=== PATIENT | male | born 1960 | race Caucasian/White ===

== ENCOUNTER 2017-05-05 17:47 | Inpatient (IN) | payer OTHER, SELFPAY ==
[2017-05-05] VITALS (10 sets, daily range): BP systolic 127–165; BP diastolic 88–118; PULSE 77–90; RESP 13–18; TEMP 36.2–36.6; O2SAT 94–98; BMI 30.9; BMI 31.0; BMI 30.4
--- NOTE | 2017-05-05 17:53 | EKG12_ITS ---
Test Reason : CP Blood Pressure : / mmHG Vent. Rate : 092 BPM Atrial Rate : 092 BPM P-R Int : 128 ms QRS Dur : 098 ms QT Int : 368 ms P-R-T Axes : 017 060 054 degrees QTc Int : 455 ms Normal sinus rhythm Normal ECG Confirmed by VEGA HUMPHREY, KHANG ([id number]), offline editor LUCIANO GODINEZ ([id number]) on 05/10/2017 2:52:03 PM Referred By: ROXY/ISAIAS Confirmed By:KHANG FERRARI MD
--- NOTE | 2017-05-05 18:10 | RAD_ITS ---
STUDY: X-RAY CHEST REASON FOR EXAM: Male, 56 years old. Chest pain TECHNIQUE: A single frontal view of the chest was obtained. COMPARISON: September 01, 2016 FINDINGS: The lungs are adequately aerated. There are no focal airspace opacities. There is no demonstrated pleural abnormality. The cardiac silhouette is normal in size. The mediastinum and hilar regions are unremarkable. Normal visualized pulmonary arteries. Normal visualized aortic arch and descending thoracic aorta. There are diffuse degenerative changes of the visualized spine. The visualized ribs, clavicles, and shoulders are unremarkable. There is no demonstrated abnormality of the visualized upper abdomen. RAD/Chest 1 View (Portable) IMPRESSION: No acute cardiopulmonary abnormalities or changes. Electronically Signed: Cris Fitzpatrick MD at 18:49 EST Tel Direct: [phone], Service support ,
[2017-05-05 18:17] LABS: Absolute Lymphocyte Count 2.39 X10^3/ul (0.83-4.51); Absolute Neutrophil Count 5.6 X10^3/uL (2.0-7.7); Eosinophil# 0.53 X10^3/uL; Eosinophils% 5.6 % (0-5); Hematocrit 45.4 % (40-54); Hemoglobin 15.7 g/dl (13.0-16.5); Lymphocyte # 2.39 X10^3/ul (4.0); Lymphocyte % 25.1 % (19-41); Mean Corp Hgb Conc 34.6 g/gl (32-36); Mean Corpuscular Hgb 29.6 pg (27.0-32.0); Mean Corpuscular Volume 85.7 fL (80-94); Mean Platelet Vol. 9.7 fl (6.2-12.0); Monocyte# 0.92 X10^3/uL; Monocyte% 9.6 % (0-10); Neutrophil # 5.56 X10^3/uL (2.7-7.7); Neutrophil % 58.3 % (47-70); Platelet Count 341 K/mm3 (150-450); RBC Distribution Width CV 13.5 % (11.6-14.6); RBC Distribution Width SD 42.1 fl (35.1-43.9); White Blood Count 9.5 K/mm3 (4.4-11.0)
[2017-05-05 18:20] LABS: POSITIVE COUNT NO; POSITIVE DIFFERENTIAL NO; POSITIVE MORPHOLOGY NO
[2017-05-05] MEDS: Aspirin 81 MG TAB.CHEW 324 MG PO (18:36)
[2017-05-05] MEDS: Metoprolol Tartrate 5 MG/5 ML Vial IV (18:37)
[2017-05-05 18:38] LABS: Anion Gap 9 (5-15); BUN 20 mg/dL (7-18); BUN/Creat Ratio 21.7 RATIO (10-20); Calcium,Total 8.8 mg/dL (8.5-10.1); Chloride 103 mmol/L (98-107); Creatinine, Serum 0.92 mg/dL (0.70-1.30); EST Glomerular Filtration Rate 90 mL/min (>60); Est Glom Filt Rate - Afr Amer 109 mL/min (>60); Estimated Creatinine Clearance 87.77 ml/min; Glucose 126 mg/dL (74-106); Potassium 3.9 mmol/L (3.5-5.1); Sodium Level 138 mmol/L (136-145)
[2017-05-05 19:03] LABS: D-Dimer Quantitative (DVT/PE) < 0.27 FEU/ug/m (0.27-0.49)
--- NOTE | 2017-05-05 19:36 | ED.VISSUMM ---
- ER Visit Summary Date of Service: 05/05/17 Chief Complaint: Chest pain History of Present Illness: The patient is a 56 M who presents with chest pain. Patient states that yesterday he was driving back from [place] and had a heaviness sensations just to the left of mid sternum. He denies any other symptoms. Eventually went away. When he woke today he felt very fatigued. Around 230 this afternoon he was at his desk the pain returned. It was made worse when he exerted himself by walking from urgent care to the car and from car into the emergency room. He noted some pain in the left arm earlier today he denies any diaphoresis shortness of breath cough palpitations any leg swelling. He denies any other PE risk factors other than the recent travel. History of anxiety seasonal allergies and asthma. He is adopted and does not know his family history. He is not a tobacco user. No prior cardiac evaluation. Physical Examination: Afebrile vital signs are stable Gen: Well-nourished well-developed obese Head: Normocephalic atraumatic Eyes: Perrl EOMI ENT: TMs clear no rhinorrhea moist mucous membranes Neck: Supple no lymphadenopathy no JVD nontender CVS: Regular rate rhythm no murmurs normal S1-S2 Respiratory: No distress clear to auscultation bilaterally chest nontender Abdomen: Soft nontender nondistended normal bowel sounds no masses Back: Nontender Extremity: Nontender no edema Skin: Normal color no rash Neuro: alert orientated ?3 CN II-XII intact normal strength sensation reflexes gait cerebellar Psych: Normal affect normal mood Test Results: EKG shows a normal sinus rhythm at a rate of 92 without ectopy. This appears unchanged from June 16, 2010. Chest x-ray shows no acute findings. CBC chemistries showed a glucose of 126. Troponin 0 0.02. D-dimer less than 0.27. Emergency Department Course and Treatment: She received a dose of aspirin as well as IV metoprolol. Heart rate and blood pressure improved. His CB score is 1. His heart score is 3. Plan will be observational stay for chest pain. Impression: 1. Chest pain This note was generated with [employer] dictation software. It may contain incorrect words, spelling, and punctuation that were not noted in review of the chart prior to signing ED Disposition - Plan for ED Patient: Chief Complaint: Chest Pain Referrals: Torsten Hyman MD [Primary Care Provider] -
--- NOTE | 2017-05-05 19:39 | ED.DCSUM_ITS ---
- ER Visit Summary Date of Service: 05/05/17 Chief Complaint: Chest pain History of Present Illness: The patient is a 56 M who presents with chest pain. Patient states that yesterday he was driving back from [place] and had a heaviness sensations just to the left of mid sternum. He denies any other symptoms. Eventually went away. When he woke today he felt very fatigued. Around 230 this afternoon he was at his desk the pain returned. It was made worse when he exerted himself by walking from urgent care to the car and from car into the emergency room. He noted some pain in the left arm earlier today he denies any diaphoresis shortness of breath cough palpitations any leg swelling. He denies any other PE risk factors other than the recent travel. History of anxiety seasonal allergies and asthma. He is adopted and does not know his family history. He is not a tobacco user. No prior cardiac evaluation. Physical Examination: Afebrile vital signs are stable Gen: Well-nourished well-developed obese Head: Normocephalic atraumatic Eyes: Perrl EOMI ENT: TMs clear no rhinorrhea moist mucous membranes Neck: Supple no lymphadenopathy no JVD nontender CVS: Regular rate rhythm no murmurs normal S1-S2 Respiratory: No distress clear to auscultation bilaterally chest nontender Abdomen: Soft nontender nondistended normal bowel sounds no masses Back: Nontender Extremity: Nontender no edema Skin: Normal color no rash Neuro: alert orientated ?3 CN II-XII intact normal strength sensation reflexes gait cerebellar Psych: Normal affect normal mood Test Results: EKG shows a normal sinus rhythm at a rate of 92 without ectopy. This appears unchanged from June 16, 2010. Chest x-ray shows no acute findings. CBC chemistries showed a glucose of 126. Troponin 0 0.02. D-dimer less than 0.27. Emergency Department Course and Treatment: She received a dose of aspirin as well as IV metoprolol. Heart rate and blood pressure improved. His CB score is 1. His heart score is 3. Plan will be observational stay for chest pain. Impression: 1. Chest pain This note was generated with [employer] dictation software. It may contain incorrect words, spelling, and punctuation that were not noted in review of the chart prior to signing ED Disposition - Plan for ED Patient: Chief Complaint: Chest Pain Referrals: Torsten Hyman MD [Primary Care Provider] -
--- NOTE | 2017-05-05 20:12 | PCM.HP.STD ---
Problem List (1) Atypical chest pain Status: Acute (2) Mild intermittent asthma Status: Chronic (3) Rheumatoid arthritis Status: Chronic (4) Osteoarthritis Status: Chronic History of Present Illness Date of Admission: 05/05/17 Chief Complaint: Chest pain intermittent for last 2 days The patient is a 56 year old M with history of asthma on Pulmicort/albuterol inhaler and rheumatoid arthritis came to ER for chest pain. Yesterday, chest pain started while he was driving and he thought acid reflux but today he had more stronger chest pain on left side with radiation to left arm and numbness while he was laying on the bed too and that made him worrisome and brought to ER. Further described chest pain as intense, got worse with walking about 200 yards, mild dizziness but no change in breathing/sweating or syncope. He had similar chest pain in 2006 for which he saw Dr. braswell and had a stress test done and was told it is normal and was put on Lipitor at that time In ER, EKG is normal sinus rhythm. [] Initial blood work is within normal limits. Glucose 126 Past Medical History Past Medical History (Chronic Problems): Chronic Problems Mild intermittent asthma (Chronic) Rheumatoid arthritis (Chronic) Osteoarthritis (Chronic) Biliary dyskinesia (Chronic) Allergies Penicillins Allergy (Verified 05/05/17 17:48) Anaphylaxis Home Medications: Ambulatory Orders Medication Instructions Recorded Paroxetine HCl [Paxil] 40 mg PO DAILY 10/07/14 Albuterol IH (ProAir) [Proair Hfa] 2 puff INHALATION Q4H PRN PRN 05/05/17 Budesonide Inhaler 180 mcg 1 - 2 puff INHALATION DAILY 05/05/17 [Pulmicort Inhaler 180 mcg] Paroxetine HCl [Paxil] 20 mg PO QHS 05/05/17 Salmeterol [Serevent Diskus] 1 puff INHALATION DAILY 05/05/17 Sulindac [Sulindac] 200 mg PO BID 05/05/17 Surgical History: appendectomy, arthroscopy, knee Smoking Status: Never smoker - *Family History Paternal History Items: Unknown - As the patient is adopted. Review of Systems Constitutional: Denies: Chills, Fever, Weight Change HEENT: Denies: Head Aches, Sinus Congestion, Sinus Drainage Cardiovascular: Denies: Chest Pain, Palpitations Respiratory: Denies: Cough, Shortness of breath at rest, Sputum production Gastrointestinal: Denies: Abdominal Pain, Nausea, Vomiting Genitourinary: Denies: Dysuria Musculoskeletal: Reports: - - Had fusion surgery of toes for rheumatoid arthritis. And also to use a surgery of lumbar spine. Denies: Joint Pain, Joint Tenderness Skin: Denies: Rash, Wounds Neurological: Denies: Focal weakness, Numbness, Tingling Psychiatric: Denies: Anxiety, Depression, Homicidal Ideations, Suicidal Ideations Hematologic/ Lymphatic: Denies: Easy Bruising, Easy Bleeding VTE Information - Inpt Only VTE Present on Admission: Yes VTE Mechan Device Prophylaxis: SCD's VTE Pharm Prophylaxis ordered?: No Patient Problems: Active and Suspected Problems Atypical chest pain (Acute) - Physical Exam General: Alert, Oriented x3, Cooperative HEENT: Atraumatic, PERRLA, EOMI, Normocephalic Neck: Supple, No JVD, Negative Carotid Bruits Lungs: Clear to auscultation, Normal air movement, No rhonchi, No wheeze, No rales Cardiovascular: Regular rate, Regular Rhythm, Normal S1, Normal S2, No murmurs Abdomen: Bowel Sounds Present, Soft, Non Tender, Non-Distended Extremities: No edema, Capillary Refill Less than 3 Seconds Skin: No rashes, No breakdown Musculoskeletal: No Tenderness to Palpation of Joints or Extremities, Arthritic Changes Neurological: Cranial nerves II-XII grossly intact Psych/Mental Status: Normal Affect, Appropriate Vital Signs Temp Pulse Resp BP Pulse Ox 97.1 F L 80 13 144/96 H 96 05/05/17 19:34 05/05/17 19:34 05/05/17 19:34 05/05/17 19:34 05/05/17 19:34 Assessment/Plan Active and Suspected Problems Atypical chest pain (Acute) The patient is a 56 year old M with history of asthma on Pulmicort/albuterol inhaler and rheumatoid arthritis came to ER for chest pain. Yesterday, chest pain started while he was driving and he thought acid reflux but today he had more stronger chest pain on left side with radiation to left arm and numbness while he was laying on the bed too and that made him worrisome and brought to ER. Further described chest pain as intense, got worse with walking about 200 yards, mild dizziness but no change in breathing/sweating or syncope. He had similar chest pain in 2006 for which he saw Dr. braswell and had a stress test done and was told it is normal and was put on Lipitor at that time In ER, EKG is normal sinus rhythm. [] Initial blood work is within normal limits. Glucose 126. 1. Atypical chest pain, angina in quality: The patient is being admitted on the PCU. On ACS protocol with serial cardiac enzymes and if negative treadmill nuclear stress test tomorrow morning. Currently, he is chest pain-free. Fasting profile tomorrow a.m. 2. Mild intermittent asthma: Stable. Continue home Salmetrol and Pulmicort inhaler. 3. Chronic rheumatoid and osteoarthritis: Continues sulindac 4. DVT prophylaxis, moderate risk on Lovenox 40 mils subcu daily and bilateral SCDs. Code Visit Inpatient E&M: 74256 Init Hosp L3 OBSV E&M: 96518 Initial observation care L3
[2017-05-05] MEDS: Atorvastatin Calcium 40 MG Tablet PO (22:36)
[2017-05-05] MEDS: Enoxaparin 40 MG/0.4 ML Syringe SC (22:36)
[2017-05-05] MEDS: Clopidogrel Bisulfate 75 MG Tablet PO (23:44)
[2017-05-05] MEDS: Nitroglycerin Oint 1 INCH PACKET TRANSDERM. (23:45)
[2017-05-05] MEDS: Metoprolol Tartrate 25 MG Tablet 12.5 MG PO (23:47)
[2017-05-06] VITALS (31 sets, daily range): BP systolic 106–143; BP diastolic 62–93; PULSE 64–86; RESP 10–22; TEMP 36–36.9; O2SAT 93–98; BMI 30.5
[2017-05-06 02:58] LABS: Absolute Lymphocyte Count 2.66 X10^3/ul (0.83-4.51); Absolute Neutrophil Count 5.6 X10^3/uL (2.0-7.7); Eosinophil# 0.56 X10^3/uL; Eosinophils% 5.6 % (0-5); Hemoglobin 14.4 g/dl (13.0-16.5); Lymphocyte # 2.66 X10^3/ul (4.0); Lymphocyte % 26.7 % (19-41); Mean Corp Hgb Conc 34.3 g/gl (32-36); Mean Corpuscular Hgb 29.8 pg (27.0-32.0); Mean Corpuscular Volume 86.8 fL (80-94); Mean Platelet Vol. 9.8 fl (6.2-12.0); Monocyte# 0.99 X10^3/uL; Monocyte% 9.9 % (0-10); Neutrophil # 5.59 X10^3/uL (2.7-7.7); Neutrophil % 56.2 % (47-70); Platelet Count 292 K/mm3 (150-450); RBC Distribution Width CV 13.4 % (11.6-14.6); RBC Distribution Width SD 41.6 fl (35.1-43.9); Red Blood Count 4.84 M/mm3 (4.6-6.2)
[2017-05-06 03:02] LABS: Partial Thromboplast Time 31.2 Seconds (24.1-36.2); Prothrombin Time (Protime)PT. 13.6 SECONDS (11.7-14.9)
[2017-05-06 03:14] LABS: POSITIVE COUNT NO; POSITIVE DIFFERENTIAL NO; POSITIVE MORPHOLOGY NO
[2017-05-06 03:33] LABS: Anion Gap 9 (5-15); BUN 26 mg/dL (7-18); BUN/Creat Ratio 28.7 RATIO (10-20); Calcium,Total 8.3 mg/dL (8.5-10.1); Chloride 106 mmol/L (98-107); Cholesterol 172 mg/dL (200); Creatinine, Serum 0.91 mg/dL (0.70-1.30); EST Glomerular Filtration Rate 92 mL/min (>60); Est Glom Filt Rate - Afr Amer 111 mL/min (>60); Estimated Creatinine Clearance 88.74 ml/min; Glucose 114 mg/dL (74-106); High Density Lipoprotein 32 mg/dL; Potassium 3.8 mmol/L (3.5-5.1); Sodium Level 138 mmol/L (136-145); Thyroid Stim Hormone (TSH) 2.43 uIU/mL (0.358-3.74); Triglycerides 281 mg/dL; Very Low Density Lipoprotein 56 mg/dL (5-40)
[2017-05-06] MEDS: HEPARIN/D5w 25,000 UNITS 25,000 UNITS/250 ML IV.SOLN. 12 UNITS IV (04:14)
[2017-05-06] MEDS: Clopidogrel Bisulfate 75 MG Tablet 225 MG PO (04:16)
--- NOTE | 2017-05-06 05:55 | EKG12_ITS ---
Test Reason : CP Blood Pressure : / mmHG Vent. Rate : 074 BPM Atrial Rate : 074 BPM P-R Int : 154 ms QRS Dur : 098 ms QT Int : 396 ms P-R-T Axes : 038 056 044 degrees QTc Int : 439 ms Normal sinus rhythm Normal ECG When compared with ECG of 16-JUN-2010 20:30, T wave inversion no longer evident in Inferior leads Confirmed by VEGA HUMPHREY, KHANG ([id number]), news copy editor LUCIANO GODINEZ ([id number]) on 05/11/2017 1:52:31 PM Referred By: DANIELLE Confirmed By:KHANG FERRARI MD
[2017-05-06] MEDS: Nitroglycerin Oint 1 INCH PACKET TRANSDERM. ×2 (06:06→21:44)
[2017-05-06] MEDS: Albuterol 2.5 MG/3 ML VIAL.NEB. INHALATION ×2 (07:13→18:43)
[2017-05-06] MEDS: Budesonide Respules 0.5 MG/2 ML AMPUL.NEB. INHALATION ×2 (07:13→18:43)
--- NOTE | 2017-05-06 08:30 | CON.PCM_ITS ---
Problem List (1) NSTEMI (non-ST elevated myocardial infarction) Status: Acute Reason for Consult Date of Consultation: 05/06/17 History of Present Illness: The patient is a 56 year old M with past medical history significant for rheumatoid arthritis and mild asthma. He presented to the emergency room with complaints of anterior chest discomfort that started yesterday. According to him, there is radiation to the left side of the neck and left arm. No associated shortness of breath. Discomfort is exaggerated with exertion. Improved with rest. His first troponin was negative but subsequent troponins have been elevated ruling him in for non-ST elevation myocardial infarction. Per patient, he can recall symptoms like these few weeks ago when he climbed 3 flights of stairs at a hotel. Those symptoms were relieved with rest and did not recur until yesterday started having them at rest as well. [] Past Medical History Allergies/Adverse Reactions: Allergies Penicillins Allergy (Verified 05/05/17 17:48) Anaphylaxis Home Medications: Ambulatory Orders Medication Instructions Recorded Paroxetine HCl [Paxil] 40 mg PO DAILY 10/07/14 Albuterol IH (ProAir) [Proair Hfa] 2 puff INHALATION Q4H PRN PRN 05/05/17 Budesonide Inhaler 180 mcg 1 - 2 puff INHALATION DAILY 05/05/17 [Pulmicort Inhaler 180 mcg] Paroxetine HCl [Paxil] 20 mg PO QHS 05/05/17 Salmeterol [Serevent Diskus] 1 puff INHALATION DAILY 05/05/17 Sulindac [Sulindac] 200 mg PO BID 05/05/17 Past Medical History (Chronic Problems): Chronic Problems Mild intermittent asthma (Chronic) Rheumatoid arthritis (Chronic) Osteoarthritis (Chronic) Biliary dyskinesia (Chronic) Surgical History: appendectomy, arthroscopy, knee - *Family History Paternal History Items: Unknown - As the patient is adopted. Smoking Status: Never smoker Review of Systems - Review of Systems General: Denies: Fever, Weight Loss HEENT: Denies: Vision Change, Sore Throat Cardiovascular: Reports: Chest Discomfort at Rest, Chest Discomfort with Exertion. Denies: Shortness of Breath, Shortness of Breath at Rest, Shortness of Breath with Exertion, Orthopnea, PND, Peripheral Edema Gastrointestinal: Reports: - - History of biliary dyskinesia. Denies: Indigestion, Heart Burn, Jaundice Muscoloskeletal: Reports: Myalgias, - - History of rheumatoid arthritis Neurological: Denies: History of TIA, History of CVA Endocrine: Denies: Heat Intolerance, Cold Intolerance, Unexplained Weight Loss Hematologic/ Lymphatic: Denies: Easy Brusing, Easy Bleeding Subjectve: Comfortable. No apparent distress Objective: Vital Signs Temp Pulse Resp BP Pulse Ox 97.9 F 73 18 118/70 98 05/06/17 06:10 05/06/17 07:00 05/06/17 06:10 05/06/17 06:10 05/06/17 06:10 Oxygen Flow Rate 2 Oxygen Delivery Method Room Air Weight: 91.3 kg Body Mass Index (BMI) 30.4 Intake and Output for Last 24 Hours 05/04/17 05/05/17 05/06/17 23:59 23:59 23:59 Intake Total 240 / 240 Balance 240 / 240 General: Healthy Appearing, Awake, Alert, Oriented x 3, No Acute Distress HEENT: Atraumatic, Normocephalic Oral: Moist Mucosa Neck: Supple, No JVD Lungs: Clear to auscultation Cardiovascular: Regular Rhythm, Normal S1, Normal S2, No Murmurs, No Rubs Vascular: No Carotid Bruits Abdomen: Bowel Sounds Present, Soft Extremities: No Cyanosis, No edema Neurological: No Focal Motor or Sensory Deficit Psych/Mental Status: Appropriate 05/05/17 22:27: Troponin I 0.38 H 05/06/17 02:25: Sodium 138, Potassium 3.8, Chloride 106, Carbon Dioxide 23.0, Anion Gap 9, BUN 26 H, Creatinine 0.91, Est GFR (MDRD) Af Amer 111, Est GFR ( MDRD) Non-Af 92, BUN/Creatinine Ratio 28.7 H, Glucose 114 H, Calcium 8.3 L, Triglycerides 281 H, Cholesterol 172, LDL Cholesterol 84, VLDL Cholesterol 56 H , HDL Cholesterol 32 L 05/06/17 02:25: Troponin I 1.24 H* 05/06/17 02:25: WBC 10.0, RBC 4.84, Hgb 14.4, Hct 42.0, MCV 86.8, MCH 29.8, MCHC 34.3, RDW 13.4, RDW Differential 41.6, Plt Count 292, MPV 9.8, Immature Gran % (Auto) 0.600, Neut % (Auto) 56.2, Lymph % (Auto) 26.7, Lipscomb % (Auto) 9.9 , Eos % (Auto) 5.6 H, Baso % (Auto) 1.0, Absolute Neuts (auto) 5.6, Total Counted Not Reportable 05/06/17 02:25: PT 13.6, INR 1.0, APTT 31.2 05/06/17 07:45: Troponin I 1.66 H* Rhythm: Normal sinus rhythm EKG: Normal sinus rhythm. No ischemic changes noted ECHO: Stress Test: Cardiac Cath: PCI: CT Surgery: Holter monitor: EPS: PPM: CXR: Chest CT Scan: Assessment/Plan 1. Non-ST elevation myocardial infarction. Agree with aspirin and Plavix. Nitrates. Patient was recommended cardiac catheterization with coronary angiography and possible revascularization. Risks benefits and alternatives explained. He understands these and wishes to proceed. Further recommendations will follow results of cardiac catheterization 2. History of rheumatoid arthritis 3. History of asthma 4. Lipid management as per internal medicine
[2017-05-06] MEDS: Aspirin E.C. 81 MG Tablet PO (08:31)
[2017-05-06] MEDS: Metoprolol Tartrate 25 MG Tablet 12.5 MG PO ×2 (08:31→20:47)
[2017-05-06] MEDS: Clopidogrel Bisulfate 75 MG Tablet PO (08:32)
[2017-05-06] MEDS: 0.9% NaCl Peripheral Flush Adult/Peds IV ×3 (08:35→21:46)
--- NOTE | 2017-05-06 10:15 | EKG12_ITS ---
Test Reason : POST PCI Blood Pressure : / mmHG Vent. Rate : 067 BPM Atrial Rate : 067 BPM P-R Int : 162 ms QRS Dur : 092 ms QT Int : 428 ms P-R-T Axes : 027 052 045 degrees QTc Int : 452 ms Normal sinus rhythm Normal ECG When compared with ECG of 06-MAY-2017 02:50, MANUAL COMPARISON REQUIRED, DATA IS UNCONFIRMED Confirmed by VEGA HUMPHREY, KHANG ([id number]), acquisition editor LUCIANO GODINEZ ([id number]) on 05/11/2017 1:53:17 PM Referred By: VICTORIA Confirmed By:KHANG FERRARI MD
[2017-05-06 10:26] LABS: ACT Activated Clotting Time 158 sec (74-137)
[2017-05-06 10:26] LABS: ACT Activated Clotting Time 390 sec (74-137)
--- NOTE | 2017-05-06 10:34 | CL.I_ITS ---
Patient Name: ZEV GONZALEZ Study Date: 05/06/2017 Performing: Desi Nice MD Ht: 68 inches 173 cm : 1960 Wt: 200.9 lbs 91 kg Age: 56 Gender: male BSA: 2.05 PROCEDURE(S) PERFORMED [id number]/COR/LV [id number], CORONARY OR GRAFT, INITIAL VESSEL [id number] W OR WO PTCA, SINGLE CORONARY ARTERY CLINICAL PROFILE AND CO-MORBIDITIES CAD Presentations: Non-STEMI. Symptom onset Date/Time: 05/05/2017 Time Not Available CONCLUSIONS 99% distal Mid RCA 50% Prox OM1 LVEF 65% Successful PTCA/ADA of the distal Mid RCA using Resolute Integrity 3.5x15 mm Post-IVUS showed excellent stent apposition and geometry RECOMMENDATIONS ASA Indefinitley Brilinta for at least 12 months Consider staged PCI to Prox/Mid LAD, preferably with lesion preparation with rotational atherectomy DESCRIPTION OF PROCEDURE The patient arrived to the procedure lab. The risks and benefits of the procedure as well as a full d escription of our services here and lack of surgical backup were fully explained to the patient and/o r their significant other prior to the catheterization. The Timeout was completed, verifying the christal ect patient and procedure. The patient's procedural site was prepped and draped in the usual fashion. Local anesthetic was given subcutaneously to right radial region with Lidocaine 2%. Using a modified Seldinger technique, arterial access was obtained via the right radial artery, a 6Fr sheath was inse rted.. Left Coronary Artery selective angiography was performed in multiple views using a 5 Fr. 4.0 [place] catheter. Right Coronary Artery selective angiography was then performed in multiple views usin g a 5 Fr. 4.0 [place] catheter. Left Ventriculography was performed in [place] projection using a 5 Fr. Pig tail catheter. LV to AO pullback pressures were then recordedThe images were reviewed and options dis cussed. A decision was then made to proceed with an Intervention, IVUS or other adjunct procedure. JR 4 Guide Guide catheter was inserted and engaged into the RCA. Runthrough Guide wire was advanced t o the RCA. 3.0 by 12 emerge Balloon catheter was inserted. Balloon catheter was advanced across lesio n in the right coronary, mid. PTCA balloon inflated at 6 atms for 10 secs PTCA balloon inflated at 6 atms for 6 secs 3.5 by 15 Drug Eluting stent was inserted Drug Eluting stent was advanced across the lesion in the right coronary, mid. IVUS pullback recording was performed on the RCA mid for post PCI assessment 3.5 by 15 NC emerge Balloon catheter was inserted. Balloon catheter was inserted post bry nt.. . The arterial sheath was pulled and a TR Band was applied for hemostasis. CORONARY ANGIOGRAPHY DOMINANCE: Right Dominant LEFT HEART ASSESSMENT Left Ventricular Ejection Fraction: by LV Gram 65 % LVEDP: 9 mmHg LEFT MAIN: Mild luminal irregularities LEFT ANTERIOR DECENDING ARTERY: Prox LAD 50%, heavily calcified; Mid LAD 70%, calcified;distal Mid LA D 60-70% CIRCUMFLEX ARTERY: OM 1: Proximal - 50% RIGHT CORONARY ARTERY: MID RCA: 99% distal Mid INTERVENTION INFORMATION LESION SITE: RCA (Mid) Lesion Complexity: Non-High/Non-C, culprit lesion: Yes, thrombus present: No Pre Stenosis: 99 % Pre intervention CB flow: 3 PROCEDURE: Drug Eluting Stent with pre and post dilatation Post Stenosis: 0 % Post intervention CB flow: 3 Lesion Devices: ChangeCorptronic 6 Fr JR4.0 100cm Guide Catheter Terumo .014 Runthrough Extra Floppy 180cm straight [place] [employer] EMERGE MR 3.00x12 BALLOON Med[employer]onic Resolute RX ADA 3.5x15 [place] Coronary IVUS Catheter [place] [employer] NC EMERGE MR 3.50x15 BALLOON COMPLICATIONS No Complications PROCEDURE MEDICATIONS Fentanyl 50 mcg IV Versed 1 mg IV Versed 1 mg IV Fentanyl 25 mcg IV Oxygen: 2 L/min via nasal cannula Angiomax 5mg / ml 31.5 ml/hr 05/06/2017 09:27:56 Angiomax 31.5 ml/ hour drip 05/06/2017 09:27:56 Brilinta 180 mg PO 05/06/2017 09:33:15 Angiomax 5mg / ml @ ml/hr discontinued @ 05/06/2017 10:11:32 Nitro 200 mcg IC 05/06/2017 09:36:08 Nitro Paste removed 05/06/2017 09:36:14 Nitro 100 mcg IC 05/06/2017 09:43:26 IV Bolus: .9 NaCl 500 ml total 05/06/2017 09:23:24 SUMMARY OF HEMODYNAMIC DATA Time AIR REST ECG 08:56:05 AO 103/72 (86) SA 09:17:24 AO 97/68 (82) 09:28:35 AO 109/79 (93) 09:46:22 LV 110/10, 17 10:00:54 LV 100/3, 9 10:01:01 LVp 112/13, 20 10:02:09 AOp 115/77 (95) 10:02:15 Signed By Desi Nice MD On 05/06/2017 10:34:04 Desi Nice MD
--- NOTE | 2017-05-06 11:18 | PCM.PN.HOSP ---
Patient Problems: Active and Suspected Problems Atypical chest pain (Acute) NSTEMI (non-ST elevated myocardial infarction) (Acute) Subjective: The patient notes minimal focal discomfort <1/10 since cardiac catheterization and stenting, noted prior -12/14, noted still mild pressure like in sensation. He notes feeling remarkable improved. He also notes recent BM and thus mild abdominal bloating, discomfort has also resolved. Patient denies fevers, chills, nausea, emesis, abdominal pain or dyspnea. Objective: Physical Examination: General: awake, alert, oriented x 3 and cooperative, seated upright in the ICU bed in no apparent distress. Skin: normal color, turgor, no icterus, cyanosis, R wrist dressing in place, no drainage. HEENT: AT/NC, EOMI, PERRLA, MMM. Lungs: CTA bilaterally, moderate effort, mild decrease BL bases, no rales, ronchi or wheezing. Heart: Regular rate and rhythm; no gallop, rub audible. Abdomen: soft, obese, NTTP, ND, normal BS. Extremities: no cyanosis, clubbing, or edema. Neurological: patient awake, alert, oriented x 3; cognitive function intact; pupils equally reactive to light and accomodation; cranial nerves II-XII grossly normal, moving all 4 extremities, no focal deficits, strength mildly to moderately globally decreased, expected given recent acute presentation. Psychiatric: affect appears normal, no acute evidence of depressive or anxiety feelings. Vitals/I&O's: Vital Signs Temp Pulse Resp BP Pulse Ox 97.1 F L 67 10 L 113/73 97 05/06/17 10:38 05/06/17 11:00 05/06/17 11:00 05/06/17 11:00 05/06/17 11:00 Oxygen Flow Rate 2 Oxygen Delivery Method Room Air Weight: 203 lb 4.259 oz Body Mass Index (BMI) 30.4 Intake and Output for Last 24 Hours 05/04/17 05/05/17 05/06/17 23:59 23:59 23:59 Intake Total 240 / 240 Balance 240 / 240 Laboratory Results 05/05/17 22:27: Troponin I 0.38 H 05/06/17 02:25: Sodium 138, Potassium 3.8, Chloride 106, Carbon Dioxide 23.0, Anion Gap 9, BUN 26 H, Creatinine 0.91, Estim Creat Clear Calc 88.74, Est GFR (MDRD) Af Amer 111, Est GFR (MDRD) Non-Af 92, BUN/Creatinine Ratio 28.7 H, Glucose 114 H, Calcium 8.3 L, Triglycerides 281 H, Cholesterol 172, LDL Cholesterol 84, VLDL Cholesterol 56 H, HDL Cholesterol 32 L, TSH 2.43 05/06/17 02:25: Troponin I 1.24 H* 05/06/17 02:25: WBC 10.0, RBC 4.84, Hgb 14.4, Hct 42.0, MCV 86.8, MCH 29.8, MCHC 34.3, RDW 13.4, RDW Differential 41.6, Plt Count 292, MPV 9.8, Immature Gran % (Auto) 0.600, Neut % (Auto) 56.2, Lymph % (Auto) 26.7, Gilchrist % (Auto) 9.9, Eos % (Auto) 5.6 H, Baso % (Auto) 1.0, Absolute Neuts (auto) 5.6, Absolute Lymphs (auto) 2.66, Total Counted Not Reportable 05/06/17 02:25: PT 13.6, INR 1.0, APTT 31.2 05/06/17 07:45: Troponin I 1.66 H* 05/06/17 09:17: Activated Clotting Time 158 H 05/06/17 10:05: Activated Clotting Time 390 H Current Medications Albuterol Sulfate (Ventolin Aerosols) 2.5 mg INHALATION Q4H PRN PRN PRN Reason: SOB &/OR WHEEZING Albuterol Sulfate (Ventolin Aerosols) 2.5 mg INHALATION Q6HWA.RT [facility] Last Admin: 05/06/17 07:13 Dose: 2.5 mg Aspirin (Ecotrin) 81 mg PO DAILY@0800 [facility] Last Admin: 05/06/17 08:31 Dose: 81 mg Atorvastatin Calcium (Lipitor) 40 mg PO QHS [facility] Last Admin: 05/05/17 22:36 Dose: 40 mg Atropine Sulfate () 0.5 mg IV UD PRN PRN Reason: HR <50 bpm Budesonide (Pulmicort Aerosol) 0.5 mg INHALATION Q12H.RT [facility] Last Admin: 05/06/17 07:13 Dose: 0.5 mg Sodium Chloride () 1,000 mls @ 150 mls/hr IV .Q6H40M [facility] Stop: 05/06/17 16:54 Isosorbide Mononitrate (Imdur) 30 mg PO DAILY [facility] Metoprolol Tartrate (Lopressor (Beta Wade)) 12.5 mg PO BID [facility] Last Admin: 05/06/17 08:31 Dose: 12.5 mg Morphine Sulfate (Morphine) 2 mg IV Q3H PRN PRN PRN Reason: SEVERE PAIN (6-10/10) Last Admin: 05/06/17 04:16 Dose: 2 mg Nitroglycerin (Nitrostat) 0.4 mg SUBLINGUAL Q5M PRN PRN Reason: CHEST PAIN Paroxetine HCl (Paxil) 20 mg PO QHS [facility] Last Admin: 05/05/17 22:23 Dose: Not Given Paroxetine HCl (Paxil) 40 mg PO DAILY [facility] Last Admin: 05/06/17 08:32 Dose: 40 mg Sodium Chloride () 5 - 30 ml IV UD PRN PRN Reason: SALINE FLUSH Last Admin: 05/06/17 08:44 Dose: 10 ml Sodium Chloride () 500 ml IV BOLUS PRN PRN Reason: VASO-VAGAL PROTOCOL Sulindac (Clinoril) 200 mg PO BID PRN PRN PRN Reason: JOINT PAIN Last Admin: 05/06/17 08:32 Dose: 200 mg Ticagrelor (Brilinta) 90 mg PO BID [facility] Assessment/Plan Active and Suspected Problems Atypical chest pain (Acute) NSTEMI (non-ST elevated myocardial infarction) (Acute) The patient is a 56 y/o M w/ PMHx: Asthma, Rheumatoid Arthritis, OA, Biliary Dyskinesia, Obesity, Anxiety and Depression, HTN who presents to the (1) Chest Pain w/ Acute NSTEMI: EKG in ED w/ SR without acute evidence of ischemia, CXR w/ no acute process, Trop initially 0.02. Admitted to the PCU, maintained on a monitored bed, continued serial cardiac enzyme trending with 0.02-->0.38-->1.24-->1.66. Serial EKGs obtained. Cardiology consulted given NSTEMI, evaluation with 05/06/17 Cardiac catheterization with noted distal mid RCA disease 99% stenosis, heavily calcified proximal and mid LAD 70% stenosis, proximal OM1 50% stenosis, EF 65% with successful PTCA/ADA of the distal mid RCA with planned indefinite 81 mg asa daily, brillinta x 12 months, planned staged PCI to prox/mid-LAD. Possible re-intervention in the next 4-6 weeks per discussion with Patient. Maintain on current medical therapy including asa, brillinta, metoprolol, imdur, statin. ASA, NG, morphine. ECHO ordered per Cardiology, awaiting results. Likely plan discharge to home 05/07/17 pending Cardiology clearance. Patient noting plans for travel in ~ 1-2 weeks, deferred to Cardiology for clearance. (2) Asthma: Maintain on pulmicort, albuterol, PRN albuterol, HOB, IS. (3) Elevated BP without HTN Dx and concurrent NSTEMI (#1): Maintained on metoprolol, imdur, PRN hydralazine. (4) Hyperlipidemia: Maintain on statin, FLP w/ TG 281, TChol 172, LDL 84, VLDL 56, HDL 32. (5) Anxiety and Depression: Maintain on home paxil regimen. (6) GERD: Famotidine. (7) DVT Prophylaxis: SCDs, given recent intervention w/ PCI, defer anticoagulation to Cardiology. Code Visit Inpatient E&M: 63680 Subs Hosp L3
[2017-05-06] MEDS: 0.9% Normal Saline 1,000 ML 150 ML IV (11:24)
[2017-05-06] MEDS: Isosorbide Mononitrate 30 MG Tablet PO (12:55)
--- NOTE | 2017-05-06 14:56 | CRPHASE1 ---
Patient Data/Charges Girl Friday:: Desi Nice Refer Phase II:: Yes Admit Date:: 05/06/17 Phase II Referral:: [facility] Risk Factors/Lifestyle Hx Hypertension: Yes Hx Dyslipidemia: Yes Hx Obesity: Yes Height: 1.73 m Weight:: 91.172 kg BMI: 30.5 Stress: Long-standing Laboratory Values: Cardiac Rehab Phase I Labs Triglycerides 281 mg/dL (-199) H 05/06/17 02:25 Cholesterol 172 mg/dL (200) 05/06/17 02:25 LDL Cholesterol 84 mg/dL (0-130) 05/06/17 02:25 HDL Cholesterol 32 mg/dL (40-) L 05/06/17 02:25 Knowledge of Condition:: Yes Learning Preferences: Verbal, Written, Audio/Visual, Demonstration Hospital Course Presenting Symptoms:: CP Cardiac Cath Date:: 05/06/17 Medical/Surgical History Pulmonary:: Yes Asthma:: Yes Arthritis:: Yes PTCA:: Yes Discharge/Home/Social Eval Discharge Disposition: Home
--- NOTE | 2017-05-06 14:59 | CRPHASE1_ITS ---
Patient Data/Charges [employer] Technician:: Desi Nice Refer Phase II:: Yes Admit Date:: 05/06/17 Phase II Referral:: [facility] Risk Factors/Lifestyle Hx Hypertension: Yes Hx Dyslipidemia: Yes Hx Obesity: Yes Height: 1.73 m Weight:: 91.172 kg BMI: 30.5 Stress: Long-standing Laboratory Values: Cardiac Rehab Phase I Labs Triglycerides 281 mg/dL (-199) H 05/06/17 02:25 Cholesterol 172 mg/dL (200) 05/06/17 02:25 LDL Cholesterol 84 mg/dL (0-130) 05/06/17 02:25 HDL Cholesterol 32 mg/dL (40-) L 05/06/17 02:25 Knowledge of Condition:: Yes Learning Preferences: Verbal, Written, Audio/Visual, Demonstration Hospital Course Presenting Symptoms:: CP Cardiac Cath Date:: 05/06/17 Medical/Surgical History Pulmonary:: Yes Asthma:: Yes Arthritis:: Yes PTCA:: Yes Discharge/Home/Social Eval Discharge Disposition: Home
--- NOTE | 2017-05-06 15:01 | CRPH1.INST_ITS ---
General Education CAD and cardiac anatomy and function:: Patient communicates acknowledgment Explanation of diagnoses and procedures:: Patient communicates acknowledgment Sign/Symptoms of IL:: Patient communicates acknowledgment Antiplatelet therapy: Patient communicates acknowledgment Proper use of NTG-SL: Not instructed Emergency procedures and activation of EMS: Patient communicates acknowledgment Compliance of all prescribed medications: Patient communicates acknowledgment Smoking Patient Nicotine/Smoking Risk Factors Are:: Non-smoker Nicotine/Smoking Response Code:: Patient communicates acknowledgment Dyslipidemia Dyslipidemia Response Code:: Patient communicates acknowledgment Overweight/Obesity Recommendations Include:: Weight loss of 5-10%, Reduced calorie diet, Exercise 5 -7 times/week Overweight/Obesity:: Patient communicates acknowledgment Hypertension Recommendations Include:: Maintain BP <130/85, BP <130/80 if diabetic, DASH dietary guidelines, Decrease/maintain normal body weight, Moderation of ETOH Hypertension:: Patient communicates acknowledgment Heart Disease Recommendations Include:: Educated family members of their risk, Educated family members of importance of prevention of heart disease Heart Disease Response Code:: Patient communicates acknowledgment Diabetes Patient Diabetes Risk Factors Are:: No documented hx of diabetes Diabetes:: Patient communicates acknowledgment Metabolic Syndrome Recommendations Include:: Does not meet criteria Metabolic Syndrome Response Code:: Patient communicates acknowledgment Sedentary Patient Sedentary Risk Factors Are:: Lack of regular exercise Recommendations Include:: Aerobic exercise 5-7 times/week for 20-30 minutes continuously, Benefits of regular exercise, Discussed home walking program, Monitored Outpatient Cardiac Rehab Sedentary Response Code:: Patient communicates acknowledgment Stress Patient Stress Risk Factors Are:: Patient denies stress as a risk factor Recommendations Include:: Identification of stressors, and assessment of coping skills, Stress management techniques Stress Response Code:: Patient communicates acknowledgment
[2017-05-06 16:46] LABS: Magnesium 2.1 mg/dL (1.6-2.6)
[2017-05-06] MEDS: TICAGRELOR 90 MG TABLET PO (20:30)
[2017-05-06] MEDS: Atorvastatin Calcium 40 MG Tablet PO (20:47)
--- NOTE | 2017-05-06 20:52 | EKG12_ITS ---
Test Reason : CP Blood Pressure : / mmHG Vent. Rate : 072 BPM Atrial Rate : 072 BPM P-R Int : 158 ms QRS Dur : 102 ms QT Int : 404 ms P-R-T Axes : 028 047 029 degrees QTc Int : 442 ms Normal sinus rhythm Normal ECG When compared with ECG of 06-MAY-2017 10:30, MANUAL COMPARISON REQUIRED, DATA IS UNCONFIRMED Confirmed by VEGA HUMPHREY, KHANG ([id number]), design editor LUCIANO GODINEZ ([id number]) on 05/11/2017 1:49:31 PM Referred By: JARETH Confirmed By:KHANG FERRARI MD
[2017-05-06] MEDS: fentaNYL 100 MCG/2 ML Ampul 25 MCG IV (21:46)
[2017-05-07] VITALS (13 sets, daily range): BP systolic 106–146; BP diastolic 64–90; PULSE 67–83; RESP 12–23; TEMP 36.4–36.9; O2SAT 94–98
[2017-05-07 04:50] LABS: Hematocrit 39.9 % (40-54); Hemoglobin 13.7 g/dl (13.0-16.5); Mean Corp Hgb Conc 34.3 g/gl (32-36); Mean Corpuscular Hgb 29.8 pg (27.0-32.0); Mean Corpuscular Volume 86.7 fL (80-94); Mean Platelet Vol. 9.4 fl (6.2-12.0); Platelet Count 261 K/mm3 (150-450); RBC Distribution Width CV 13.4 % (11.6-14.6); RBC Distribution Width SD 41.5 fl (35.1-43.9); Scan Indicated on CBC? Y/N NO; White Blood Count 10.2 K/mm3 (4.4-11.0)
[2017-05-07 05:06] LABS: ALB/GLOB Ratio 1.2 RATIO (0.9-2.4); AST(SGOT) 33 U/L (15-37); Alanine Aminotransfer ALT/SGPT 40 U/L (16-61); Albumin, Serum 3.5 g/dL (3.2-5.0); Alkaline Phosphatase 106 U/L (45-117); Anion Gap 7 (5-15); BUN 17 mg/dL (7-18); BUN/Creat Ratio 20.4 RATIO (10-20); Calcium,Total 8.1 mg/dL (8.5-10.1); Chloride 108 mmol/L (98-107); Creatinine, Serum 0.83 mg/dL (0.70-1.30); EST Glomerular Filtration Rate 102 mL/min (>60); Est Glom Filt Rate - Afr Amer 123 mL/min (>60); Estimated Creatinine Clearance 97.29 ml/min; Globulin 2.9 g/dL (2.2-4.2); Glucose 93 mg/dL (74-106); Potassium 4.2 mmol/L (3.5-5.1); Protein, Total 6.4 g/dL (6.4-8.2); Sodium Level 140 mmol/L (136-145)
--- NOTE | 2017-05-07 05:55 | EKG12_ITS ---
Test Reason : MORNING EKG Blood Pressure : / mmHG Vent. Rate : 072 BPM Atrial Rate : 072 BPM P-R Int : 158 ms QRS Dur : 094 ms QT Int : 410 ms P-R-T Axes : 044 057 045 degrees QTc Int : 448 ms Normal sinus rhythm Normal ECG When compared with ECG of 06-MAY-2017 10:30, MANUAL COMPARISON REQUIRED, DATA IS UNCONFIRMED Confirmed by VEGA HUMPHREY, KHANG ([id number]), assignment editor LUCIANO GODINEZ ([id number]) on 05/11/2017 1:49:11 PM Referred By: RIGO Confirmed By:KHANG FERRARI MD
[2017-05-07] MEDS: Budesonide Respules 0.5 MG/2 ML AMPUL.NEB. INHALATION (07:19)
[2017-05-07] MEDS: Albuterol 2.5 MG/3 ML VIAL.NEB. INHALATION (07:19)
--- NOTE | 2017-05-07 08:12 | PCM.PN.HOSP ---
Patient Problems: Active and Suspected Problems Atypical chest pain (Acute) NSTEMI (non-ST elevated myocardial infarction) (Acute) Subjective: Patient overnight with onset L sided chest pain, similar type, noted 3-06/14, resolved with nitropaste administration, no further pain noted. He denied any associated symptoms. Patient denies fevers, chills, nausea, emesis, abdominal pain or dyspnea. Objective: General: awake, alert, oriented x 3 and cooperative, seated upright in the ICU bed in no apparent distress. Skin: normal color, turgor, no icterus, cyanosis, R wrist dressing in place, no drainage. HEENT: AT/NC, EOMI, PERRLA, MMM. Lungs: CTA bilaterally, moderate effort, mild decrease BL bases, no rales, ronchi or wheezing. Heart: Regular rate and rhythm; no gallop, rub audible. Abdomen: soft, obese, NTTP, ND, normal BS. Extremities: no cyanosis, clubbing, or edema. Neurological: patient awake, alert, oriented x 3; cognitive function intact; pupils equally reactive to light and accomodation; cranial nerves II-XII grossly normal, moving all 4 extremities, no focal deficits, strength improved, mildly globally decreased. Psychiatric: affect appears normal, no acute evidence of depressive or anxiety feelings. Vitals/I&O's: Vital Signs Temp Pulse Resp BP Pulse Ox 97.6 F L 82 17 142/83 H 97 05/07/17 07:58 05/07/17 07:58 05/07/17 07:58 05/07/17 07:58 05/07/17 07:58 Oxygen Flow Rate 2 Oxygen Delivery Method Room Air Weight: 197 lb 15.602 oz Body Mass Index (BMI) 30.4 Intake and Output for Last 24 Hours 05/05/17 05/06/17 05/07/17 23:59 23:59 23:59 Intake Total 240 / 240 1502 / 1502 600 / 600 Balance 240 / 240 1502 / 1502 600 / 600 Laboratory Results 05/06/17 07:45: Troponin I 1.66 H* 05/06/17 07:45: Magnesium 2.1 05/06/17 09:17: Activated Clotting Time 158 H 05/06/17 10:05: Activated Clotting Time 390 H 05/07/17 04:30: WBC 10.2, RBC 4.60, Hgb 13.7, Hct 39.9 L, MCV 86.7, MCH 29.8, MCHC 34.3, RDW 13.4, RDW Differential 41.5, Plt Count 261, MPV 9.4 05/07/17 04:30: Sodium 140, Potassium 4.2, Chloride 108 H, Carbon Dioxide 25.0, Anion Gap 7, BUN 17, Creatinine 0.83, Estim Creat Clear Calc 97.29, Est GFR (MDRD) Af Amer 123, Est GFR (MDRD) Non-Af 102, BUN/Creatinine Ratio 20.4 H, Glucose 93, Calcium 8.1 L, Total Bilirubin 0.40, AST 33, ALT 40, Alkaline Phosphatase 106, Total Protein 6.4, Albumin 3.5, Globulin 2.9, Albumin/Globulin Ratio 1.2 Current Medications Albuterol Sulfate (Ventolin Aerosols) 2.5 mg INHALATION Q4H PRN PRN PRN Reason: SOB &/OR WHEEZING Albuterol Sulfate (Ventolin Aerosols) 2.5 mg INHALATION Q6HWA.RT [facility] Last Admin: 05/07/17 07:19 Dose: 2.5 mg Aspirin (Ecotrin) 81 mg PO DAILY@0800 [facility] Last Admin: 05/06/17 08:31 Dose: 81 mg Atorvastatin Calcium (Lipitor) 40 mg PO QHS [facility] Last Admin: 05/06/17 20:47 Dose: 40 mg Atropine Sulfate () 0.5 mg IV UD PRN PRN Reason: HR <50 bpm Budesonide (Pulmicort Aerosol) 0.5 mg INHALATION Q12H.RT [facility] Last Admin: 05/07/17 07:19 Dose: 0.5 mg Isosorbide Mononitrate (Imdur) 30 mg PO DAILY [facility] Last Admin: 05/06/17 12:55 Dose: 30 mg Metoprolol Tartrate (Lopressor (Beta Wade)) 12.5 mg PO BID [facility] Last Admin: 05/06/17 20:47 Dose: 12.5 mg Morphine Sulfate (Morphine) 2 mg IV Q4H PRN PRN PRN Reason: PAIN Nitroglycerin (Nitrostat) 0.4 mg SUBLINGUAL Q5M PRN PRN Reason: CHEST PAIN Nitroglycerin (Nitrobid) 1 inch TRANSDERM. Q6 [facility] Paroxetine HCl (Paxil) 20 mg PO QHS [facility] Last Admin: 05/06/17 19:47 Dose: 20 mg Paroxetine HCl (Paxil) 40 mg PO DAILY [facility] Last Admin: 05/06/17 08:32 Dose: 40 mg Sodium Chloride () 5 - 30 ml IV UD PRN PRN Reason: SALINE FLUSH Last Admin: 05/06/17 21:46 Dose: 10 ml Sodium Chloride () 500 ml IV BOLUS PRN PRN Reason: VASO-VAGAL PROTOCOL Sulindac (Clinoril) 200 mg PO BID PRN PRN PRN Reason: JOINT PAIN Last Admin: 05/06/17 20:31 Dose: 200 mg Ticagrelor (Brilinta) 90 mg PO BID [facility] Last Admin: 05/06/17 20:30 Dose: 90 mg Assessment/Plan Active and Suspected Problems Atypical chest pain (Acute) NSTEMI (non-ST elevated myocardial infarction) (Acute) The patient is a 56 y/o M w/ PMHx: Asthma, Rheumatoid Arthritis, OA, Biliary Dyskinesia, Obesity, Anxiety and Depression, HTN who presents to the (1) Chest Pain w/ Acute NSTEMI: EKG in ED w/ SR without acute evidence of ischemia, CXR w/ no acute process, Trop initially 0.02. Admitted to the PCU, maintained on a monitored bed, continued serial cardiac enzyme trending with 0.02-->0.38-->1.24-->1.66. Serial EKGs obtained. Cardiology consulted given NSTEMI, evaluation with 05/06/17 Cardiac catheterization with noted distal mid RCA disease 99% stenosis, heavily calcified proximal and mid LAD 70% stenosis, proximal OM1 50% stenosis, EF 65% with successful PTCA/ADA of the distal mid RCA with planned indefinite 81 mg asa daily, brillinta x 12 months, planned staged PCI to prox/mid-LAD. Possible re-intervention in the next 4-6 weeks per discussion with Patient. 05/06- overnight chest pain, resolved after nitropaste administration, will alter current regimen w/ increasedx imdur and increased metoprolol, continue asa, brillinta, statin. ECHO ordered, pending for today. Plan likely discharge later today pending ECHO and also resolution of chest pain with current regimen changes, no exertional discomfort. Discussed again with patient need to discuss upcoming plans for travel in ~ 1-2 weeks for Cardiology for clearance. Discussed medication changes w/ Dr. Nice. (2) Asthma: Maintain on pulmicort, albuterol, PRN albuterol, HOB, IS. (3) Elevated BP without HTN Dx and concurrent NSTEMI (#1): Maintained on metoprolol, imdur but increased 05/07/17, PRN hydralazine. (4) Hyperlipidemia: Maintain on statin, FLP w/ TG 281, TChol 172, LDL 84, VLDL 56, HDL 32. (5) Anxiety and Depression: Maintain on home paxil regimen. (6) GERD: Famotidine. (7) DVT Prophylaxis: SCDs, given recent intervention w/ PCI, defer anticoagulation to Cardiology.
--- NOTE | 2017-05-07 08:18 | PN_ITS ---
Patient Problems: Active and Suspected Problems Atypical chest pain (Acute) NSTEMI (non-ST elevated myocardial infarction) (Acute) Subjective: Patient overnight with onset L sided chest pain, similar type, noted 3-06/14, resolved with nitropaste administration, no further pain noted. He denied any associated symptoms. Patient denies fevers, chills, nausea, emesis, abdominal pain or dyspnea. Objective: General: awake, alert, oriented x 3 and cooperative, seated upright in the ICU bed in no apparent distress. Skin: normal color, turgor, no icterus, cyanosis, R wrist dressing in place, no drainage. HEENT: AT/NC, EOMI, PERRLA, MMM. Lungs: CTA bilaterally, moderate effort, mild decrease BL bases, no rales, ronchi or wheezing. Heart: Regular rate and rhythm; no gallop, rub audible. Abdomen: soft, obese, NTTP, ND, normal BS. Extremities: no cyanosis, clubbing, or edema. Neurological: patient awake, alert, oriented x 3; cognitive function intact; pupils equally reactive to light and accomodation; cranial nerves II-XII grossly normal, moving all 4 extremities, no focal deficits, strength improved, mildly globally decreased. Psychiatric: affect appears normal, no acute evidence of depressive or anxiety feelings. Vitals/I&O's: Vital Signs Temp Pulse Resp BP Pulse Ox 97.6 F L 82 17 142/83 H 97 05/07/17 07:58 05/07/17 07:58 05/07/17 07:58 05/07/17 07:58 05/07/17 07:58 Oxygen Flow Rate 2 Oxygen Delivery Method Room Air Weight: 197 lb 15.602 oz Body Mass Index (BMI) 30.4 Intake and Output for Last 24 Hours 05/05/17 05/06/17 05/07/17 23:59 23:59 23:59 Intake Total 240 / 240 1502 / 1502 600 / 600 Balance 240 / 240 1502 / 1502 600 / 600 Laboratory Results 05/06/17 07:45: Troponin I 1.66 H* 05/06/17 07:45: Magnesium 2.1 05/06/17 09:17: Activated Clotting Time 158 H 05/06/17 10:05: Activated Clotting Time 390 H 05/07/17 04:30: WBC 10.2, RBC 4.60, Hgb 13.7, Hct 39.9 L, MCV 86.7, MCH 29.8, MCHC 34.3, RDW 13.4, RDW Differential 41.5, Plt Count 261, MPV 9.4 05/07/17 04:30: Sodium 140, Potassium 4.2, Chloride 108 H, Carbon Dioxide 25.0, Anion Gap 7, BUN 17, Creatinine 0.83, Estim Creat Clear Calc 97.29, Est GFR ( MDRD) Af Amer 123, Est GFR (MDRD) Non-Af 102, BUN/Creatinine Ratio 20.4 H, Glucose 93, Calcium 8.1 L, Total Bilirubin 0.40, AST 33, ALT 40, Alkaline Phosphatase 106, Total Protein 6.4, Albumin 3.5, Globulin 2.9, Albumin/Globulin Ratio 1.2 Current Medications Albuterol Sulfate (Ventolin Aerosols) 2.5 mg INHALATION Q4H PRN PRN PRN Reason: SOB &/OR WHEEZING Albuterol Sulfate (Ventolin Aerosols) 2.5 mg INHALATION Q6HWA.RT [facility] Last Admin: 05/07/17 07:19 Dose: 2.5 mg Aspirin (Ecotrin) 81 mg PO DAILY@0800 [facility] Last Admin: 05/06/17 08:31 Dose: 81 mg Atorvastatin Calcium (Lipitor) 40 mg PO QHS [facility] Last Admin: 05/06/17 20:47 Dose: 40 mg Atropine Sulfate () 0.5 mg IV UD PRN PRN Reason: HR <50 bpm Budesonide (Pulmicort Aerosol) 0.5 mg INHALATION Q12H.RT [facility] Last Admin: 05/07/17 07:19 Dose: 0.5 mg Isosorbide Mononitrate (Imdur) 30 mg PO DAILY [facility] Last Admin: 05/06/17 12:55 Dose: 30 mg Metoprolol Tartrate (Lopressor (Beta Wade)) 12.5 mg PO BID [facility] Last Admin: 05/06/17 20:47 Dose: 12.5 mg Morphine Sulfate (Morphine) 2 mg IV Q4H PRN PRN PRN Reason: PAIN Nitroglycerin (Nitrostat) 0.4 mg SUBLINGUAL Q5M PRN PRN Reason: CHEST PAIN Nitroglycerin (Nitrobid) 1 inch TRANSDERM. Q6 [facility] Paroxetine HCl (Paxil) 20 mg PO QHS [facility] Last Admin: 05/06/17 19:47 Dose: 20 mg Paroxetine HCl (Paxil) 40 mg PO DAILY [facility] Last Admin: 05/06/17 08:32 Dose: 40 mg Sodium Chloride () 5 - 30 ml IV UD PRN PRN Reason: SALINE FLUSH Last Admin: 05/06/17 21:46 Dose: 10 ml Sodium Chloride () 500 ml IV BOLUS PRN PRN Reason: VASO-VAGAL PROTOCOL Sulindac (Clinoril) 200 mg PO BID PRN PRN PRN Reason: JOINT PAIN Last Admin: 05/06/17 20:31 Dose: 200 mg Ticagrelor (Brilinta) 90 mg PO BID [facility] Last Admin: 05/06/17 20:30 Dose: 90 mg Assessment/Plan Active and Suspected Problems Atypical chest pain (Acute) NSTEMI (non-ST elevated myocardial infarction) (Acute) The patient is a 56 y/o M w/ PMHx: Asthma, Rheumatoid Arthritis, OA, Biliary Dyskinesia, Obesity, Anxiety and Depression, HTN who presents to the (1) Chest Pain w/ Acute NSTEMI: EKG in ED w/ SR without acute evidence of ischemia, CXR w/ no acute process, Trop initially 0.02. Admitted to the PCU, maintained on a monitored bed, continued serial cardiac enzyme trending with 0.02-->0.38-->1.24-->1.66. Serial EKGs obtained. Cardiology consulted given NSTEMI, evaluation with 05/06/17 Cardiac catheterization with noted distal mid RCA disease 99% stenosis, heavily calcified proximal and mid LAD 70% stenosis, proximal OM1 50% stenosis, EF 65% with successful PTCA/ADA of the distal mid RCA with planned indefinite 81 mg asa daily, brillinta x 12 months, planned staged PCI to prox/mid-LAD. Possible re-intervention in the next 4-6 weeks per discussion with Patient. 05/06- overnight chest pain, resolved after nitropaste administration, will alter current regimen w/ increasedx imdur and increased metoprolol, continue asa, brillinta, statin. ECHO ordered, pending for today. Plan likely discharge later today pending ECHO and also resolution of chest pain with current regimen changes, no exertional discomfort. Discussed again with patient need to discuss upcoming plans for travel in ~ 1-2 weeks for Cardiology for clearance. Discussed medication changes w/ Dr. Nice. (2) Asthma: Maintain on pulmicort, albuterol, PRN albuterol, HOB, IS. (3) Elevated BP without HTN Dx and concurrent NSTEMI (#1): Maintained on metoprolol, imdur but increased 05/07/17, PRN hydralazine. (4) Hyperlipidemia: Maintain on statin, FLP w/ TG 281, TChol 172, LDL 84, VLDL 56, HDL 32. (5) Anxiety and Depression: Maintain on home paxil regimen. (6) GERD: Famotidine. (7) DVT Prophylaxis: SCDs, given recent intervention w/ PCI, defer anticoagulation to Cardiology.
--- NOTE | 2017-05-07 08:40 | PCM.DC ---
- Discharge Diagnoses Current Active Problems: Current Active and Chronic Problems Atypical chest pain (Acute) Mild intermittent asthma (Chronic) Rheumatoid arthritis (Chronic) Osteoarthritis (Chronic) NSTEMI (non-ST elevated myocardial infarction) (Acute) (1) Chest Pain w/ Acute NSTEMI with CAD w/ noted distal mid RCA disease 99% stenosis, heavily calcified proximal and mid LAD 70% stenosis, proximal OM1 50% stenosis, EF 65% with successful PTCA/ADA of the distal mid RCA with possible re-intervention in the next 4-6 weeks. (3) Elevated BP without HTN Dx Prior, New diagnosis Hypertension (4) Hyperlipidemia (5) Anxiety and Depressio (6) GERD (7) Obesity You will use the following diet at home:: Cardiac Your food should be the consistency of: Regular Your liquids should be the consistency of: Regular/Thin Discharge Activity: - - See activity parameters below or as otherwise directed per Cardiology. May resume sexual activity in: 1-2 weeks Weight Bearing Status: Weight bearing as tolerated Keep extremity elevated above heart level: Operative Extremity Call your doctor if your incision/area has: Continuous Slow Oozing, Sudden Increased Bleeding, Increased Pain/ Swelling, Increased Redness, Foul Smelling Discharge, Swelling at the incision site Call your doctor if you observe: Fever of 101 or Higher, Change in Color, Inability to urinate, Inability to have a bowel movement, Shortness of breath, Dizziness, Fainting spells, Chest pain, Uncontrolled pain Instructions: Symptoms of a Heart Attack, First Aid: Heart Attacks, Recognizing a Heart Attack or Angina, Understanding Coronary Artery Disease (CAD), What Is High Blood Pressure?, Discharge Instructions for Heart Attack, Taking Blood Thinners After Percutaneous Coronary Intervention (PCI), Follow-up Appointment After Percutaneous Coronary Intervention (PCI), Lifestyle Management After Percutaneous Coronary Intervention (PCI) Additional Instructions: CARDIOLOGY PCI CATH INSTRUCTIONS. Lifting: Must be less than 5 lbs for 5 days, No restrictions after 14 days. Shower: Yes. Climb stairs: Yes. Bathing in tub or submerged water: No, until cleared per Cardiology at follow-up (call office if any concerns [phone] and may leave voicemail if after hours). Walkin minutes 3 times daily, increase as tolerated once allowed per Cardiology. Driving: Resume in 7 days. Sexual activity: Resume in 14 days. Regular activity: Resume 14 days. Please contact Cardiology immediately if you have any concerns or questions regarding your medications Allergies/Adverse Reactions: Allergies Penicillins Allergy (Verified 05/05/17 17:48) Anaphylaxis Medications to take at Discharge Paroxetine HCl [Paxil] 40 mg PO DAILY 10/07/14 Albuterol IH (ProAir) [Proair Hfa] 2 puff INHALATION Q4H PRN PRN 05/05/17 Budesonide Inhaler 180 mcg [Pulmicort Inhaler 180 mcg] 1 - 2 puff INHALATION DAILY 05/05/17 Paroxetine HCl [Paxil] 20 mg PO QHS 05/05/17 Salmeterol [Serevent Diskus] 1 puff INHALATION DAILY 05/05/17 Aspirin E.C. [Ecotrin] 81 mg PO DAILY@0800 #30 tab 05/07/17 Atorvastatin Calcium [Lipitor] 40 mg PO QHS #30 tab 05/07/17 Famotidine 20 mg PO BID #60 tab 05/07/17 Isosorbide Mononitrate [Imdur] 60 mg PO DAILY #30 tab 05/07/17 Metoprolol Tartrate [Lopressor (beta dunia)] 25 mg PO BID #60 tab 05/07/17 Nitroglycerin [Nitrostat] 0.4 mg SUBLINGUAL Q5M PRN #10 tab 05/07/17 Ticagrelor [Brilinta] 90 mg PO BID #60 tab 05/07/17 The following prescriptions were given: Aspirin E.C. [Ecotrin] 81 mg PO DAILY@0800 #30 tab Atorvastatin Calcium [Lipitor] 40 mg PO QHS #30 tab Isosorbide Mononitrate [Imdur] 60 mg PO DAILY #30 tab Nitroglycerin [Nitrostat] 0.4 mg SUBLINGUAL Q5M PRN #10 tab PRN Reason: Chest Pain Famotidine 20 mg PO BID #60 tab Metoprolol Tartrate [Lopressor (beta dunia)] 25 mg PO BID #60 tab Ticagrelor [Brilinta] 90 mg PO BID #60 tab Primary Care Physician: Torsten Hyman MD [Primary Care Provider] - Please follow up with your Primary Care Physician in: Follow-up within 3-5 days to review admission, new medication additions. Please Follow Up With: [facility] When: Follow-up 1 week following discharge or per Cardiology direction. Proposed Discharge Date: 05/07/17
--- NOTE | 2017-05-07 08:47 | DCINST_ITS ---
- Discharge Diagnoses Current Active Problems: Current Active and Chronic Problems Atypical chest pain (Acute) Mild intermittent asthma (Chronic) Rheumatoid arthritis (Chronic) Osteoarthritis (Chronic) NSTEMI (non-ST elevated myocardial infarction) (Acute) (1) Chest Pain w/ Acute NSTEMI with CAD w/ noted distal mid RCA disease 99% stenosis, heavily calcified proximal and mid LAD 70% stenosis, proximal OM1 50% stenosis, EF 65% with successful PTCA/ADA of the distal mid RCA with possible re -intervention in the next 4-6 weeks. (3) Elevated BP without HTN Dx Prior, New diagnosis Hypertension (4) Hyperlipidemia (5) Anxiety and Depressio (6) GERD (7) Obesity You will use the following diet at home:: Cardiac Your food should be the consistency of: Regular Your liquids should be the consistency of: Regular/Thin Discharge Activity: - - See activity parameters below or as otherwise directed per Cardiology. May resume sexual activity in: 1-2 weeks Weight Bearing Status: Weight bearing as tolerated Keep extremity elevated above heart level: Operative Extremity Call your doctor if your incision/area has: Continuous Slow Oozing, Sudden Increased Bleeding, Increased Pain/ Swelling, Increased Redness, Foul Smelling Discharge, Swelling at the incision site Call your doctor if you observe: Fever of 101 or Higher, Change in Color, Inability to urinate, Inability to have a bowel movement, Shortness of breath, Dizziness, Fainting spells, Chest pain, Uncontrolled pain Instructions: Symptoms of a Heart Attack, First Aid: Heart Attacks, Recognizing a Heart Attack or Angina, Understanding Coronary Artery Disease (CAD ), What Is High Blood Pressure?, Discharge Instructions for Heart Attack, Taking Blood Thinners After Percutaneous Coronary Intervention (PCI), Follow-up Appointment After Percutaneous Coronary Intervention (PCI), Lifestyle Management After Percutaneous Coronary Intervention (PCI) Additional Instructions: CARDIOLOGY PCI CATH INSTRUCTIONS. Lifting: Must be less than 5 lbs for 5 days, No restrictions after 14 days. Shower: Yes. Climb stairs: Yes. Bathing in tub or submerged water: No, until cleared per Cardiology at follow-up (call office if any concerns [phone] and may leave voicemail if after hours). Walkin minutes 3 times daily, increase as tolerated once allowed per Cardiology. Driving: Resume in 7 days. Sexual activity: Resume in 14 days. Regular activity: Resume 14 days. Please contact Cardiology immediately if you have any concerns or questions regarding your medications Allergies/Adverse Reactions: Allergies Penicillins Allergy (Verified 05/05/17 17:48) Anaphylaxis Medications to take at Discharge Paroxetine HCl [Paxil] 40 mg PO DAILY 10/07/14 Albuterol IH (ProAir) [Proair Hfa] 2 puff INHALATION Q4H PRN PRN 05/05/17 Budesonide Inhaler 180 mcg [Pulmicort Inhaler 180 mcg] 1 - 2 puff INHALATION DAILY 05/05/17 Paroxetine HCl [Paxil] 20 mg PO QHS 05/05/17 Salmeterol [Serevent Diskus] 1 puff INHALATION DAILY 05/05/17 Aspirin E.C. [Ecotrin] 81 mg PO DAILY@0800 #30 tab 05/07/17 Atorvastatin Calcium [Lipitor] 40 mg PO QHS #30 tab 05/07/17 Famotidine 20 mg PO BID #60 tab 05/07/17 Isosorbide Mononitrate [Imdur] 60 mg PO DAILY #30 tab 05/07/17 Metoprolol Tartrate [Lopressor (beta dunia)] 25 mg PO BID #60 tab 05/07/17 Nitroglycerin [Nitrostat] 0.4 mg SUBLINGUAL Q5M PRN #10 tab 05/07/17 Ticagrelor [Brilinta] 90 mg PO BID #60 tab 05/07/17 The following prescriptions were given: Aspirin E.C. [Ecotrin] 81 mg PO DAILY@0800 #30 tab Atorvastatin Calcium [Lipitor] 40 mg PO QHS #30 tab Isosorbide Mononitrate [Imdur] 60 mg PO DAILY #30 tab Nitroglycerin [Nitrostat] 0.4 mg SUBLINGUAL Q5M PRN #10 tab PRN Reason: Chest Pain Famotidine 20 mg PO BID #60 tab Metoprolol Tartrate [Lopressor (beta dunia)] 25 mg PO BID #60 tab Ticagrelor [Brilinta] 90 mg PO BID #60 tab Primary Care Physician: Torsten Hyman MD [Primary Care Provider] - Please follow up with your Primary Care Physician in: Follow-up within 3-5 days to review admission, new medication additions. Please Follow Up With: [facility] When: Follow-up 1 week following discharge or per Cardiology direction. Proposed Discharge Date: 05/07/17
[2017-05-07] MEDS: Aspirin E.C. 81 MG Tablet PO (09:33)
[2017-05-07] MEDS: TICAGRELOR 90 MG TABLET PO (09:33)
[2017-05-07] MEDS: Metoprolol Tartrate 25 MG Tablet PO (09:33)
[2017-05-07] MEDS: Isosorbide Mononitrate 60 MG Tablet PO (09:34)
--- NOTE | 2017-05-07 09:39 | PCM.DC.SUM ---
Discharge Date and Diagnosis - Problem List Patient Problems: Active and Suspected Problems Atypical chest pain (Acute) NSTEMI (non-ST elevated myocardial infarction) (Acute) Date of Admission: 05/05/17 Date of Discharge: 05/07/17 - Primary Discharge Diagnosis Active and Suspected Problems (1) Chest Pain w/ Acute NSTEMI with CAD w/ noted distal mid RCA disease 99% stenosis, heavily calcified proximal and mid LAD 70% stenosis, proximal OM1 50% stenosis, EF 65% with successful PTCA/ADA of the distal mid RCA with possible re-intervention in the next 4-6 weeks but would need to be performed at Tertiary Facility with Surgical Back-up Per Cardiology report (3) Elevated BP without HTN Dx Prior, New diagnosis Hypertension (4) Hyperlipidemia (5) Anxiety and Depressio (6) GERD (7) Obesity - Secondary Discharge Diagnosis Chronic Problems Mild intermittent asthma (Chronic) Rheumatoid arthritis (Chronic) Osteoarthritis (Chronic) Biliary dyskinesia (Chronic) Hospital Course and Treatment Dr. Nice [facility] Procedures: 2-D Echocardiogram, Cardiac catheterization Summary of Care Provided: The patient is a 56 y/o M w/ PMHx: Asthma, Rheumatoid Arthritis, OA, Biliary Dyskinesia, Obesity, Anxiety and Depression, HTN who presented to the [facility] ED on 05/05/17 with chest pain. EKG in ED w/ SR without acute evidence of ischemia, CXR w/ no acute process, Trop initially 0.02. Admitted to the PCU, maintained on a monitored bed, continued serial cardiac enzyme trending with 0.02-->0.38-->1.24-->1.66. Serial EKGs obtained with no acute findings. Cardiology consulted given NSTEMI, evaluation with 05/06/17 Cardiac catheterization with noted distal mid RCA disease 99% stenosis, heavily calcified proximal and mid LAD 70% stenosis, proximal OM1 50% stenosis, EF 65% with successful PTCA/ADA of the distal mid RCA with planned indefinite 81 mg asa daily, brillinta x 12 months, planned staged PCI to prox/mid-LAD. Possible re-intervention in the next 4-6 weeks per discussion with Cardiology at likely tertiary facility for Surgical back-up. 05/06- overnight chest pain, resolved after nitropaste administration, per Cardiology direction altered regimen w/ increased imdur and increased metoprolol, continued asa, brillinta, statin. ECHO ordered, unremarkable per Dr. Nice verbal report. Patient during admission noted upcoming plans for travel in ~ 1-2 weeks with recommendation for cancellation of his plans per Cardiology. Patient maintained for his asthma on pulmicort, albuterol, PRN albuterol, HOB, IS. FLP w/ TG 281, TChol 172, LDL 84, VLDL 56, HDL 32. Patient discharged to home in improved, stable condition with follow-up with [facility] in 1 week to discuss and arrange future possible LAD intervention at [facility] in addition to his PCP within 3-5 days to review admission. Discharge Activity: - - See activity parameters below or as otherwise directed per Cardiology. May resume sexual activity in: 1-2 weeks Weight Bearing Status: Weight bearing as tolerated Keep extremity elevated above heart level: Operative Extremity Call your doctor if your incision/area has: Continuous Slow Oozing, Sudden Increased Bleeding, Increased Pain/ Swelling, Increased Redness, Foul Smelling Discharge, Swelling at the incision site Call your doctor if you observe: Fever of 101 or Higher, Change in Color, Inability to urinate, Inability to have a bowel movement, Shortness of breath, Dizziness, Fainting spells, Chest pain, Uncontrolled pain Home Medications: Medications to take at Discharge Paroxetine HCl [Paxil] 40 mg PO DAILY 10/07/14 Albuterol IH (ProAir) [Proair Hfa] 2 puff INHALATION Q4H PRN PRN 05/05/17 Budesonide Inhaler 180 mcg [Pulmicort Inhaler 180 mcg] 1 - 2 puff INHALATION DAILY 05/05/17 Paroxetine HCl [Paxil] 20 mg PO QHS 05/05/17 Salmeterol [Serevent Diskus] 1 puff INHALATION DAILY 05/05/17 Aspirin E.C. [Ecotrin] 81 mg PO DAILY@0800 #30 tab 05/07/17 Atorvastatin Calcium [Lipitor] 40 mg PO QHS #30 tab 05/07/17 Famotidine 20 mg PO BID #60 tab 05/07/17 Isosorbide Mononitrate [Imdur] 60 mg PO DAILY #30 tab 05/07/17 Metoprolol Tartrate [Lopressor (beta wade)] 25 mg PO BID #60 tab 05/07/17 Nitroglycerin [Nitrostat] 0.4 mg SUBLINGUAL Q5M PRN #10 tab 05/07/17 Ticagrelor [Brilinta] 90 mg PO BID #60 tab 05/07/17 Following Prescrptions Were Given to Patient: Aspirin E.C. [Ecotrin] 81 mg PO DAILY@0800 #30 tab Atorvastatin Calcium [Lipitor] 40 mg PO QHS #30 tab Isosorbide Mononitrate [Imdur] 60 mg PO DAILY #30 tab Nitroglycerin [Nitrostat] 0.4 mg SUBLINGUAL Q5M PRN #10 tab PRN Reason: Chest Pain Famotidine 20 mg PO BID #60 tab Metoprolol Tartrate [Lopressor (beta wade)] 25 mg PO BID #60 tab Ticagrelor [Brilinta] 90 mg PO BID #60 tab Primary Care Physician: Torsten Hyman MD [Primary Care Provider] - Please follow up with your Primary Care Physician in: Follow-up within 3-5 days to review admission, new medication additions. Please Follow Up With: [facility] When: Follow-up 1 week following discharge or per Cardiology direction. Patient Instructions: Symptoms of a Heart Attack, First Aid: Heart Attacks, Recognizing a Heart Attack or Angina, Understanding Coronary Artery Disease (CAD), What Is High Blood Pressure?, Discharge Instructions for Heart Attack, Taking Blood Thinners After Percutaneous Coronary Intervention (PCI), Follow-up Appointment After Percutaneous Coronary Intervention (PCI), Lifestyle Management After Percutaneous Coronary Intervention (PCI) Disposition: Home Minutes spent on discharge:: 35 Patient Condition:: Fair Meaningful Use Info Meaningful Use Diagnoses (Choose all that apply): AMI - AMI Aspirin given w/in 24hrs of arrival?: Yes ASA at discharge?: Yes Statins at discharge?: Yes Diaz/ARB at discharge?: No Reason Diaz/ARB not ordered:: Not indicated Beta Wade at discharge?: Yes Done w/ Acute MO measure.: Yes Code Visit Inpatient E&M: 86228 Disch Hosp
--- NOTE | 2017-05-07 09:45 | DS.PCM_ITS ---
Discharge Date and Diagnosis - Problem List Patient Problems: Active and Suspected Problems Atypical chest pain (Acute) NSTEMI (non-ST elevated myocardial infarction) (Acute) Date of Admission: 05/05/17 Date of Discharge: 05/07/17 - Primary Discharge Diagnosis Active and Suspected Problems (1) Chest Pain w/ Acute NSTEMI with CAD w/ noted distal mid RCA disease 99% stenosis, heavily calcified proximal and mid LAD 70% stenosis, proximal OM1 50% stenosis, EF 65% with successful PTCA/ADA of the distal mid RCA with possible re -intervention in the next 4-6 weeks but would need to be performed at Tertiary Facility with Surgical Back-up Per Cardiology report (3) Elevated BP without HTN Dx Prior, New diagnosis Hypertension (4) Hyperlipidemia (5) Anxiety and Depressio (6) GERD (7) Obesity - Secondary Discharge Diagnosis Chronic Problems Mild intermittent asthma (Chronic) Rheumatoid arthritis (Chronic) Osteoarthritis (Chronic) Biliary dyskinesia (Chronic) Hospital Course and Treatment Dr. Nice Cardiology Procedures: 2-D Echocardiogram, Cardiac catheterization Summary of Care Provided: The patient is a 56 y/o M w/ PMHx: Asthma, Rheumatoid Arthritis, OA, Biliary Dyskinesia, Obesity, Anxiety and Depression, HTN who presented to the [facility] ED on 05/05/17 with chest pain. EKG in ED w/ SR without acute evidence of ischemia, CXR w/ no acute process, Trop initially 0.02. Admitted to the PCU, maintained on a monitored bed, continued serial cardiac enzyme trending with 0.02-->0.38-->1.24- ->1.66. Serial EKGs obtained with no acute findings. Cardiology consulted given NSTEMI, evaluation with 05/06/17 Cardiac catheterization with noted distal mid RCA disease 99% stenosis, heavily calcified proximal and mid LAD 70% stenosis, proximal OM1 50% stenosis, EF 65% with successful PTCA/ADA of the distal mid RCA with planned indefinite 81 mg asa daily, brillinta x 12 months, planned staged PCI to prox/mid-LAD. Possible re-intervention in the next 4-6 weeks per discussion with Cardiology at likely tertiary facility for Surgical back-up. 05/06 - overnight chest pain, resolved after nitropaste administration, per Cardiology direction altered regimen w/ increased imdur and increased metoprolol , continued asa, brillinta, statin. ECHO ordered, unremarkable per Dr. Nice verbal report. Patient during admission noted upcoming plans for travel in ~ 1- 2 weeks with recommendation for cancellation of his plans per Cardiology. Patient maintained for his asthma on pulmicort, albuterol, PRN albuterol, HOB, IS. FLP w/ TG 281, TChol 172, LDL 84, VLDL 56, HDL 32. Patient discharged to home in improved, stable condition with follow-up with [facility] in 1 week to discuss and arrange future possible LAD intervention at [facility] in addition to his PCP within 3-5 days to review admission. Discharge Activity: - - See activity parameters below or as otherwise directed per Cardiology. May resume sexual activity in: 1-2 weeks Weight Bearing Status: Weight bearing as tolerated Keep extremity elevated above heart level: Operative Extremity Call your doctor if your incision/area has: Continuous Slow Oozing, Sudden Increased Bleeding, Increased Pain/ Swelling, Increased Redness, Foul Smelling Discharge, Swelling at the incision site Call your doctor if you observe: Fever of 101 or Higher, Change in Color, Inability to urinate, Inability to have a bowel movement, Shortness of breath, Dizziness, Fainting spells, Chest pain, Uncontrolled pain Home Medications: Medications to take at Discharge Paroxetine HCl [Paxil] 40 mg PO DAILY 10/07/14 Albuterol IH (ProAir) [Proair Hfa] 2 puff INHALATION Q4H PRN PRN 05/05/17 Budesonide Inhaler 180 mcg [Pulmicort Inhaler 180 mcg] 1 - 2 puff INHALATION DAILY 05/05/17 Paroxetine HCl [Paxil] 20 mg PO QHS 05/05/17 Salmeterol [Serevent Diskus] 1 puff INHALATION DAILY 05/05/17 Aspirin E.C. [Ecotrin] 81 mg PO DAILY@0800 #30 tab 05/07/17 Atorvastatin Calcium [Lipitor] 40 mg PO QHS #30 tab 05/07/17 Famotidine 20 mg PO BID #60 tab 05/07/17 Isosorbide Mononitrate [Imdur] 60 mg PO DAILY #30 tab 05/07/17 Metoprolol Tartrate [Lopressor (beta wade)] 25 mg PO BID #60 tab 05/07/17 Nitroglycerin [Nitrostat] 0.4 mg SUBLINGUAL Q5M PRN #10 tab 05/07/17 Ticagrelor [Brilinta] 90 mg PO BID #60 tab 05/07/17 Following Prescrptions Were Given to Patient: Aspirin E.C. [Ecotrin] 81 mg PO DAILY@0800 #30 tab Atorvastatin Calcium [Lipitor] 40 mg PO QHS #30 tab Isosorbide Mononitrate [Imdur] 60 mg PO DAILY #30 tab Nitroglycerin [Nitrostat] 0.4 mg SUBLINGUAL Q5M PRN #10 tab PRN Reason: Chest Pain Famotidine 20 mg PO BID #60 tab Metoprolol Tartrate [Lopressor (beta wade)] 25 mg PO BID #60 tab Ticagrelor [Brilinta] 90 mg PO BID #60 tab Primary Care Physician: Torsten Hyman MD [Primary Care Provider] - Please follow up with your Primary Care Physician in: Follow-up within 3-5 days to review admission, new medication additions. Please Follow Up With: [facility] When: Follow-up 1 week following discharge or per Cardiology direction. Patient Instructions: Symptoms of a Heart Attack, First Aid: Heart Attacks, Recognizing a Heart Attack or Angina, Understanding Coronary Artery Disease (CAD ), What Is High Blood Pressure?, Discharge Instructions for Heart Attack, Taking Blood Thinners After Percutaneous Coronary Intervention (PCI), Follow-up Appointment After Percutaneous Coronary Intervention (PCI), Lifestyle Management After Percutaneous Coronary Intervention (PCI) Disposition: Home Minutes spent on discharge:: 35 Patient Condition:: Fair Meaningful Use Info Meaningful Use Diagnoses (Choose all that apply): AMI - AMI Aspirin given w/in 24hrs of arrival?: Yes ASA at discharge?: Yes Statins at discharge?: Yes Diaz/ARB at discharge?: No Reason Diaz/ARB not ordered:: Not indicated Beta Wade at discharge?: Yes Done w/ Acute AL measure.: Yes Code Visit Inpatient E&M: [id number] Disch Hosp
--- NOTE | 2017-05-07 09:51 | PN.CARD_ITS ---
Subjectve: Had some chest pain last night. However this was focal and not radiating to the arm neck or jaw which was his anginal presentation day before yesterday. Presently completely asymptomatic Objective: Vital Signs Temp Pulse Resp BP Pulse Ox 97.6 F L 80 16 136/90 H 97 05/07/17 07:58 05/07/17 09:33 05/07/17 09:00 05/07/17 09:33 05/07/17 09:00 Oxygen Flow Rate 2 Oxygen Delivery Method Room Air Weight: 89.8 kg Body Mass Index (BMI) 30.4 Intake and Output for Last 24 Hours 05/05/17 05/06/17 05/07/17 23:59 23:59 23:59 Intake Total 240 / 240 1502 / 1502 600 / 600 Balance 240 / 240 1502 / 1502 600 / 600 General: Healthy Appearing, Awake, Alert, Oriented x 3 Oral: Moist Mucosa Neck: Supple Lungs: Clear to auscultation Cardiovascular: Regular Rhythm, Normal S1, Normal S2 Vascular: - - Right radial pulse 2+ Abdomen: Bowel Sounds Present, Soft Extremities: No edema Neurological: No Focal Motor or Sensory Deficit Psych/Mental Status: Appropriate 05/06/17 07:45: Magnesium 2.1 05/07/17 04:30: WBC 10.2, RBC 4.60, Hgb 13.7, Hct 39.9 L, MCV 86.7, MCH 29.8, MCHC 34.3, RDW 13.4, RDW Differential 41.5, Plt Count 261, MPV 9.4 05/07/17 04:30: Sodium 140, Potassium 4.2, Chloride 108 H, Carbon Dioxide 25.0, Anion Gap 7, BUN 17, Creatinine 0.83, Est GFR (MDRD) Af Amer 123, Est GFR (MDRD ) Non-Af 102, BUN/Creatinine Ratio 20.4 H, Glucose 93, Calcium 8.1 L, Total Bilirubin 0.40 Rhythm: Normal sinus rhythm EKG: Normal sinus rhythm. No ischemic changes Assessment/Plan 1. Non-ST elevation myocardial infarction. Status post drug-eluting stent placement to 99% mid RCA. Continue medical treatment. Increase beta-dunia and nitrates. Some chest discomfort last night but different than his angina pain. Ambulate this morning. If continues to be asymptomatic, then may discharge later in the afternoon. 2. 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 Recommend staged intervention preferably with rotational atherectomy as outpatient 3. History of rheumatoid arthritis 4. History of asthma
== END 2017-05-07 11:30 | disposition home or self-care (01) | DRG 282 ==
LOC: ED 18:52 → PCU 19:48 → ICU 05-06 17:12 → PCU 05-06 17:12
PROVIDERS: Internal Medicine Cardiovascular Disease; Admitting Provider Internal Medicine; Emergency Provider Emergency Medicine; Family Provider Family Medicine; PCP Family Medicine; Visit Provider Family Medicine
DX: I21.4 Non-ST elevation (NSTEMI) myocardial infarction (principal); E66.9 Obesity, unspecified; F41.9 Anxiety disorder, unspecified; I25.119 Atherosclerotic heart disease of native coronary artery with unspecified angina pectoris; I25.84 Coronary atherosclerosis due to calcified coronary lesion; Z68.30 Body mass index [BMI] 30.0-30.9, adult; J45.20 Mild intermittent asthma, uncomplicated; M19.90 Unspecified osteoarthritis, unspecified site; M06.9 Rheumatoid arthritis, unspecified; K82.8 Other specified diseases of gallbladder; Z79.51 Long term (current) use of inhaled steroids; Z79.899 Other long term (current) drug therapy; F32.9 Major depressive disorder, single episode, unspecified; E78.5 Hyperlipidemia, unspecified; R03.0 Elevated blood-pressure reading, without diagnosis of hypertension; K21.9 Gastro-esophageal reflux disease without esophagitis
CPT/HCPCS: 36415; 71045; 80048; 80053; 80061; 83735; 84443; 84484; 85025; 85027; 85347; 85379; 85610; 85730; 92928; 92978; 93005; 93306; 93458; 94640; 99152; 99153; 99285; J3010; J7030; Q9957; Q9967; A4216; C1725; C1753; C1769; C1874; C1887; C1894; C8929; C9600; J0583

== ENCOUNTER 2017-05-16 01:05 | Observation (INO) | payer OTHER, SELFPAY ==
[2017-05-06 14:59] VITALS: BMI 30.5
[2017-05-16] VITALS (23 sets, daily range): BP systolic 97–131; BP diastolic 67–90; PULSE 65–77; RESP 9–16; TEMP 36.3–36.8; O2SAT 73–100; BMI 31.4; BMI 29.5
--- NOTE | 2017-05-16 01:16 | RAD_ITS ---
STUDY: X-RAY CHEST REASON FOR EXAM: Male, 56 years old. Chest pain TECHNIQUE: Single frontal view COMPARISON: May 05, 2017 FINDINGS: The lungs are clear and expanded. There is no demonstrated pleural abnormality. Normal size heart. Normal mediastinum and annemarie. Normal visualized pulmonary arteries. Normal visualized aortic arch and descending thoracic aorta. Normal visualized thoracic spine. Normal visualized ribs, clavicles, and shoulders. There is no demonstrated abnormality of the visualized soft tissue structures of the upper abdomen. RAD/Chest 1 View (Portable) IMPRESSION: Normal x-ray examination of the chest. Electronically Signed: Andrea Orozco MD at 2:55 EDT , Service support ,
--- NOTE | 2017-05-16 01:16 | EKG12_ITS ---
Test Reason : CP Blood Pressure : / mmHG Vent. Rate : 070 BPM Atrial Rate : 070 BPM P-R Int : 158 ms QRS Dur : 098 ms QT Int : 386 ms P-R-T Axes : 021 039 008 degrees QTc Int : 416 ms Normal sinus rhythm Normal ECG Confirmed by KHANG FERRARI MD ([id number]), editorial writer LUCIANO GODINEZ ([id number] on 05/18/2017 4:01:50 PM Referred By: ANA Confirmed By:KHANG FERRARI MD
[2017-05-16 01:35] LABS: Absolute Lymphocyte Count 3.13 X10^3/ul (0.83-4.51); Absolute Neutrophil Count 4.4 X10^3/uL (2.0-7.7); Basophil# 0.07 X10^3/uL; Basophil% 0.8 % (0-1); Eosinophil# 0.44 X10^3/uL; Eosinophils% 4.9 % (0-5); Hematocrit 41.1 % (40-54); Hemoglobin 13.9 g/dl (13.0-16.5); Lymphocyte # 3.13 X10^3/ul (4.0); Lymphocyte % 35.2 % (19-41); Mean Corp Hgb Conc 33.8 g/gl (32-36); Mean Corpuscular Hgb 29.4 pg (27.0-32.0); Mean Corpuscular Volume 87.1 fL (80-94); Mean Platelet Vol. 9.5 fl (6.2-12.0); Monocyte# 0.83 X10^3/uL; Monocyte% 9.3 % (0-10); Neutrophil # 4.38 X10^3/uL (2.7-7.7); Neutrophil % 49.4 % (47-70); Platelet Count 310 K/mm3 (150-450); RBC Distribution Width CV 13.3 % (11.6-14.6); RBC Distribution Width SD 42.6 fl (35.1-43.9); Red Blood Count 4.72 M/mm3 (4.6-6.2); White Blood Count 8.9 K/mm3 (4.4-11.0)
[2017-05-16 01:38] LABS: POSITIVE COUNT NO; POSITIVE DIFFERENTIAL NO; POSITIVE MORPHOLOGY NO
--- NOTE | 2017-05-16 01:40 | ED.DCSUM_ITS ---
- ER Visit Summary Date of Service: 05/16/17 Chief Complaint: Left-sided chest pain History of Present Illness: The patient is a 56 M approximately 1 week ago came to the hospital had a KY with angioplasty 1 stent. He was discharged home on Brilinta and a host of medications. States he has not felt as well last several days. And eloise had chest pain in the left side like his prior chest pain. This occurred around midnight. He did take 2 sublingual nitro at home without significant relief squad gave him a third nitro which improved his symptoms. He denies vomiting or he has had diarrhea since being placed on a new medications. Physical Examination: Middle-aged male no acute distress vital signs are stable afebrile pulse ox 96% on 2 L no hypoxia. HEENT exam unremarkable. Neck nontender. Lungs clear to auscultation bilaterally. Heart regular rhythm no murmur. Chest nontender. Abdomen soft nontender. Normal bowel sounds no peritoneal signs. He is moving all 4 extremities. They are neurovascularly intact. Calves are nontender without edema nor cords. Neurologically is awake and alert without focal deficits. Test Results: Will undergo a cardiac workup. BC normal. BMP normal. Initial troponin normal. Chest x-ray normal cardiac silhouette and mediastinum. No abnormalities. Initial EKG sinus rhythm rate is 70 no significant change from prior EKG from 05/07/2017. During emergency department stay I did get a second EKG again was a sinus rhythm rate is 67 and no change from the first or any significant change from the prior. Emergency Department Course and Treatment: Multiple repeat exam and on the patient. He did receive sublingual nitro at home by squad. He also received aspirin by squad. He was given nitro paste here. Also morphine and Zofran for his chest pain. Currently his cardiac workup is negative including 2 EKGs and initial troponin. I did speak to Dr. Star Drummond on-call for cardiology. Given the patient had a recent heart cath, stent and KY. Also that he is other known coronary disease besides the coronary artery that was stented we are going to keep him for further evaluation and workup. I have already spoken to the hospitalist Dr. Andres who is in the ER evaluate the patient at this time. Currently the patient is stable. I have gone over all test of both he and his . They are both comfortable with the plan. Treatment Plan: Admission Disposition: Admission Impression: Acute chest pain Status post recent KY with cardiac cath and one coronary stent History of coronary disease This note was generated with [employer] dictation software. It may contain incorrect words, spelling, and punctuation that were not noted in review of the chart prior to signing ED Disposition - Plan for ED Patient: Chief Complaint: Chest Pain Referrals: Torsten Hyman MD [Primary Care Provider] -
[2017-05-16 01:47] LABS: Anion Gap 8 (5-15); BUN 20 mg/dL (7-18); BUN/Creat Ratio 24.4 RATIO (10-20); Calcium,Total 8.1 mg/dL (8.5-10.1); Chloride 111 mmol/L (98-107); Creatinine, Serum 0.82 mg/dL (0.70-1.30); EST Glomerular Filtration Rate 104 mL/min (>60); Est Glom Filt Rate - Afr Amer 125 mL/min (>60); Estimated Creatinine Clearance 98.48 ml/min; Glucose 85 mg/dL (74-106); Sodium Level 141 mmol/L (136-145)
--- NOTE | 2017-05-16 01:48 | NURSING ---
asking the doctor something for pain.
[2017-05-16] MEDS: Nitroglycerin Oint 1 INCH PACKET TRANSDERM. (01:59)
[2017-05-16] MEDS: Ondansetron 4 MG/2 ML Vial IV (03:31)
--- NOTE | 2017-05-16 03:42 | EKG12_ITS ---
Test Reason : REPEAT CP Blood Pressure : / mmHG Vent. Rate : 067 BPM Atrial Rate : 067 BPM P-R Int : 164 ms QRS Dur : 098 ms QT Int : 418 ms P-R-T Axes : 029 036 017 degrees QTc Int : 441 ms Normal sinus rhythm Normal ECG Confirmed by KHANG FERRARI MD ([id number]), electronic news gathering editor LUCIANO GODINEZ ([id number] on 05/18/2017 4:02:09 PM Referred By: ANA Confirmed By:KHANG FERRARI MD
--- NOTE | 2017-05-16 03:52 | HP.PCM_ITS ---
Problem List (1) Chest pain Status: Acute (2) CAD (coronary artery disease) Status: Acute (3) NSTEMI (non-ST elevated myocardial infarction) Status: Acute (4) Mild intermittent asthma Status: Chronic (5) Osteoarthritis Status: Chronic (6) Rheumatoid arthritis Status: Chronic History of Present Illness Date of Admission: 05/16/17 Chief Complaint: Chest pain The patient is a 56 year old male w/ h/o asthma, RA, HTN and CAD admitted for chest pain. Pt was recently admitted for NSTEMI s/p drug-eluting stent placement to 99% mid RCA with residual lesion in the mid left anterior descending artery which will require staged intervention preferably with rotational atherectomy. He was recently discharged and after discharged, he has been fatigue. He had some chest discomfort even after stent in hospital. However , tonight, he had severe chest pressure on his left chest. It is also dull- aching and constant. He had pain while in bed. Nothing appeared to make it better or worse. He took 2 nitro without relief. He became concern and called paramedics. No diaphoresis or palpitation. Past Medical History Past Medical History (Chronic Problems): Chronic Problems Mild intermittent asthma (Chronic) Rheumatoid arthritis (Chronic) Osteoarthritis (Chronic) Biliary dyskinesia (Chronic) Allergies Penicillins Allergy (Verified 05/16/17 01:07) Anaphylaxis Home Medications: Ambulatory Orders Medication Instructions Recorded Paroxetine HCl [Paxil] 40 mg PO DAILY 10/07/14 Albuterol IH (ProAir) [Proair Hfa] 2 puff INHALATION Q4H PRN PRN 05/05/17 Budesonide Inhaler 180 mcg 1 - 2 puff INHALATION DAILY 05/05/17 [Pulmicort Inhaler 180 mcg] Paroxetine HCl [Paxil] 20 mg PO QHS 05/05/17 Salmeterol [Serevent Diskus] 1 puff INHALATION DAILY 05/05/17 Aspirin E.C. [Ecotrin] 81 mg PO DAILY@0800 #30 tab 05/07/17 Atorvastatin Calcium [Lipitor] 40 mg PO QHS #30 tab 05/07/17 Famotidine 20 mg PO BID #60 tab 05/07/17 Isosorbide Mononitrate [Imdur] 60 mg PO DAILY #30 tab 05/07/17 Metoprolol Tartrate [Lopressor 25 mg PO BID #60 tab 05/07/17 (beta dunia)] Nitroglycerin [Nitrostat] 0.4 mg SUBLINGUAL Q5M PRN #10 tab 05/07/17 Ticagrelor [Brilinta] 90 mg PO BID #60 tab 05/07/17 Sulindac 200 mg PO BID 05/16/17 Surgical History: appendectomy, arthroscopy, knee Smoking Status: Never smoker - *Family History Paternal History Items: Unknown - As the patient is adopted. Review of Systems Constitutional: Denies: Chills, Fever, Weight Change HEENT: Denies: Head Aches, Sinus Congestion, Sinus Drainage Cardiovascular: Reports: Chest Pain, Chest Pressure. Denies: Palpitations Respiratory: Denies: Cough, Shortness of breath at rest, Sputum production Gastrointestinal: Denies: Abdominal Pain, Nausea, Vomiting Genitourinary: Denies: Dysuria Musculoskeletal: Denies: Joint Pain, Joint Tenderness Skin: Denies: Rash, Wounds Neurological: Denies: Numbness, Tingling, Focal weakness Psychiatric: Denies: Anxiety, Depression, Homicidal Ideations, Suicidal Ideations Hematologic/ Lymphatic: Denies: Easy Bruising, Easy Bleeding VTE Information - Inpt Only VTE Present on Admission: No VTE Mechan Device Prophylaxis: SCD's VTE Pharm Prophylaxis ordered?: Yes Patient Problems: Active and Suspected Problems Chest pain (Acute) CAD (coronary artery disease) (Acute) - Physical Exam General: Alert, Oriented x3, Cooperative HEENT: Atraumatic, PERRLA, EOMI, Normocephalic Neck: Supple, No JVD, Negative Carotid Bruits Lungs: Clear to auscultation, Normal air movement Cardiovascular: Regular rate, No murmurs Abdomen: Bowel Sounds Present, Soft, Non Tender Extremities: No edema, Capillary Refill Less than 3 Seconds Skin: No rashes, No breakdown Musculoskeletal: No Tenderness to Palpation of Joints or Extremities Neurological: Cranial nerves II-XII grossly intact Psych/Mental Status: Normal Affect, Appropriate Vital Signs Temp Pulse Resp BP Pulse Ox 98.2 F 68 14 126/90 H 98 05/16/17 03:36 05/16/17 03:36 05/16/17 03:36 05/16/17 03:36 05/16/17 03:36 Oxygen Flow Rate (L/min) 2 Oxygen Delivery Method Nasal Cannula Weight: 93.8 kg Body Mass Index (BMI) 31.4 Laboratory Tests Past 24 Hrs 05/16/17 05/16/17 01:10 01:10 WBC 8.9 RBC 4.72 Hgb 13.9 Hct 41.1 MCV 87.1 MCH 29.4 MCHC 33.8 RDW 13.3 RDW Differential 42.6 Plt Count 310 MPV 9.5 Immature Gran % (Auto) 0.400 Neut % (Auto) 49.4 Lymph % (Auto) 35.2 [place] % (Auto) 9.3 Eos % (Auto) 4.9 Baso % (Auto) 0.8 Absolute Neuts (auto) 4.4 Absolute Lymphs (auto) 3.13 Total Counted Not Reportable Sodium 141 Potassium 4.0 Chloride 111 H Carbon Dioxide 22.0 Anion Gap 8 BUN 20 H Creatinine 0.82 Estim Creat Clear Calc 98.48 Est GFR (MDRD) Af Amer 125 Est GFR (MDRD) Non-Af 104 BUN/Creatinine Ratio 24.4 H Glucose 85 Calcium 8.1 L Troponin I < 0.02 Assessment/Plan Active and Suspected Problems Chest pain (Acute) CAD (coronary artery disease) (Acute) 56 year old male w/ h/o asthma, RA, HTN and CAD admitted for chest pain. 1) Chest pain: Recent stent placement. NSTEMI status post drug-eluting stent placement to 99% mid RCA. Residual lesion in the mid left anterior descending artery. Continue medical treatment. Resume home meds. Consulted cards. Serial trops. FLP pending. Will defer further workup to cards given h/o recent stent placement. 2) CAD s/p stent: Resume home meds. 3) HTN: SBP 130s. Resume home meds. Monitor. 4) Chronic issues: Asthma, RA: Appears stable.
[2017-05-16 05:24] LABS: Absolute Lymphocyte Count 2.72 X10^3/ul (0.83-4.51); Absolute Neutrophil Count 5.3 X10^3/uL (2.0-7.7); Basophil# 0.09 X10^3/uL; Eosinophil# 0.43 X10^3/uL; Eosinophils% 4.5 % (0-5); Hematocrit 41.5 % (40-54); Hemoglobin 13.9 g/dl (13.0-16.5); Lymphocyte # 2.72 X10^3/ul (4.0); Lymphocyte % 28.8 % (19-41); Mean Corp Hgb Conc 33.5 g/gl (32-36); Mean Corpuscular Hgb 29.3 pg (27.0-32.0); Mean Corpuscular Volume 87.6 fL (80-94); Mean Platelet Vol. 9.2 fl (6.2-12.0); Monocyte# 0.87 X10^3/uL; Monocyte% 9.2 % (0-10); Neutrophil # 5.31 X10^3/uL (2.7-7.7); Neutrophil % 56.1 % (47-70); Platelet Count 275 K/mm3 (150-450); RBC Distribution Width CV 13.3 % (11.6-14.6); RBC Distribution Width SD 42.9 fl (35.1-43.9); Red Blood Count 4.74 M/mm3 (4.6-6.2); White Blood Count 9.5 K/mm3 (4.4-11.0)
[2017-05-16 05:28] LABS: POSITIVE COUNT NO; POSITIVE DIFFERENTIAL NO; POSITIVE MORPHOLOGY NO
[2017-05-16 05:51] LABS: ALB/GLOB Ratio 1.2 RATIO (0.9-2.4); AST(SGOT) 22 U/L (15-37); Alanine Aminotransfer ALT/SGPT 38 U/L (16-61); Albumin, Serum 3.7 g/dL (3.2-5.0); Alkaline Phosphatase 126 U/L (45-117); Anion Gap 8 (5-15); BUN 18 mg/dL (7-18); BUN/Creat Ratio 20.3 RATIO (10-20); Calcium,Total 8.4 mg/dL (8.5-10.1); Chloride 107 mmol/L (98-107); Cholesterol 84 mg/dL (200); Creatinine, Serum 0.88 mg/dL (0.70-1.30); EST Glomerular Filtration Rate 95 mL/min (>60); Est Glom Filt Rate - Afr Amer 115 mL/min (>60); Estimated Creatinine Clearance 91.76 ml/min; Glucose 97 mg/dL (74-106); High Density Lipoprotein 31 mg/dL; Potassium 4.6 mmol/L (3.5-5.1); Protein, Total 6.7 g/dL (6.4-8.2); Sodium Level 141 mmol/L (136-145); Thyroid Stim Hormone (TSH) 1.96 uIU/mL (0.358-3.74); Triglycerides 102 mg/dL; Very Low Density Lipoprotein 20 mg/dL (5-40)
--- NOTE | 2017-05-16 06:58 | PCM.CONS.C ---
Reason for Consult Date of Consultation: 05/16/17 Reason for Consultation: Chest discomfort. History of Present Illness: The patient is a 56 year old M with a history of hypertension rheumatoid arthritis and asthma. He also has a re-history of recent non-ST elevation myocardial infarction earlier this month. He had presented to the hospital had undergone a cardiac catheterization which had demonstrated normal left main coronary artery, 80 left anterior descending artery with proximal and mid calcified 70% lesion. The first obtuse marginal branch with a 50% stenosis, and a right coronary artery which had a 99% stenosis. He underwent angioplasty and stenting with a drug-eluting stent to the above vessel. He says that he did well after he went home for a while with no chest pain or shortness breath. More recently over the last 3-4 days he has had significant and progressive fatigue. Yesterday he experienced chest discomfort which he said radiated towards his back. There was some component of respiration worsening associated with it though. He thought it was worse when he took a deep breath. He however says that it was a pressure-like sensation very similar to what he had had in the past. He was also very concerned about his fatigue. He was brought to the emergency room electrocardiogram and laboratory tests were done which were unremarkable. Cardiology was called for further evaluation and management.] Past Medical History Allergies/Adverse Reactions: Allergies Penicillins Allergy (Verified 05/16/17 01:07) Anaphylaxis Home Medications: Ambulatory Orders Medication Instructions Recorded Paroxetine HCl [Paxil] 40 mg PO BID 10/07/14 Albuterol IH (ProAir) [Proair Hfa] 2 puff INHALATION Q4H PRN PRN 05/05/17 Budesonide Inhaler 180 mcg 1 - 2 puff INHALATION DAILY 05/05/17 [Pulmicort Inhaler 180 mcg] Paroxetine HCl [Paxil] 20 mg PO QHS 05/05/17 Salmeterol [Serevent Diskus] 1 puff INHALATION DAILY 05/05/17 Aspirin E.C. [Ecotrin] 81 mg PO DAILY@0800 #30 tab 05/07/17 Atorvastatin Calcium [Lipitor] 40 mg PO QHS #30 tab 05/07/17 Famotidine 20 mg PO BID #60 tab 05/07/17 Isosorbide Mononitrate [Imdur] 60 mg PO DAILY #30 tab 05/07/17 Metoprolol Tartrate [Lopressor 25 mg PO BID #60 tab 05/07/17 (beta dunia)] Nitroglycerin [Nitrostat] 0.4 mg SUBLINGUAL Q5M PRN #10 tab 05/07/17 Ticagrelor [Brilinta] 90 mg PO BID #60 tab 05/07/17 Sulindac 200 mg PO BID 05/16/17 Past Medical History (Chronic Problems): Chronic Problems Mild intermittent asthma (Chronic) Rheumatoid arthritis (Chronic) Osteoarthritis (Chronic) Biliary dyskinesia (Chronic) Surgical History: appendectomy, arthroscopy, knee - *Family History Paternal History Items: Unknown - As the patient is adopted. Smoking Status: Never smoker Alcohol: None Drugs: None Review of Systems - Review of Systems General: Denies: Fever, Night Sweats, Fatigue Cardiovascular: Reports: Chest Discomfort, Chest Discomfort at Rest, Shortness of Breath. Denies: Orthopnea, PND, Peripheral Edema, Palpitations, Lightheadedness, Dizziness, Near Syncope, Syncope Respiratory: Denies: Cough, Sputum Production, Hemoptysis Gastrointestinal: Denies: Hematemesis, Hematochezia, Melena Genitourinary: Denies: Dysuria, Hematuria Skin: Denies: Rash Subjectve: Pleasant gentleman in no apparent distress. Objective: Vital Signs Temp Pulse Resp BP Pulse Ox 97.8 F 65 16 112/81 H 95 05/16/17 04:14 05/16/17 04:14 05/16/17 04:14 05/16/17 04:17 05/16/17 04:14 Oxygen Delivery Method Room Air Weight: 194 lb 0.108 oz Body Mass Index (BMI) 29.5 Intake and Output for Last 24 Hours 05/14/17 05/15/17 05/16/17 22:59 23:59 23:59 Intake Total 120 / 120 Balance 120 / 120 General: Awake, Alert, Oriented x 3 HEENT: PERRL, EOMI, Sclera Non Icteric Neck: Supple, Good ROM, No Lymph Node Enlargement Lungs: Clear to auscultation Cardiovascular: Regular Rhythm, Normal S1, Normal S2, No Murmurs, No Rubs, No Gallops Vascular: No Carotid Bruits, Normal Femoral Pulses, Normal Radial Pulses, Normal Dorsalis Pedal Pulse, Normal Posterior Tibial Pulses Abdomen: Bowel Sounds Present, Soft, Non Tender, No HSM, No Organomegaly Extremities: No Cyanosis, No Clubbing, No edema Neurological: No Focal Motor or Sensory Deficit 05/16/17 05:10: WBC 9.5, RBC 4.74, Hgb 13.9, Hct 41.5, MCV 87.6, MCH 29.3, MCHC 33.5, RDW 13.3, RDW Differential 42.9, Plt Count 275, MPV 9.2, Immature Gran % (Auto) 0.400, Neut % (Auto) 56.1, Lymph % (Auto) 28.8, Lamb % (Auto) 9.2, Eos % (Auto) 4.5, Baso % (Auto) 1.0, Absolute Neuts (auto) 5.3, Total Counted Not Reportable 05/16/17 05:10: Sodium 141, Potassium 4.6, Chloride 107, Carbon Dioxide 26.0, Anion Gap 8, BUN 18, Creatinine 0.88, Est GFR (MDRD) Af Amer 115, Est GFR (MDRD) Non-Af 95, BUN/Creatinine Ratio 20.3 H, Glucose 97, Calcium 8.4 L, Magnesium 2.0, Total Bilirubin 0.50, Troponin I < 0.02, Triglycerides 102, Cholesterol 84, LDL Cholesterol 33, VLDL Cholesterol 20, HDL Cholesterol 31 L Rhythm: EKG: Normal sinus rhythm with a rate of 67 bpm and no acute changes. Assessment/Plan 1. Chest pain. He presents with recurrent chest pain with some features which may be mildly atypical. However he insists on being progressively short of breath since his last evaluation as well as fatigued. This together with the fact that he had a known lesion makes me concerned that we should probably defer stress testing and reevaluate his coronary anatomy and then make a decision based on that. I have explained the above to him the risks benefits alternatives he understands and agrees to proceed. His previous cardiac catheterization films will also be reviewed and I will discuss this with interventionalist. 2. Hypertension His blood pressure appears to be under decent control at this time and we will continue his medications without much change. 3. Risk factor modification He will continue on his high intensity statin aspirin as well as Brilinta. His lipid profile today does not appear to be unacceptable. Diet and exercise have been urged and he will also be involved in cardiac rehabilitation. Thank you for allowing me to participate in the care of your patient. Please don't hesitate to call if any issues arise Addendum at 8:45 AM: Left heart catheterization this morning performed demonstrated the following Normal left main coronary artery Left anterior descending artery with diffuse moderate disease noted in the proximal and mid segment. Left circumflex artery with no significant disease in the nondominant vessel. Dominant large right coronary artery previously stented with no significant stenosis. Preserved left ventricular ejection fraction. Based on the above angiographic findings in comparison to the previous catheterization approximately 10 days ago. My recommendation would be to continue to manage him with aggressive medical therapy and consider a stress test as an outpatient. The above has been discussed in the films reviewed with conductor and engineer who is in agreement. Above discussed with patient. Patient can be discharged later today.
--- NOTE | 2017-05-16 07:03 | CON.PCM_ITS ---
Reason for Consult Date of Consultation: 05/16/17 Reason for Consultation: Chest discomfort. History of Present Illness: The patient is a 56 year old M with a history of hypertension rheumatoid arthritis and asthma. He also has a re-history of recent non-ST elevation myocardial infarction earlier this month. He had presented to the hospital had undergone a cardiac catheterization which had demonstrated normal left main coronary artery, 80 left anterior descending artery with proximal and mid calcified 70% lesion. The first obtuse marginal branch with a 50% stenosis, and a right coronary artery which had a 99% stenosis. He underwent angioplasty and stenting with a drug-eluting stent to the above vessel. He says that he did well after he went home for a while with no chest pain or shortness breath. More recently over the last 3-4 days he has had significant and progressive fatigue. Yesterday he experienced chest discomfort which he said radiated towards his back. There was some component of respiration worsening associated with it though. He thought it was worse when he took a deep breath. He however says that it was a pressure-like sensation very similar to what he had had in the past. He was also very concerned about his fatigue. He was brought to the emergency room electrocardiogram and laboratory tests were done which were unremarkable. Cardiology was called for further evaluation and management. ] Past Medical History Allergies/Adverse Reactions: Allergies Penicillins Allergy (Verified 05/16/17 01:07) Anaphylaxis Home Medications: Ambulatory Orders Medication Instructions Recorded Paroxetine HCl [Paxil] 40 mg PO BID 10/07/14 Albuterol IH (ProAir) [Proair Hfa] 2 puff INHALATION Q4H PRN PRN 05/05/17 Budesonide Inhaler 180 mcg 1 - 2 puff INHALATION DAILY 05/05/17 [Pulmicort Inhaler 180 mcg] Paroxetine HCl [Paxil] 20 mg PO QHS 05/05/17 Salmeterol [Serevent Diskus] 1 puff INHALATION DAILY 05/05/17 Aspirin E.C. [Ecotrin] 81 mg PO DAILY@0800 #30 tab 05/07/17 Atorvastatin Calcium [Lipitor] 40 mg PO QHS #30 tab 05/07/17 Famotidine 20 mg PO BID #60 tab 05/07/17 Isosorbide Mononitrate [Imdur] 60 mg PO DAILY #30 tab 05/07/17 Metoprolol Tartrate [Lopressor 25 mg PO BID #60 tab 05/07/17 (beta dunia)] Nitroglycerin [Nitrostat] 0.4 mg SUBLINGUAL Q5M PRN #10 tab 05/07/17 Ticagrelor [Brilinta] 90 mg PO BID #60 tab 05/07/17 Sulindac 200 mg PO BID 05/16/17 Past Medical History (Chronic Problems): Chronic Problems Mild intermittent asthma (Chronic) Rheumatoid arthritis (Chronic) Osteoarthritis (Chronic) Biliary dyskinesia (Chronic) Surgical History: appendectomy, arthroscopy, knee - *Family History Paternal History Items: Unknown - As the patient is adopted. Smoking Status: Never smoker Alcohol: None Drugs: None Review of Systems - Review of Systems General: Denies: Fever, Night Sweats, Fatigue Cardiovascular: Reports: Chest Discomfort, Chest Discomfort at Rest, Shortness of Breath. Denies: Orthopnea, PND, Peripheral Edema, Palpitations, Lightheadedness, Dizziness, Near Syncope, Syncope Respiratory: Denies: Cough, Sputum Production, Hemoptysis Gastrointestinal: Denies: Hematemesis, Hematochezia, Melena Genitourinary: Denies: Dysuria, Hematuria Skin: Denies: Rash Subjectve: Pleasant gentleman in no apparent distress. Objective: Vital Signs Temp Pulse Resp BP Pulse Ox 97.8 F 65 16 112/81 H 95 05/16/17 04:14 05/16/17 04:14 05/16/17 04:14 05/16/17 04:17 05/16/17 04:14 Oxygen Delivery Method Room Air Weight: 194 lb 0.108 oz Body Mass Index (BMI) 29.5 Intake and Output for Last 24 Hours 05/14/17 05/15/17 05/16/17 22:59 23:59 23:59 Intake Total 120 / 120 Balance 120 / 120 General: Awake, Alert, Oriented x 3 HEENT: PERRL, EOMI, Sclera Non Icteric Neck: Supple, Good ROM, No Lymph Node Enlargement Lungs: Clear to auscultation Cardiovascular: Regular Rhythm, Normal S1, Normal S2, No Murmurs, No Rubs, No Gallops Vascular: No Carotid Bruits, Normal Femoral Pulses, Normal Radial Pulses, Normal Dorsalis Pedal Pulse, Normal Posterior Tibial Pulses Abdomen: Bowel Sounds Present, Soft, Non Tender, No HSM, No Organomegaly Extremities: No Cyanosis, No Clubbing, No edema Neurological: No Focal Motor or Sensory Deficit 05/16/17 05:10: WBC 9.5, RBC 4.74, Hgb 13.9, Hct 41.5, MCV 87.6, MCH 29.3, MCHC 33.5, RDW 13.3, RDW Differential 42.9, Plt Count 275, MPV 9.2, Immature Gran % ( Auto) 0.400, Neut % (Auto) 56.1, Lymph % (Auto) 28.8, Giles % (Auto) 9.2, Eos % ( Auto) 4.5, Baso % (Auto) 1.0, Absolute Neuts (auto) 5.3, Total Counted Not Reportable 05/16/17 05:10: Sodium 141, Potassium 4.6, Chloride 107, Carbon Dioxide 26.0, Anion Gap 8, BUN 18, Creatinine 0.88, Est GFR (MDRD) Af Amer 115, Est GFR (MDRD ) Non-Af 95, BUN/Creatinine Ratio 20.3 H, Glucose 97, Calcium 8.4 L, Magnesium 2.0, Total Bilirubin 0.50, Troponin I < 0.02, Triglycerides 102, Cholesterol 84 , LDL Cholesterol 33, VLDL Cholesterol 20, HDL Cholesterol 31 L Rhythm: EKG: Normal sinus rhythm with a rate of 67 bpm and no acute changes. Assessment/Plan 1. Chest pain. He presents with recurrent chest pain with some features which may be mildly atypical. However he insists on being progressively short of breath since his last evaluation as well as fatigued. This together with the fact that he had a known lesion makes me concerned that we should probably defer stress testing and reevaluate his coronary anatomy and then make a decision based on that. I have explained the above to him the risks benefits alternatives he understands and agrees to proceed. His previous cardiac catheterization films will also be reviewed and I will discuss this with interventionalist. 2. Hypertension His blood pressure appears to be under decent control at this time and we will continue his medications without much change. 3. Risk factor modification He will continue on his high intensity statin aspirin as well as Brilinta. His lipid profile today does not appear to be unacceptable. Diet and exercise have been urged and he will also be involved in cardiac rehabilitation. Thank you for allowing me to participate in the care of your patient. Please don't hesitate to call if any issues arise Addendum at 8:45 AM: Left heart catheterization this morning performed demonstrated the following Normal left main coronary artery Left anterior descending artery with diffuse moderate disease noted in the proximal and mid segment. Left circumflex artery with no significant disease in the nondominant vessel. Dominant large right coronary artery previously stented with no significant stenosis. Preserved left ventricular ejection fraction. Based on the above angiographic findings in comparison to the previous catheterization approximately 10 days ago. My recommendation would be to continue to manage him with aggressive medical therapy and consider a stress test as an outpatient. The above has been discussed in the films reviewed with metal hanger who is in agreement. Above discussed with patient. Patient can be discharged later today.
--- NOTE | 2017-05-16 07:05 | EKG12_ITS ---
Test Reason : CP Blood Pressure : / mmHG Vent. Rate : 072 BPM Atrial Rate : 072 BPM P-R Int : 164 ms QRS Dur : 096 ms QT Int : 408 ms P-R-T Axes : 025 038 005 degrees QTc Int : 446 ms Normal sinus rhythm Normal ECG No previous ECGs available Confirmed by VEGA HUMPHREY, KHANG ([id number]), makeup editor LUCIANO GODINEZ ([id number]) on 05/18/2017 4:15:18 PM Referred By: JARETH Confirmed By:KHANG FERRARI MD
[2017-05-16] MEDS: Albuterol 2.5 MG/3 ML VIAL.NEB. INHALATION (07:12)
[2017-05-16] MEDS: 0.9% Normal Saline 1,000 ML 15 ML IV (07:55)
[2017-05-16] MEDS: TICAGRELOR 90 MG TABLET PO (07:56)
[2017-05-16] MEDS: Aspirin E.C. 81 MG Tablet PO (07:56)
[2017-05-16] MEDS: Metoprolol Tartrate 25 MG Tablet PO (07:56)
--- NOTE | 2017-05-16 08:52 | CL.D_ITS ---
Patient Name: ZEV GONZALEZ Study Date: 05/16/2017 Performing: Star Drummond MD Ht: 68.11 inches 173 cm : 1960 Wt: 194.01 lbs 88 kg Age: 56 Gender: male BSA: 2.02 PROCEDURE(S) PERFORMED DP19-BTX/COR/LV CLINICAL PROFILE AND INDICATIONS INDICATIONS: 56-year-old man with a history of chest pain. Stress/Imaging Stress/Image Study Performed: No CAD Presentations: Symptom unlikely to be ischemic. CONCLUSIONS RECOMMENDATIONS DESCRIPTION OF PROCEDURE The patient arrived to the procedure lab. The risks and benefits of the procedure as well as a full d escription of our services here and current unavailability of surgical backup were fully explained to the patient and/or their significant other prior to the catheterization. The Timeout was completed, verifying the correct patient and procedure. The patient's procedural site was prepped and draped in the usual fashion. Local anesthetic was given subcutaneously to right groin region with Lidocaine 2%. Using a modified Seldinger technique, arterial access was obtained via the right femoral artery, a 5 Fr sheath was inserted. Left Coronary Artery selective angiography was performed in multiple views u sing a 5 Fr. JL4 catheter. Right Coronary Artery selective angiography was then performed in multiple views using a 5 Fr. 3DRC (Glenn) catheter. Left Ventriculography was performed in PAYTON projection using a 4 Fr. Pigtail catheter. LV to AO pullback pressures were then recorded.Contrast was injected through the sheath and the Right Iliac and Femoral artery were assessed for possible closure device.T he arterial sheath was pulled and a Mynx closure device was deployed for hemostasis CORONARY ANGIOGRAPHY DOMINANCE: Right Dominant LEFT HEART ASSESSMENT Left Ventricular Ejection Fraction: by LV Gram 55 % Normal LV wall motion Normal Left Ventricular systolic function LEFT MAIN: Angiographically normal LEFT ANTERIOR DECENDING ARTERY: Diffusely diseased up to 60 % CIRCUMFLEX ARTERY: Mild luminal irregularities RIGHT CORONARY ARTERY: Previously placed stent is patent COMPLICATIONS No Complications PROCEDURE MEDICATIONS Versed 1 mg IV Versed 1 mg IV Oxygen: 2 L/min via nasal cannula SUMMARY OF HEMODYNAMIC DATA Time AIR REST ECG 08:10:43 AO 134/88 (109) SA 08:23:02 LV 111/6, 14 08:30:32 LV 115/5, 10 08:30:38 LV 125/-3, 13 08:31:29 LVp 128/-7, 12 08:31:33 AOp 124/72 (95) 08:31:38 Signed By Star Drummond MD On 05/16/2017 08:52:11 Star Drummond MD
[2017-05-16 09:15] LABS: Erythrocyte Sedimentation Rate 2 mm/hr (0-20)
--- NOTE | 2017-05-16 10:46 | DS.PCM_ITS ---
Discharge Date and Diagnosis Date of Admission: 05/16/17 Date of Discharge: 05/16/17 - Primary Discharge Diagnosis Fatigue - Secondary Discharge Diagnosis Chronic Problems (Last Updated 05/16/17 @ 10:07 by Anne Andrews) Hypertension (Chronic) History of coronary artery stent placement (Chronic ~05/05/17) [id number] RCA 05/05/17 NSTEMI (non-ST elevated myocardial infarction) (Chronic) Hospital Course and Treatment Imaging Results: Clinical Impression(s) from Imaging Studies Chest X-Ray 05/16/17 01:16 IMPRESSION: Normal x-ray examination of the chest. Electronically Signed: Andrea Orozco MD at 2:55 EDT , Service support , Summary of Care Provided: The patient is a 56 year old M past medical history significant for recent non- ST FL for which patient underwent for which patient underwent left heart catheterization with PCI/ADA stent placement to his RCA presented with exertional fatigue 1. Exertional fatigue: Patient was placed in a monitored bed did rule out FL with serial cardiac enzymes patient underwent repeat left heart catheterization which demonstrated patent RCA stent. Patient was noted to have diffuse LAD 60% lesion for which cardiology recommended optimization of medical therapy. Plan is for patient to to begin cardiac rehab as outpatient and to follow-up with cardiology within a week Discharge Activity: Return to Normal Activity Home Medications: Medications to take at Discharge Paroxetine HCl [Paxil] 40 mg PO BID 10/07/14 Albuterol IH (ProAir) [Proair Hfa] 2 puff INHALATION Q4H PRN PRN 05/05/17 Budesonide Inhaler 180 mcg [Pulmicort Inhaler 180 mcg] 1 - 2 puff INHALATION DAILY 05/05/17 Paroxetine HCl [Paxil] 20 mg PO QHS 05/05/17 Salmeterol [Serevent Diskus] 1 puff INHALATION DAILY 05/05/17 Aspirin E.C. [Ecotrin] 81 mg PO DAILY@0800 #30 tab 05/07/17 Atorvastatin Calcium [Lipitor] 40 mg PO QHS #30 tab 05/07/17 Famotidine 20 mg PO BID #60 tab 05/07/17 Isosorbide Mononitrate [Imdur] 60 mg PO DAILY #30 tab 05/07/17 Metoprolol Tartrate [Lopressor (beta dunia)] 25 mg PO BID #60 tab 05/07/17 Nitroglycerin [Nitrostat] 0.4 mg SUBLINGUAL Q5M PRN #10 tab 05/07/17 Ticagrelor [Brilinta] 90 mg PO BID #60 tab 05/07/17 Sulindac 200 mg PO BID 05/16/17 Primary Care Physician: Torsten Hyman MD [Primary Care Provider] - Please follow up with your Primary Care Physician in: in 1-2 weeks Please Follow Up With: Alfonso Diaz MD When: in 1 week Please Follow Up With: cardiac rehab Disposition: Home Minutes spent on discharge:: 35 Patient Condition:: Stable Meaningful Use Info Meaningful Use Diagnoses (Choose all that apply): None applicable Code Visit OBSV E&M: 46519 Observation care discharge
[2017-05-16] MEDS: Isosorbide Mononitrate 60 MG Tablet PO (12:08)
[2017-05-16] MEDS: Famotidine 20 MG Tablet PO (12:08)
== END 2017-05-16 08:44 | disposition home or self-care (01) ==
LOC: ED 03:25 → PCU 03:44
PROVIDERS: Internal Medicine Cardiovascular Disease; Admitting Provider Internal Medicine; Emergency Provider Emergency Medicine; Family Provider Family Medicine; PCP Family Medicine; Visit Provider Internal Medicine
DX: R07.89 Other chest pain (principal); I10 Essential (primary) hypertension; J45.909 Unspecified asthma, uncomplicated; M06.9 Rheumatoid arthritis, unspecified; I25.2 Old myocardial infarction; R53.83 Other fatigue; Z79.899 Other long term (current) drug therapy; Z79.82 Long term (current) use of aspirin; J45.20 Mild intermittent asthma, uncomplicated; M19.90 Unspecified osteoarthritis, unspecified site; Z95.5 Presence of coronary angioplasty implant and graft; I25.10 Atherosclerotic heart disease of native coronary artery without angina pectoris
CPT/HCPCS: 36415; 71045; 80048; 80053; 80061; 83735; 84443; 84484; 85025; 85652; 93005; 93458; 94640; 96374; 96375; 99152; 99153; 99218; 99285; C1760; J7030; C1769; G0378; J2405; Q9967

== ENCOUNTER → 2017-05-27 12:53 | Outpatient (CLI) | payer OTHER, SELFPAY ==
[2017-05-06 14:59] VITALS: BMI 30.5
--- NOTE | 2017-05-27 13:08 | CR.HP_ITS ---
CR - History & Physical - General Arrival date:: 05/27/17 Arrival time:: 12:58 Date of Admission: 05/27/17 Referring Physician: Primary Diagnosis: NSTEMI w/PCI and status post coronary stent placement - History of Present Cardiac Event Onset Date: Enter Onset Date of cardiac illnesses in Comment field below VT:: Yes - 05/05/2017 PTCA:: Yes - 05/05/2017 Type of Symptoms:: significant pain in midsternal area of chest and left side and began radiating down left arm. Interventions with present event:: Left heart cath procedure the next morning. Followed troponin levels - Medications Home Medications: Ambulatory Orders Medication Instructions Recorded Albuterol IH (ProAir) [Proair Hfa] 2 puff INHALATION Q4H PRN PRN 05/05/17 Budesonide Inhaler 180 mcg 1 - 2 puff INHALATION DAILY 05/05/17 [Pulmicort Inhaler 180 mcg] Paroxetine HCl [Paxil] 20 mg PO QHS 05/05/17 Salmeterol [Serevent Diskus] 1 puff INHALATION DAILY 05/05/17 Aspirin E.C. [Ecotrin] 81 mg PO DAILY@0800 #30 tab 05/07/17 Atorvastatin Calcium [Lipitor] 40 mg PO QHS #30 tab 05/07/17 Famotidine 20 mg PO BID #60 tab 05/07/17 Isosorbide Mononitrate [Imdur] 60 mg PO DAILY #30 tab 05/07/17 Metoprolol Tartrate [Lopressor 25 mg PO BID #60 tab 05/07/17 (beta dunia)] Nitroglycerin [Nitrostat] 0.4 mg SUBLINGUAL Q5M PRN #10 tab 05/07/17 Ticagrelor [Brilinta] 90 mg PO BID #60 tab 05/07/17 Sulindac 200 mg PO BID 05/16/17 paroxetine 40 mg tablet 40 mg PO QAM tab 05/25/17 - Allergies Allergies/Adverse Reactions: Allergies Penicillins Allergy (Verified 05/25/17 14:56) Anaphylaxis - Sleep Disorder Evaluation Hx of Sleep Apnea: No Do you snore loudly (louder than talking or can be heard through closed doors)? : No Do you often feel tired/ fatigued/ sleepy during daytime?: Yes - believes to be related to new medications Has anyone observed you stop breathing during sleep?: No History of Hypertension (for STOP score): No STOP Results: Negative Advanced Directives - Advanced Directives Power of Pneumatic Jacketer: Yes Living Will: Yes Advance Directives Information Provided: No Advance Directives on File: No DNR Order?:: No Past Medical History - Problems and Co-Morbidities Problems & Co-Morbidities: Dyslipidemia, Obesity, Hypertension - Past Medical Illness Past Medical Illness: Arthritis - osoarthritis and rheumatoid arthritis., Lung or Breathing Problems - intermittent asthma since child., Back Problems - L1-L2 fusion in lower back in 2014. 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 - Past Cardiac Illness Past Cardiac Illness: Ejection Fraction - 65% - Other Other: Vision/Eye Problems - wears glasses at all time for vision correction - Cardiology Procedures/Interventions Cardiology Procedures/Interventions: PCI w/Stenting, Heart Catheterization, Echocardiogram - Past Surgical History Surgical History: appendectomy, arthroscopy, knee - ACL right knee., cholecystectomy, - - L1-L2 fusion 2014. - Family History Summary Additional Family History: unknown family history, patient is adopted. Review of Systems - Review of Systems Hints: Right click = Denies ([place]). Left click = Reports ([place]) Review of Present Symptoms: Reports: Shortness of Breath at Rest, Shortness of Breath with Exertion, Angina, Dizziness/Lightheadedness, Fatigue, Appetite - Normal. Denies: Sleep - Normal - sleeping to much since the cardiac event. Slept 9 hours last night., Sexual Changes Risk Factor Assessment - Chief Complaint Chief Complaint: Manuel is a 56 yr old male of Dr. Mcfarland who presents to cardiac rehab today following recent VT and PCI intervention. - Pulse Pulse Rate: 72 Pulse Rhythm: Regular - Hypertension Blood Pressure Sitting - Left Arm: 118/78 - Blood Cholesterol/Lipids Total Cholesterol (mg/dL) Goal = less than 200 mg/dL: 84 HDL Cholesterol (mg/dL) Goal = less than 40 mg/dL: 31 LDL Cholesterol (mg/dL) Goal = less than 70 mg/dL: 33 Triglycerides (mg/dL) Goal = less than 150 mg/dL: 102 - Diabetes Nutrition Referral for Diabetes: No - Obesity Height: 5 ft 8 in Weight:: 195 lb Weight in Pounds: 195.0 lbs Body Mass Index (BMI): 29.6 Nutritional Referral for Obesity: No - Physical Inactivity Physical Inactivity: Reg Exercise 30 min/day, Recreational activity - golfing - Risk Stratification Risk Guidelines: Lowest Risk: Risk Factor for Smoking, Risk Factor for Dyslipidemia, Risk Factor for Diabetes, Risk Factor for Hypertension, Moderate Risk: Risk Factor for Obesity - For Smoking Smoking Risk Guidelines: Smoking Low Risk: None or quit greater than 6 months ago. Smoking Moderate Risk: Smoker or quit 6 months or less ago. Smoking High Risk: Smoker - For Dyslipidemia Dyslipidemia Risk Guidelines: Low Risk: Moderate Risk: High Risk: 15-25% fat 25.1-29% fat >/= 30% fat. <7% sat fat 7-9% sat fat >9% sat fat. <150 mg chol 150-299 mg chol >/= 300 mg chol. LDL <100 LDL 100-129 LDL >/= 130. Chol/HDL ratio <5.0 Chol/HDL ratio 5.0-6.0 Chol/HDL ratio >6.0. Triglycerides <100 Triglycerides 100-149 Triglycerides >/= 150 - For Diabetes Mellitus Diabetes Risk Guidelines: Diabetes Low Risk: HgA1c <6.5% and/or FBG <120. Diabetes Moderate Risk: HgA1c 6.6-7.9% and/or FBG 120-180. Diabetes High Risk: HgA1c >/= 8% and/or FBG >180 - For Obesity/Overweight Obesity/Overweight Risk Guidelines: Obesity Low Risk: BMI <25.0. Obesity Moderate Risk: BMI 25-29.9. Obesity High Risk: BMI >/= 30.0 - For Hypertension Hypertension Risk Guidelines: Hypertension Low Risk: Systolic <120 and Diastolic <80. Hypertension Moderate Risk: Systolic 120-139 and Diastolic 80-89. Hypertension High Risk: Systolic >/= 140 and Diastolic >/= 90 - For Sedentary Lifestyle Sedentary Lifestyle Risk Guidelines: Sedentary Lifestyle Low Risk: >/= 1 ,500 kcal/week. Sedentary Lifestyle Moderate Risk: 700-1,499 kcal/week. Sedentary Lifestyle High Risk: < 700 kcal/week - For Depression Depression Risk Guidelines: Depression Low Risk: Not clinically depressed. Depression Moderate Risk: Mildly depressed. 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 Works 6 hours daily - Hobbies, Recreation, Social Activities Hobbies: Other - golfing Recreational Activities: I am able to engage in most, but not all activities Marital Status - Status Marital Status: - Current Living Arrangements Living Environment:: Spouse - Children How many children do you have?: 0 Do any of your children live nearby?: No - Safety Do you feel safe in your surroundings?: Yes - Assistance Do you need any assistance at home?: none
--- NOTE | 2017-05-27 13:11 | CR.ITP_ITS ---
Exercise - Initial Assessment - Visit Date of Eval: 05/27/17 - established initial ITP Session #:: 1 - scheduled start for 05/30/17 - Stages of Change Stages of Change:: Action - Exercise Prescription Mode:: Treadmill, Rower, Airdyne, NuStep Angina with exercise?: No - Hypertension Do any of the following apply?: Yes Resting Blood Pressure:: 118/78 - Intervention Home Exercise/Activity Goal:: Moderate Exercise 30 min/day x 5 days/wk - Education Goals:: Warm-up, RPE JAJA Scale, S/S, Safe Exercise, Self-Monitoring - Exercise Program Goals Exercise Program Goals: Aerobic Activity >30 min Nutrition - Initial Assessment - Program Goals Nutrition Program Goals: LDL <70. Total Cholesterol <200. HDL >45. Triglycerides <150. HgbA1C <7%. BMI <25 - Visit Date of Assessment:: 05/27/17 - establishment of initial ITP - Stages of Change Stages of Change:: Action - Lipids Total Cholesterol (mg/dL) Goal = less than 200 mg/dL: 84 HDL Cholesterol (mg/dL) Goal = less than 45 mg/dL: 31 LDL Cholesterol (mg/dL) Goal = less than 70 mg/dL: 33 Triglycerides (mg/dL) Goal = less than 150 mg/dL: 12 - Diabetes Diabetes:: No - Weight Management Height: 5 ft 8 in Weight:: 195 lb Body Fat %:: 29.6 - Intervention Referral to dietitian:: No Referral to Diabetic Clinic:: No Will attend diet classes:: Yes - Education Gave educational materials for:: Healthy eating Nutrition - 30-Day Assessment - Program Goals Nutrition Program Goals: LDL <70. Total Cholesterol <200. HDL >45. Triglycerides <150. HgbA1C <7%. BMI <25 - Diabetes Diabetes:: No Nutrition - 60-Day Assessment - Program Goals Nutrition Program Goals: LDL <70. Total Cholesterol <200. HDL >45. Triglycerides <150. HgbA1C <7%. BMI <25 - Diabetes Diabetes:: No Nutrition - 90-Day Assessment - Program Goals Nutrition Program Goals: LDL <70. Total Cholesterol <200. HDL >45. Triglycerides <150. HgbA1C <7%. BMI <25 - Diabetes Diabetes:: No Nutrition - Final Assessment - Program Goals Nutrition Program Goals: LDL <70. Total Cholesterol <200. HDL >45. Triglycerides <150. HgbA1C <7%. BMI <25 - Diabetes Diabetes:: No Tobacco - Initial Assessment - Program Goals Tobacco Program Goals: Complete smoking cessation. Attend education classes. Improve Knowledge Test score - Stage of Change Stages of Change:: Action - Learning Barriers Learning Barriers: Vision, Ready to Learn - Family Support Do you have family support?: Yes - Tobacco Use Tobacco Use: Non-smoker Do you use smokeless tobacco?: No - Intervention Smoking Cessation Referral:: No Individual Education/Counseling:: No Education Schedule Given:: Yes - Education Gave educational material for:: Coronary artery disease, Risk factors, Sexuality , Medical compliance, Cardiac A&P, Angina signs & symptoms Psychosocial - Initial Assess - Target Goals Target Goals: Assess presence or absence of depression. Using a valid screening tool, maximizes coping skills. Positive support system - Stages of Change Stages of Change:: Action - Psychosocial Test Tool Used:: HANDS Depression Questionnaire - Intervention PS - Interventions: Yes Attend Stress Management Classes, No Referral to Mental Health, No Referral to [facility] Case Management, No Referral to Physician, No Uses Stress Management Skills - Education Gave educational materials for:: Coping techniques, Signs & symptoms of depression, Stress management, Relaxation techniques - Patient/Program Goal Preventative Medication(s):: Aspirin, DELFINO inhibitor, Clopidogrel, Statin/lipid - Assistive Devices Assistive Devices:: None Fall Risk Assessed:: Yes Patient Health Questionnaire Initial Assessment 1. Little interest or pleasure in doing things: More than half the days 2. Feeling down, depressed, or hopeless: Several days 3. Trouble falling or staying asleep, or sleeping too much: Nearly every day 4. Feeling tired or having little energy: Nearly every day 5. Poor appetite or overeating: Not at all 6. Feeling bad about yourself -- or that you are a failure or have let yourself or your family down: Not at all 7. Trouble concentrating on things, such as reading the newspaper or watching television: Not at all 8. Moving or speaking so slowly that other people could have noticed. Or the opposite - being so fidgety or restless that you have been moving around a lot more than usual: Not at all 9. Thoughts that you would be better off , or of hurting yourself in some way: Not at all How difficult have these problems made it for you to do your work, take care of things at home, or get along with other people?: Somewhat difficult Total Score: 9 Knowledge Test - Check your knowledge Initial The #1 cause of in the [place] each year is:: Heart disease Which of the following is a common treatment for heart disease?: All of the above The arteries that feed the heart are called:: Coronary arteries HDL cholesterol is known as the good cholesterol.: True What disease increases your risk for heart disease?: Diabetes What food product raises blood cholesterol level the most?: Saturated fat The bad cholesterol in the blood is called:: LDL Hypertension is another word for:: High blood pressure A blood pressure reading of 148/88 is considered normal.: False Exercise will only benefit your health when your heart rate reaches a target level.: False Total Score:: 10 Self-Efficacy Initial Assessment We would like to know how confident you are in doing certain activities. Please select your confidence level for:: Select your confidence level for the following using the scale 1-10 where 1 is not at all confident and 10 is totally confident. Your score is the average of all 6 responses. Fatigue: How confident are you that you can keep the fatigue caused by your disease from interfering with the things you want to do? Select Number: 4 Physical Discomfort or Pain: How confident are you that you can keep the physical discomfort or pain of your disease from interfering with the things you want to do? Select Number: 8 Emotional Distress: How confident are you that you can keep the emotional distress caused by your disease from interfering with the things you want to do? Select Number: 10 Other Symptoms or Health Problems: How confident are you that you can keep other symptoms or health problems from interfering with the things you want to do? Select Number: 8 Different Tasks and Activities: How confident are you that you can do the different tasks and activities needed to manage your health condition so as to reduce your need to see a doctor? Select Number: 10 Medication: How confident are you that you can do things other than just taking medication to reduce how much your illness affects your everyday life? Select Number: 10 Total Score:: 8 Nutrition Survey - Nutrition Survey Instructions Scoring Instructions: Scoring is as follows: Yes = 1 points. No = 0 point. Patient score that is >/=12 is considered to be at potential nutritional risk and could benefit from a referral to a registered dietitian. - Nutrition Survey Discharge Have you lost >10 lbs over the past 2 months without trying?: No Are you following a special diet at home for diabetes, low fat, or low salt?: No Are you interested in meeting with a dietitian for help understanding your diet? : Yes Do you eat less than 3 meals a day?: No Do you eat fatty meats (grier, sausage, ribs, etc), fried foods, desserts, large amounts of salad dressings, margarine, butter, or cheese most days?: No Do you have food allergies? [Enter types in comment field]: No Do you eat in restaurants more than 3 times a week?: Yes Do you season food with salt, seasoning salt, or garlic salt?: No Do you used canned, boxed, frozen meals, or soups, seasoning packets?: No Total Score:: 2 Cardiac Rehabilitation Goals - Cardiac Rehab Goals Cardiac Rehabilitation Goals: 1. Maintain the individual as the primary focus of care. 2. To improve the patient's quality of life. 3. Identification of cardiac risk factors and provide cardiac risk factor management. 4. Enhance the psychosocial status of the patient. 5. Reconditioning enough to allow the patient to resume customary activities. 6. Control symptoms of cardiac disease - Scale Scale for measuring improvement of personal goals: Enter appropriate number in Comments. 2 = Unchanged. 3 = Slightly Better. 4 = Moderate Improvement. 5 = Met my Goal Initial Assessment Personal Goals: 30-day Re-assessment: Improve energy level, Participate in home exercise program, Get back to work, or to resume activities faster, Improve muscle strength and endurance, Improve diet and eating habits (eat healthier), Control risk factors (learn risk factor modification)
[2017-05-27 13:18] VITALS: BP 118/78; PULSE 72; BMI 29.6
[2017-05-27 14:01] VITALS: BP 118/78
== END ==
PROVIDERS: Family Provider Family Medicine; PCP Family Medicine; Visit Provider Internal Medicine Cardiovascular Disease
DX: I21.4 Non-ST elevation (NSTEMI) myocardial infarction (principal); Z95.5 Presence of coronary angioplasty implant and graft

== ENCOUNTER 2017-05-30 15:05 | Outpatient (RCR) | payer OTHER, SELFPAY ==
[2017-05-06 14:59] VITALS: BMI 30.5
== END 2017-06-04 23:59 ==
LOC: CR 15:05
PROVIDERS: Family Provider Family Medicine; PCP Family Medicine; Visit Provider Internal Medicine Cardiovascular Disease
DX: Z95.5 Presence of coronary angioplasty implant and graft (principal); I25.798 Atherosclerosis 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; I21.4 Non-ST elevation (NSTEMI) myocardial infarction
CPT/HCPCS: 93798

== ENCOUNTER → 2017-06-27 15:26 | Outpatient (CLI) | payer OTHER, SELFPAY ==
[2017-05-06 14:59] VITALS: BMI 30.5
--- NOTE | 2017-06-27 15:15 | EKG12_ITS ---
Test Reason : CHEST PAIN Blood Pressure : / mmHG Vent. Rate : 080 BPM Atrial Rate : 080 BPM P-R Int : 156 ms QRS Dur : 094 ms QT Int : 376 ms P-R-T Axes : 033 054 021 degrees QTc Int : 433 ms Normal sinus rhythm Normal ECG Confirmed by VEGA HUMPHREY, KHANG ([id number]), editor managing newspaper LUCIANO GODINEZ ([id number]) on 06/28/2017 3:45:29 PM Referred By: KHANG FERRARI Confirmed By:KHANG FERRARI MD
--- NOTE | 2017-06-27 15:27 | CT_ITS ---
STUDY: CTA CHEST REASON FOR EXAM: Male, 57 years old. CHEST PAIN, RECENT WV WITH STENT PLACEMENT, FATIGUE X 5 DAYS RADIATION DOSAGE (If Supplied By Facility): CTDIvol = ( 13.46 ) mGy, DLP = ( 604.30 ) mGycm TECHNIQUE: The examination was performed with the intravenous administration of 100 ml of Isovue 370 contrast material. Post-processing of the angiographic images was performed, with multiplanar reformation and 3D reconstruction. Individualized dose optimization techniques were used for this CT. COMPARISON: None. FINDINGS: There are degenerative changes of the shoulders. There is no pneumothorax. The lungs are normal. There is no demonstrated pleural abnormality. There are calcifications of the coronary arteries. Normal mediastinum. Normal hilar regions. Normal pulmonary arteries. There is atherosclerotic calcification of the aortic arch with tortuosity and elongation of the aortic arch and descending thoracic aorta. There are multi-level degenerative changes of the thoracic spine. The gallbladder is surgically absent. CT/CTA Chest W/WO Contrast IMPRESSION: No demonstrated pulmonary embolism or arterial dissection. There are coronary arterial calcifications. Electronically Signed: Pramod Reardon MD at 16:34 EDT , Service support ,
== END ==
PROVIDERS: Family Provider Family Medicine; PCP Family Medicine; Visit Provider Internal Medicine Cardiovascular Disease
DX: R06.02 Shortness of breath (principal)
CPT/HCPCS: 71275; 93005; Q9967

== ENCOUNTER 2017-06-29 15:15 | Outpatient (RCR) | payer OTHER, SELFPAY ==
[2017-05-06 14:59] VITALS: BMI 30.5
[2017-06-27 11:12] VITALS: BP 110/68; BP 152/82
--- NOTE | 2017-06-27 11:12 | CR.ITP_ITS ---
General Information - General Information Admitting Diagnosis: PCI with coronary stenting - Education/Goals Barriers to Learning: None Individual Counselin-Day Assessment: High Blood Pressure, 60-Day Assessment : High Blood Pressure Cardiac Rehabilitation Goals: 1. Maintain the individual as the primary focus of care. 2. To improve the patient's quality of life. 3. Identification of cardiac risk factors and provide cardiac risk factor management. 4. Enhance the psychosocial status of the patient. 5. Reconditioning enough to allow the patient to resume customary activities. 6. Control symptoms of cardiac disease Scale for measuring improvement of personal goals: Enter appropriate number in Comments. 2 = Unchanged. 3 = Slightly Better. 4 = Moderate Improvement. 5 = Met my Goal Personal Goals: 30-day Re-assessment: Participate in home exercise program, Get back to work, or to resume activities faster, Improve knowledge of cardiac disease, Control risk factors (learn risk factor modification) Exercise - 30-day Assessment - Visit Date of Eval: 06/27/17 Session #:: 6 - Stages of Change Stages of Change:: Action - Exercise Prescription Mode:: Treadmill, Rower, Airdyne, NuStep Frequency (x/week): 3 Duration:: 30 METs - Progression: 0.5-1 MET as tolerated: 5 Target Heart Rate:: 132-140 - Hypertension Resting Blood Pressure:: 110/68 Peak Exercise Blood Pressure:: 152/82 Medication Changes:: No - Intervention Home Exercise/Activity Goal:: Sitting Time <3 hrs/day - Education Goals:: Warm-up, RPE JAJA Scale, S/S, Safe Exercise, Self-Monitoring - Exercise Program Goals Exercise Program Goals: Aerobic Activity >30 min, B/P <140/90 Nutrition - 30-Day Assessment - Program Goals Nutrition Program Goals: LDL <70. Total Cholesterol <200. HDL >45. Triglycerides <150. HgbA1C <7%. BMI <25 - Visit Date of Eval: 06/27/17 - Stages of Change Stages of Change:: Action - Lipids Has the patient seen the dietitian?: No - Diabetes Diabetes:: No - Weight Management Weight:: 89.811 kg - Intervention Referral to dietitian:: No Referral to Diabetic Clinic:: No Will attend diet classes:: Yes - Education Attended class for:: Signs & symptoms of hypoglycemia, Signs & symptoms of hyperglycemia, Relate diabetes to coronary artery disease, Healthy eating Tobacco - Initial Assessment - Program Goals Tobacco Program Goals: Complete smoking cessation. Attend education classes. Improve Knowledge Test score - Learning Barriers Learning Barriers: Vision, Ready to Learn Tobacco - 30-Day Assessment - Program Goals Tobacco Program Goals: Complete smoking cessation. Attend education classes. Improve Knowledge Test score - Stage of Change Stages of Change:: Action - Learning Barriers Learning Barriers: Participates in education - Family Support Do you have family support?: Yes - Tobacco Use Tobacco Use: Non-smoker Do you use smokeless tobacco?: No - Intervention Smoking Cessation Referral:: No Individual Education/Counseling:: No Education Schedule Given:: Yes - Education Attended class for:: Tobacco triggers, Coronary artery disease, Medical compliance, Cardiac A&P Psychosocial - Initial Assess - Target Goals Target Goals: Assess presence or absence of depression. Using a valid screening tool, maximizes coping skills. Positive support system - Psychosocial Test Tool Used:: HANDS Depression Questionnaire - Assistive Devices Fall Risk Assessed:: Yes Psychosocial - 30-Day Assess - Target Goals Target Goals: Assess presence or absence of depression. Using a valid screening tool, maximizes coping skills. Positive support system - Stages of Change Stages of Change:: Action - Psychosocial Test Tool Used:: HANDS Depression Questionnaire - Intervention PS - Interventions: Yes Attend Stress Management Classes, Yes Uses Stress Management Skills, No Referral to Mental Health, No Referral to [facility] Case Management, No Referral to Physician - Education Attended classes for:: Coping techniques, Signs & symptoms of depression, Stress management, Relaxation techniques - Assistive Devices Assistive Devices:: None Fall Risk Assessed:: Yes Patient Health Questionnaire 30-Day Re-eval Assessment 1. Little interest or pleasure in doing things: Not at all 2. Feeling down, depressed, or hopeless: Not at all 3. Trouble falling or staying asleep, or sleeping too much: Not at all 4. Feeling tired or having little energy: Not at all 5. Poor appetite or overeating: Not at all 6. Feeling bad about yourself -- or that you are a failure or have let yourself or your family down: Not at all 7. Trouble concentrating on things, such as reading the newspaper or watching television: Not at all 8. Moving or speaking so slowly that other people could have noticed. Or the opposite - being so fidgety or restless that you have been moving around a lot more than usual: Not at all 9. Thoughts that you would be better off , or of hurting yourself in some way: Not at all How difficult have these problems made it for you to do your work, take care of things at home, or get along with other people?: Not difficult at all Total Score: 0 Self-Efficacy 30-Day Re-eval Assessment We would like to know how confident you are in doing certain activities. Please select your confidence level for:: Select your confidence level for the following using the scale 1-10 where 1 is not at all confident and 10 is totally confident. Your score is the average of all 6 responses. Fatigue: How confident are you that you can keep the fatigue caused by your disease from interfering with the things you want to do? Select Number: 10 Physical Discomfort or Pain: How confident are you that you can keep the physical discomfort or pain of your disease from interfering with the things you want to do? Select Number: 10 Emotional Distress: How confident are you that you can keep the emotional distress caused by your disease from interfering with the things you want to do? Select Number: 10 Other Symptoms or Health Problems: How confident are you that you can keep other symptoms or health problems from interfering with the things you want to do? Select Number: 10 Different Tasks and Activities: How confident are you that you can do the different tasks and activities needed to manage your health condition so as to reduce your need to see a doctor? Select Number: 10 Medication: How confident are you that you can do things other than just taking medication to reduce how much your illness affects your everyday life? Select Number: 10 Total Score:: 10
== END 2017-07-04 23:59 ==
LOC: CR 15:15
PROVIDERS: Family Provider Family Medicine; PCP Family Medicine; Visit Provider Internal Medicine Cardiovascular Disease
DX: I25.798 Atherosclerosis 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 (principal); I21.4 Non-ST elevation (NSTEMI) myocardial infarction; Z95.5 Presence of coronary angioplasty implant and graft
CPT/HCPCS: 93798

== ENCOUNTER → 2017-07-06 06:41 | Outpatient (CLI) | payer OTHER, SELFPAY ==
[2017-05-06 14:59] VITALS: BMI 30.5
--- NOTE | 2017-07-06 09:57 | STRESSREP ---
Stress Test Report Exercise myocardial perfusion stress test. 57-year-old man with a history of chest pain. Stress protocol: Resting EKG demonstrates normal sinus rhythm with a rate of 76 bpm normal intervals and noted resting blood pressure is 122/76 centimeters of mercury. The patient exercised according to the regular Sung protocol for a total duration of 9 minutes completing stage III of the Sung protocol the maximum heart rate attained was 144 bpm which was 87% of maximum predicted heart rate the maximum workload attained was 10.1 metabolic equivalents. At rest there were no ST or T-wave changes noted noted suggest ischemia peak exercise upsloping ST changes only were noted would not be the criteria for ischemia no clinical angina was noted the test was terminated due to leg fatigue. The resting blood pressure is 122/76 with a peak blood pressure 160/76. Myocardial perfusion protocol. 11.7 mCi of technetium 99m sestamibi was injected at rest. The patient exercised according to regular Sung protocol for 9 minutes attaining 87% of maximum predicted heart rate and a workload of 10.1 metabolic equivalents. At peak exercise 33.2 mCi of technetium 99m sestamibi was injected stress images were obtained stress and rest images were reconstructed and compared in the short axis vertical long and horizontal long axis. Gated images were also obtained. Perfusion SPECT analysis: Review of the stress images demonstrate normal uptake of tracer noted in the septum anterior wall and lateral wall. There is mildly reduced perfusion in the inferior wall present on the stress and rest images to a similar extent no areas of reversibility are noted suggest ischemia. Gated SPECT analysis: The gated ejection fraction is 74%. Conclusion: Normal exercise myocardial perfusion stress test at a high workload. No clinical angina noted. Preserved ejection fraction.
== END ==
PROVIDERS: Family Provider Family Medicine; PCP Family Medicine; Visit Provider Internal Medicine Cardiovascular Disease
DX: I21.4 Non-ST elevation (NSTEMI) myocardial infarction (principal); I25.798 Atherosclerosis 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; I10 Essential (primary) hypertension; Z95.5 Presence of coronary angioplasty implant and graft; Z98.890 Other specified postprocedural states
CPT/HCPCS: 78452; 93017; A9500; A4216

== ENCOUNTER 2017-07-29 15:15 | Outpatient (RCR) | payer OTHER, SELFPAY ==
[2017-05-06 14:59] VITALS: BMI 30.5
[2017-07-05 01:01] VITALS: BP 110/68; BP 152/82
--- NOTE | 2017-07-27 14:21 | PCM.CR.ITP ---
General Information - General Information Admitting Diagnosis: PCI w/ coronary stenting - Education/Goals Barriers to Learning: None Individual Counselin-Day Assessment: Abnormal Cholesterol Levels, High Blood Pressure, Overweight/Obesity Cardiac Rehabilitation Goals: 1. Maintain the individual as the primary focus of care. 2. To improve the patient's quality of life. 3. Identification of cardiac risk factors and provide cardiac risk factor management. 4. Enhance the psychosocial status of the patient. 5. Reconditioning enough to allow the patient to resume customary activities. 6. Control symptoms of cardiac disease Scale for measuring improvement of personal goals: Enter appropriate number in Comments. 2 = Unchanged. 3 = Slightly Better. 4 = Moderate Improvement. 5 = Met my Goal Personal Goals: 60-day Re-assessment: Improve energy level, Participate in home exercise program, Get back to work, or to resume activities faster, Improve knowledge of cardiac disease, Improve muscle strength and endurance, Improve diet and eating habits (eat healthier) - flucuates 195-199.5 Exercise - 60-Day Assessment - Visit Date of Eval: 07/27/17 Session #:: 17 - 65.38 compliance 17 of 26 scheduled - Stages of Change Stages of Change:: Action - Exercise Prescription Mode:: Treadmill, Rower, Airdyne, NuStep Frequency (x/week): 3 Duration:: 30 METs: 6 Target Heart Rate:: 132-140 max HR 124 - Hypertension Resting Blood Pressure:: 110/76 Peak Exercise Blood Pressure:: 148/80 Medication Changes:: Yes - Intervention Home Exercise/Activity Goal:: Moderate Exercise 30 min/day x 5 days/wk - Education Goals:: Warm-up, RPE JAJA Scale, S/S, Safe Exercise, Self-Monitoring - Exercise Program Goals Exercise Program Goals: Aerobic Activity >30 min Nutrition - 60-Day Assessment - Program Goals Nutrition Program Goals: LDL <70. Total Cholesterol <200. HDL >45. Triglycerides <150. HgbA1C <7%. BMI <25 - Visit Date of Eval: 07/27/17 - Stages of Change Stages of Change:: Action - Lipids Has the patient seen the dietitian?: No - Diabetes Diabetes:: No - Weight Management Weight:: 199 lb 8 oz - up from 195.0 06/13/17 - Intervention Referral to dietitian:: Yes - Patient could benefit from structured weight loss planning. Referral to Diabetic Clinic:: No Will attend diet classes:: Yes - Education Attended class for:: Healthy eating Tobacco - Initial Assessment - Program Goals Tobacco Program Goals: Complete smoking cessation. Attend education classes. Improve Knowledge Test score - Learning Barriers Learning Barriers: Vision, Ready to Learn Tobacco - 60-Day Assessment - Program Goals Tobacco Program Goals: Complete smoking cessation. Attend education classes. Improve Knowledge Test score - Stage of Change Stages of Change:: Action - Learning Barriers Learning Barriers: Participates in education - Tobacco Use Do you use smokeless tobacco?: No - Intervention Education Schedule Given:: Yes - Education Attended class for:: Coronary artery disease, Risk factors, Sexuality, Medical compliance, Cardiac A&P, Angina signs & symptoms Psychosocial - 60-Day Assess - Target Goals Target Goals: Assess presence or absence of depression. Using a valid screening tool, maximizes coping skills. Positive support system - Stages of Change Stages of Change:: Action - Psychosocial Test Tool Used:: HANDS Depression Questionnaire - Intervention PS - Interventions: Yes Attend Stress Management Classes, Yes Uses Stress Management Skills, No Referral to Mental Health, No Referral to [facility] Case Management, No Referral to Physician - Education Attended classes for:: Coping techniques, Signs & symptoms of depression, Stress management, Relaxation techniques - Patient/Program Goal Preventative Medication(s):: Aspirin, Clopidogrel, Beta dunia, Statin/lipid - Assistive Devices Assistive Devices:: None Fall Risk Assessed:: Yes Patient Health Questionnaire 60-Day Re-eval Assessment 1. Little interest or pleasure in doing things: Not at all 2. Feeling down, depressed, or hopeless: Not at all 3. Trouble falling or staying asleep, or sleeping too much: Not at all 4. Feeling tired or having little energy: Not at all 5. Poor appetite or overeating: Not at all 6. Feeling bad about yourself -- or that you are a failure or have let yourself or your family down: Not at all 7. Trouble concentrating on things, such as reading the newspaper or watching television: Not at all 8. Moving or speaking so slowly that other people could have noticed. Or the opposite - being so fidgety or restless that you have been moving around a lot more than usual: Not at all 9. Thoughts that you would be better off , or of hurting yourself in some way: Not at all Total Score: 0 Self-Efficacy 60-Day Re-eval Assessment We would like to know how confident you are in doing certain activities. Please select your confidence level for:: Select your confidence level for the following using the scale 1-10 where 1 is not at all confident and 10 is totally confident. Your score is the average of all 6 responses. Fatigue: How confident are you that you can keep the fatigue caused by your disease from interfering with the things you want to do? Select Number: 10 Physical Discomfort or Pain: How confident are you that you can keep the physical discomfort or pain of your disease from interfering with the things you want to do? Select Number: 10 Emotional Distress: How confident are you that you can keep the emotional distress caused by your disease from interfering with the things you want to do? Select Number: 10 Other Symptoms or Health Problems: How confident are you that you can keep other symptoms or health problems from interfering with the things you want to do? Select Number: 10 Different Tasks and Activities: How confident are you that you can do the different tasks and activities needed to manage your health condition so as to reduce your need to see a doctor? Select Number: 10 Medication: How confident are you that you can do things other than just taking medication to reduce how much your illness affects your everyday life? Select Number: 10 Total Score:: 10
[2017-07-27 14:37] VITALS: BP 110/76; BP 148/80
--- NOTE | 2017-08-26 08:46 | PCM.CR.ITP ---
Exercise - Initial Assessment - Visit Date of Eval: 08/26/17 - pt has not been here this month Session #:: 13 Tobacco - Initial Assessment - Program Goals Tobacco Program Goals: Complete smoking cessation. Attend education classes. Improve Knowledge Test score - Learning Barriers Learning Barriers: Vision, Ready to Learn Psychosocial - Initial Assess - Target Goals Target Goals: Assess presence or absence of depression. Using a valid screening tool, maximizes coping skills. Positive support system - Psychosocial Test Tool Used:: HANDS Depression Questionnaire - Assistive Devices Fall Risk Assessed:: Yes
== END 2017-08-04 23:59 ==
LOC: CR 15:15
PROVIDERS: Family Provider Family Medicine; PCP Family Medicine; Visit Provider Internal Medicine Cardiovascular Disease
DX: I25.798 Atherosclerosis 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 (principal); I21.4 Non-ST elevation (NSTEMI) myocardial infarction; Z95.5 Presence of coronary angioplasty implant and graft
CPT/HCPCS: 93798

== ENCOUNTER 2017-09-05 06:43 | Outpatient (RCR) | payer OTHER, SELFPAY ==
[2017-05-06 14:59] VITALS: BMI 30.5
[2017-08-05 00:51] VITALS: BP 110/76; BP 148/80
== END 2017-10-04 23:59 ==
LOC: CR 06:43
PROVIDERS: Family Provider Family Medicine; PCP Family Medicine; Visit Provider Internal Medicine Cardiovascular Disease
DX: I25.798 Atherosclerosis 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 (principal); I21.4 Non-ST elevation (NSTEMI) myocardial infarction; Z95.5 Presence of coronary angioplasty implant and graft
CPT/HCPCS: 93798

== ENCOUNTER → 2018-01-10 10:38 | Outpatient (CLI) | payer OTHER, SELFPAY ==
[2017-05-06 14:59] VITALS: BMI 30.5
--- NOTE | 2018-01-10 10:46 | RAD_ITS ---
STUDY: X-RAY CHEST REASON FOR EXAM: Male, 57 years old. Rales TECHNIQUE: PA and lateral views of the chest. COMPARISON: May 16, 2017 chest x-ray FINDINGS: The lungs are clear and expanded. There is no demonstrated pleural abnormality. Normal size heart. Normal mediastinum and annemarie. Normal visualized pulmonary arteries. Normal visualized aortic arch and descending thoracic aorta. Normal visualized thoracic spine. Normal visualized ribs, clavicles, and shoulders. There is no demonstrated abnormality of the visualized soft tissue structures of the upper abdomen. RAD/Chest PA and Lateral IMPRESSION: Normal x-ray examination of the chest. Electronically Signed: Casi Montero MD at 0:11 EST Tel , Service support ,
[2018-01-10 14:00] LABS: Erythrocyte Sedimentation Rate 5 mm/hr (0-20)
[2018-01-10 14:02] LABS: Absolute Lymphocyte Count 2.27 X10^3/ul (0.83-4.51); Absolute Neutrophil Count 7.1 X10^3/uL (2.0-7.7); Basophil# 0.07 X10^3/uL; Basophil% 0.7 % (0-1); Eosinophil# 0.34 X10^3/uL; Eosinophils% 3.2 % (0-5); Hematocrit 49.8 % (40-54); Hemoglobin 16.4 g/dl (13.0-16.5); Lymphocyte # 2.27 X10^3/ul (4.0); Lymphocyte % 21.1 % (19-41); Mean Corp Hgb Conc 32.9 g/gl (32-36); Mean Platelet Vol. 10.2 fl (6.2-12.0); Monocyte# 0.96 X10^3/uL; Monocyte% 8.9 % (0-10); Neutrophil # 7.07 X10^3/uL (2.7-7.7); Neutrophil % 65.8 % (47-70); POSITIVE COUNT NO; POSITIVE DIFFERENTIAL NO; POSITIVE MORPHOLOGY NO; Platelet Count 360 K/mm3 (150-450); RBC Distribution Width CV 13.6 % (11.6-14.6); RBC Distribution Width SD 45.1 fl (35.1-43.9); Red Blood Count 5.47 M/mm3 (4.6-6.2); White Blood Count 10.7 K/mm3 (4.4-11.0)
[2018-01-10 14:07] LABS: D-Dimer Quantitative (DVT/PE) 0.29 FEU/ug/m (0.27-0.49)
[2018-01-10 14:28] LABS: AST(SGOT) 31 U/L (15-37); Alanine Aminotransfer ALT/SGPT 48 U/L (16-61); Alkaline Phosphatase 149 U/L (45-117); Anion Gap 13 (5-15); BUN 22 mg/dL (7-18); Calcium,Total 9.2 mg/dL (8.5-10.1); Chloride 105 mmol/L (98-107); Creatinine, Serum 1.22 mg/dL (0.70-1.30); EST Glomerular Filtration Rate 65 mL/min (>60); Est Glom Filt Rate - Afr Amer 79 mL/min (>60); Globulin 3.9 g/dL (2.2-4.2); Glucose 137 mg/dL (74-106); Potassium 3.5 mmol/L (3.5-5.1); Protein, Total 7.9 g/dL (6.4-8.2); Sodium Level 141 mmol/L (136-145); Thyroid Stim Hormone (TSH) 2.13 uIU/mL (0.358-3.74)
== END ==
PROVIDERS: Family Provider Family Medicine; PCP Family Medicine; Referring Provider Family Medicine; Visit Provider Family Medicine
DX: R09.89 Other specified symptoms and signs involving the circulatory and respiratory systems (principal); M06.4 Inflammatory polyarthropathy
CPT/HCPCS: 36415; 71046; 80053; 82306; 84443; 85025; 85379; 85652; 86140

== ENCOUNTER → 2018-06-05 10:15 | Outpatient (CLI) | payer OTHER, SELFPAY ==
[2017-05-06 14:59] VITALS: BMI 30.5
[2018-06-01 13:16] VITALS: BMI 29.9
[2018-06-05 12:09] LABS: Absolute Lymphocyte Count 1.91 X10^3/ul (0.83-4.51); Absolute Neutrophil Count 5.3 X10^3/uL (2.0-7.7); Basophil% 1.1 % (0-1); Hematocrit 44.2 % (40-54); Hemoglobin 14.5 g/dl (13.0-16.5); Lymphocyte # 1.91 X10^3/ul (4.0); Lymphocyte % 21.8 % (19-41); Mean Corp Hgb Conc 32.8 g/gl (32-36); Mean Corpuscular Hgb 28.7 pg (27.0-32.0); Mean Corpuscular Volume 87.5 fL (80-94); Mean Platelet Vol. 10.2 fl (6.2-12.0); Monocyte# 0.73 X10^3/uL; Monocyte% 8.3 % (0-10); Neutrophil % 60.6 % (47-70); Platelet Count 329 K/mm3 (150-450); RBC Distribution Width CV 13.8 % (11.6-14.6); RBC Distribution Width SD 43.7 fl (35.1-43.9); Red Blood Count 5.05 M/mm3 (4.6-6.2); White Blood Count 8.8 K/mm3 (4.4-11.0)
[2018-06-05 12:11] LABS: POSITIVE COUNT NO; POSITIVE DIFFERENTIAL NO; POSITIVE MORPHOLOGY NO
[2018-06-05 12:47] LABS: ALB/GLOB Ratio 1.1 RATIO (0.9-2.4); AST(SGOT) 25 U/L (15-37); Alanine Aminotransfer ALT/SGPT 40 U/L (16-61); Albumin, Serum 3.9 g/dL (3.2-5.0); Alkaline Phosphatase 124 U/L (45-117); Anion Gap 7 (5-15); BUN 16 mg/dL (7-18); BUN/Creat Ratio 15.7 RATIO (10-20); CRP < 2.90 mg/L (0.0-3.0); Calcium,Total 8.7 mg/dL (8.5-10.1); Chloride 109 mmol/L (98-107); Cholesterol 124 mg/dL (200); Creatinine, Serum 1.02 mg/dL (0.70-1.30); EST Glomerular Filtration Rate 80 mL/min (>60); Est Glom Filt Rate - Afr Amer 97 mL/min (>60); Globulin 3.4 g/dL (2.2-4.2); Glucose 100 mg/dL (74-106); High Density Lipoprotein 49 mg/dL; PSA,Total - Annual Screen 0.58 ng/mL (0.00-4.00); Potassium 4.1 mmol/L (3.5-5.1); Protein, Total 7.3 g/dL (6.4-8.2); Sodium Level 140 mmol/L (136-145); Thyroid Stim Hormone (TSH) 1.42 uIU/mL (0.358-3.74); Triglycerides 119 mg/dL; Very Low Density Lipoprotein 24 mg/dL (5-40)
[2018-06-08 09:07] LABS: Testosterone, Free 6.34 ng/dL (5.00-21.00)
[2018-06-08 13:41] LABS: Testosterone, % Free 1.26 % (1.50-4.20); Testosterone, Total 503 ng/dL (264-916)
== END ==
PROVIDERS: Family Provider Family Medicine; PCP Family Medicine; Visit Provider Family Medicine
DX: M06.4 Inflammatory polyarthropathy (principal); N52.9 Male erectile dysfunction, unspecified; I25.10 Atherosclerotic heart disease of native coronary artery without angina pectoris
CPT/HCPCS: 36415; 80053; 80061; 84153; 84402; 84403; 84443; 85025; 86140; G0103

== ENCOUNTER 2018-06-29 14:00 | Outpatient (RCR) | payer OTHER, SELFPAY ==
[2017-05-06 14:59] VITALS: BMI 30.5
[2018-06-01 13:16] VITALS: BMI 29.9
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
--- NOTE | 2018-08-01 13:47 | HP.PTDCNRP_ITS ---
HP - Discharge Summary (1) - Patient Information ZEV GONZALEZ was seen in my office for initial evaluation on 06/27/18. The following Plan of Care was established for this patient: Initial Frequency: 2x /Week Initial Duration: 6 Weeks - Anticipated Interventions Patient/Client Instruction: Educate patient on: Condition, Plan of Care, Risk Factors, Benefits of Fitness Program For the Purpose of:: To improve self management Therapeutic Exercise to Include: Strength training, Body mechanics, Postural training, Flexibilty training, Gait and locomotor training, In an aquatic setting, Active ROM, Dynamic Lumbar Stabilization For the Purpose of:: To decrease pain, To increase ROM, To improve muscle performance and motor function, To increase tolerance to activity /condition/position, To improve ability of physical actions for home/community/work/leisure, To improve gait and locomotor functions This patient was last seen in our office 06/29/18. Pertinent comments regarding their Physical therapy will appear below: This patient has not returned to Physical Therapy and is appropriate to return to MD for further follow-up as needed. At this point I will be discontinuing this patient from physical therapy. I would be happy to see this patient again in the future if found appropriate by the physician. Thank you! Carri Ramirez, PT, Cert MDT
== END 2018-06-29 19:00 | disposition home or self-care (01) ==
LOC: PT 14:00
PROVIDERS: Family Provider Family Medicine; PCP Family Medicine; Referring Provider Orthopaedic Surgery; Visit Provider Orthopaedic Surgery
DX: M25.551 Pain in right hip (principal)
CPT/HCPCS: 97113; 97162; 97530

== ENCOUNTER 2018-06-29 20:57 | Inpatient (IN) | payer OTHER, SELFPAY ==
[2017-05-06 14:59] VITALS: BMI 30.5
[2018-06-01 13:16] VITALS: BMI 29.9
[2018-06-29 21:28] VITALS: BP 115/76; PULSE 73; RESP 18; TEMP 36.3; O2SAT 96
--- NOTE | 2018-06-29 22:45 | CT_ITS ---
STUDY: CT ABDOMEN AND PELVIS WITHOUT CONTRAST REASON FOR EXAM: Male, 58 years old. Lower abdominal pain. Pain in the groin and perineal. Unable to urinate. History of prostatitis appendectomy cholecystectomy and lumbar fusion. RADIATION DOSAGE (If Supplied By Facility): CTDIvol = ( 12.83 ) mGy, DLP = ( 743.73 ) mGycm TECHNIQUE: Transaxial images were obtained from the dome of the diaphragm to the symphysis pubis without oral contrast, and without intravenous contrast. Sagittal and coronal images were reconstructed. Individualized dose optimization techniques were used for this CT. COMPARISON: October 01, 2014. FINDINGS: The visualized lung bases are unremarkable. The visualized portions of the heart are within normal limits. Normal liver. There are surgical clips in the gallbladder fossa consistent with a prior cholecystectomy. Normal spleen. Normal pancreas. Normal bilateral adrenal glands. Normal right kidney. Normal left kidney. Normal bilateral ureters. Normal visualized stomach. Normal small intestine. There is scattered colonic diverticuli. There is mild inflammatory change about the proximal sigmoid colon with air in the surrounding mesentery suggesting perforated appendicitis. There is no abscess formation. There are surgical clips in the region of the appendix consistent with a prior appendectomy. There is diffuse atherosclerotic calcification of the abdominal aorta, without a demonstrated aneurysm. Normal inferior vena cava. Normal retroperitoneum. Normal urinary bladder. Bilateral prostate and seminal vesicles. There is no pelvic lymphadenopathy or mass. No free air or free fluid is seen within the peritoneal cavity. There is an umbilical hernia of omental fat. The abdominal wall is otherwise unremarkable. There are degenerative changes of the lumbar spine most marked at L5-S1 with evidence of fusion. CT/Abdomen/Pelvis without Cont IMPRESSION: 1. Sigmoid diverticulitis with localized perforation. There is no abscess or free air. 2. No other evidence of intra-abdominal or pelvic abnormality. 3. Postsurgical changes at L5-S1. N.B. : The above information has been verbally conveyed by Georges Rose DO to Eric Mosley on 06/29/2018 23:39:20 (ET). Electronically Signed: Georges Rose DO at 23:40 EDT Tel [phone], Service support ,
--- NOTE | 2018-06-29 22:46 | ED.VISSUMM ---
- ER Visit Summary Date of Service: 06/29/18 Chief Complaint: [] Flank and suprapubic discomfort since today History of Present Illness: The patient is a 58 M [] history of appendectomy cholecystectomy prostatitis, CAD with stent stable, undergoing physical therapy for hip element today he was in a pool doing leg exercises and also try to strengthen his core muscle groups and then he began having a vague pain to the right than the left in the suprapubic area, he had no difficulty with bowel bladder habits his urination is been normal he had no fever no cough no direct trauma to any part of his body he is actually been feeling well eating and drinking he is thirsty now Indicates he went to urgent care center and his UA was negative and he was sent to the [facility] part for further management Indicates he has a history of prior prostatitis years ago in general he was not ill and nothing was bothering him before he got in the pool and started doing those types of exercises at this time he points to the right flank region and suprapubic area as discomfort he has no testicular pain he voided urine without difficulty at the urgent care center has been voiding and having normal bowel moves all day Physical Examination: [] Vital signs within normal range afebrile General, no distress resting comfortably HEENT is generally unremarkable The neck is supple no adenopathy Cardiovascular, regular rate and rhythm Lungs, clear bilateral Abdomen, soft nontender, no rebound guarding organomegaly, he complains subjectively of pain to the right flank region, in the suprapubic area but no rebound or guarding, The rectal exam shows brown stool with some very mild pain to palpation of the prostate the prostate is not boggy Extremities, no clubbing cyanosis or edema Neurologic, awake alert answering questions appropriately moving all 4 extremities Test Results: [] Emergency Department Course and Treatment: [] Screening labs UA urine culture flank CT pain management Counts about 19,000, the rest of the screening labs are unremarkable, the abdominal CT per radiology shows signs of sigmoid diverticulitis with small tiny bubbles of air suggesting possible micro-peripheral abscess the patient will start IV antibiotics, he has seen Dr. Monge in the past and asked that we consult Dr. Monge this time we will consult Dr. Monge and discuss admission to either his service or hospitalist service and further management Treatment Plan: [] Disposition: [] Admit stable Impression: [] Sigmoid diverticulitis with microperforation This note was generated with [employer]) dictation software. It may contain incorrect words, spelling, and punctuation that were not noted in review of the chart prior to signing ED Disposition - Plan for ED Patient: Referrals: Torsten Hyman MD [Primary Care Provider] -
[2018-06-29] MEDS: 0.9% Normal Saline 1,000 ML 125 ML IV (23:03)
[2018-06-29] MEDS: morphine 8 MG/ML Syringe IV (23:03)
[2018-06-29] MEDS: Ondansetron 4 MG/2 ML Vial IV (23:04)
[2018-06-29 23:20] LABS: Absolute Lymphocyte Count 1.26 X10^3/ul (0.83-4.51); Absolute Neutrophil Count 15.3 X10^3/uL (2.0-7.7); Basophil# 0.03 X10^3/uL; Basophil% 0.2 % (0-1); Eosinophil# 0.17 X10^3/uL; Eosinophils% 0.9 % (0-5); Hematocrit 43.8 % (40-54); Lymphocyte # 1.26 X10^3/ul (4.0); Lymphocyte % 6.8 % (19-41); Mean Corp Hgb Conc 34.2 g/gl (32-36); Mean Corpuscular Hgb 29.4 pg (27.0-32.0); Mean Corpuscular Volume 85.7 fL (80-94); Mean Platelet Vol. 9.2 fl (6.2-12.0); Monocyte# 1.64 X10^3/uL; Monocyte% 8.9 % (0-10); Neutrophil # 15.33 X10^3/uL (2.7-7.7); Neutrophil % 82.8 % (47-70); Platelet Count 293 K/mm3 (150-450); RBC Distribution Width SD 44.1 fl (35.1-43.9); Red Blood Count 5.11 M/mm3 (4.6-6.2); White Blood Count 18.5 K/mm3 (4.4-11.0)
[2018-06-29 23:25] LABS: Differential Indicated SCAN CRITERIA MET; POSITIVE COUNT NO; POSITIVE DIFFERENTIAL YES; POSITIVE MORPHOLOGY NO
[2018-06-29 23:35] LABS: AST(SGOT) 26 U/L (15-37); Alanine Aminotransfer ALT/SGPT 34 U/L (16-61); Alkaline Phosphatase 124 U/L (45-117); Anion Gap 7 (5-15); BUN 25 mg/dL (7-18); BUN/Creat Ratio 22.3 RATIO (10-20); Bilirubin, Direct 0.21 mg/dL (0.00-0.30); Calcium,Total 8.9 mg/dL (8.5-10.1); Chloride 104 mmol/L (98-107); Creatinine, Serum 1.12 mg/dL (0.70-1.30); EST Glomerular Filtration Rate 72 mL/min (>60); Est Glom Filt Rate - Afr Amer 87 mL/min (>60); Estimated Creatinine Clearance 68.03 ml/min; Globulin 3.4 g/dL (2.2-4.2); Glucose 91 mg/dL (74-106); Lipase 166 U/L (73-393); Potassium 4.1 mmol/L (3.5-5.1); Protein, Total 7.4 g/dL (6.4-8.2); Sodium Level 137 mmol/L (136-145)
[2018-06-30] VITALS (15 sets, daily range): BP systolic 102–137; BP diastolic 63–78; PULSE 74–102; RESP 15–18; TEMP 36.6–37.4; O2SAT 93–99; BMI 30.3
[2018-06-30] MEDS: Ciprofloxacin 400 MG/200 ML BAG 200 MG IV ×3 (00:07→22:48)
--- NOTE | 2018-06-30 00:44 | PCM.HP.STD ---
Problem List (1) Perforation of sigmoid colon due to diverticulitis Status: Acute History of Present Illness Date of Admission: 06/30/18 The patient is a 58 year old M history of appendectomy cholecystectomy prostatitis, CAD with stent stable, undergoing physical therapy for hip element today he was in a pool doing leg exercises and also try to strengthen his core muscle groups and then he began having a vague pain to the right than the left in the suprapubic area, he had no difficulty with bowel bladder habits his urination is been normal he had no fever no cough no direct trauma to any part of his body he is actually been feeling well eating and drinking he is thirsty now He went to urgent care center and his UA was negative and he was sent to the emerge part for further management He has a history of prior prostatitis years ago in general he was not ill and nothing was bothering him before he got in the pool and started doing those types of exercises at this time he points to the right flank region and suprapubic area as discomfort he has no testicular pain he voided urine without difficulty at the urgent care center has been voiding and having normal bowel moves all day. While in the emergency department he underwent a CAT scan of his abdomen and pelvis which showed sigmoid diverticulitis with microperforations I was subsequently consulted. 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 (Chronic) ADA-RCA 05/22/17 Left Heart Cath 05/16/17 Patent Stent-RCA, Diffusely diseased LAD up to 60% NSTEMI (non-ST elevated myocardial infarction) (Chronic) Medical History: Medical History (Last Reviewed 06/30/18 @ 00:46 by Alfonso Monge MD) Essential (primary) hypertension (Chronic) I10 Atherosclerosis 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 (Chronic) I25.798 ADA-RCA 05/22/17 Left Heart Cath 05/16/17 Patent Stent-RCA, Diffusely diseased LAD up to 60% NSTEMI (non-ST elevated myocardial infarction) (Chronic) I21.4 Asthma J45.909 Rheumatoid arthritis M06.9 Allergies Penicillins Allergy (Verified 06/29/18 21:32) Anaphylaxis Home Medications: Ambulatory Orders Medication Instructions Recorded Albuterol IH (ProAir) [Proair Hfa] 2 puff INHALATION Q4H PRN PRN 05/05/17 Budesonide Inhaler 180 mcg 1 - 2 puff INHALATION DAILY 05/05/17 [Pulmicort Inhaler 180 mcg] Paroxetine [Paxil] 20 mg PO QHS 05/05/17 Salmeterol [Serevent Diskus] 1 puff INHALATION DAILY 05/05/17 paroxetine 40 mg tablet 40 mg PO QAM tab 05/25/17 cholecalciferol (vitamin D3) 1,000 1,000 unit PO DAILY 06/01/18 unit capsule folic acid 800 mcg tablet 0.8 mg PO DAILY 06/01/18 aspirin 81 mg tablet,delayed 81 mg PO DAILY@0800 #90 tab 06/02/18 release isosorbide mononitrate ER 30 mg 30 mg PO DAILY #90 tab 06/02/18 tablet,extended release 24 hr nitroglycerin 0.4 mg sublingual 0.4 mg SUBLINGUAL Q5M PRN #25 tab 06/02/18 tablet ticagrelor 90 mg tablet 90 mg PO BID #180 tab 06/02/18 atorvastatin 40 mg tablet 40 mg PO QHS #90 tab 06/27/18 Olodaterol HCl [Striverdi Respimat] 2 puff PO DAILY 06/29/18 Sulindac 200 mg PO BID 06/29/18 Surgical History: Surgical History (Last Reviewed 06/30/18 @ 00:46 by Alfonso Monge MD) History of left heart catheterization (Acute) Onset Date: ~05/16/17 Z98.890 Patent Stent-RCA, Diffusely diseased LAD up to 60% History of coronary artery stent placement (Chronic) Onset Date: ~05/05/17 Z95.5 [id number] RCA 05/05/17 Surgical History: appendectomy, arthroscopy, knee - ACL right knee., cholecystectomy, - - L1-L2 fusion 2014. Smoking Status: Current some day smoker - *Family History Paternal History Items: Unknown - As the patient is adopted. Review of Systems Constitutional: Denies: Chills, Fever, Weight Change Eyes: Denies: Blurred vision, Pain, Redness, Vision Change HEENT: Denies: Dysphasia, Ear Pain, Eye Pain, Head Aches, Hearing Changes, Sore Throat Cardiovascular: Denies: Chest Pain, Chest Pressure, Chest Tightness, Palpitations Respiratory: Denies: Cough, Hemoptysis, Shortness of breath at rest, Shortness of breath upon exertion, Wheezing Gastrointestinal: Reports: Abdominal Pain - Suprapubic area and left lower quadrant, Nausea. Denies: Vomiting Genitourinary: Denies: Dysuria, Frequency, Hematuria, Urgency Musculoskeletal: Denies: Joint Pain Endocrine: Reports: Change in Body Habitus VTE Information - Inpt Only VTE Present on Admission: No VTE Mechan Device Prophylaxis: SCD's VTE Pharm Prophylaxis ordered?: No Reason prophylaxis not ordered:: Treatment Not Indicated Patient Problems: Active and Suspected Problems (Last Reviewed 06/30/18 @ 00:46 by Alfonso Monge MD) Perforation of sigmoid colon due to diverticulitis (Acute) - Physical Exam General: Alert, Oriented x3 HEENT: Atraumatic, PERRLA, EOMI, Normocephalic Neck: Supple, No JVD Lungs: Clear to auscultation Cardiovascular: Regular rate, Regular Rhythm, No murmurs Abdomen: Soft, Non-Distended, Bowel Sounds Not Present, Tender - Tenderness is in the suprapubic area in the left lower quadrant he does have Rovsing sign Extremities: No clubbing, No cyanosis, No edema Skin: No rashes Musculoskeletal: No Tenderness to Palpation of Joints or Extremities Neurological: Cranial nerves II-XII grossly intact Vital Signs Temp Pulse Resp BP Pulse Ox 98.3 F 96 18 131/75 H 93 06/30/18 00:10 06/30/18 00:10 06/30/18 00:10 06/30/18 00:10 06/30/18 00:10 Oxygen Delivery Method Room Air Weight: 192 lb Body Mass Index (BMI) 30.0 Laboratory Tests Past 24 Hrs 06/29/18 06/29/18 23:00 23:00 WBC 18.5 H RBC 5.11 Hgb 15.0 Hct 43.8 MCV 85.7 MCH 29.4 MCHC 34.2 RDW 14.0 RDW Differential 44.1 H Plt Count 293 MPV 9.2 Immature Gran % (Auto) 0.400 Neut % (Auto) 82.8 H Lymph % (Auto) 6.8 L [place] % (Auto) 8.9 Eos % (Auto) 0.9 Baso % (Auto) 0.2 Absolute Neuts (auto) 15.3 H Absolute Lymphs (auto) 1.26 Total Counted Not Reportable Diff Path Review May foll Sodium 137 Potassium 4.1 Chloride 104 Carbon Dioxide 26.0 Anion Gap 7 BUN 25 H Creatinine 1.12 Estim Creat Clear Calc 68.03 Est GFR (MDRD) Af Amer 87 Est GFR (MDRD) Non-Af 72 BUN/Creatinine Ratio 22.3 H Glucose 91 Calcium 8.9 Total Bilirubin 0.80 Direct Bilirubin 0.21 AST 26 ALT 34 Alkaline Phosphatase 124 H Total Protein 7.4 Albumin 4.0 Globulin 3.4 Lipase 166 Assessment/Plan All Active Problems (Last Reviewed 06/30/18 @ 00:46 by Alfonso Monge MD) Perforation of sigmoid colon due to diverticulitis (Acute) History of left heart catheterization (Acute ~05/16/17) Biliary dyskinesia (Resolved) At this point I think the best thing to do is admit the patient treated conservatively with IV hydration and IV antibiotics and keep him n.p.o. I have consulted the hospitalist for medical management. We will evaluate him on a daily basis to make sure that he does not need to go to surgery emergently but hopefully we will be able to treat him conservatively. I have discussed with him the fact that he has microperforation and at some point during this year he is going to have to probably undergo an elective sigmoid colectomy.
--- NOTE | 2018-06-30 02:42 | NURSING ---
Verified with Dr. Reilly that D5Lr is the fluid that should be running. Also spoke with Tanya, Nursing Data Analytics Architect, earlier and she said that Dr. Reilly verified that this is a Med surg pt.
[2018-06-30] MEDS: HYDROmorphone 1 MG/ML Syringe IV ×7 (02:47→21:26)
[2018-06-30] MEDS: Dextrose 5%-Lactated Ringers 1,000 ML 150 ML IV ×3 (02:47→19:15)
--- NOTE | 2018-06-30 02:53 | PCM.PN.HOSP ---
Patient Problems: Active and Suspected Problems (Last Reviewed 06/30/18 @ 00:46 by Alfonso Monge MD) Perforation of sigmoid colon due to diverticulitis (Acute) Subjective: 58-year-old male with history of rheumatoid arthritis, asthma, and an NSTEMI status post cardiac stent last May, presents with abdominal pain. He states that he was doing his aquatic therapy for his right hip pain, when he started having diffuse abdominal pain. He said it started on his right lower side and then transition to his left lower side prior to coming to the hospital. In the ER a CT scan of his abdomen demonstrated a microperforation diverticulitis and he was admitted to surgery for management. His labs are significant for leukocytosis to 18.5, but his vital signs are stable. Vitals/I&O's: Vital Signs Temp Pulse Resp BP Pulse Ox 99.3 F H 86 15 119/73 95 06/30/18 02:33 06/30/18 02:33 06/30/18 02:33 06/30/18 02:33 06/30/18 02:33 Oxygen Delivery Method Room Air Weight: 196 lb 6.91 oz Body Mass Index (BMI) 30.3 General: Alert, Oriented x3, Cooperative, No apparent distress HEENT: Atraumatic, PERRLA, EOMI, Normocephalic Oral: Moist Mucosa Neck: Supple, No JVD, Trachea Midline Lungs: Clear to auscultation, Normal air movement, No rhonchi, No wheeze, No rales Cardiovascular: Regular rate, Regular Rhythm, Normal S1, Normal S2, No murmurs Abdomen: Soft, Non-Distended, No Hepato-splenomegaly, Tender - Right and left lower quadrants Extremities: No edema, Capillary Refill Less than 3 Seconds Skin: No rashes, No breakdown Neurological: Neuro grossly intact, Sensory exam intact to light touch and pain Psych/Mental Status: Normal Affect, Appropriate Laboratory Results 06/29/18 23:00: WBC 18.5 H, RBC 5.11, Hgb 15.0, Hct 43.8, MCV 85.7, MCH 29.4, MCHC 34.2, RDW 14.0, RDW Differential 44.1 H, Plt Count 293, MPV 9.2, Immature Gran % (Auto) 0.400, Neut % (Auto) 82.8 H, Lymph % (Auto) 6.8 L, [place] % (Auto) 8.9, Eos % (Auto) 0.9, Baso % (Auto) 0.2, Absolute Neuts (auto) 15.3 H, Absolute Lymphs (auto) 1.26, Total Counted Not Reportable, Diff Path Review July06/29/18 23:00: Sodium 137, Potassium 4.1, Chloride 104, Carbon Dioxide 26.0, Anion Gap 7, BUN 25 H, Creatinine 1.12, Estim Creat Clear Calc 68.03, Est GFR (MDRD) Af Amer 87, Est GFR (MDRD) Non-Af 72, BUN/Creatinine Ratio 22.3 H, Glucose 91, Calcium 8.9, Total Bilirubin 0.80, Direct Bilirubin 0.21, AST 26, ALT 34, Alkaline Phosphatase 124 H, Total Protein 7.4, Albumin 4.0, Globulin 3.4, Lipase 166 Current Medications Albuterol Sulfate (Proair Hfa (Sp) Surgery/Vent Pts) 2 puff INHALATION Q4H PRN PRN PRN Reason: SOB &/OR WHEEZING Atorvastatin Calcium (Lipitor) 40 mg PO QHS [facility] Budesonide (Pulmicort Inhaler 180 Mcg) 1 - 2 puff INHALATION DAILY [facility] Hydromorphone HCl (Dilaudid Inj) 1 - 2 mg IV Q2H PRN PRN PRN Reason: Mod/Severe (pain scale 6-10) Last Admin: 06/30/18 02:47 Dose: 1 mg Sodium Chloride () 1,000 mls @ 125 mls/hr IV .Q8H [facility] Last Admin: 06/29/18 23:03 Dose: 125 mls/hr Ciprofloxacin (Cipro) 400 mg in 200 mls @ 200 mls/hr IV Q12 [facility] Dextrose/Lactated Ringer's () 1,000 mls @ 150 mls/hr IV .Q6H40M [facility] Last Admin: 06/30/18 02:47 Dose: 150 mls/hr Metronidazole (Flagyl) 500 mg in 100 mls @ 100 mls/hr IV TID [facility] Isosorbide Mononitrate (Imdur) 30 mg PO DAILY [facility] Non-Formulary Medication (Olodaterol Hcl) 2 puff PO QHS [facility] Non-Formulary Medication (Paroxetine Hcl [Paxil]) 40 mg PO QAM [facility] Ondansetron HCl (Zofran) 4 mg IV Q8H PRN PRN PRN Reason: Nausea Paroxetine HCl (Paxil) 20 mg PO QHS [facility] Ticagrelor (Brilinta) 90 mg PO BID [facility] Medical Necessity - Tobacco Use Smoking Status: Current some day smoker Tobacco Use: Cigars Assessment/Plan All Active Problems (Last Reviewed 06/30/18 @ 00:46 by Alfonso Monge MD) Perforation of sigmoid colon due to diverticulitis (Acute) History of left heart catheterization (Acute ~05/16/17) Biliary dyskinesia (Resolved) 1. Microperforation of the sigmoid colon secondary to diverticulitis -Continue with IV fluids -Pain meds per primary -Cipro/Flagyl -Continue with n.p.o. 2. Coronary artery disease status post stent May 2017/HLD/HTN -Continue with Lipitor and isosorbide mononitrate -Continue with Brilinta but will hold the aspirin in case of needing surgery 3. Asthma -Not currently in acute exacerbation -We will continue with his home inhalers 4. Depression -Stable -Continue with Paxil 5. Rheumatoid arthritis -He states that it is very mild -Currently well managed with sulindac, which will be continued DVT: SCDs Code Visit OBSV E&M: 81273 Subsequent observation care L3
--- NOTE | 2018-06-30 02:59 | PN_ITS ---
Patient Problems: Active and Suspected Problems (Last Reviewed 06/30/18 @ 00:46 by Alfonso Monge MD) Perforation of sigmoid colon due to diverticulitis (Acute) Subjective: 58-year-old male with history of rheumatoid arthritis, asthma, and an NSTEMI status post cardiac stent last May, presents with abdominal pain. He states t hat he was doing his aquatic therapy for his right hip pain, when he started having diffuse abdominal pain. He said it started on his right lower side and then transition to his left lower side prior to coming to the hospital. In the ER a CT scan of his abdomen demonstrated a microperforation diverticulitis and he was admitted to surgery for management. His labs are significant for leukocytosis to 18.5, but his vital signs are stable. Vitals/I&O's: Vital Signs Temp Pulse Resp BP Pulse Ox 99.3 F H 86 15 119/73 95 06/30/18 02:33 06/30/18 02:33 06/30/18 02:33 06/30/18 02:33 06/30/18 02:33 Oxygen Delivery Method Room Air Weight: 196 lb 6.91 oz Body Mass Index (BMI) 30.3 General: Alert, Oriented x3, Cooperative, No apparent distress HEENT: Atraumatic, PERRLA, EOMI, Normocephalic Oral: Moist Mucosa Neck: Supple, No JVD, Trachea Midline Lungs: Clear to auscultation, Normal air movement, No rhonchi, No wheeze, No rales Cardiovascular: Regular rate, Regular Rhythm, Normal S1, Normal S2, No murmurs Abdomen: Soft, Non-Distended, No Hepato-splenomegaly, Tender - Right and left lower quadrants Extremities: No edema, Capillary Refill Less than 3 Seconds Skin: No rashes, No breakdown Neurological: Neuro grossly intact, Sensory exam intact to light touch and pain Psych/Mental Status: Normal Affect, Appropriate Laboratory Results 06/29/18 23:00: WBC 18.5 H, RBC 5.11, Hgb 15.0, Hct 43.8, MCV 85.7, MCH 29.4, MCHC 34.2, RDW 14.0, RDW Differential 44.1 H, Plt Count 293, MPV 9.2, Immature Gran % (Auto) 0.400, Neut % (Auto) 82.8 H, Lymph % (Auto) 6.8 L, [place] % (Auto) 8.9, Eos % (Auto) 0.9, Baso % (Auto) 0.2, Absolute Neuts (auto) 15.3 H, Absolute Lymphs (auto) 1.26, Total Counted Not Reportable, Diff Path Review July06/29/18 23:00: Sodium 137, Potassium 4.1, Chloride 104, Carbon Dioxide 26.0, Anion Gap 7, BUN 25 H, Creatinine 1.12, Estim Creat Clear Calc 68.03, Est GFR (MDRD) Af Amer 87, Est GFR (MDRD) Non-Af 72, BUN/Creatinine Ratio 22.3 H, Glucose 91, Calcium 8.9, Total Bilirubin 0.80, Direct Bilirubin 0.21, AST 26, ALT 34, Alkaline Phosphatase 124 H, Total Protein 7.4, Albumin 4.0, Globulin 3.4, Lipase 166 Current Medications Albuterol Sulfate (Proair Hfa (Sp) Surgery/Vent Pts) 2 puff INHALATION Q4H PRN PRN PRN Reason: SOB &/OR WHEEZING Atorvastatin Calcium (Lipitor) 40 mg PO QHS [facility] Budesonide (Pulmicort Inhaler 180 Mcg) 1 - 2 puff INHALATION DAILY [facility] Hydromorphone HCl (Dilaudid Inj) 1 - 2 mg IV Q2H PRN PRN PRN Reason: Mod/Severe (pain scale 6-10) Last Admin: 06/30/18 02:47 Dose: 1 mg Sodium Chloride () 1,000 mls @ 125 mls/hr IV .Q8H [facility] Last Admin: 06/29/18 23:03 Dose: 125 mls/hr Ciprofloxacin (Cipro) 400 mg in 200 mls @ 200 mls/hr IV Q12 [facility] Dextrose/Lactated Ringer's () 1,000 mls @ 150 mls/hr IV .Q6H40M [facility] Last Admin: 06/30/18 02:47 Dose: 150 mls/hr Metronidazole (Flagyl) 500 mg in 100 mls @ 100 mls/hr IV TID [facility] Isosorbide Mononitrate (Imdur) 30 mg PO DAILY [facility] Non-Formulary Medication (Olodaterol Hcl) 2 puff PO QHS [facility] Non-Formulary Medication (Paroxetine Hcl [Paxil]) 40 mg PO QAM [facility] Ondansetron HCl (Zofran) 4 mg IV Q8H PRN PRN PRN Reason: Nausea Paroxetine HCl (Paxil) 20 mg PO QHS [facility] Ticagrelor (Brilinta) 90 mg PO BID [facility] Medical Necessity - Tobacco Use Smoking Status: Current some day smoker Tobacco Use: Cigars Assessment/Plan All Active Problems (Last Reviewed 06/30/18 @ 00:46 by Alfonso Monge MD) Perforation of sigmoid colon due to diverticulitis (Acute) History of left heart catheterization (Acute ~05/16/17) Biliary dyskinesia (Resolved) 1. Microperforation of the sigmoid colon secondary to diverticulitis -Continue with IV fluids -Pain meds per primary -Cipro/Flagyl -Continue with n.p.o. 2. Coronary artery disease status post stent May 2017/HLD/HTN -Continue with Lipitor and isosorbide mononitrate -Continue with Brilinta but will hold the aspirin in case of needing surgery 3. Asthma -Not currently in acute exacerbation -We will continue with his home inhalers 4. Depression -Stable -Continue with Paxil 5. Rheumatoid arthritis -He states that it is very mild -Currently well managed with sulindac, which will be continued DVT: SCDs Code Visit OBSV E&M: 73087 Subsequent observation care L3
[2018-06-30 04:00] LABS: Bacteria 0 SEEN /hpf (None Seen); Mucous, Urine 0 SEEN /hpf (<or=2+); Red Blood Cells-Urine 0 SEEN /hpf (0-5); Squamous Epithelial Cells - UA 0 SEEN /hpf (0-5); White Blood Cells 0 SEEN /hpf (0-5)
[2018-06-30 04:10] LABS: Color, Urine Yellow (Yellow); Glucose, Dipstick Normal (Normal); Ketone-Dipstick Negative (Negative); Leukocyte Esterase-Dipstick Negative /ul (Negative); Nitrite-Dipstick Negative (Negative); Occult Blood-Urine Negative /ul (Negative); Protein-Dipstick Negative (Negative); Specific Gravity, Urine 1.015 (1.002-1.030); Urine Bilirubin Dipstick Negative (Negative); Urine Clarity Sl. Cloudy (Clear); Urine Urobilinogen Normal (Normal)
[2018-06-30 04:21] LABS: Amorphous Sediment 1+
[2018-06-30] MEDS: 0.9% NaCl Peripheral Flush Adult/Peds IV ×5 (07:30→19:16)
--- NOTE | 2018-06-30 08:36 | PCM.PN.BLA ---
Progress Note Patient is a 58-year-old gentleman who presented with abdominal pain CT of the abdomen obtained on admission demonstrated sigmoid diverticulitis with localized perforation. Patient was admitted to the surgical service with consultation placed to medicine Assessment/Plan All Active Problems (Last Reviewed 06/30/18 @ 00:46 by Alfonso Monge MD) Perforation of sigmoid colon due to diverticulitis (Acute) History of left heart catheterization (Acute ~05/16/17) Biliary dyskinesia (Resolved) Patient is a 58-year-old gentleman who presented with abdominal pain CT of the abdomen obtained on admission demonstrated sigmoid diverticulitis with localized perforation. Patient was admitted to the surgical service with consultation placed to medicine 1.. Acute sigmoid diverticulitis with localized perforation. CT did not demonstrate any abscess. Patient has been admitted to the regular nursing floor currently being managed conservatively with fluids pain meds as well as bowel rest. Patient has already been seen in consultation by Dr. Monge the primary attending who recommended elective sigmoidectomy to patient 2. CAD with previous PCI in May 2017 3. Hypertension-blood pressure controlled, home medications continued with dose adjustment as needed 4. Dyslipidemia-patient is on statin therapy, continued at home dose 5. Rheumatoid arthritis patient is on nonsteroidal anti-inflammatory drugs 6. Depression patient is on SSRI (Paxil) 7. Mild intermittent asthma 8. DVT prophylaxis SCDs did also encourage early ambulation Active Medications Albuterol Sulfate (Ventolin Aerosols) 2.5 mg INHALATION Q4H PRN PRN Albuterol Sulfate (Ventolin Aerosols) 2.5 mg INHALATION Q6HWA.RT [facility] Atorvastatin Calcium (Lipitor) 40 mg PO QHS [facility] Budesonide (Pulmicort Aerosol) 0.5 mg INHALATION Q12H.RT [facility] Last Admin: 06/30/18 07:00 Dose: Not Given Hydromorphone HCl (Dilaudid Inj) 1 - 2 mg IV Q2H PRN PRN PRN Reason: Mod/Severe (pain scale 6-10) Last Admin: 06/30/18 07:30 Dose: 1 mg Ciprofloxacin (Cipro) 400 mg in 200 mls @ 200 mls/hr IV Q12 [facility] Dextrose/Lactated Ringer's () 1,000 mls @ 150 mls/hr IV .Q6H40M [facility] Last Admin: 06/30/18 02:47 Dose: 150 mls/hr Metronidazole (Flagyl) 500 mg in 100 mls @ 100 mls/hr IV TID [facility] Last Admin: 06/30/18 06:08 Dose: 100 mls/hr Isosorbide Mononitrate (Imdur) 30 mg PO DAILY [facility] Ondansetron HCl (Zofran) 4 mg IV Q8H PRN PRN PRN Reason: Nausea Paroxetine HCl (Paxil) 20 mg PO QHS [facility] Paroxetine HCl (Paxil) 40 mg PO QAM [facility] Sodium Chloride () 5 - 15 ml IV UD PRN PRN Reason: SALINE FLUSH Last Admin: 06/30/18 07:30 Dose: 10 ml Ticagrelor (Brilinta) 90 mg PO BID [facility] Clinical Impression(s) from Imaging Studies Abdomen/Pelvis CT 06/29/18 22:45 IMPRESSION: 1. Sigmoid diverticulitis with localized perforation. There is no abscess or free air. 2. No other evidence of intra-abdominal or pelvic abnormality. 3. Postsurgical changes at L5-S1. N.B. : The above information has been verbally conveyed by Georges Rose DO to Eric Mosley on 06/29/2018 23:39:20 (ET). Electronically Signed: Georges Rose DO at 23:40 EDT Tel [phone], Service support , ADDENDUM: 06/29/18 2347 IMPRESSION: 1. Sigmoid diverticulitis with localized perforation. There is no abscess or free air. 2. No other evidence of intra-abdominal or pelvic abnormality. 3. Postsurgical changes at L5-S1. N.B. : The above information has been verbally conveyed by Georges Rose DO to Eric Mosley on 06/29/2018 23:39:20 (ET). Electronically Signed: Georges Rose DO at 23:40 EDT Tel [phone], Service support ,
[2018-06-30] MEDS: TICAGRELOR 90 MG TABLET PO ×2 (10:30→22:48)
[2018-06-30] MEDS: Isosorbide Mononitrate 30 MG Tablet PO (10:30)
[2018-06-30] MEDS: Paroxetine 20 MG Tablet 40 MG PO (10:31)
[2018-06-30 10:50] LABS: Absolute Lymphocyte Count 1.89 X10^3/ul (0.83-4.51); Absolute Neutrophil Count 9.8 X10^3/uL (2.0-7.7); Basophil# 0.04 X10^3/uL; Basophil% 0.3 % (0-1); Eosinophil# 0.38 X10^3/uL; Eosinophils% 2.9 % (0-5); Hematocrit 41.9 % (40-54); Lymphocyte # 1.89 X10^3/ul (4.0); Lymphocyte % 14.2 % (19-41); Mean Corp Hgb Conc 33.4 g/gl (32-36); Mean Corpuscular Hgb 28.8 pg (27.0-32.0); Mean Corpuscular Volume 86.2 fL (80-94); Mean Platelet Vol. 9.2 fl (6.2-12.0); Monocyte# 1.19 X10^3/uL; Neutrophil # 9.77 X10^3/uL (2.7-7.7); Neutrophil % 73.4 % (47-70); Platelet Count 260 K/mm3 (150-450); RBC Distribution Width CV 14.1 % (11.6-14.6); Red Blood Count 4.86 M/mm3 (4.6-6.2); White Blood Count 13.3 K/mm3 (4.4-11.0)
[2018-06-30 10:51] LABS: POSITIVE COUNT NO; POSITIVE DIFFERENTIAL NO; POSITIVE MORPHOLOGY NO
--- NOTE | 2018-06-30 11:13 | NURSING ---
PT UNABLE TO VOID THIS AM. BLADDER SCAN PER CHARGE NURSE 429ML. DR CONTEH MADE AWARE OF SAME. ORDERS RECEIVED. UNABLE TO STRAIGHT CATH BY THIS NURSE. PT STATES HAS H/O PROSTATE PROBLEMS. CHARGE NURSE AWARE & WILL ATTEMPT ST CATH.
--- NOTE | 2018-06-30 11:20 | CASEMGMT ---
RN CM EMAIL CAMPAIGN SPECIALIST CM to room to meet with patient for initial transition planning/care coordination assessment. RN JAKE introduced self and role at [facility]. Pt voices understanding and consents to assessment at this time. Pt resting in bed in no distress at this time. Pt is A/O at this time and answers all questions appropriately. Care providers, pharmacy, and demographics verified/updated at this time. PCP: Torsten Hyman Specialists: Tara--for asthma Preferred Pharmacy: [facility] Insurance: [employer] Prescription Benefit: Yes Living Will/HPOA: Has both LW and HCPOA, who is his Gena Curiel. Copies not found in e-chart. Pt made aware and he sent text msg to her to ask her to bring in while CM in room talking with him. LNOK: Living Arrangements: Lives with in 2-story home. Denies difficulty with stairs. States is independent. Transportation: Pt states drives self and states no transportation concerns at this time. DME: Denies using any DME and denies needs. HHC/SNF: No history of either and denies needs. No needs identified. Just started Out-pt PT @ [facility] for hip element. States he has a possible torn ligament. Pt plans to continue with Out-pt PT after discharge. Pt wishes to return home and states has no concerns with going home at time of discharge. Pt states does not smoke or drink ETOH. CM to follow for discharge planning/needs. Pt voices no further concerns/needs at this time. Advised pt to ask for CM if any further questions/concerns/needs arise. Voices understanding. PLAN: Home with spousal support and discharge plans in place. Continue with Out-pt PT @ [facility]. Haydee ROWAN RN, CM
[2018-06-30] MEDS: Tamsulosin HCl 0.4 MG Capsule PO (12:04)
--- NOTE | 2018-06-30 12:12 | NURSING ---
PT ST CATHED PER CHARGE NURSE. 700ML URINE RETURN. PT TOLERATED FAIR.
[2018-06-30 14:12] LABS: Pathologist Review Reviewed
--- NOTE | 2018-06-30 15:03 | CASEMGMT ---
Social Work Note Per it security consulting director questions, pt has completed HCPOA and LW documents and has provided copies to [facility]. No copies found in chart. RN JAKE Hodge during initial assessment made pt aware that copies aren't on chart and pt asked his to bring in copies. Maria Teresa Petersen COST AND RISK ANALYSIS MANAGER, PREPARED FOODS ASSOCIATE
[2018-06-30] MEDS: Atorvastatin Calcium 40 MG Tablet PO (21:35)
[2018-06-30] MEDS: Paroxetine 20 MG Tablet PO (21:36)
[2018-06-30] MEDS: LORazepam 2 MG/ML Syringe 1 MG IV (23:41)
[2018-07-01] VITALS (12 sets, daily range): BP systolic 121–130; BP diastolic 66–88; PULSE 85–121; RESP 15–16; TEMP 36.8–37.2; O2SAT 95–98
[2018-07-01] MEDS: diazePAM 5 MG Tablet PO (02:38)
[2018-07-01] MEDS: Dextrose 5%-Lactated Ringers 1,000 ML 150 ML IV ×3 (04:27→13:35)
[2018-07-01 06:48] LABS: Absolute Neutrophil Count 8.6 X10^3/uL (2.0-7.7); Basophil# 0.04 X10^3/uL; Basophil% 0.4 % (0-1); Eosinophil# 0.37 X10^3/uL; Eosinophils% 3.3 % (0-5); Hematocrit 36.4 % (40-54); Hemoglobin 12.3 g/dl (13.0-16.5); Lymphocyte % 11.4 % (19-41); Mean Corp Hgb Conc 33.8 g/gl (32-36); Mean Corpuscular Hgb 29.1 pg (27.0-32.0); Mean Corpuscular Volume 86.1 fL (80-94); Mean Platelet Vol. 9.8 fl (6.2-12.0); Monocyte% 8.8 % (0-10); Neutrophil # 8.64 X10^3/uL (2.7-7.7); Neutrophil % 75.9 % (47-70); Platelet Count 259 K/mm3 (150-450); RBC Distribution Width CV 13.9 % (11.6-14.6); RBC Distribution Width SD 42.5 fl (35.1-43.9); Red Blood Count 4.23 M/mm3 (4.6-6.2); White Blood Count 11.4 K/mm3 (4.4-11.0)
[2018-07-01 06:49] LABS: POSITIVE COUNT NO; POSITIVE DIFFERENTIAL NO; POSITIVE MORPHOLOGY NO
--- NOTE | 2018-07-01 07:26 | PCM.PN.SRG ---
Patient Problems: Active and Suspected Problems (Last Reviewed 06/30/18 @ 00:46 by Alfonso Monge MD) Perforation of sigmoid colon due to diverticulitis (Acute) Subjective: Patient states he had hiccups all night have improved currently, has a small amount of flatus, states that the Dilaudid makes him jumpy/hyper would like to try morphine with Zofran before. Patient has tolerated clears - Physical Exam General: Alert, Oriented x3, Cooperative, No apparent distress HEENT: Atraumatic Lungs: Normal air movement Cardiovascular: Regular rate Abdomen: Soft, Distended - Mild, Tender - Tender palpation LLq and suprapubic, no guarding, equivocal rebound Vital Signs Temp Pulse Resp BP Pulse Ox 98.2 F 98 15 122/66 H 95 07/01/18 02:24 07/01/18 05:52 07/01/18 04:20 07/01/18 02:24 07/01/18 04:20 Oxygen Delivery Method Room Air Weight: 196 lb 6.91 oz Body Mass Index (BMI) 30.3 Intake and Output for Last 24 Hours 06/29/18 06/30/18 07/01/18 23:59 23:59 23:59 Intake Total 2776 / 2776 2441 / 2441 Output Total 1480 / 1480 1600 / 1600 Balance 1296 / 1296 841 / 841 Laboratory Tests Past 24 Hrs 06/29/18 06/30/18 07/01/18 23:00 10:30 06:07 WBC 13.3 H 11.4 H RBC 4.86 4.23 L Hgb 14.0 12.3 L Hct 41.9 36.4 L MCV 86.2 86.1 MCH 28.8 29.1 MCHC 33.4 33.8 RDW 14.1 13.9 RDW Differential 44.0 H 42.5 Plt Count 260 259 MPV 9.2 9.8 Immature Gran % (Auto) 0.200 0.200 Neut % (Auto) 73.4 H 75.9 H Lymph % (Auto) 14.2 L 11.4 L [place] % (Auto) 9.0 8.8 Eos % (Auto) 2.9 3.3 Baso % (Auto) 0.3 0.4 Absolute Neuts (auto) 9.8 H 8.6 H Absolute Lymphs (auto) 1.89 1.30 Total Counted Not Reportable Not Reportable Diff Path Review Reviewed Medical Necessity - Tobacco Use Smoking Status: Current some day smoker Tobacco Use: Cigars Assessment/Plan All Active Problems (Last Reviewed 06/30/18 @ 00:46 by Alfonso Monge MD) Perforation of sigmoid colon due to diverticulitis (Acute) History of left heart catheterization (Acute ~05/16/17) Biliary dyskinesia (Resolved) 58-year-old with perforated diverticulitis Continue on clears until pain has improved We will change Dilaudid to morphine White blood cell count continues to improve we will continue Cipro Flagyl Continue ambulating Sarina Thomas M.D. Pager: [phone] [facility] [address] [place] [address], Outpatient [place], [address] [place] [id number] Office: [phone] Code Visit Inpatient E&M: 19194 Subs Hosp L1
--- NOTE | 2018-07-01 07:29 | PN.SURG_ITS ---
Patient Problems: Active and Suspected Problems (Last Reviewed 06/30/18 @ 00:46 by Alfonso Monge MD) Perforation of sigmoid colon due to diverticulitis (Acute) Subjective: Patient states he had hiccups all night have improved currently, has a small amount of flatus, states that the Dilaudid makes him jumpy/hyper would like to try morphine with Zofran before. Patient has tolerated clears - Physical Exam General: Alert, Oriented x3, Cooperative, No apparent distress HEENT: Atraumatic Lungs: Normal air movement Cardiovascular: Regular rate Abdomen: Soft, Distended - Mild, Tender - Tender palpation LLq and suprapubic, no guarding, equivocal rebound Vital Signs Temp Pulse Resp BP Pulse Ox 98.2 F 98 15 122/66 H 95 07/01/18 02:24 07/01/18 05:52 07/01/18 04:20 07/01/18 02:24 07/01/18 04:20 Oxygen Delivery Method Room Air Weight: 196 lb 6.91 oz Body Mass Index (BMI) 30.3 Intake and Output for Last 24 Hours 06/29/18 06/30/18 07/01/18 23:59 23:59 23:59 Intake Total 2776 / 2776 2441 / 2441 Output Total 1480 / 1480 1600 / 1600 Balance 1296 / 1296 841 / 841 Laboratory Tests Past 24 Hrs 06/29/18 06/30/18 07/01/18 23:00 10:30 06:07 WBC 13.3 H 11.4 H RBC 4.86 4.23 L Hgb 14.0 12.3 L Hct 41.9 36.4 L MCV 86.2 86.1 MCH 28.8 29.1 MCHC 33.4 33.8 RDW 14.1 13.9 RDW Differential 44.0 H 42.5 Plt Count 260 259 MPV 9.2 9.8 Immature Gran % (Auto) 0.200 0.200 Neut % (Auto) 73.4 H 75.9 H Lymph % (Auto) 14.2 L 11.4 L [place] % (Auto) 9.0 8.8 Eos % (Auto) 2.9 3.3 Baso % (Auto) 0.3 0.4 Absolute Neuts (auto) 9.8 H 8.6 H Absolute Lymphs (auto) 1.89 1.30 Total Counted Not Reportable Not Reportable Diff Path Review Reviewed Medical Necessity - Tobacco Use Smoking Status: Current some day smoker Tobacco Use: Cigars Assessment/Plan All Active Problems (Last Reviewed 06/30/18 @ 00:46 by Alfonso Monge MD) Perforation of sigmoid colon due to diverticulitis (Acute) History of left heart catheterization (Acute ~05/16/17) Biliary dyskinesia (Resolved) 58-year-old with perforated diverticulitis Continue on clears until pain has improved We will change Dilaudid to morphine White blood cell count continues to improve we will continue Cipro Flagyl Continue ambulating Sarina Thomas M.D. Pager: [phone] [facility] [address] [place] [address], Outpatient [place], [address] [place] [id number] Office: [phone] Code Visit Inpatient E&M: 37488 Subs Hosp L1
[2018-07-01] MEDS: Morphine 2 MG/ML Syringe IV ×4 (08:01→22:56)
[2018-07-01] MEDS: Ondansetron 4 MG/2 ML Vial IV (08:01)
--- NOTE | 2018-07-01 08:45 | PN_ITS ---
Patient Problems: Active and Suspected Problems (Last Reviewed 06/30/18 @ 00:46 by Alfonso Monge MD) Perforation of sigmoid colon due to diverticulitis (Acute) Subjective: Patient is a 58-year-old gentleman who presented with abdominal pain CT of the abdomen obtained on admission demonstrated sigmoid diverticulitis with localized perforation. Patient was admitted to the surgical service with consultation placed to medicine 07/01/2018: Patient did experience episodes of urinary retention patient was started on Flomax after an order was given for patient to be straight cath x1 Objective: GENERAL: cooperative HEENT: Atraumatic; moist oral mucosa EYES; Anicteric, Normal Conjunctiva NECK; supple, normal thyroid, RESPIRATORY: Diminished to auscultation bilaterally, CARDIOVASCULAR: Regular S1 S2, GI: soft, tender LLQ : No Renal angle tenderness; EXTREMITIES: No edema, no clubbing, MUSCULOSKELETAL: No Joint Tenderness; NEURO: Awake; no lateralizing signs. SKIN: No Rash PSYCH; Normal affect Vitals/I&O's: Vital Signs Temp Pulse Resp BP Pulse Ox 98.2 F 98 15 122/66 H 95 07/01/18 02:24 07/01/18 05:52 07/01/18 04:20 07/01/18 02:24 07/01/18 04:20 Oxygen Delivery Method Room Air Weight: 89.1 kg Body Mass Index (BMI) 30.3 Intake and Output for Last 24 Hours 06/29/18 06/30/18 07/01/18 23:59 23:59 23:59 Intake Total 2776 / 2776 2441 / 2441 Output Total 1480 / 1480 1600 / 1600 Balance 1296 / 1296 841 / 841 Laboratory Results 06/29/18 23:00: Diff Path Review Reviewed 06/30/18 10:30: WBC 13.3 H, RBC 4.86, Hgb 14.0, Hct 41.9, MCV 86.2, MCH 28.8, MCHC 33.4, RDW 14.1, RDW Differential 44.0 H, Plt Count 260, MPV 9.2, Immature Gran % (Auto) 0.200, Neut % (Auto) 73.4 H, Lymph % (Auto) 14.2 L, [place] % (Auto) 9.0, Eos % (Auto) 2.9, Baso % (Auto) 0.3, Absolute Neuts (auto) 9.8 H, Absolute Lymphs (auto) 1.89, Total Counted Not Reportable 07/01/18 06:07: WBC 11.4 H, RBC 4.23 L, Hgb 12.3 L, Hct 36.4 L, MCV 86.1, MCH 29.1, MCHC 33.8, RDW 13.9, RDW Differential 42.5, Plt Count 259, MPV 9.8, Immature Gran % (Auto) 0.200, Neut % (Auto) 75.9 H, Lymph % (Auto) 11.4 L, [place] % (Auto) 8.8, Eos % (Auto) 3.3, Baso % (Auto) 0.4, Absolute Neuts (auto) 8.6 H, Absolute Lymphs (auto) 1.30, Total Counted Not Reportable Current Medications Albuterol Sulfate (Ventolin Aerosols) 2.5 mg INHALATION Q4H PRN PRN Atorvastatin Calcium (Lipitor) 40 mg PO QHS [facility] Last Admin: 06/30/18 21:35 Dose: 40 mg Budesonide (Pulmicort Aerosol) 0.5 mg INHALATION Q12H.RT [facility] Last Admin: 06/30/18 07:00 Dose: Not Given Ciprofloxacin (Cipro) 400 mg in 200 mls @ 200 mls/hr IV Q12 [facility] Last Admin: 06/30/18 22:48 Dose: 200 mls/hr Dextrose/Lactated Ringer's () 1,000 mls @ 150 mls/hr IV .Q6H40M [facility] Last Admin: 07/01/18 04:28 Dose: 150 mls/hr Metronidazole (Flagyl) 500 mg in 100 mls @ 100 mls/hr IV TID [facility] Last Admin: 07/01/18 05:42 Dose: 100 mls/hr Isosorbide Mononitrate (Imdur) 30 mg PO DAILY [facility] Last Admin: 06/30/18 10:30 Dose: 30 mg Morphine Sulfate () 2 - 6 mg IV Q2H PRN PRN PRN Reason: SEVERE PAIN (6-10/10) Last Admin: 07/01/18 08:01 Dose: 4 mg Morphine Sulfate () 2 - 6 mg IV Q2H PRN PRN PRN Reason: SEVERE PAIN (6-10/10) Ondansetron HCl (Zofran) 4 mg IV Q6H PRN PRN PRN Reason: Nausea Last Admin: 07/01/18 08:01 Dose: 4 mg Paroxetine HCl (Paxil) 20 mg PO QHS [facility] Last Admin: 06/30/18 21:36 Dose: 20 mg Paroxetine HCl (Paxil) 40 mg PO QAM [facility] Last Admin: 06/30/18 10:31 Dose: 40 mg Sodium Chloride () 5 - 15 ml IV UD PRN PRN Reason: SALINE FLUSH Last Admin: 06/30/18 19:16 Dose: 10 ml Tamsulosin HCl (Flomax) 0.4 mg PO DAILY@1730 [facility] Last Admin: 06/30/18 18:01 Dose: Not Given Ticagrelor (Brilinta) 90 mg PO BID [facility] Last Admin: 06/30/18 22:48 Dose: 90 mg Medical Necessity - Tobacco Use Smoking Status: Current some day smoker Tobacco Use: Cigars Assessment/Plan All Active Problems (Last Reviewed 06/30/18 @ 00:46 by Alfonso Monge MD) Perforation of sigmoid colon due to diverticulitis (Acute) History of left heart catheterization (Acute ~05/16/17) Biliary dyskinesia (Resolved) Patient is a 58-year-old gentleman who presented with abdominal pain CT of the abdomen obtained on admission demonstrated sigmoid diverticulitis with localized perforation. Patient was admitted to the surgical service with consultation placed to medicine 1.. Acute sigmoid diverticulitis with localized perforation. CT did not demonstrate any abscess. Patient has been admitted to the regular nursing floor currently being managed conservatively with fluids pain meds as well as bowel rest. Patient has already been seen in consultation by Dr. Monge the primary attending who recommended elective sigmoidectomy to patient patient so far be managed with conservative management. Started on clears on 07/01/2018 2. CAD with previous PCI in May 2017 3. Hypertension-blood pressure controlled, home medications continued with dose adjustment as needed 4. Dyslipidemia-patient is on statin therapy, continued at home dose 5. Rheumatoid arthritis patient is on nonsteroidal anti-inflammatory drugs 6. Depression patient is on SSRI (Paxil) 7. Mild intermittent asthma 8. Suspected BPH with urinary retention patient was started on Flomax 9. DVT prophylaxis SCDs did also encourage early ambulation recommend Lovenox if no contraindication from surgery Code Visit Inpatient E&M: 13990 Subs Hosp L3
[2018-07-01] MEDS: Ciprofloxacin 400 MG/200 ML BAG 200 MG IV ×2 (10:26→22:56)
[2018-07-01] MEDS: TICAGRELOR 90 MG TABLET PO (10:26)
[2018-07-01] MEDS: Enoxaparin 40 MG/0.4 ML Syringe SC (10:26)
[2018-07-01] MEDS: Paroxetine 20 MG Tablet 40 MG PO (10:32)
[2018-07-01] MEDS: Isosorbide Mononitrate 30 MG Tablet PO (10:32)
[2018-07-01] MEDS: Tamsulosin HCl 0.4 MG Capsule PO (17:12)
--- NOTE | 2018-07-01 23:51 | NURSING ---
2200: MEDS HELD BECAUSE PATIENT REPORTED THAT HE ALREADY TOOK HIS OWN THAT HIS BROUGHT IN FROM HOME. INFORMED PATIENT THAT HOSPITAL POLICY IS THAT PATIENTS TAKE MEDICATIONS THAT OUR PHARMACY HAS DISPENSED.
[2018-07-02] VITALS (12 sets, daily range): BP systolic 117–149; BP diastolic 73–84; PULSE 72–141; RESP 16–18; TEMP 36.5–36.8; O2SAT 94–98
[2018-07-02] MEDS: Dextrose 5%-Lactated Ringers 1,000 ML 100 ML IV (02:00)
--- NOTE | 2018-07-02 07:22 | PCM.PN.HOSP ---
Patient Problems: Active and Suspected Problems (Last Reviewed 06/30/18 @ 00:46 by Alfonso Monge MD) Perforation of sigmoid colon due to diverticulitis (Acute) Subjective: Patient seen still complains of left lower quadrant abdominal discomfort. Case was discussed with Dr. Vaughan with general surgery plan is for patient to be started on clear liquids 07/02/2018. Diagnostic work-up was significant for potassium of 3.3 repletion initiated Objective: GENERAL: cooperative HEENT: Atraumatic; moist oral mucosa EYES; Anicteric, Normal Conjunctiva NECK; supple, normal thyroid, RESPIRATORY: Diminished to auscultation bilaterally, CARDIOVASCULAR: Regular S1 S2, GI: soft, tender LLQ : No Renal angle tenderness; EXTREMITIES: No edema, no clubbing, MUSCULOSKELETAL: No Joint Tenderness; NEURO: Awake; no lateralizing signs. SKIN: No Rash PSYCH; Normal affect Vitals/I&O's: Vital Signs Temp Pulse Resp BP Pulse Ox 97.8 F 82 18 122/80 H 98 07/02/18 03:20 07/02/18 06:16 07/02/18 03:20 07/02/18 03:20 07/02/18 03:20 Oxygen Delivery Method Room Air Weight: 89.1 kg Body Mass Index (BMI) 30.3 Intake and Output for Last 24 Hours 06/30/18 07/01/18 07/02/18 23:59 23:59 23:59 Intake Total 2776 / 2776 5483 / 5483 1325 / 1325 Output Total 1480 / 1480 3825 / 3825 850 / 850 Balance 1296 / 1296 1658 / 1658 475 / 475 Microbiology Past 72 Hours 06/30/18 03:55 Urine, Clean Catch Urine Culture - Preliminary Culture exhibits no growth. Laboratory Results 07/02/18 05:35: WBC Pending, RBC Pending, Hgb Pending, Hct Pending, MCV Pending, MCH Pending, MCHC Pending, RDW Pending, RDW Differential Pending, Plt Count Pending, Neut % (Auto) Pending, Absolute Neuts (auto) Pending, Total Counted Pending 07/02/18 05:35: Sodium Pending, Potassium Pending, Chloride Pending, Carbon Dioxide Pending, Anion Gap Pending, BUN Pending, Creatinine Pending, Est GFR (MDRD) Af Amer Pending, Est GFR (MDRD) Non-Af Pending, BUN/Creatinine Ratio Pending, Glucose Pending, Calcium Pending Current Medications Albuterol Sulfate (Ventolin Aerosols) 2.5 mg INHALATION Q4H PRN PRN Atorvastatin Calcium (Lipitor) 40 mg PO QHS [facility] Last Admin: 07/01/18 21:58 Dose: Not Given Budesonide (Pulmicort Aerosol) 0.5 mg INHALATION Q12H.RT [facility] Last Admin: 07/01/18 19:40 Dose: Not Given Enoxaparin Sodium (Lovenox) 40 mg SC DAILY [facility] Last Admin: 07/01/18 10:26 Dose: 40 mg Ciprofloxacin (Cipro) 400 mg in 200 mls @ 200 mls/hr IV Q12 [facility] Last Admin: 07/01/18 22:56 Dose: 200 mls/hr Metronidazole (Flagyl) 500 mg in 100 mls @ 100 mls/hr IV TID [facility] Last Admin: 07/02/18 05:38 Dose: 100 mls/hr Dextrose/Lactated Ringer's () 1,000 mls @ 100 mls/hr IV .Q10H [facility] Last Admin: 07/02/18 02:00 Dose: 100 mls/hr Isosorbide Mononitrate (Imdur) 30 mg PO DAILY [facility] Last Admin: 07/01/18 10:32 Dose: 30 mg Morphine Sulfate () 2 - 6 mg IV Q2H PRN PRN PRN Reason: SEVERE PAIN (6-10/10) Last Admin: 07/01/18 22:56 Dose: 4 mg Morphine Sulfate () 2 - 6 mg IV Q2H PRN PRN PRN Reason: SEVERE PAIN (6-10/10) Ondansetron HCl (Zofran) 4 mg IV Q6H PRN PRN PRN Reason: Nausea Last Admin: 07/01/18 08:01 Dose: 4 mg Paroxetine HCl (Paxil) 20 mg PO QHS [facility] Last Admin: 07/01/18 21:58 Dose: Not Given Paroxetine HCl (Paxil) 40 mg PO QAM [facility] Last Admin: 07/01/18 10:32 Dose: 40 mg Sodium Chloride () 5 - 15 ml IV UD PRN PRN Reason: SALINE FLUSH Last Admin: 06/30/18 19:16 Dose: 10 ml Tamsulosin HCl (Flomax) 0.4 mg PO DAILY@1730 [facility] Last Admin: 07/01/18 17:12 Dose: 0.4 mg Ticagrelor (Brilinta) 90 mg PO BID [facility] Last Admin: 07/01/18 21:58 Dose: Not Given Medical Necessity - Tobacco Use Smoking Status: Current some day smoker Tobacco Use: Cigars Assessment/Plan All Active Problems (Last Reviewed 06/30/18 @ 00:46 by Alfonso Monge MD) Perforation of sigmoid colon due to diverticulitis (Acute) History of left heart catheterization (Acute ~05/16/17) Biliary dyskinesia (Resolved) Patient is a 58-year-old gentleman who presented with abdominal pain CT of the abdomen obtained on admission demonstrated sigmoid diverticulitis with localized perforation. Patient was admitted to the surgical service with consultation placed to medicine 1.. Acute sigmoid diverticulitis with localized perforation. CT did not demonstrate any abscess. Patient has been admitted to the regular nursing floor currently being managed conservatively with fluids pain meds as well as bowel rest. Patient has already been seen in consultation by Dr. Mogne the primary attending who recommended elective sigmoidectomy to patient patient so far be managed with conservative management. Started on clears on 07/01/2018 2. CAD with previous PCI in May 2017 3. Hypertension-blood pressure controlled, home medications continued with dose adjustment as needed 4. Dyslipidemia-patient is on statin therapy, continued at home dose 5. Rheumatoid arthritis patient is on nonsteroidal anti-inflammatory drugs 6. Depression patient is on SSRI (Paxil) 7. Mild intermittent asthma 8. Suspected BPH with urinary retention patient was started on Flomax on 06/30/2018 9. DVT prophylaxis SC Lovenox i 10. Hypokalemia corrected per protocol Code Visit Inpatient E&M: 60187 Subs Hosp L2
[2018-07-02 07:32] LABS: Absolute Lymphocyte Count 1.33 X10^3/ul (0.83-4.51); Absolute Neutrophil Count 7.2 X10^3/uL (2.0-7.7); Basophil# 0.02 X10^3/uL; Basophil% 0.2 % (0-1); Eosinophil# 0.61 X10^3/uL; Eosinophils% 6.1 % (0-5); Hematocrit 38.6 % (40-54); Lymphocyte # 1.33 X10^3/ul (4.0); Lymphocyte % 13.3 % (19-41); Mean Corp Hgb Conc 33.7 g/gl (32-36); Mean Corpuscular Hgb 28.9 pg (27.0-32.0); Mean Corpuscular Volume 85.8 fL (80-94); Mean Platelet Vol. 10.1 fl (6.2-12.0); Neutrophil # 7.24 X10^3/uL (2.7-7.7); Neutrophil % 72.1 % (47-70); Platelet Count 252 K/mm3 (150-450); RBC Distribution Width CV 14.1 % (11.6-14.6); RBC Distribution Width SD 43.2 fl (35.1-43.9)
--- NOTE | 2018-07-02 07:33 | PN.SURG_ITS ---
Patient Problems: Active and Suspected Problems (Last Reviewed 06/30/18 @ 00:46 by Alfonso Monge MD) Perforation of sigmoid colon due to diverticulitis (Acute) Subjective: Patient tolerating clears, positive flatus, ambulating some in the halls, abdominal pain improved but still pain on palpation - Physical Exam General: Alert, Oriented x3, Cooperative, No apparent distress Lungs: Normal air movement Cardiovascular: Regular rate Abdomen: Soft, Non-Distended, Tender - llq>[id number], no peritoneal signs, improved overall Extremities: No clubbing, No cyanosis, No edema Vital Signs Temp Pulse Resp BP Pulse Ox 97.8 F 82 18 122/80 H 98 07/02/18 03:20 07/02/18 06:16 07/02/18 03:20 07/02/18 03:20 07/02/18 03:20 Oxygen Delivery Method Room Air Weight: 196 lb 6.91 oz Body Mass Index (BMI) 30.3 Intake and Output for Last 24 Hours 06/30/18 07/01/18 07/02/18 23:59 23:59 23:59 Intake Total 2776 / 2776 5483 / 5483 1325 / 1325 Output Total 1480 / 1480 3825 / 3825 850 / 850 Balance 1296 / 1296 1658 / 1658 475 / 475 Microbiology Past 72 Hours 06/30/18 03:55 Urine Culture - Preliminary Urine, Clean Catch Culture exhibits no growth. Laboratory Tests Past 24 Hrs 07/02/18 07/02/18 05:35 05:35 WBC Pending RBC Pending Hgb Pending Hct Pending MCV Pending MCH Pending MCHC Pending RDW Pending RDW Differential Pending Plt Count Pending Neut % (Auto) Pending Absolute Neuts (auto) Pending Total Counted Pending Sodium Pending Potassium Pending Chloride Pending Carbon Dioxide Pending Anion Gap Pending BUN Pending Creatinine Pending Est GFR (MDRD) Af Amer Pending Est GFR (MDRD) Non-Af Pending BUN/Creatinine Ratio Pending Glucose Pending Calcium Pending Medical Necessity - Tobacco Use Smoking Status: Current some day smoker Tobacco Use: Cigars Assessment/Plan All Active Problems (Last Reviewed 06/30/18 @ 00:46 by Alfonso Monge MD) Perforation of sigmoid colon due to diverticulitis (Acute) History of left heart catheterization (Acute ~05/16/17) Biliary dyskinesia (Resolved) 58-year-old with perforated diverticulitis Continue on clears until pain has improved, may advance to full's later today Patient last had morphine yesterday about 8 PM White blood cell count pending, continue Cipro Flagyl Continue ambulating Sarina Thomas M.D. Pager: [phone] [facility] [address] [place] [address], Outpatient [facility], [address] [place] [address] Office: [phone] Code Visit Inpatient E&M: 91821 Subs Hosp L1
[2018-07-02 07:41] LABS: POSITIVE COUNT NO; POSITIVE DIFFERENTIAL NO; POSITIVE MORPHOLOGY NO
[2018-07-02 08:08] LABS: Anion Gap 9 (5-15); BUN 7 mg/dL (7-18); BUN/Creat Ratio 7.2 RATIO (10-20); Calcium,Total 8.2 mg/dL (8.5-10.1); Chloride 110 mmol/L (98-107); Creatinine, Serum 0.98 mg/dL (0.70-1.30); EST Glomerular Filtration Rate 84 mL/min (>60); Est Glom Filt Rate - Afr Amer 102 mL/min (>60); Estimated Creatinine Clearance 77.75 ml/min; Glucose 104 mg/dL (74-106); Potassium 3.3 mmol/L (3.5-5.1); Sodium Level 143 mmol/L (136-145)
[2018-07-02] MEDS: Isosorbide Mononitrate 30 MG Tablet PO (10:17)
[2018-07-02] MEDS: Enoxaparin 40 MG/0.4 ML Syringe SC (10:17)
[2018-07-02] MEDS: TICAGRELOR 90 MG TABLET PO ×2 (10:17→23:30)
[2018-07-02] MEDS: Paroxetine 20 MG Tablet 40 MG PO (10:17)
[2018-07-02] MEDS: Ciprofloxacin 400 MG/200 ML BAG 200 MG IV ×2 (10:17→23:52)
[2018-07-02] MEDS: Ensure Clear 120 ML Liquid PO ×2 (10:21→13:47)
[2018-07-02] MEDS: Dextrose 5%-Lactated Ringers 1,000 ML 15 ML IV (12:36)
[2018-07-02] MEDS: Tamsulosin HCl 0.4 MG Capsule PO (17:31)
[2018-07-02] MEDS: 0.9% NaCl Peripheral Flush Adult/Peds IV (22:29)
[2018-07-02] MEDS: Ondansetron 4 MG/2 ML Vial IV (22:30)
[2018-07-02] MEDS: Atorvastatin Calcium 40 MG Tablet PO (23:29)
[2018-07-02] MEDS: Paroxetine 20 MG Tablet PO (23:29)
[2018-07-03] VITALS (12 sets, daily range): BP systolic 133–155; BP diastolic 78–97; PULSE 76–141; RESP 14–22; TEMP 36.4–37.3; O2SAT 94–99
[2018-07-03] MEDS: 0.9% NaCl Peripheral Flush Adult/Peds IV ×3 (04:29→19:16)
[2018-07-03] MEDS: Ondansetron 4 MG/2 ML Vial IV (04:30)
[2018-07-03] MEDS: proMETHazine 25 MG/ML Syringe 12.5 MG IV ×2 (09:24→19:15)
[2018-07-03] MEDS: Ciprofloxacin 400 MG/200 ML BAG 200 MG IV ×2 (09:25→21:38)
[2018-07-03] MEDS: Enoxaparin 40 MG/0.4 ML Syringe SC (09:33)
[2018-07-03] MEDS: Paroxetine 20 MG Tablet 40 MG PO (09:36)
[2018-07-03] MEDS: Isosorbide Mononitrate 30 MG Tablet PO (09:36)
[2018-07-03] MEDS: TICAGRELOR 90 MG TABLET PO ×2 (09:36→21:36)
--- NOTE | 2018-07-03 09:58 | PN.SURG_ITS ---
Patient Problems: Active and Suspected Problems (Last Reviewed 06/30/18 @ 00:46 by Alfonso Monge MD) Perforation of sigmoid colon due to diverticulitis (Acute) Subjective: Patient evaluated resting comfortably in bed. He notes nausea this morning. He denies vomiting. He notes pain in the LLQ is improving. Positive BM, flatus. - Physical Exam General: Alert, Oriented x3, Cooperative Abdomen: Bowel Sounds Present, Soft, Tender - LLQ Vital Signs Temp Pulse Resp BP Pulse Ox 97.5 F L 95 16 133/97 H 98 07/03/18 08:43 07/03/18 08:43 07/03/18 08:43 07/03/18 08:43 07/03/18 08:43 Oxygen Delivery Method Room Air Weight: 196 lb 6.91 oz Body Mass Index (BMI) 30.3 Intake and Output for Last 24 Hours 07/01/18 07/02/18 07/03/18 23:59 23:59 23:59 Intake Total 5483 / 5483 3974 / 3974 902.5 / 902.5 Output Total 3825 / 3825 2775 / 2775 1730 / 1730 Balance 1658 / 1658 1199 / 1199 -827.5 / -827.5 Microbiology Past 72 Hours 06/30/18 03:55 Urine Culture - Final Urine, Clean Catch Culture exhibits no growth. Medical Necessity - Tobacco Use Smoking Status: Current some day smoker Tobacco Use: Cigars Assessment/Plan All Active Problems (Last Reviewed 06/30/18 @ 00:46 by Alfonso Monge MD) Perforation of sigmoid colon due to diverticulitis (Acute) History of left heart catheterization (Acute ~05/16/17) Biliary dyskinesia (Resolved) I am following this patient in conjunction with Dr. Monge. Impression: Acute diverticulitis Back down to clear liquids Continue antibiotics Order labs for today We will continue to monitor this patient Code Visit Inpatient E&M: 06881 [facility] Hosp L1
[2018-07-03 10:26] LABS: Absolute Lymphocyte Count 1.01 X10^3/ul (0.83-4.51); Basophil# 0.04 X10^3/uL; Basophil% 0.4 % (0-1); Eosinophil# 0.41 X10^3/uL; Eosinophils% 4.4 % (0-5); Hematocrit 38.6 % (40-54); Lymphocyte # 1.01 X10^3/ul (4.0); Lymphocyte % 10.9 % (19-41); Mean Corp Hgb Conc 33.7 g/gl (32-36); Mean Corpuscular Hgb 28.6 pg (27.0-32.0); Mean Corpuscular Volume 84.8 fL (80-94); Mean Platelet Vol. 9.2 fl (6.2-12.0); Monocyte# 0.83 X10^3/uL; Neutrophil # 6.96 X10^3/uL (2.7-7.7); Neutrophil % 75.2 % (47-70); Platelet Count 288 K/mm3 (150-450); RBC Distribution Width CV 14.1 % (11.6-14.6); Red Blood Count 4.55 M/mm3 (4.6-6.2); White Blood Count 9.3 K/mm3 (4.4-11.0)
[2018-07-03 10:27] LABS: POSITIVE COUNT NO; POSITIVE DIFFERENTIAL NO; POSITIVE MORPHOLOGY NO
[2018-07-03 10:38] LABS: Anion Gap 8 (5-15); BUN 8 mg/dL (7-18); BUN/Creat Ratio 7.9 RATIO (10-20); Calcium,Total 8.2 mg/dL (8.5-10.1); Chloride 111 mmol/L (98-107); Creatinine, Serum 1.01 mg/dL (0.70-1.30); EST Glomerular Filtration Rate 81 mL/min (>60); Est Glom Filt Rate - Afr Amer 98 mL/min (>60); Estimated Creatinine Clearance 75.44 ml/min; Glucose 132 mg/dL (74-106); Potassium 3.3 mmol/L (3.5-5.1); Sodium Level 141 mmol/L (136-145)
--- NOTE | 2018-07-03 17:25 | PCM.PN.HOSP ---
Patient Problems: Active and Suspected Problems (Last Reviewed 06/30/18 @ 00:46 by Alfonso Monge MD) Perforation of sigmoid colon due to diverticulitis (Acute) Subjective: Not much appetite. Abdomen feeling better. Vitals/I&O's: Vital Signs Temp Pulse Resp BP Pulse Ox 36.5 C L 89 14 137/87 H 99 07/03/18 14:00 07/03/18 14:45 07/03/18 14:00 07/03/18 14:00 07/03/18 14:00 Oxygen Delivery Method Room Air Weight: 89.1 kg Body Mass Index (BMI) 30.3 Intake and Output for Last 24 Hours 07/01/18 07/02/18 07/03/18 23:59 23:59 23:59 Intake Total 5483 / 5483 3974 / 3974 1569.5 / 1569.5 Output Total 3825 / 3825 2775 / 2775 2330 / 2330 Balance 1658 / 1658 1199 / 1199 -760.5 / -760.5 General: Alert, No apparent distress HEENT: Atraumatic, Normocephalic Oral: Moist Mucosa, No Gingival or Mucosal Lesions/ Ulcerations Neck: No Nodes, Thyroid Normal Size and Texture Lungs: Clear to auscultation, Normal air movement, No rhonchi, No wheeze Cardiovascular: Regular rate, Regular Rhythm, Normal S1, Normal S2, No murmurs Abdomen: Bowel Sounds Present, Soft, Non Tender, Non-Distended, No Hepato-splenomegaly Extremities: No edema, No Calf Tenderness Skin: No rashes, No breakdown Psych/Mental Status: Normal Affect, Appropriate Microbiology Past 72 Hours 06/30/18 03:55 Urine, Clean Catch Urine Culture - Final Culture exhibits no growth. Laboratory Results 07/03/18 10:10: WBC 9.3, RBC 4.55 L, Hgb 13.0, Hct 38.6 L, MCV 84.8, MCH 28.6, MCHC 33.7, RDW 14.1, RDW Differential 44.0 H, Plt Count 288, MPV 9.2, Immature Gran % (Auto) 0.100, Neut % (Auto) 75.2 H, Lymph % (Auto) 10.9 L, [place] % (Auto) 9.0, Eos % (Auto) 4.4, Baso % (Auto) 0.4, Absolute Neuts (auto) 7.0, Absolute Lymphs (auto) 1.01, Total Counted Not Reportable 07/03/18 10:10: Sodium 141, Potassium 3.3 L, Chloride 111 H, Carbon Dioxide 22.0, Anion Gap 8, BUN 8, Creatinine 1.01, Estim Creat Clear Calc 75.44, Est GFR (MDRD) Af Amer 98, Est GFR (MDRD) Non-Af 81, BUN/Creatinine Ratio 7.9 L, Glucose 132 H, Calcium 8.2 L Current Medications Albuterol Sulfate (Ventolin Aerosols) 2.5 mg INHALATION Q4H PRN PRN Atorvastatin Calcium (Lipitor) 40 mg PO QHS [facility] Last Admin: 07/02/18 23:29 Dose: 40 mg Budesonide (Pulmicort Aerosol) 0.5 mg INHALATION Q12H.RT [facility] Last Admin: 07/03/18 15:20 Dose: Not Given Enoxaparin Sodium (Lovenox) 40 mg SC DAILY [facility] Last Admin: 07/03/18 09:33 Dose: 40 mg Ciprofloxacin (Cipro) 400 mg in 200 mls @ 200 mls/hr IV Q12 [facility] Last Admin: 07/03/18 09:25 Dose: 200 mls/hr Metronidazole (Flagyl) 500 mg in 100 mls @ 100 mls/hr IV TID [facility] Last Admin: 07/03/18 13:18 Dose: 100 mls/hr Dextrose/Lactated Ringer's () 1,000 mls @ 100 mls/hr IV .Q10H [facility] Last Admin: 07/03/18 12:20 Dose: Not Given Isosorbide Mononitrate (Imdur) 30 mg PO DAILY [facility] Last Admin: 07/03/18 09:36 Dose: 30 mg Morphine Sulfate () 2 - 6 mg IV Q2H PRN PRN PRN Reason: SEVERE PAIN (6-10/10) Last Admin: 07/01/18 22:56 Dose: 4 mg Morphine Sulfate () 2 - 6 mg IV Q2H PRN PRN PRN Reason: SEVERE PAIN (6-10/10) Ondansetron HCl (Zofran) 4 mg IV Q6H PRN PRN PRN Reason: Nausea Last Admin: 07/03/18 04:30 Dose: 4 mg Paroxetine HCl (Paxil) 20 mg PO QHS [facility] Last Admin: 07/02/18 23:29 Dose: 20 mg Paroxetine HCl (Paxil) 40 mg PO QAM [facility] Last Admin: 07/03/18 09:36 Dose: 40 mg Promethazine HCl (Phenergan) 12.5 mg IV Q6H PRN PRN PRN Reason: NAUSEA/VOMITING Last Admin: 07/03/18 09:24 Dose: 12.5 mg Sodium Chloride () 5 - 15 ml IV UD PRN PRN Reason: SALINE FLUSH Last Admin: 07/03/18 09:24 Dose: 10 ml Tamsulosin HCl (Flomax) 0.4 mg PO DAILY@1730 [facility] Last Admin: 07/02/18 17:31 Dose: 0.4 mg Ticagrelor (Brilinta) 90 mg PO BID [facility] Last Admin: 07/03/18 09:36 Dose: 90 mg Medical Necessity - Tobacco Use Smoking Status: Current some day smoker Tobacco Use: Cigars Assessment/Plan All Active Problems (Last Reviewed 06/30/18 @ 00:46 by Alfonso Monge MD) Perforation of sigmoid colon due to diverticulitis (Acute) History of left heart catheterization (Acute ~05/16/17) Biliary dyskinesia (Resolved) 1. acute diverticulitis with localized perforation: ciprofloxacin and metronidazole mgmt per general surgery 2. hypokalemia: replace 3. CAD: continue Brillinta and atorvastatin 4. VTE proph: LMWH Code Visit Inpatient E&M: 82650 Subs Hosp L2
--- NOTE | 2018-07-03 17:30 | PN_ITS ---
Patient Problems: Active and Suspected Problems (Last Reviewed 06/30/18 @ 00:46 by Alfonso Monge MD) Perforation of sigmoid colon due to diverticulitis (Acute) Subjective: Not much appetite. Abdomen feeling better. Vitals/I&O's: Vital Signs Temp Pulse Resp BP Pulse Ox 36.5 C L 89 14 137/87 H 99 07/03/18 14:00 07/03/18 14:45 07/03/18 14:00 07/03/18 14:00 07/03/18 14:00 Oxygen Delivery Method Room Air Weight: 89.1 kg Body Mass Index (BMI) 30.3 Intake and Output for Last 24 Hours 07/01/18 07/02/18 07/03/18 23:59 23:59 23:59 Intake Total 5483 / 5483 3974 / 3974 1569.5 / 1569.5 Output Total 3825 / 3825 2775 / 2775 2330 / 2330 Balance 1658 / 1658 1199 / 1199 -760.5 / -760.5 General: Alert, No apparent distress HEENT: Atraumatic, Normocephalic Oral: Moist Mucosa, No Gingival or Mucosal Lesions/ Ulcerations Neck: No Nodes, Thyroid Normal Size and Texture Lungs: Clear to auscultation, Normal air movement, No rhonchi, No wheeze Cardiovascular: Regular rate, Regular Rhythm, Normal S1, Normal S2, No murmurs Abdomen: Bowel Sounds Present, Soft, Non Tender, Non-Distended, No Hepato- splenomegaly Extremities: No edema, No Calf Tenderness Skin: No rashes, No breakdown Psych/Mental Status: Normal Affect, Appropriate Microbiology Past 72 Hours 06/30/18 03:55 Urine, Clean Catch Urine Culture - Final Culture exhibits no growth. Laboratory Results 07/03/18 10:10: WBC 9.3, RBC 4.55 L, Hgb 13.0, Hct 38.6 L, MCV 84.8, MCH 28.6, MCHC 33.7, RDW 14.1, RDW Differential 44.0 H, Plt Count 288, MPV 9.2, Immature Gran % (Auto) 0.100, Neut % (Auto) 75.2 H, Lymph % (Auto) 10.9 L, [place] % (Auto) 9.0, Eos % (Auto) 4.4, Baso % (Auto) 0.4, Absolute Neuts (auto) 7.0, Absolute Lymphs (auto) 1.01, Total Counted Not Reportable 07/03/18 10:10: Sodium 141, Potassium 3.3 L, Chloride 111 H, Carbon Dioxide 22.0, Anion Gap 8, BUN 8, Creatinine 1.01, Estim Creat Clear Calc 75.44, Est GFR (MDRD) Af Amer 98, Est GFR (MDRD) Non-Af 81, BUN/Creatinine Ratio 7.9 L, Glucose 132 H, Calcium 8.2 L Current Medications Albuterol Sulfate (Ventolin Aerosols) 2.5 mg INHALATION Q4H PRN PRN Atorvastatin Calcium (Lipitor) 40 mg PO QHS [facility] Last Admin: 07/02/18 23:29 Dose: 40 mg Budesonide (Pulmicort Aerosol) 0.5 mg INHALATION Q12H.RT [facility] Last Admin: 07/03/18 15:20 Dose: Not Given Enoxaparin Sodium (Lovenox) 40 mg SC DAILY [facility] Last Admin: 07/03/18 09:33 Dose: 40 mg Ciprofloxacin (Cipro) 400 mg in 200 mls @ 200 mls/hr IV Q12 [facility] Last Admin: 07/03/18 09:25 Dose: 200 mls/hr Metronidazole (Flagyl) 500 mg in 100 mls @ 100 mls/hr IV TID [facility] Last Admin: 07/03/18 13:18 Dose: 100 mls/hr Dextrose/Lactated Ringer's () 1,000 mls @ 100 mls/hr IV .Q10H [facility] Last Admin: 07/03/18 12:20 Dose: Not Given Isosorbide Mononitrate (Imdur) 30 mg PO DAILY [facility] Last Admin: 07/03/18 09:36 Dose: 30 mg Morphine Sulfate () 2 - 6 mg IV Q2H PRN PRN PRN Reason: SEVERE PAIN (6-10/10) Last Admin: 07/01/18 22:56 Dose: 4 mg Morphine Sulfate () 2 - 6 mg IV Q2H PRN PRN PRN Reason: SEVERE PAIN (6-10/10) Ondansetron HCl (Zofran) 4 mg IV Q6H PRN PRN PRN Reason: Nausea Last Admin: 07/03/18 04:30 Dose: 4 mg Paroxetine HCl (Paxil) 20 mg PO QHS [facility] Last Admin: 07/02/18 23:29 Dose: 20 mg Paroxetine HCl (Paxil) 40 mg PO QAM [facility] Last Admin: 07/03/18 09:36 Dose: 40 mg Promethazine HCl (Phenergan) 12.5 mg IV Q6H PRN PRN PRN Reason: NAUSEA/VOMITING Last Admin: 07/03/18 09:24 Dose: 12.5 mg Sodium Chloride () 5 - 15 ml IV UD PRN PRN Reason: SALINE FLUSH Last Admin: 07/03/18 09:24 Dose: 10 ml Tamsulosin HCl (Flomax) 0.4 mg PO DAILY@1730 [facility] Last Admin: 07/02/18 17:31 Dose: 0.4 mg Ticagrelor (Brilinta) 90 mg PO BID [facility] Last Admin: 07/03/18 09:36 Dose: 90 mg Medical Necessity - Tobacco Use Smoking Status: Current some day smoker Tobacco Use: Cigars Assessment/Plan All Active Problems (Last Reviewed 06/30/18 @ 00:46 by Alfonso Monge MD) Perforation of sigmoid colon due to diverticulitis (Acute) History of left heart catheterization (Acute ~05/16/17) Biliary dyskinesia (Resolved) 1. acute diverticulitis with localized perforation: * ciprofloxacin and metronidazole * mgmt per general surgery 2. hypokalemia: * replace 3. CAD: continue Brillinta and atorvastatin 4. VTE proph: LMWH Code Visit Inpatient E&M: 25315 Subs Hosp L2
[2018-07-03] MEDS: Tamsulosin HCl 0.4 MG Capsule PO (17:42)
[2018-07-03] MEDS: Atorvastatin Calcium 40 MG Tablet PO (21:36)
[2018-07-03] MEDS: Paroxetine 20 MG Tablet PO (21:36)
[2018-07-04 01:36] VITALS: PULSE 93
[2018-07-04 02:00] VITALS: BP 145/82; PULSE 87; RESP 18; TEMP 36.8; O2SAT 97
[2018-07-04] MEDS: Dextrose 5%-Lactated Ringers 1,000 ML 100 ML IV (02:29)
[2018-07-04 04:57] VITALS: PULSE 87
[2018-07-04 07:43] VITALS: PULSE 80
--- NOTE | 2018-07-04 08:34 | DCINST_ITS ---
Discharge Diet: Soft diet - Avoid nuts, seeds, popcorn Discharge Activity: May Not Drive - No driving for 1 week or while taking narcotic pain meds. May shower in (days): 1 Call your doctor if your incision/area has: Continuous Slow Oozing, Sudden Increased Bleeding, Increased Pain/ Swelling, Increased Redness Suture Line Care: Avoid Pulling/Pushing, Avoid Pinching/Bending Allergies/Adverse Reactions: Allergies Penicillins Allergy (Verified 06/29/18 21:32) Anaphylaxis Medications to take at Discharge Albuterol IH (ProAir) [Proair Hfa] 2 puff INHALATION Q4H PRN PRN 05/05/17 Budesonide Inhaler 180 mcg [Pulmicort Inhaler 180 mcg] 1 - 2 puff INHALATION DAILY 05/05/17 Paroxetine [Paxil] 20 mg PO QHS 05/05/17 paroxetine 40 mg tablet 40 mg PO QAM tab 05/25/17 cholecalciferol (vitamin D3) 1,000 unit capsule 1,000 unit PO DAILY 06/01/18 folic acid 800 mcg tablet 5 tab PO DAILY 06/01/18 isosorbide mononitrate ER 30 mg tablet,extended release 24 hr 30 mg PO DAILY #90 tab 06/02/18 nitroglycerin 0.4 mg sublingual tablet 0.4 mg SUBLINGUAL Q5M PRN #25 tab 06/02/18 Olodaterol HCl [Striverdi Respimat] 2 puff PO QHS 06/29/18 Sulindac 200 mg PO BID 06/29/18 Aspirin E.C. [Ecotrin] 81 mg PO DAILY@0800 06/30/18 Atorvastatin Calcium [Lipitor] 40 mg PO QHS 06/30/18 Loratadine/Pseudo 240/10 [Claritin-D 24 Hr] 1 tablet PO DAILY 06/30/18 Ticagrelor [Brilinta] 90 mg PO BID 06/30/18 Ciprofloxacin [Cipro] 500 mg PO BID 9 Days #18 tablet 07/04/18 Metronidazole [Flagyl] 500 mg PO TID 9 Days #27 tablet 07/04/18 The following prescriptions were given: Ciprofloxacin [Cipro] 500 mg PO BID 9 Days #18 tablet Metronidazole [Flagyl] 500 mg PO TID 9 Days #27 tablet Primary Care Physician: Torsten Hyman MD [Primary Care Provider] - Test Results: Test results from this visit will be discussed in further detail at your follow- up appointment, if applicable. Please Follow Up With: Alfonso Monge MD - [phone] When: 1 week. Please call for an appointment Proposed Discharge Date: 07/04/18
--- NOTE | 2018-07-04 08:34 | PCM.PN.SRG ---
Patient Problems: Active and Suspected Problems (Last Reviewed 06/30/18 @ 00:46 by Alfonso Monge MD) Perforation of sigmoid colon due to diverticulitis (Acute) Subjective: Patient evaluated resting comfortably in bed. He notes much improvement in nausea. He denies abdominal pain. He had a solid BM this morning. He has continued on clear liquids. - Physical Exam General: Alert, Oriented x3, Cooperative Abdomen: Bowel Sounds Present, Soft, Non Tender Vital Signs Temp Pulse Resp BP Pulse Ox 98.2 F 80 18 145/82 H 97 07/04/18 02:00 07/04/18 07:43 07/04/18 02:00 07/04/18 02:00 07/04/18 02:00 Oxygen Delivery Method Room Air Weight: 196 lb 6.91 oz Body Mass Index (BMI) 30.3 Intake and Output for Last 24 Hours 07/02/18 07/03/18 07/04/18 23:59 23:59 23:59 Intake Total 3974 / 3974 1569.5 / 1569.5 1701 / 1701 Output Total 2775 / 2775 2330 / 2330 Balance 1199 / 1199 -760.5 / -760.5 1701 / 1701 Microbiology Past 72 Hours 07/03/18 17:55 C. difficile DNA Amplification - Final Stool 06/30/18 03:55 Urine Culture - Final Urine, Clean Catch Culture exhibits no growth. Laboratory Tests Past 24 Hrs 07/03/18 07/03/18 10:10 10:10 WBC 9.3 RBC 4.55 L Hgb 13.0 Hct 38.6 L MCV 84.8 MCH 28.6 MCHC 33.7 RDW 14.1 RDW Differential 44.0 H Plt Count 288 MPV 9.2 Immature Gran % (Auto) 0.100 Neut % (Auto) 75.2 H Lymph % (Auto) 10.9 L [place] % (Auto) 9.0 Eos % (Auto) 4.4 Baso % (Auto) 0.4 Absolute Neuts (auto) 7.0 Absolute Lymphs (auto) 1.01 Total Counted Not Reportable Sodium 141 Potassium 3.3 L Chloride 111 H Carbon Dioxide 22.0 Anion Gap 8 BUN 8 Creatinine 1.01 Estim Creat Clear Calc 75.44 Est GFR (MDRD) Af Amer 98 Est GFR (MDRD) Non-Af 81 BUN/Creatinine Ratio 7.9 L Glucose 132 H Calcium 8.2 L Medical Necessity - Tobacco Use Smoking Status: Current some day smoker Tobacco Use: Cigars Assessment/Plan All Active Problems (Last Reviewed 06/30/18 @ 00:46 by Alfonso Monge MD) Perforation of sigmoid colon due to diverticulitis (Acute) History of left heart catheterization (Acute ~05/16/17) Biliary dyskinesia (Resolved) I am following this patient in conjunction with Dr. Monge. Impression: Acute diverticulitis Pain and nausea much improved Oral antibiotics ordered for discharge Patient to follow-up with our office in 1 week Increase diet to full liquids. If he tolerates will discharge today. Code Visit Inpatient E&M: 47374 Subs Hosp L1
[2018-07-04 09:35] VITALS: BP 150/104; PULSE 79; RESP 14; TEMP 37; O2SAT 100
[2018-07-04] MEDS: Ciprofloxacin 400 MG/200 ML BAG 200 MG IV (09:38)
[2018-07-04] MEDS: Isosorbide Mononitrate 30 MG Tablet PO (09:39)
[2018-07-04] MEDS: TICAGRELOR 90 MG TABLET PO (09:39)
[2018-07-04] MEDS: Enoxaparin 40 MG/0.4 ML Syringe SC (09:39)
[2018-07-04] MEDS: Paroxetine 20 MG Tablet 40 MG PO (09:39)
--- NOTE | 2018-07-04 11:21 | PCM.DC.SUM ---
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 CT scan demonstrated sigmoid diverticulitis with local perforation. Patient was treated conservatively with IV antibiotics. Upon discharge, patient tolerated a full liquid diet. He denies abdominal pain, fever, nausea, vomiting. He had a normal solid BM. - Physical Exam Vital Signs Temp Pulse Resp BP Pulse Ox 98.6 F 79 14 150/104 H 100 07/04/18 09:35 07/04/18 09:35 07/04/18 09:35 07/04/18 09:35 07/04/18 09:35 Oxygen Delivery Method Room Air Weight: 196 lb 6.91 oz Body Mass Index (BMI) 30.3 Intake and Output for Last 24 Hours 07/02/18 07/03/18 07/04/18 23:59 23:59 23:59 Intake Total 3974 / 3974 1569.5 / 1569.5 1701 / 1701 Output Total 2775 / 2775 2330 / 2330 Balance 1199 / 1199 -760.5 / -760.5 1701 / 1701 Microbiology Past 72 Hours 07/03/18 17:55 C. difficile DNA Amplification - Final Stool 06/30/18 03:55 Urine Culture - Final Urine, Clean Catch Culture exhibits no growth. Discharge Diet: Soft diet - Avoid nuts, seeds, popcorn Discharge Activity: May Not Drive - No driving for 1 week or while taking narcotic pain meds. May shower in (days): 1 Call your doctor if your incision/area has: Continuous Slow Oozing, Sudden Increased Bleeding, Increased Pain/ Swelling, Increased Redness Suture Line Care: Avoid Pulling/Pushing, Avoid Pinching/Bending Home Medications: Medications to take at Discharge Albuterol IH (ProAir) [Proair Hfa] 2 puff INHALATION Q4H PRN PRN 05/05/17 Budesonide Inhaler 180 mcg [Pulmicort Inhaler 180 mcg] 1 - 2 puff INHALATION DAILY 05/05/17 Paroxetine [Paxil] 20 mg PO QHS 05/05/17 paroxetine 40 mg tablet 40 mg PO QAM tab 05/25/17 cholecalciferol (vitamin D3) 1,000 unit capsule 1,000 unit PO DAILY 06/01/18 folic acid 800 mcg tablet 5 tab PO DAILY 06/01/18 isosorbide mononitrate ER 30 mg tablet,extended release 24 hr 30 mg PO DAILY #90 tab 06/02/18 nitroglycerin 0.4 mg sublingual tablet 0.4 mg SUBLINGUAL Q5M PRN #25 tab 06/02/18 Olodaterol HCl [Striverdi Respimat] 2 puff PO QHS 06/29/18 Sulindac 200 mg PO BID 06/29/18 Aspirin E.C. [Ecotrin] 81 mg PO DAILY@0800 06/30/18 Atorvastatin Calcium [Lipitor] 40 mg PO QHS 06/30/18 Loratadine/Pseudo 240/10 [Claritin-D 24 Hr] 1 tablet PO DAILY 06/30/18 Ticagrelor [Brilinta] 90 mg PO BID 06/30/18 Ciprofloxacin [Cipro] 500 mg PO BID 9 Days #18 tablet 07/04/18 Metronidazole [Flagyl] 500 mg PO TID 9 Days #27 tablet 07/04/18 Following Prescrptions Were Given to Patient: Ciprofloxacin [Cipro] 500 mg PO BID 9 Days #18 tablet Metronidazole [Flagyl] 500 mg PO TID 9 Days #27 tablet Primary Care Physician: Torsten Hyman MD [Primary Care Provider] - Please Follow Up With: Alfonso Monge MD When: 1 week. Please call for an appointment Disposition: Home Minutes spent on discharge:: 15 Patient Condition:: Stable Medical Necessity - Tobacco Use Smoking Status: Current some day smoker Tobacco Use: Cigars Meaningful Use Info Meaningful Use Diagnoses (Choose all that apply): None applicable Code Visit Inpatient E&M: 94769 Disch Hosp
--- NOTE | 2018-07-04 13:25 | PN_ITS ---
Subjective: Feeling better. Tolerating PO. Vitals/I&O's: Vital Signs Temp Pulse Resp BP Pulse Ox 37.0 C 79 14 150/104 H 100 07/04/18 09:35 07/04/18 09:35 07/04/18 09:35 07/04/18 09:35 07/04/18 09:35 Oxygen Delivery Method Room Air Weight: 89.1 kg Body Mass Index (BMI) 30.3 Intake and Output for Last 24 Hours 07/02/18 07/03/18 07/04/18 23:59 23:59 23:59 Intake Total 3974 / 3974 1569.5 / 1569.5 1701 / 1701 Output Total 2775 / 2775 2330 / 2330 Balance 1199 / 1199 -760.5 / -760.5 1701 / 1701 General: Alert, No apparent distress HEENT: Atraumatic, Normocephalic Oral: Moist Mucosa, No Gingival or Mucosal Lesions/ Ulcerations Neck: No Nodes, Thyroid Normal Size and Texture Lungs: Clear to auscultation, Normal air movement, No rhonchi, No wheeze Cardiovascular: Regular rate, Regular Rhythm, Normal S1, Normal S2 Abdomen: Bowel Sounds Present, Soft, Non Tender, Non-Distended, No Hepato- splenomegaly Extremities: No edema, No Calf Tenderness Microbiology Past 72 Hours 07/03/18 17:55 Stool C. difficile DNA Amplification - Final 06/30/18 03:55 Urine, Clean Catch Urine Culture - Final Culture exhibits no growth. Medical Necessity - Tobacco Use Smoking Status: Current some day smoker Tobacco Use: Cigars Assessment/Plan All Active Problems (Last Reviewed 06/30/18 @ 00:46 by Alfonso Monge MD) Perforation of sigmoid colon due to diverticulitis (Acute) History of left heart catheterization (Acute ~05/16/17) Biliary dyskinesia (Resolved) 1. acute diverticulitis with localized perforation: * ciprofloxacin and metronidazole * mgmt per general surgery 2. hypokalemia: 3. CAD: continue Brillinta and atorvastatin 4. VTE proph: LMWH Code Visit Inpatient E&M: 37050 Subs Hosp L2
--- NOTE | 2018-07-06 12:34 | CASEMGMT ---
SHAYY JOSEPH Discharge Follow-Up Phone Call. Rubi: Elena Strata: 3 Discharge Date: 07/04/18 Adm Dx: Perforated Sigmoid Diverticulits. Call to pt to inquire about how he has been doing since being discharged from the hospital. Pt stated, I've been doing okay. Doing fine. Pt states he has been following the BRAT diet and just had his first normal bowel movement today. Pt states he was able to get the new prescriptions filled and states that the antibiotics make him a little nauseous but that he is able to tolerate it and does not feel he needs to call his PCP to get anti-emetic. Pt is aware of the appt with Dr Monge on the and states his has made an appt with PCP Dr Hyman as well. He denies having any questions about the discharge instructions or any other questions/concerns at this time and he thanked this RN JAKE for calling to check on him. SHAYY JOSEPH thanked pt for choosing [facility]. Haydee ROWAN RN, CM
== END 2018-07-04 11:25 | disposition home or self-care (01) | DRG 392 ==
LOC: ED 23:19 → MS3 06-30 01:18
PROVIDERS: Physician Assistant; Surgery; Admitting Provider Surgery; Emergency Provider Emergency Medicine; Family Provider Family Medicine; PCP Family Medicine
DX: K57.20 Diverticulitis of large intestine with perforation and abscess without bleeding (principal); I25.10 Atherosclerotic heart disease of native coronary artery without angina pectoris; I10 Essential (primary) hypertension; Z95.5 Presence of coronary angioplasty implant and graft; I25.2 Old myocardial infarction; J45.20 Mild intermittent asthma, uncomplicated; M06.9 Rheumatoid arthritis, unspecified; E78.5 Hyperlipidemia, unspecified; E87.6 Hypokalemia; Z72.0 Tobacco use; N40.1 Benign prostatic hyperplasia with lower urinary tract symptoms; R33.8 Other retention of urine
CPT/HCPCS: 36415; 74176; 80048; 80076; 81001; 83690; 85025; 87086; 87493; 97802; 99282; 99406; J7030; A4216; J0744; J2405

== ENCOUNTER → 2018-12-04 | Outpatient (CLI) | payer OTHER, SELFPAY ==
[2018-07-04 08:45] VITALS: BMI 30.5
[2018-09-08 07:47] VITALS: BMI 27.8
[2018-12-04 17:26] LABS: Absolute Lymphocyte Count 1.99 X10^3/uL (0.83-4.51); Absolute Neutrophil Count 7.2 X10^3/uL (2.0-7.7); Basophil# 0.07 X10^3/uL; Basophil% 0.7 % (0-1); Eosinophil# 0.48 X10^3/uL; Eosinophils% 4.5 % (0-5); Hematocrit 44.1 % (40-54); Hemoglobin 14.4 g/dL (13.0-16.5); Lymphocyte # 1.99 X10^3/ul (4.0); Lymphocyte % 18.8 % (19-41); Mean Corp Hgb Conc 32.7 g/dL (32-36); Mean Corpuscular Hgb 28.9 pg (27.0-32.0); Mean Corpuscular Volume 88.6 fL (80-94); Monocyte# 0.78 X10^3/uL; Monocyte% 7.4 % (0-10); NRBC Flagged by Analyzer 0 % (0-5); Neutrophil # 7.22 X10^3/uL (2.7-7.7); Neutrophil % 67.9 % (47-70); Platelet Count 316 K/mm3 (150-450); RBC Distribution Width CV 13.2 % (11.6-14.6); RBC Distribution Width SD 42.5 fl (35.1-43.9); Red Blood Count 4.98 M/mm3 (4.6-6.2); White Blood Count 10.6 K/mm3 (4.4-11.0)
[2018-12-04 17:51] LABS: ALB/GLOB Ratio 1.2 RATIO (0.9-2.4); AST(SGOT) 24 U/L (15-37); Alanine Aminotransfer ALT/SGPT 41 U/L (16-61); Albumin, Serum 3.8 g/dL (3.2-5.0); Alkaline Phosphatase 146 U/L (45-117); Anion Gap 8 (5-15); BUN 20 mg/dL (7-18); BUN/Creat Ratio 21.9 RATIO (10-20); CRP < 2.90 mg/L (0.0-3.0); Calcium,Total 8.6 mg/dL (8.5-10.1); Chloride 109 mmol/L (98-107); Cholesterol 95 mg/dL (200); Creatinine, Serum 0.91 mg/dL (0.70-1.30); EST Glomerular Filtration Rate 91 mL/min (>60); Est Glom Filt Rate - Afr Amer 110 mL/min (>60); Globulin 3.3 g/dL (2.2-4.2); Glucose 115 mg/dL (74-106); High Density Lipoprotein 38 mg/dL; Potassium 3.8 mmol/L (3.5-5.1); Protein, Total 7.1 g/dL (6.4-8.2); Rheumatoid Factor < 10.0 IU/mL (<15); Sodium Level 142 mmol/L (136-145); Thyroid Stim Hormone (TSH) 1.69 uIU/mL (0.358-3.74); Triglycerides 161 mg/dL; Very Low Density Lipoprotein 32 mg/dL (5-40)
[2018-12-07 03:06] LABS: PROEL- A/G Ratio 1.3 (0.7-1.7); PROEL- Albumin 3.7 g/dL (2.9-4.4); PROEL- Alpha-1 Globulin 0.2 g/dL (0.0-0.4); PROEL- Alpha-2 Globulin 0.9 g/dL (0.4-1.0); PROEL- Beta Globulin 1.1 g/dL (0.7-1.3); PROEL- Gamma Globulin 0.7 g/dL (0.4-1.8); PROEL- Globulin, Total 2.8 g/dL (2.2-3.9); PROEL- TOTAL PROTEIN 6.5 g/dL (6.0-8.5)
[2018-12-08 11:10] LABS: CCP IgG Antibodies 6 units (0-19)
== END | disposition home or self-care (01) ==
LOC: MFPLAB 15:42
PROVIDERS: Family Provider Family Medicine; PCP Family Medicine; Referring Provider Family Medicine; Visit Provider Family Medicine
DX: M06.4 Inflammatory polyarthropathy (principal); I25.10 Atherosclerotic heart disease of native coronary artery without angina pectoris
CPT/HCPCS: 36415; 80053; 80061; 84165; 84443; 85025; 86140; 86200; 86431

== ENCOUNTER 2019-05-16 10:39 | Inpatient (IN) | payer OTHER, SELFPAY ==
[2018-07-04 08:45] VITALS: BMI 30.5
--- NOTE | 2019-04-23 02:28 | HP_ITS ---
Intake Vital Signs 04/23/19 Height 5 ft 8 in 04/23/19 Weight: 192 lb 04/23/19 BMI 29.2 04/23/19 BP 140/80 H 04/23/19 Blood Pressure Location Rt brachial 04/23/19 Position Sitting 04/23/19 Respiration 16 04/23/19 Pulse 86 04/23/19 Pulse Source Monitor 04/23/19 Temp 98.2 F 04/23/19 Temp Source Oral 04/23/19 Pulse Oximetry (%) 96 04/23/19 Oxygen Delivery Method room air 04/23/19 BMI 27.8 Intake Visit Reasons: Diverticulitis Chief Complaint: f/u [facility] Diverticulitis Manager Roofing Required: No Is patient in pain?: No Allergies Penicillins Allergy (Verified 03/14/19 11:06) Anaphylaxis Medications Albuterol IH (ProAir) [Proair Hfa] 2 puff INHALATION Q4H PRN PRN 05/05/17 [History Confirmed 04/23/19] Budesonide Inhaler 180 mcg [Pulmicort Inhaler 180 mcg] 1 - 2 puff INHALATION DAILY 05/05/17 [History Confirmed 04/23/19] Paroxetine [Paxil] 20 mg PO QHS 05/05/17 [History Confirmed 04/23/19] paroxetine HCl 40 mg tablet 40 mg PO QAM tab 05/25/17 [History Confirmed 04/23/19] cholecalciferol (vitamin D3) 25 mcg (1,000 unit) capsule 1,000 unit PO DAILY 06/01/18 [History Confirmed 04/23/19] folic acid 800 mcg tablet 5 tab PO DAILY 06/01/18 [History Confirmed 04/23/19] nitroglycerin 0.4 mg sublingual tablet 0.4 mg SUBLINGUAL Q5M PRN #25 tab 06/02/18 [Rx Confirmed 04/23/19] Olodaterol HCl [Striverdi Respimat] 2 puff PO QHS 06/29/18 [History Confirmed 04/23/19] Sulindac 200 mg PO BID 06/29/18 [History Confirmed 04/23/19] Aspirin E.C. 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) NSTEMI (non-ST elevated myocardial infarction) (Chronic) Diverticulitis (Acute ~07/2018) GI problem (Acute) Heart disease (Acute) High cholesterol (Acute) History of pneumonia (Acute) Hives (Acute) Osteoarthritis (Acute) Seasonal allergies (Acute) Asthma (Chronic) Rheumatoid arthritis (Chronic) Surgical History History of left heart catheterization (Acute ~05/16/17) History of coronary artery stent placement (Chronic ~05/05/17) Fusion of toes (Acute) History of appendectomy (Acute) History of back surgery (Acute) History of cholecystectomy (Acute) History of colonoscopy (Acute ~2012) History of foot surgery (Acute) History of repair of ACL (Acute) Family History Unknown No problems noted. Social History (Updated 04/23/19 @ 14:28 by Alfonso Monge MD) adopted: Yes Smoking Status: Current some day smoker alcohol intake: never substance use type: marijuana additional social history: DOES USE ASPIRIN DOES USE IBUPROFEN HPI HPI HPI: ZEV GONZALEZ, is a 58 M who presents to the office today for HPI HPI Surgical H&P: Yes HPI: ZEV GONZALEZ, is a 58 M who presents to the office today for Preoperative evaluation for sigmoid colon resection. Muriel is a 58-year-old gentleman who has had follow-up from perforated sigmoid diverticulitis which was happening in June 2018. He had been improving on his diet is no longer having any abdominal pain was moving his bowels appropriately but he was very diligent with his p.o. intake. Due to the perforation he is here today for further evaluation for a laparoscopic sigmoid resection ROS General General: Yes appetite and fatigue; no weight change, colon cancer, breast cancer or weakness HEENT HEENT: No difficulty swallowing, eye injury, eye surgery, swollen glands or hoarseness Endo Endocrine: No thyroid disease, diabetes mellitus, thyroid cancer, Hair loss, heat intolerance or cold intolerance Cardio Cardiovascular: Yes heart disease, heart attack and heart stent; no murmur, pacemaker, atrial fibrillation, high blood pressure, palpitations, shortness of breat with exertion or chest pain Resp Respiratory: No shortness of breath, No sleep apnea, No cough, No COPD, Yes asthma, No emphysema, No wheezing Gastro Gastrointestinal: Yes abdominal pain, Yes nausea or vomiting, No diarrhea, No constipation, No blood in stool, No acid reflux, No hemorrhoids, No ulcers, No gallbladder problem, No black,tarry stools David Hematologic: Yes blood thinners, No blood disorders, No bleeding, No anemia, No blood clots Neuro Neurologic: No weakness Exam Const General: no acute distress, well developed, well hydrated Orientation: oriented to person, oriented to place, oriented to time [facility] Head: normocephalic, atraumatic Ears: external ears normal Mouth: moist mucous membranes Eyes Sclera: sclerae normal Pupils: normal by confrontation Neck Neck: no lymphadenopathy noted Neck mass: No Thyroid: thyroid normal, symmetrical Chest Chest palpation & inspection: normal inspection of the chest Resp Effort & Inspection: normal respiratory effort Auscultation: clear to auscultation bilaterally Percussion: percussion normal Cardio Rate: regular rate Rhythm: regular rhythm Heart Sounds: no murmurs GI Palpation: soft, no hepatosplenomegaly, no masses, nontender Rectal Exam: other Other: Rectal exam deferred. Extrem General: normal to inspection, no clubbing, cyanosis or edema Assessment & Plan Problems 1. Perforation of sigmoid colon due to diverticulitis K57.20 Plan Did discuss the anatomy and procedure: laparoscopic Sigmoid colectomy, possible open with the patient. Including risks, but not limited to, bleeding, infection (superficial or intraabdominal), injury to another organ (small bowel, colon, ureter, etc.) requiring additional procedures, and blood clots. Also, discussed the pre-op, colon prep and antibiotics. All questions were answered. Coding Level of Care Code Off vis,est,level 3 Diagnoses Perforation of sigmoid colon due to diverticulitis K57.20 04/23/19 1428 <Electronically signed by Alfonso yee MD> Date _ Alfonso Monge MD I have re-examined the patient. There are no clinical changes since date of exam.
[2019-04-23 14:10] VITALS: BMI 29.2
[2019-05-07 08:09] VITALS: BP 131/86; PULSE 89; RESP 17; TEMP 36.6; O2SAT 97; BMI 29.9
--- NOTE | 2019-05-07 08:34 | SDCEKG_ITS ---
Test Reason : Blood Pressure : / mmHG Vent. Rate : 084 BPM Atrial Rate : 084 BPM P-R Int : 132 ms QRS Dur : 096 ms QT Int : 364 ms P-R-T Axes : 024 047 024 degrees QTc Int : 430 ms Normal sinus rhythm Normal ECG Confirmed by DOMINIC AMAYA ([id number]), acquisitions editor EFREN BARRIENTOS ([id number]) on 05/09/2019 2:15:38 PM Referred By: ROBINA BASSETT Confirmed By:DOMINIC AMAYA
[2019-05-07 09:28] LABS: Hematocrit 45.7 % (40-54); Hemoglobin 15.3 g/dL (13.0-16.5); Mean Corp Hgb Conc 33.5 g/dL (32-36); Mean Corpuscular Hgb 29.5 pg (27.0-32.0); Mean Corpuscular Volume 88.1 fL (80-94); Mean Platelet Vol. 9.5 fl (6.2-12.0); Platelet Count 355 K/mm3 (150-450); RBC Distribution Width CV 12.8 % (11.6-14.6); RBC Distribution Width SD 41.1 fl (35.1-43.9); Red Blood Count 5.19 M/mm3 (4.6-6.2); White Blood Count 8.5 K/mm3 (4.4-11.0)
[2019-05-07 09:59] LABS: Anion Gap 6 (5-15); BUN 16 mg/dL (7-18); BUN/Creat Ratio 17.9 RATIO (10-20); Calcium,Total 8.8 mg/dL (8.5-10.1); Chloride 108 mmol/L (98-107); EST Glomerular Filtration Rate 93 mL/min (>60); Est Glom Filt Rate - Afr Amer 112 mL/min (>60); Estimated Creatinine Clearance 87.61 ml/min; Glucose 96 mg/dL (74-106); Potassium 3.8 mmol/L (3.5-5.1); Sodium Level 140 mmol/L (136-145)
[2019-05-16] VITALS (10 sets, daily range): BP systolic 106–138; BP diastolic 73–84; PULSE 71–102; RESP 15–18; TEMP 36.4–36.6; O2SAT 93–99; BMI 29.2
[2019-05-16 11:23] LABS: Magnesium 2.1 mg/dL (1.6-2.6)
[2019-05-16] MEDS: Gabapentin 600 MG Tablet PO (11:30)
[2019-05-16] MEDS: Acetaminophen 500 MG Tablet 1000 MG PO ×2 (11:30→17:12)
[2019-05-16] MEDS: Lactated Ringers 1,000 ML 40 ML IV ×3 (11:30→15:25)
[2019-05-16] MEDS: Ciprofloxacin 400 MG/200 ML BAG 200 MG IV (11:35)
[2019-05-16 11:46] LABS: Bedside Glucose 135 mg/dL (70-110)
[2019-05-16] MEDS: BUPIVACAINE LIPOSOME/PF 20 ML VIAL OPERA.SITE (11:48)
[2019-05-16] MEDS: metroNIDAZOLE 500 MG/100 ML BAG 100 MG IV (12:38)
--- NOTE | 2019-05-16 12:40 | COL_PTH ---
PATIENT: ZEV GONZALEZ LOC: MS3 U#:[id number] AGE/SX: 58/M ROOM: [facility] RE05/16/[address]: Dr. Alfonso Monge MD : [id number] BED: 1 DIS: 05/18/2019 SPEC #: [id number] RECD: 05/16/19 16:19 STATUS: ARUNA REAmado #: [id number] YURIDIA: 05/16/19 12:[address]: Alfonso Monge DEPT: SURGICAL PATHOLOGY RECD BY: Chuy Haywood ENTERED: 05/17/19 06:58 SP TYPE: COLON OTHR DR: Dr. Torsten Hyman MD Tissues: A - Colon, NOS B - Colon Donuts C - Colon Donuts Procedures: Surgery Specimen Level III Surgery Specimen Level V HEADER OPERATION: Laparoscopic sigmoid colectomy converted to open PRE-OP DIAGNOSIS: Perforation of sigmoid colon due to diverticulitis K57.20 TISSUE SUBMITTED: A - Sigmoid colon, B - Proximal donut (sigmoid), C - Distal donut (rectal) MICROSCOPIC DIAGNOSIS A. Sigmoid colon, colectomy: Diverticulosis. B. Proximal donut (sigmoid): Colonic donut, no pathologic diagnosis. C. Distal donut (rectal): Colonic donut, no pathologic diagnosis. : 05/21/19 MICROSCOPIC DESCRIPTION Slides are reviewed. GROSS DESCRIPTION A - Received in fixative is one container labeled with the patient's name and designated sigmoid colon. The specimen consists of a segment of colon with attached pericolonic adipose tissue without fat wrapping measuring 12 cm in length. One resection margin is stapled. The lumen contains a small amount of fecal material. No mucosal lesion is identified. / SJ: 05/17/19 No gross perforations are identified. Serial sections reveal multiple diverticula, none of which appear to have perforated through the bowel wall. The pericolic fatty tissue is free of mass lesions. Molecular Biologist sections are submitted in six cassettes as follows: 1 - one mucosal margin, 2 - the opposite mucosal margin, 3-5 - diverticula, 6 - pericolic fatty tissue. / AM: 05/18/19 B - Received in fixative is one container labeled with the patient's name and designated proximal donut (sigmoid). The specimen consists of a donut-shaped piece of colonic tissue measuring 2 x 1.5 x 1 cm. Multiple sutures are noted. Molecular Biologist sections are submitted in one cassette. C - Received in fixative is one container labeled with the patient's name and designated distal donut (rectal). The specimen consists of a donut-shaped piece of colonic tissue measuring 2 x 1.7 x 1 cm. Molecular Biologist sections are submitted in one cassette. / LANI:neva 05/17/19 TC:5 CPT: 43386, 22625 x2
--- NOTE | 2019-05-16 12:42 | PCM.OPRPT ---
Problem List (1) Diverticulitis of large intestine with perforation and abscess without bleeding Status: Acute Report of Operation Date of Procedure: 05/16/19 Pre-Operative Diagnosis: Perforated sigmoid diverticulitis Post-Operative Diagnosis: Same Surgery/Procedure Performed:: 1: Laparoscopic sigmoid colectomy converted to open low anterior resection. 2: Elicitation of the splenic flexure Type of Anesthesia:: General Anesthesiologist: Salas Stone Specimen's removed: Sigmoid colon Estimated Blood Loss (mL): 300 cc Fluids Replaced: 2000 cc LR Description of Procedure: Patient was brought into the operating room. Placed in the supine position. Under excellent general trach intubation legs were placed up in stirrups a Rodriguez catheter was placed the abdomen and pelvis was then sterilely prepped and draped in the usual fashion. Local was injected above the umbilicus. Small incision was made varies needle was placed inside the abdomen the abdomen was insufflated 15 torr. Visiport was used to gain access to the intra-abdominal cavity without injury to underlying structures. Nerve block was then created on both the left and right flank areas under direct visualization. A 10/12 trocar was placed in the right lower quadrant in between this and the #5 trocar another #5 trocar was placed patient was placed in the head down rotated to the left I brought the small intestine into the upper abdomen. The sigmoid colon was densely adherent to the left lower quadrant I entered the mesentery with the harmonic dissector. I transected the splenic flexure down near the peritoneal reflection with a 60 stapler. It was quite clear is going to need to have a lot of length in order to get the resection that I wanted and then be able to do hooked the patient up primarily. I dissected down to the peritoneal reflection I then dissected the colon off of the peritoneum this took quite a bit of time and there was some oozing with this and then traveled up the white line of Toldt and went all the way up to the splenic flexure and I had some bleeding in the retroperitoneum more than I anticipated this point I made a lower midline incision and went to the right side of the umbilicus so I can get more access. I packed the retroperitoneal area. I then used a lighted retractor and I mobilized the splenic flexure with the harmonic dissector to give me more length so that I could resect the appropriate amount of sigmoid colon. Once I felt a soft spot of the descending colon I grabbed the colon with a [place] put a shotted clamp proximal to this and then took off the sigmoid colon and sent it to pathology for permanent sectioning. A 2-0 Prolene was then used to create a pursestring suture around the end of the descending colon. I placed a 29 EEA anvil into this and tied the Prolene suture down. I then have my legislative assistant going and irrigated out the rectum with 500 cc of Betadine irrigation we sequentially dilated the rectum up to the stump with sequential dilators. The 29 stapler was then placed into the rectum directed up to the rectal stump I had the spike come out anterior to the suture line. I then took the anvil up to the spike audible click was heard I brought the 2 down to we were in the middle of the green and we fired the stapler. I had to complete donuts. We tested the anastomosis under water and it was airtight. I had some bleeding on the mesentery which I controlled with the harmonic dissector as well as a single clip. I did piece the place of Surgicel down in this area as well I went back up into the retroperitoneal area I did not see any further bleeding and I had good hemostasis. I got an accurate needle and sponge count. Peritoneum was brought together with a 2-0 Vicryl. Fascia was brought together with running suture of #1 PDS. More Exparel was then injected subcu was brought together with 3-0 Vicryl deep dermals a 3-0 Vicryl then a running 4-0 Monocryl on the skin. Patient tolerated the procedure well. Urine output 150 cc - Admit VTE Documentation VTE Present on Admission: No VTE Mechan Device Prophylaxis: SCD's VTE Pharm Prophylaxis ordered?: No Reason prophylaxis not ordered:: Treatment Not Indicated
[2019-05-16] MEDS: Lubricating Jelly 60 GM Tube 30 GM TOPICAL (13:10)
[2019-05-16] MEDS: Bupivacaine 0.25% 30 ML Vial (14:54)
[2019-05-16] MEDS: 0.9% Normal Saline (Pres. free 10 ML Vial ×2 (14:58→14:59)
[2019-05-16 15:57] LABS: Bedside Glucose 146 mg/dL (70-110)
[2019-05-16] MEDS: Ondansetron ODT 4 MG Tablet PO ×2 (17:11→23:24)
[2019-05-16] MEDS: HYDROmorphone 0.5 MG/0.5 ML SYRINGE IV ×3 (17:11→23:32)
[2019-05-16] MEDS: Budesonide Respules 0.5 MG/2 ML AMPUL.NEB. INHALATION (20:17)
[2019-05-16] MEDS: Albuterol 2.5 MG/3 ML VIAL.NEB. INHALATION (20:17)
[2019-05-16] MEDS: Atorvastatin Calcium 40 MG Tablet PO (22:35)
[2019-05-16] MEDS: Paroxetine 20 MG Tablet PO (22:35)
[2019-05-16] MEDS: Docusate Sodium 100 MG Capsule PO (22:35)
[2019-05-17] VITALS (9 sets, daily range): BP systolic 118–134; BP diastolic 71–80; PULSE 83–98; RESP 16–20; TEMP 36.6–37.1; O2SAT 91–94
[2019-05-17] MEDS: Acetaminophen 500 MG Tablet 1000 MG PO ×4 (00:22→17:17)
[2019-05-17] MEDS: oxyCODONE 5 MG Tablet PO ×3 (00:27→13:26)
[2019-05-17] MEDS: HYDROmorphone 0.5 MG/0.5 ML SYRINGE IV ×5 (03:08→20:26)
[2019-05-17 06:36] LABS: Hemoglobin 11.9 g/dL (13.0-16.5); Mean Corp Hgb Conc 33.1 g/dL (32-36); Mean Corpuscular Hgb 29.1 pg (27.0-32.0); Mean Platelet Vol. 9.5 fl (6.2-12.0); Platelet Count 314 K/mm3 (150-450); RBC Distribution Width CV 13.2 % (11.6-14.6); RBC Distribution Width SD 42.4 fl (35.1-43.9); Red Blood Count 4.09 M/mm3 (4.6-6.2); White Blood Count 15.8 K/mm3 (4.4-11.0)
[2019-05-17] MEDS: Budesonide Respules 0.5 MG/2 ML AMPUL.NEB. INHALATION (06:59)
[2019-05-17] MEDS: Albuterol 2.5 MG/3 ML VIAL.NEB. INHALATION ×3 (06:59→18:42)
[2019-05-17 07:03] LABS: Anion Gap 6 (5-15); BUN 12 mg/dL (7-18); BUN/Creat Ratio 12.9 RATIO (10-20); Calcium,Total 8.2 mg/dL (8.5-10.1); Chloride 105 mmol/L (98-107); Creatinine, Serum 0.93 mg/dL (0.70-1.30); EST Glomerular Filtration Rate 89 mL/min (>60); Est Glom Filt Rate - Afr Amer 108 mL/min (>60); Estimated Creatinine Clearance 84.78 ml/min; Glucose 128 mg/dL (74-106); Sodium Level 138 mmol/L (136-145)
[2019-05-17] MEDS: Docusate Sodium 100 MG Capsule PO ×2 (07:58→21:35)
[2019-05-17] MEDS: Paroxetine 20 MG Tablet 40 MG PO (07:58)
[2019-05-17] MEDS: Lactated Ringers 1,000 ML 40 ML IV (10:25)
--- NOTE | 2019-05-17 11:05 | CASEMGMT ---
RN JAKE Face to Face with patient for initial transition planning/care coordination assessment. RN CM introduced self and role at [facility]. Patient lying in bed, alert and oriented. Patient willing to participate in assessment and is able to answer all questions appropriately. Care providers, pharmacy, and demographics verified. Patient wishes to discharge home, denies need for home health at this time. Patient states he has no further needs or concerns at this time. CM to follow for discharge planning needs that may arise. PCP: [facility] Specialists: Saleem Dockery Pharmacy: [facility] Insurance: [employer] Prescription Benefit:yes Living Will/HPOA: yes, Anupama Curiel LNOK: Living Arrangements: Patient lives with in 2 story home. Patient independent and able to ambulate stairs. Transportation: self/ DME/HHC: Patient has cane and crutches, denies HHC Disposition Plan: Patient to discharge home with family support and follow-up plans in place. Maria Teresa ROWAN, RN, CM
--- NOTE | 2019-05-17 12:43 | PCM.PN.SRG ---
Patient Problems: Active and Suspected Problems (Last Reviewed 04/23/19 @ 14:[address] Alfonso Monge MD) Diverticulitis of large intestine with perforation and abscess without bleeding (Acute) Subjective: Patient evaluated resting comfortably in bed. He denies nausea, vomiting, fever. He is tolerating a clear liquid diet. Negative flatus, BM. He notes abdominal pain. - Physical Exam Vitals/I&O's: Vital Signs Temp Pulse Resp BP Pulse Ox 98.3 F 97 18 123/71 H 94 05/17/19 07:54 05/17/19 07:54 05/17/19 07:54 05/17/19 07:54 05/17/19 07:54 Oxygen Flow Rate (L/min) 6 Oxygen Delivery Method Room Air Weight: 192 lb 3.889 oz Body Mass Index (BMI) 29.2 Finger Stick Blood Glucose 146 Intake and Output for Last 24 Hours 05/15/19 05/16/19 05/17/19 23:59 23:59 23:59 Intake Total 2300 / 2300 3360 / 3360 Output Total 260 / 260 3500 / 3500 Balance 2039 / 2039 -140 / -140 General: Alert, Oriented x3, Cooperative Abdomen: Soft, Distended - slightly, Tender - generalized, - - Incisions c/d/i. No erythema or infection. Laboratory Results 05/16/19 15:50: POC Glucose 146 H 05/17/19 06:05: WBC 15.8 H, RBC 4.09 L, Hgb 11.9 L, Hct 36.0 L, MCV 88.0, MCH 29.1, MCHC 33.1, RDW Std Deviation 42.4, RDW Coeff of Aniyah 13.2, Plt Count 314, MPV 9.5 05/17/19 06:05: Sodium 138, Potassium 4.0, Chloride 105, Carbon Dioxide 27.0, Anion Gap 6, BUN 12, Creatinine 0.93, Estim Creat Clear Calc 84.78, Est GFR (MDRD) Af Amer 108, Est GFR (MDRD) Non-Af 89, BUN/Creatinine Ratio 12.9, Glucose 128 H, Calcium 8.2 L Current Medications Acetaminophen (Tylenol) 1,000 mg PO Q6 NAYANA Last Admin: 05/17/19 11:41 Dose: 1,000 mg Documented by: Albuterol Sulfate (Ventolin Aerosols) 2.5 mg INHALATION Q4H PRN PRN Reason: SOB &/OR WHEEZING Albuterol Sulfate (Ventolin Aerosols) 2.5 mg INHALATION Q6HWA.RT [facility] Last Admin: 05/17/19 06:59 Dose: 2.5 mg Documented by: Atorvastatin Calcium (Lipitor) 40 mg PO QHS [facility] Last Admin: 05/16/19 22:35 Dose: 40 mg Documented by: Budesonide (Pulmicort Aerosol) 0.5 mg INHALATION Q12H.RT [facility] Last Admin: 05/17/19 06:59 Dose: 0.5 mg Documented by: Docusate Sodium (Colace) 100 mg PO BID [facility] Last Admin: 05/17/19 07:58 Dose: 100 mg Documented by: Hydromorphone HCl (Dilaudid Inj) 0.5 mg IV Q3H PRN PRN PRN Reason: Pain Score 6-10/10 Last Admin: 05/17/19 11:43 Dose: 0.5 mg Documented by: Lactated Ringer's () 1,000 mls @ 40 mls/hr IV .Q25H [facility] Last Admin: 05/17/19 10:25 Dose: 40 mls/hr Documented by: Lactated Ringer's () 1,000 mls @ 40 mls/hr IV .Q25H [facility] Stop: 05/17/19 12:46 Last Admin: 05/17/19 07:41 Dose: Not Given Documented by: Magnesium Oxide (Mag-Ox 400) 400 mg PO DAILY PRN PRN PRN Reason: Constipation Nutritional Formula (Lactose Free) (Ensure Enlive) 120 ml PO 4X/DAY [facility] Last Admin: 05/17/19 08:05 Dose: 120 ml Documented by: Ondansetron HCl (Zofran Odt) 4 mg PO Q6H PRN PRN PRN Reason: NAUSEA Last Admin: 05/16/19 23:24 Dose: 4 mg Documented by: Oxycodone HCl (Oxyir) 5 - 10 mg PO Q4H PRN PRN PRN Reason: Pain Score 4-10/10 Last Admin: 05/17/19 04:29 Dose: 10 mg Documented by: Paroxetine HCl (Paxil) 20 mg PO QHS [facility] Last Admin: 05/16/19 22:35 Dose: 20 mg Documented by: Paroxetine HCl (Paxil) 40 mg PO QAM [facility] Last Admin: 05/17/19 07:58 Dose: 40 mg Documented by: Sodium Chloride () 10 - 40 ml IV UD PRN PRN Reason: SALINE FLUSH Medical Necessity - Tobacco Use Smoking Status: Current some day smoker Tobacco Use: Vapor Assessment/Plan All Active Problems (Last Reviewed 04/23/19 @ 14:[address] Alfonso Monge MD) Diverticulitis of large intestine with perforation and abscess without bleeding (Acute) Perforation of sigmoid colon due to diverticulitis (Acute) History of left heart catheterization (Acute ~05/16/17) Biliary dyskinesia (Resolved) I am following this patient in conjunction with Dr. Monge S/p colectomy D/C Rodriguez Continue clear liquids Once he passes flatus, will increase to transitional diet Keep IV fluids at 40 cc/hr Discussed ambulation, gum chewing and incentive spirometer We will continue to monitor this patient
[2019-05-17] MEDS: Ondansetron ODT 4 MG Tablet PO (13:29)
[2019-05-17] MEDS: Atorvastatin Calcium 40 MG Tablet PO (21:35)
[2019-05-17] MEDS: Paroxetine 20 MG Tablet PO (21:35)
[2019-05-17] MEDS: Ensure Clear 120 ML Liquid PO (21:38)
[2019-05-18] MEDS: HYDROmorphone 0.5 MG/0.5 ML SYRINGE IV (00:15)
[2019-05-18] MEDS: Acetaminophen 500 MG Tablet 1000 MG PO ×2 (01:00→08:15)
[2019-05-18 01:07] VITALS: BP 130/84; PULSE 80; RESP 18; TEMP 36.5; O2SAT 94
[2019-05-18] MEDS: Ondansetron ODT 4 MG Tablet PO (04:53)
[2019-05-18] MEDS: oxyCODONE 5 MG Tablet PO (04:54)
[2019-05-18 04:57] VITALS: BP 139/88; PULSE 73; RESP 18; TEMP 36.6; O2SAT 92
[2019-05-18 07:37] VITALS: PULSE 82; RESP 20; O2SAT 93
[2019-05-18] MEDS: Budesonide Respules 0.5 MG/2 ML AMPUL.NEB. INHALATION (07:37)
[2019-05-18] MEDS: Albuterol 2.5 MG/3 ML VIAL.NEB. INHALATION (07:37)
[2019-05-18] MEDS: Ensure Clear 120 ML Liquid PO (08:14)
[2019-05-18] MEDS: Paroxetine 20 MG Tablet 40 MG PO (08:15)
[2019-05-18] MEDS: Docusate Sodium 100 MG Capsule PO (08:15)
[2019-05-18 10:55] VITALS: BP 141/88; PULSE 78; RESP 18; TEMP 36.9; O2SAT 97
--- NOTE | 2019-05-18 11:00 | DCINST_ITS ---
Discharge Diet: Light diet - advance as tolerated - If you have questions about your diet instructions, please talk to your doctor. Discharge Activity: May Not Drive - for 1 week or while taking narcotic pain medicine. May shower in (days): 1 Lifting Restrictions: 10 pounds Call your doctor if your incision/area has: Continuous Slow Oozing, Sudden Increased Bleeding, Increased Pain/ Swelling, Increased Redness, Foul Smelling Discharge Call your doctor if you observe: Fever of 101 or Higher Suture Line Care: Avoid Pulling/Pushing, Avoid Pinching/Bending Additional Dressing/Incision Instructions:: Change or remove dressing in 4 days. Leave steri-strips in place for 1 week. Allergies/Adverse Reactions: Allergies Penicillins Allergy (Verified 05/16/19 11:07) Anaphylaxis Medications to take at Discharge Albuterol IH (ProAir) [Proair Hfa] 2 puff INHALATION Q4H PRN PRN 05/05/17 Budesonide Inhaler 180 mcg [Pulmicort Inhaler 180 mcg] 1 - 2 puff INHALATION DAILY 05/05/17 Paroxetine [Paxil] 20 mg PO QHS 05/05/17 paroxetine HCl 40 mg tablet 40 mg PO QAM tab 05/25/17 cholecalciferol (vitamin D3) 25 mcg (1,000 unit) capsule 1,000 unit PO DAILY 06/01/18 folic acid 800 mcg tablet 5 tab PO DAILY 06/01/18 Olodaterol HCl [Striverdi Respimat] 2 puff PO QHS 06/29/18 Aspirin E.C. [Ecotrin] 81 mg PO DAILY@0800 06/30/18 Atorvastatin Calcium [Lipitor] 40 mg PO QHS 06/30/18 Loratadine/Pseudo 240/10 [Claritin-D 24 Hr] 1 tab PO DAILY PRN 06/30/18 Ticagrelor [Brilinta] 90 mg PO BID 06/30/18 neomycin 500 mg tablet 500 mg PO .COMPLEX #6 tab 04/25/19 Celecoxib [Celebrex] 100 mg PO BID 05/07/19 Metronidazole 500 mg PO .COMPLEX 05/07/19 Ondansetron HCl [Zofran] 4 mg PO Q6H PRN PRN #12 tab 05/18/19 Oxycodone HCl/Acetaminophen [Percocet 5/325] 1 - 2 tablet PO Q4H PRN PRN 7 Days #40 tablet 05/18/19 The following prescriptions were given: Oxycodone HCl/Acetaminophen [Percocet 5/325] 1 - 2 tablet PO Q4H PRN PRN 7 Days #40 tablet PRN Reason: Pain Transmission Status: Received by [facility]/pharmacy #[id number] Ondansetron HCl [Zofran] 4 mg PO Q6H PRN PRN #12 tab PRN Reason: Nausea Transmission Status: Pending to [facility]/pharmacy #[id number] Primary Care Physician: Torsten Hyman MD [Primary Care Provider] - Test Results: Test results from this visit will be discussed in further detail at your follow- up appointment, if applicable. Please Follow Up With: Alfonso Monge MD - [phone] When: Call to make an appointment to be seen in about 10 days.
--- NOTE | 2019-05-18 11:01 | PN.SURG_ITS ---
Patient Problems: Active and Suspected Problems (Last Reviewed 04/23/19 @ 14:[address] Alfonso Monge MD) Diverticulitis of large intestine with perforation and abscess without bleeding (Acute) Subjective: Patient had a bowel movement this morning feels much less distended. Objective: Abdomen is soft and appropriately tender - Physical Exam Vitals/I&O's: Vital Signs Temp Pulse Resp BP Pulse Ox 97.8 F 82 20 H 139/88 H 93 05/18/19 04:57 05/18/19 07:37 05/18/19 07:37 05/18/19 04:57 05/18/19 07:37 Oxygen Flow Rate (L/min) 6 Oxygen Delivery Method Room Air Weight: 192 lb 3.889 oz Body Mass Index (BMI) 29.2 Finger Stick Blood Glucose 146 Intake and Output for Last 24 Hours 05/16/19 05/17/19 05/18/19 23:59 23:59 23:59 Intake Total 2300 / 2300 3720 / 4320 700 / 700 Output Total 260 / 260 3925 / 3925 Balance 2040 / 2040 -205 / 395 700 / 700 Current Medications Acetaminophen (Tylenol) 1,000 mg PO Q6 [facility] Last Admin: 05/18/19 08:15 Dose: 1,000 mg Documented by: Albuterol Sulfate (Ventolin Aerosols) 2.5 mg INHALATION Q4H PRN PRN Reason: SOB &/OR WHEEZING Albuterol Sulfate (Ventolin Aerosols) 2.5 mg INHALATION Q6HWA.RT [facility] Last Admin: 05/18/19 07:37 Dose: 2.5 mg Documented by: Atorvastatin Calcium (Lipitor) 40 mg PO QHS [facility] Last Admin: 05/17/19 21:35 Dose: 40 mg Documented by: Budesonide (Pulmicort Aerosol) 0.5 mg INHALATION Q12H.RT [facility] Last Admin: 05/18/19 07:37 Dose: 0.5 mg Documented by: Docusate Sodium (Colace) 100 mg PO BID [facility] Last Admin: 05/18/19 08:15 Dose: 100 mg Documented by: Hydromorphone HCl (Dilaudid Inj) 0.5 mg IV Q3H PRN PRN PRN Reason: Pain Score 6-10/10 Last Admin: 05/18/19 00:15 Dose: 0.5 mg Documented by: Lactated Ringer's () 1,000 mls @ 40 mls/hr IV .Q25H [facility] Last Admin: 05/17/19 10:25 Dose: 40 mls/hr Documented by: Magnesium Oxide (Mag-Ox 400) 400 mg PO DAILY PRN PRN PRN Reason: Constipation Nutritional Formula (Lactose Free) (Ensure Clear) 120 ml PO 4X/DAY [facility] Last Admin: 05/18/19 08:14 Dose: 120 ml Documented by: Ondansetron HCl (Zofran Odt) 4 mg PO Q6H PRN PRN PRN Reason: NAUSEA Last Admin: 05/18/19 04:53 Dose: 4 mg Documented by: Oxycodone HCl (Oxyir) 5 - 10 mg PO Q4H PRN PRN PRN Reason: Pain Score 4-10/10 Last Admin: 05/18/19 04:54 Dose: 10 mg Documented by: Paroxetine HCl (Paxil) 20 mg PO QHS [facility] Last Admin: 05/17/19 21:35 Dose: 20 mg Documented by: Paroxetine HCl (Paxil) 40 mg PO QAM [facility] Last Admin: 05/18/19 08:15 Dose: 40 mg Documented by: Sodium Chloride () 10 - 40 ml IV UD PRN PRN Reason: SALINE FLUSH Medical Necessity - Tobacco Use Smoking Status: Current some day smoker Tobacco Use: Vapor Assessment/Plan All Active Problems (Last Reviewed 04/23/19 @ 14:[address] Alfonso Monge MD) Diverticulitis of large intestine with perforation and abscess without bleeding (Acute) Perforation of sigmoid colon due to diverticulitis (Acute) History of left heart catheterization (Acute ~05/16/17) Biliary dyskinesia (Resolved) Looks good we will send him home today
== END 2019-05-18 12:00 | disposition home or self-care (01) | DRG 331 ==
LOC: ACINP 10:39 → MS3 05-17 11:25
PROVIDERS: Anesthesiology; Admitting Provider Surgery; PCP Family Medicine; Referring Provider Surgery; Visit Provider Surgery
PROC: 0DTN0ZZ Resection of Sigmoid Colon, Open Approach (ICD-10-PCS; CPT 44204; principal; 2019-05-16 12:15)
DX: K57.20 Diverticulitis of large intestine with perforation and abscess without bleeding (principal); Z53.31 Laparoscopic surgical procedure converted to open procedure
CPT/HCPCS: 36415; 80048; 82962; 83735; 85027; 88304; 88307; 93005; 94640; 99251; 99406; J7050; J7120; C1760; G0463; J0744; J2405; J3490

== ENCOUNTER → 2019-11-26 | Outpatient (CLI) | payer OTHER, SELFPAY ==
[2018-07-04 08:45] VITALS: BMI 30.5
[2019-11-23 08:26] VITALS: BMI 28.8
--- NOTE | 2019-11-26 11:52 | RAD_ITS ---
STUDY: X-RAY CHEST REASON FOR EXAM: Male, 59 years old. PRE HEART CATH, PREV HX IL/STENTS TECHNIQUE: PA and lateral views of the chest. COMPARISON: Comparison is made with prior study dated 01/10/2018. FINDINGS: Hyperinflation. The lungs are clear. Scattered calcified granulomas. There is no demonstrated pleural abnormality. Normal size heart. Normal mediastinum and annemarie. Normal visualized pulmonary arteries. There is atherosclerotic calcification of the aortic arch with tortuosity. Normal visualized thoracic spine. Normal visualized ribs, clavicles, and shoulders. There is no demonstrated abnormality of the visualized soft tissue structures of the upper abdomen. RAD/Chest PA and Lateral IMPRESSION: Hyperinflation. No acute abnormality is seen. Electronically Signed: Adelfo Carson, at 15:20 EDT , Service support ,
[2019-11-26 12:34] LABS: Absolute Lymphocyte Count 2.01 X10^3/uL (0.83-4.51); Absolute Neutrophil Count 5.3 X10^3/uL (2.0-7.7); Basophil# 0.11 X10^3/uL; Basophil% 1.3 % (0-1); Eosinophil# 0.55 X10^3/uL; Eosinophils% 6.3 % (0-5); Hematocrit 44.4 % (40-54); Hemoglobin 14.9 g/dL (13.0-16.5); Lymphocyte # 2.01 X10^3/ul (4.0); Lymphocyte % 23.1 % (19-41); Mean Corp Hgb Conc 33.6 g/dL (32-36); Mean Corpuscular Hgb 29.6 pg (27.0-32.0); Mean Corpuscular Volume 88.3 fL (80-94); Mean Platelet Vol. 9.7 fl (6.2-12.0); Monocyte# 0.71 X10^3/uL; Monocyte% 8.2 % (0-10); NRBC Flagged by Analyzer 0 % (0-5); Neutrophil # 5.29 X10^3/uL (2.7-7.7); Neutrophil % 60.6 % (47-70); Platelet Count 321 K/mm3 (150-450); RBC Distribution Width CV 14.1 % (11.6-14.6); RBC Distribution Width SD 45.1 fl (35.1-43.9); Red Blood Count 5.03 M/mm3 (4.6-6.2); White Blood Count 8.7 K/mm3 (4.4-11.0)
[2019-11-26 12:42] LABS: International Normalized Ratio 1.1; Prothrombin Time (Protime)PT. 13.3 SECONDS (11.7-14.9)
[2019-11-26 12:43] LABS: Partial Thromboplast Time 25.9 Seconds (24.1-36.2)
[2019-11-26 12:58] LABS: Anion Gap 6 (5-15); BUN 16 mg/dL (7-18); BUN/Creat Ratio 17.4 RATIO (10-20); Chloride 109 mmol/L (98-107); Creatinine, Serum 0.92 mg/dL (0.70-1.30); EST Glomerular Filtration Rate 90 mL/min (>60); Est Glom Filt Rate - Afr Amer 109 mL/min (>60); Glucose 120 mg/dL (74-106); Potassium 3.8 mmol/L (3.5-5.1); Sodium Level 140 mmol/L (136-145)
== END | disposition home or self-care (01) ==
LOC: RAD 11:52
PROVIDERS: PCP Family Medicine; Referring Provider Nurse Practitioner Family; Visit Provider Nurse Practitioner Family
DX: I10 Essential (primary) hypertension (principal); I21.4 Non-ST elevation (NSTEMI) myocardial infarction; I25.10 Atherosclerotic heart disease of native coronary artery without angina pectoris; R07.9 Chest pain, unspecified; F17.200 Nicotine dependence, unspecified, uncomplicated; Z95.5 Presence of coronary angioplasty implant and graft
CPT/HCPCS: 36415; 71046; 80048; 85025; 85610; 85730

== ENCOUNTER 2019-11-29 08:48 | Day surgery (SDC) | payer OTHER, SELFPAY ==
[2018-07-04 08:45] VITALS: BMI 30.5
[2019-11-23 08:26] VITALS: BMI 28.8
[2019-11-28 08:20] VITALS: BMI 28.8
--- NOTE | 2019-11-29 12:46 | CL.D_ITS ---
Patient Name: ZEV GONZALEZ Study Date: 11/29/2019 Performing: Lyla Cheatham MD Ht: 68 inches 173 cm : 1960 Wt: 189.8 lbs 86 kg Age: 59 Gender: male BSA: 2 PROCEDURE(S) PERFORMED TC00-KBV/COR/LV CLINICAL PROFILE AND INDICATIONS Indications: Worsening Angina Heart Failure: None Stress/Imaging Stress/Image Study Performed: No CAD Presentations: Unstable angina. CONCLUSIONS No significant change compared to 05/2017 RECOMMENDATIONS Maximal medical therapy for CAD DESCRIPTION OF PROCEDURE The patient arrived to the procedure lab. The risks and benefits of the procedure as well as a full d escription of our services here and current unavailability of surgical backup were fully explained to the patient and/or their significant other prior to the catheterization. The Timeout was completed, verifying the correct patient and procedure. The patient's procedural site was prepped and draped in the usual fashion. Local anesthetic was given subcutaneously to right radial region with Lidocaine 2% . Using a modified Seldinger technique, arterial access was obtained via the right radial artery, a 6 Fr sheath was inserted. Left Coronary Artery selective angiography was performed in multiple views u sing a 5 Fr. JL3.5 catheter. Right Coronary Artery selective angiography was then performed in multip le views using a 5 Fr. JR 4 catheter. Left Ventriculography was performed in PAYTON projection using a 5 Fr. JR 4catheter. LV to AO pullback pressures were then recorded.The arterial sheath was pulled and a TR Band was applied for hemostasis. 16cc of air CORONARY ANGIOGRAPHY DOMINANCE: Right Dominant LEFT HEART ASSESSMENT Left Ventricular Ejection Fraction: by LV Gram 60 % Inferior Hypokinesis - Mild LEFT MAIN: Mild luminal irregularities LEFT ANTERIOR DESCENDING ARTERY: MID LAD: 60 % Stenosis CIRCUMFLEX ARTERY: Mild luminal irregularities OM 1: Proximal - 30 % Stenosis RIGHT CORONARY ARTERY: Mild luminal irregularities Previously placed stent is patent COMPLICATIONS No Complications PROCEDURE MEDICATIONS Versed 1 mg IV Fentanyl 50 mcg IV Versed 1 mg IV Oxygen: 2 L/min via nasal cannula Heparin given IA 11/29/2019 10:34:33 Verapamil 2.5mg, Ntg 100mcgs, 3000 units of Heparin given IA 11/29/2019 10:34:33 SUMMARY OF HEMODYNAMIC DATA Time AIR REST ECG 09:09:46 AO 92/70 (78) 10:37:13 LV 100/8, 11 10:43:17 LV 101/7, 12 10:43:24 LV 100/8, 11 10:44:05 LVp 88/9, 12 10:44:12 AOp 104/71 (87) 10:44:17 Signed By Lyla Cheatham MD On 11/29/2019 12:46:27 PM Lyla Cheatham MD
== END 2019-11-29 12:45 | disposition home or self-care (01) ==
LOC: CLSP 08:49
PROVIDERS: PCP Family Medicine; Referring Provider Specialist; Visit Provider Specialist
DX: I25.110 Atherosclerotic heart disease of native coronary artery with unstable angina pectoris (principal); I10 Essential (primary) hypertension; I25.2 Old myocardial infarction; M06.9 Rheumatoid arthritis, unspecified; J45.909 Unspecified asthma, uncomplicated; Z95.5 Presence of coronary angioplasty implant and graft; Z79.51 Long term (current) use of inhaled steroids; Z79.899 Other long term (current) drug therapy
CPT/HCPCS: 93458; 99152; 99153; J7040; Q9967; C1769; C1894

== ENCOUNTER → 2020-03-26 14:05 | Outpatient (CLI) | payer OTHER, SELFPAY ==
[2018-07-04 08:45] VITALS: BMI 30.5
[2020-01-08 11:18] VITALS: BMI 29.3
[2020-03-26 16:01] LABS: Rheumatoid Factor < 10.0 IU/mL (<15)
[2020-03-28 20:37] LABS: ANTINUCLEAR ANTIBODIES DIRECT Negative (Negative)
[2020-03-29 09:25] LABS: CCP IgG Antibodies 4 units (0-19)
== END ==
PROVIDERS: PCP Family Medicine; Referring Provider Family Medicine; Visit Provider Family Medicine
DX: M06.4 Inflammatory polyarthropathy (principal)
CPT/HCPCS: 36415; 86038; 86200; 86431

== ENCOUNTER → 2021-08-21 | Outpatient (CLI) | payer BC, SELFPAY ==
[2018-07-04 08:45] VITALS: BMI 30.5
[2021-08-21 14:03] LABS: Mucous, Urine 0 SEEN /hpf (<or=2+); Red Blood Cells-Urine 0 SEEN /hpf (0-5); Squamous Epithelial Cells - UA 0 SEEN /hpf (0-5); White Blood Cells 0 SEEN /hpf (0-5)
[2021-08-21 17:38] LABS: Absolute Lymphocyte Count 1.93 X10^3/uL (0.83-4.51); Absolute Neutrophil Count 5.2 X10^3/uL (2.0-7.7); Basophil# 0.07 X10^3/uL; Basophil% 0.8 % (0-1); Eosinophil# 0.32 X10^3/uL; Eosinophils% 3.8 % (0-5); Hematocrit 41.4 % (40-54); Lymphocyte # 1.93 X10^3/ul (0.83-4.51); Lymphocyte % 22.8 % (19-41); Mean Corp Hgb Conc 33.8 g/dL (32-36); Mean Corpuscular Hgb 30.9 pg (27.0-32.0); Mean Corpuscular Volume 91.4 fL (80-94); Monocyte# 0.92 X10^3/uL; Monocyte% 10.9 % (0-10); NRBC Flagged by Analyzer 0 % (0-5); Neutrophil # 5.17 X10^3/uL (2.7-7.7); Neutrophil % 61.1 % (47-70); Platelet Count 284 K/mm3 (150-450); RBC Distribution Width CV 13.3 % (11.6-14.6); RBC Distribution Width SD 45.1 fl (35.1-43.9); Red Blood Count 4.53 M/mm3 (4.6-6.2); White Blood Count 8.5 K/mm3 (4.4-11.0)
[2021-08-21 17:48] LABS: Color, Urine Yellow (Yellow); Glucose, Dipstick Normal (Normal); Ketone-Dipstick Negative (Negative); Leukocyte Esterase-Dipstick Negative /ul (Negative); Nitrite-Dipstick Negative (Negative); Occult Blood-Urine Negative /ul (Negative); Protein-Dipstick Negative (Negative); Specific Gravity, Urine 1.025 (1.002-1.030); Urine Clarity Clear (Clear); Urine Urobilinogen Normal (Normal)
[2021-08-21 17:54] LABS: Urine Bilirubin Dipstick 6 mg/dL (Negative)
[2021-08-21 18:06] LABS: Bacteria 1+ /hpf (None Seen)
[2021-08-21 18:09] LABS: Vitamin B12 516 pg/mL (211-911)
[2021-08-21 18:16] LABS: ALB/GLOB Ratio 1.1 RATIO (0.9-2.4); AST(SGOT) 24 U/L (15-37); Alanine Aminotransfer ALT/SGPT 34 U/L (16-61); Albumin, Serum 3.5 g/dL (3.2-5.0); Alkaline Phosphatase 97 U/L (45-117); Anion Gap 5 (5-15); BUN 19 mg/dL (7-18); BUN/Creat Ratio 17.9 RATIO (10-20); Calcium,Total 8.6 mg/dL (8.5-10.1); Chloride 108 mmol/L (98-107); Creatinine, Serum 1.06 mg/dL (0.70-1.30); EST Glomerular Filtration Rate 76 mL/min (>60); Est Glom Filt Rate - Afr Amer 92 mL/min (>60); Ferritin 73 ng/mL (26-388); Globulin 3.1 g/dL (2.2-4.2); Glucose 83 mg/dL (74-106); PSA,Total - Annual Screen 0.34 ng/mL (0.00-4.00); Potassium 4.3 mmol/L (3.5-5.1); Protein, Total 6.6 g/dL (6.4-8.2); Sodium Level 139 mmol/L (136-145); Thyroid Stim Hormone (TSH) 1.29 uIU/mL (0.358-3.74)
[2021-08-25 08:02] LABS: ANTINUCLEAR ANTIBODIES DIRECT Negative (Negative)
== END | disposition home or self-care (01) ==
LOC: MFPLAB 14:01
PROVIDERS: PCP Family Medicine; Referring Provider Family Medicine; Visit Provider Family Medicine
DX: R53.83 Other fatigue (principal); R39.15 Urgency of urination; R63.2 Polyphagia
CPT/HCPCS: 36415; 80053; 81001; 82607; 82728; 84153; 84443; 85025; 86038; G0103

== ENCOUNTER → 2022-02-08 | Outpatient (CLI) | payer BC, SELFPAY ==
[2018-07-04 08:45] VITALS: BMI 30.5
[2022-02-08 14:11] LABS: AST(SGOT) 19 U/L (15-37); Alanine Aminotransfer ALT/SGPT 33 U/L (16-61); Albumin, Serum 3.6 g/dL (3.2-5.0); Alkaline Phosphatase 97 U/L (45-117); Bilirubin, Direct 0.12 mg/dL (0.00-0.30); Cholesterol 128 mg/dL (200); Globulin 3.3 g/dL (2.2-4.2); High Density Lipoprotein 45 mg/dL; Protein, Total 6.9 g/dL (6.4-8.2); Triglycerides 184 mg/dL; Very Low Density Lipoprotein 37 mg/dL (5-40)
== END | disposition home or self-care (01) ==
LOC: LAB 12:30
PROVIDERS: PCP Family Medicine; Referring Provider Internal Medicine Cardiovascular Disease; Visit Provider Internal Medicine Cardiovascular Disease
DX: I10 Essential (primary) hypertension (principal); I25.10 Atherosclerotic heart disease of native coronary artery without angina pectoris; R53.83 Other fatigue; F17.200 Nicotine dependence, unspecified, uncomplicated
CPT/HCPCS: 36415; 80061; 80076

== ENCOUNTER → 2022-10-06 | Outpatient (CLI) | payer SELFPAY, BC ==
[2018-07-04 08:45] VITALS: BMI 30.5
--- NOTE | 2022-10-06 18:45 | STRESSREP_ITS ---
Stress Test Report Exercise myocardial perfusion stress test. 62-year-old man with a history of chest pain Stress protocol: Resting EKG demonstrates normal sinus rhythm with a rate of 71 bpm resting blood pressure is 122/82 mmHg. The patient exercised according to the regular Sung protocol for a total duration of 9 minutes attaining a maximum heart rate of 123 bpm which was 77% of maximum predicted heart rate; the maximum workload was 10.1 metabolic equivalents. At rest there were no ST or T wave changes noted to suggest ischemia and at peak exercise upsloping ST changes only were noted which did not meet the criteria for ischemia. No clinical angina was noted the test was terminated due to the target heart rate being achieved/fatigue. The peak b lood pressure was 184/78 mmHg. Rate-pressure product was 22,200. Myocardial perfusion protocol. 13.9 mCi of technetium 99m sestamibi was injected at rest. The patient exercised according to regular Sung protocol for total duration of 9 minutes and at peak exercise 43.7 mCi of technetium 99m sestamibi was injected stress images were obtained stress and rest images were reconstructed in comparing the short axis vertical long and horizontal long axis. Gated images were also obtained. Perfusion SPECT analysis: Review of the stress images demonstrate normal uptake of tracer noted in all areas of the myocardium. The resting images similarly demonstrate normal uptake of tracer noted in all areas of the myocardium. No areas of reversibility are noted to suggest ischemia no previous infarct was noted. Gated SPECT analysis: The gated ejection fraction is 65%. Conclusion: Normal exercise myocardial perfusion stress test at a high workload Preserved ejection fraction.
== END | disposition home or self-care (01) ==
PROVIDERS: PCP Family Medicine; Referring Provider Nurse Practitioner Family; Visit Provider Nurse Practitioner Family
DX: R06.09 Other forms of dyspnea (principal); I10 Essential (primary) hypertension; Z95.5 Presence of coronary angioplasty implant and graft; R07.9 Chest pain, unspecified; R06.02 Shortness of breath; I25.10 Atherosclerotic heart disease of native coronary artery without angina pectoris
CPT/HCPCS: 78452; 93017; A9500; A4216

== ENCOUNTER → 2023-02-23 | Outpatient (CLI) | payer BC, SELFPAY ==
[2018-07-04 08:45] VITALS: BMI 30.5
[2023-02-23 10:53] LABS: AST(SGOT) 27 U/L (15-37); Alanine Aminotransfer ALT/SGPT 41 U/L (16-61); Alkaline Phosphatase 100 U/L (45-117); Bilirubin, Direct 0.16 mg/dL (0.00-0.30); Cholesterol 126 mg/dL (200); Globulin 3.5 g/dL (2.2-4.2); High Density Lipoprotein 49 mg/dL; Protein, Total 7.5 g/dL (6.4-8.2); Triglycerides 134 mg/dL; Very Low Density Lipoprotein 27 mg/dL (5-40)
== END | disposition home or self-care (01) ==
PROVIDERS: PCP Family Medicine; Referring Provider Nurse Practitioner Family; Visit Provider Nurse Practitioner Family
DX: E78.00 Pure hypercholesterolemia, unspecified (principal); I25.10 Atherosclerotic heart disease of native coronary artery without angina pectoris; I10 Essential (primary) hypertension
CPT/HCPCS: 36415; 80061; 80076

== ENCOUNTER → 2023-07-29 | Outpatient (CLI) | payer BC, SELFPAY ==
[2018-07-04 08:45] VITALS: BMI 30.5
[2023-07-29 12:49] LABS: Absolute Lymphocyte Count 1.48 X10^3/uL (0.83-4.51); Absolute Neutrophil Count 4.3 X10^3/uL (2.0-7.7); Basophil# 0.07 X10^3/uL; Eosinophil# 0.24 X10^3/uL; Eosinophils% 3.5 % (0-5); Hematocrit 44.6 % (40-54); Hemoglobin 14.7 g/dL (13.0-16.5); Lymphocyte # 1.48 X10^3/ul (0.83-4.51); Lymphocyte % 21.7 % (19-41); Mean Corpuscular Hgb 30.4 pg (27.0-32.0); Mean Corpuscular Volume 92.3 fL (80-94); Mean Platelet Vol. 9.8 fl (6.2-12.0); Monocyte# 0.71 X10^3/uL; Monocyte% 10.4 % (0-10); NRBC Flagged by Analyzer 0 % (0-5); Neutrophil # 4.25 X10^3/uL (2.7-7.7); Neutrophil % 62.5 % (47-70); Platelet Count 283 K/mm3 (150-450); RBC Distribution Width CV 13.2 % (11.6-14.6); RBC Distribution Width SD 44.8 fl (35.1-43.9); Red Blood Count 4.83 M/mm3 (4.6-6.2); White Blood Count 6.8 K/mm3 (4.4-11.0)
[2023-07-29 12:56] LABS: Erythrocyte Sedimentation Rate < 1 mm/hr (0-20)
[2023-07-29 13:23] LABS: ALB/GLOB Ratio 1.1 RATIO (0.9-2.4); AST(SGOT) 27 U/L (15-37); Alanine Aminotransfer ALT/SGPT 31 U/L (16-61); Albumin, Serum 3.6 g/dL (3.2-5.0); Alkaline Phosphatase 85 U/L (45-117); Anion Gap 6 (5-15); BUN 22 mg/dL (7-18); BUN/Creat Ratio 18.6 RATIO (10-20); CRP < 2.90 mg/L (0.0-3.0); Chloride 107 mmol/L (98-107); Creatinine, Serum 1.18 mg/dL (0.70-1.30); EST Glomerular Filtration Rate 66 mL/min (>60); Est Glom Filt Rate - Afr Amer 80 mL/min (>60); Globulin 3.2 g/dL (2.2-4.2); Glucose 100 mg/dL (74-106); Lipase 26 U/L (13-75); Potassium 3.9 mmol/L (3.5-5.1); Protein, Total 6.8 g/dL (6.4-8.2); Sodium Level 137 mmol/L (136-145); Thyroid Stim Hormone (TSH) 1.06 uIU/mL (0.358-3.74)
[2023-07-30 12:10] LABS: Lyme Scn Total Ab w/Rflx Negative (Negative)
== END | disposition home or self-care (01) ==
LOC: MFPLAB 10:58
PROVIDERS: PCP Family Medicine; Visit Provider Family Medicine
DX: R53.83 Other fatigue (principal)
CPT/HCPCS: 36415; 80053; 83690; 84443; 85025; 85652; 86140; 86618

== ENCOUNTER → 2023-08-29 | Outpatient (CLI) | payer BC, SELFPAY ==
[2018-07-04 08:45] VITALS: BMI 30.5
--- NOTE | 2023-08-29 12:19 | STRESSREP ---
Stress Test Report Exercise myocardial perfusion stress test. 63-year-old man with a history of chest pain Stress protocol: Resting EKG demonstrates normal sinus rhythm with a rate of 70 bpm resting blood pressure is 138/88 mmHg. The patient exercised according to the regular Sung protocol for a total duration of 9 minutes attaining a maximum heart rate of 130 bpm which was 82% of maximum predicted heart rate; the maximum workload was 10.1 metabolic equivalents. At rest there were no ST or T wave changes noted to suggest ischemia and at peak exercise upsloping ST changes only were noted which did not meet the criteria for ischemia. Mild chest discomfort was noted at peak exercise with some shortness of breath which rapidly dissipated on cessation of the test. The test was terminated due to the target heart rate being achieved/fatigue. The peak blood pressure was 182/90 mmHg. Rate-pressure product was 21,000 . Myocardial perfusion protocol. 13.9 mCi of technetium 99m sestamibi was injected at rest. The patient exercised according to regular Sung protocol for total duration of 9 minutes and at peak exercise 42.4 mCi of technetium 99m sestamibi was injected stress images were obtained stress and rest images were reconstructed in comparing the short axis vertical long and horizontal long axis. Gated images were also obtained. Perfusion SPECT analysis: Review of the stress images demonstrate normal uptake of tracer noted in all areas of the myocardium. The resting images similarly demonstrate normal uptake of tracer noted in all areas of the myocardium. No areas of reversibility are noted to suggest ischemia no previous infarct was noted. Gated SPECT analysis: The gated ejection fraction is 64%. Conclusion: Normal exercise myocardial perfusion stress test at a high workload Preserved ejection fraction.
== END | disposition home or self-care (01) ==
PROVIDERS: PCP Family Medicine; Referring Provider Family Medicine; Visit Provider Family Medicine
DX: I25.10 Atherosclerotic heart disease of native coronary artery without angina pectoris (principal)
CPT/HCPCS: 78452; 93017; A9500; A4216

== ENCOUNTER → 2023-11-09 | Outpatient (CLI) | payer BC, SELFPAY ==
[2018-07-04 08:45] VITALS: BMI 30.5
[2023-11-09 13:27] LABS: BNP,B-Type NATRIURETIC PEPTIDE 12.9 pg/mL (0-100)
[2023-11-09 13:31] LABS: AST(SGOT) 22 U/L (15-37); Alanine Aminotransfer ALT/SGPT 31 U/L (16-61); Albumin, Serum 3.7 g/dL (3.2-5.0); Alkaline Phosphatase 94 U/L (45-117); Bilirubin, Direct 0.19 mg/dL (0.00-0.30); Cholesterol 115 mg/dL (200); Globulin 3.4 g/dL (2.2-4.2); High Density Lipoprotein 48 mg/dL; Protein, Total 7.1 g/dL (6.4-8.2); Triglycerides 148 mg/dL; Very Low Density Lipoprotein 30 mg/dL (5-40)
== END | disposition home or self-care (01) ==
LOC: LAB 12:25
PROVIDERS: PCP Family Medicine; Referring Provider Nurse Practitioner Family; Visit Provider Nurse Practitioner Family
DX: E78.00 Pure hypercholesterolemia, unspecified (principal); I10 Essential (primary) hypertension; R06.09 Other forms of dyspnea; Z95.5 Presence of coronary angioplasty implant and graft
CPT/HCPCS: 36415; 80061; 80076; 83880

== ENCOUNTER → 2023-12-06 | Day surgery (SDC) | payer BC, SELFPAY ==
[2018-07-04 08:45] VITALS: BMI 30.5
--- NOTE | 2023-11-28 13:45 | RAD_ITS ---
STUDY: X-RAY CHEST REASON FOR EXAM: Male, 63 years old. Pre-operative: [facility] TECHNIQUE: Frontal and lateral views of the chest. COMPARISON: 11/26/2019. FINDINGS: The lungs are clear and expanded. There is no demonstrated pleural abnormality. Normal size heart. Normal mediastinum and annemarie. Normal visualized pulmonary arteries. Normal visualized aortic arch and descending thoracic aorta. Normal visualized thoracic spine. Normal visualized ribs, clavicles, and shoulders. There is no demonstrated abnormality of the visualized soft tissue structures of the upper abdomen. RAD/Chest PA and Lateral IMPRESSION: Normal x-ray examination of the chest. Electronically Signed: Renny Casillas MD at 23:01 EDT ,
[2023-11-28 14:25] LABS: Absolute Lymphocyte Count 1.94 X10^3/uL (0.83-4.51); Basophil# 0.07 X10^3/uL; Basophil% 0.8 % (0-1); Eosinophils% 3.6 % (0-5); Hematocrit 43.2 % (40-54); Hemoglobin 14.3 g/dL (13.0-16.5); Lymphocyte # 1.94 X10^3/ul (0.83-4.51); Lymphocyte % 23.5 % (19-41); Mean Corp Hgb Conc 33.1 g/dL (32-36); Mean Corpuscular Hgb 30.7 pg (27.0-32.0); Mean Corpuscular Volume 92.7 fL (80-94); Mean Platelet Vol. 9.6 fl (6.2-12.0); Monocyte# 0.92 X10^3/uL; Monocyte% 11.1 % (0-10); NRBC Flagged by Analyzer 0 % (0-5); Neutrophil # 4.96 X10^3/uL (2.7-7.7); Neutrophil % 60.2 % (47-70); Platelet Count 270 K/mm3 (150-450); RBC Distribution Width CV 13.1 % (11.6-14.6); RBC Distribution Width SD 44.3 fl (35.1-43.9); Red Blood Count 4.66 M/mm3 (4.6-6.2); White Blood Count 8.3 K/mm3 (4.4-11.0)
[2023-11-28 14:58] LABS: Anion Gap 4 (5-15); BUN 18 mg/dL (7-18); BUN/Creat Ratio 17.3 RATIO (10-20); Calcium,Total 9.2 mg/dL (8.5-10.1); Chloride 108 mmol/L (98-107); Creatinine, Serum 1.04 mg/dL (0.70-1.30); EST Glomerular Filtration Rate 77 mL/min (>60); Est Glom Filt Rate - Afr Amer 93 mL/min (>60); Glucose 100 mg/dL (74-106); Potassium 4.3 mmol/L (3.5-5.1); Sodium Level 138 mmol/L (136-145)
[2023-12-05 09:28] VITALS: BMI 28.1
--- NOTE | 2023-12-06 11:16 | CL.I_ITS ---
Patient Name: ZEV GONZALEZ Study Date: 12/06/2023 Performing: Lyla Cheatham MD Ht: 68 inches 172.72 cm : 1960 Wt: 184.99 lbs 83.91 kg Age: 63 Gender: male BSA: 1.98 PROCEDURE(S) PERFORMED IC10-([id number])FFR, CORONARY OR GRAFT, INITIAL VESSEL CLINICAL PROFILE AND CO-MORBIDITIES Indications: Worsening Angina Heart Failure: None Stress/Imaging Date: 08/11/23 Stress Test with SPECT MPI: Negative CAD Presentations: Symptom unlikely to be ischemic. CONCLUSIONS iFR past the in-stent restenosis in the LAD was 0.94. Recommend medical therapy for this lesion. RECOMMENDATIONS DESCRIPTION OF PROCEDURE The patient arrived to the procedure lab. The risks and benefits of the procedure as well as a full description of our services here and current unavailability of surgical backup were fully explained to the patient and/or their significant other prior to the catheterization. The Timeout was completed, verifying the correct patient and procedure. The patient's procedural site was prepped and draped in the usual fashion. Local anesthetic was given subcutaneously to right radial region with Lidocaine 2% Using a modified Seldinger technique,arterial access was obtained via the right radial artery, a 6Fr sheath was inserted. Right Coronary Artery selective angiography was then performed in multiple views using a 5 Fr. 4.0 [place] catheter. Left Coronary Artery selective angiography was performed in multiple views using a 5 Fr. 4.0 [place] catheter. Left Ventriculography was performed in PAYTON projection using a 5 Fr. Pigtail catheter. LV to AO pullback pressures were then recorded. XB 3.0 Guide catheter was inserted and engaged into the LCA. The FFR/iFR wire was inserted. Pressures and FFR/iFR were then recorded. iFR Ratio: 0.94 iFR Ratio: 0.97 The FFR/iFR wire was then removed. Angiogram performed post IFR The arterial sheath was pulled and a TR Band was applied for hemostasis w/ 12ml air INTERVENTION INFORMATION LESION SITE: LAD (Mid) When the IFR transducer was placed beyond in-stent restenosis in the mid LAD the IFR value was 0.94. When the IFR wire was placed in the distal LAD the IFR value was 0.87. The lesion that was responsible for the drop was at the location where the LAD diameter is around 1.75 mm. At this time we felt that continued medical therapy is the best option for this patient. If patient continues to have significant symptoms then he could be referred to a tertiary center for possible high risk PCI or CABG. Lesion Devices: Praedicat Coronary FFR Wire Cordis 6 Fr XB3.0 100cm Guide Catheter COMPLICATIONS No Complications PROCEDURE MEDICATIONS Versed 1 mg IV Fentanyl 50 mcg IV Versed 1 mg IV Versed 1 mg IV Baby Aspirin (81mg) 1 Tabs PO 12/06/2023 07:25:49 Brilinta 180 mg PO @ 12/06/2023 09:18:59 Heparin given IA 12/06/2023 08:49:56 Heparin 5000 unit(s) IV 12/06/2023 10:02:12 Verapamil 2.5mg, Ntg 100mcgs, 3000 units of Heparin given IA 12/06/2023 08:49:56 SUMMARY OF HEMODYNAMIC DATA Time AIR REST ECG 07:21:15 Art 118/71 (92) 08:53:28 AO 118/72 (95) SA 08:55:07 LV 115/0, 9 09:01:46 LV 123/0, 7 09:01:53 LV 127/1, 10 09:02:40 LV 123/3, 10 09:02:46 LVp 119/0, 8 09:02:51 AOp 123/67 (94) 09:02:56 AO 142/73 (98) 10:04:36 AIR REST 11:13:15 Signed By Lyla Cheatham MD On 12/06/2023 11:14:46 Lyla Cheatham MD
--- NOTE | 2023-12-09 10:08 | CL.D_ITS ---
Patient Name: ZEV GONZALEZ Study Date: 12/06/2023 Performing: Star Drummond MD Ht: 68 inches 172.72 cm : 1960 Wt: 184.99 lbs 83.91 kg Age: 63 Gender: male BSA: 1.98 PROCEDURE(S) PERFORMED DC01-([id number])LHC/COR/LV IC10-([id number])FFR, CORONARY OR GRAFT, INITIAL VESSEL CLINICAL PROFILE AND INDICATIONS Indications: Worsening Angina Heart Failure: None Stress/Imaging Date: 08/11/23Stress Test with SPECT MPI: Negative CAD Presentations: Symptom unlikely to be ischemic. CONCLUSIONS Cardiac catheterization with known coronary artery disease patent stent in the right coronary artery and LAD with 60 to 70% stenosis present. RECOMMENDATIONS Will recommend FFR or IFR to determine severity and possible PC I DESCRIPTION OF PROCEDURE The patient arrived to the procedure lab. The risks and benefits of the procedure as well as a full description of our services here and current unavailability of surgical backup were fully explained to the patient and/or their significant other prior to the catheterization. The Timeout was completed, verifying the correct patient and procedure. The patient's procedural site was prepped and draped in the usual fashion. Local anesthetic was given subcutaneously to right radial region with Lidocaine 2%. Using a modified Seldinger technique, arterial access was obtained via the right radial artery, a 6Fr sheath was inserted. Right Coronary Artery selective angiography was then performed in multiple views using a 5 Fr. 4.0 S[place]y catheter. Left Coronary Artery selective angiography was performed in multiple views using a 5 Fr. 4.0 Sibley catheter. Left Ventriculography was performed in PAYTON projection using a 5 Fr. Pigtail catheter. LV to AO pullback pressures were then recorded.The arterial sheath was pulled and a TR Band was applied for hemostasis w/ 12ml air CORONARY ANGIOGRAPHY DOMINANCE: Right Dominant LEFT HEART ASSESSMENT Left Ventricular Ejection Fraction: by LV Gram 60 % Normal LV wall motion Normal Left Ventricular systolic function LEFT MAIN: Mild calcification, Mild luminal irregularities LEFT ANTERIOR DESCENDING ARTERY: Mild calcification noted and previously placed proximal stent present. The midsegment after the stent has a 60 to 70% irregular stenosis. The rest of the vessel has mild disease. CIRCUMFLEX ARTERY: Mild luminal irregularities RIGHT CORONARY ARTERY: Dominant vessel which appears to be previously stented with mild in-stent stenosis noted. COMPLICATIONS No Complications PROCEDURE MEDICATIONS Versed 1 mg IV Fentanyl 50 mcg IV Versed 1 mg IV Versed 1 mg IV Baby Aspirin (81mg) 1 Tabs PO 12/06/2023 07:25:49 Brilinta 180 mg PO @ 12/06/2023 09:18:59 Heparin given IA 12/06/2023 08:49:56 Heparin 5000 unit(s) IV 12/06/2023 10:02:12 Verapamil 2.5mg, Ntg 100mcgs, 3000 units of Heparin given IA 12/06/2023 08:49:56 SUMMARY OF HEMODYNAMIC DATA Time AIR REST ECG 07:21:15 Art 118/71 (92) 08:53:28 AO 118/72 (95) SA 08:55:07 LV 115/0, 9 09:01:46 LV 123/0, 7 09:01:53 LV 127/1, 10 09:02:40 LV 123/3, 10 09:02:46 LVp 119/0, 8 09:02:51 AOp 123/67 (94) 09:02:56 AO 142/73 (98) 10:04:36 AIR REST 11:14:59 Signed By Star Drummond MD On 12/09/2023 10:07:17 Star Drummond MD
== END | disposition home or self-care (01) ==
PROVIDERS: Nurse Practitioner Family; PCP Family Medicine; Referring Provider Internal Medicine Cardiovascular Disease; Visit Provider Internal Medicine Cardiovascular Disease
DX: T82.855A Stenosis of coronary artery stent, initial encounter (principal); M06.9 Rheumatoid arthritis, unspecified; I25.10 Atherosclerotic heart disease of native coronary artery without angina pectoris; I10 Essential (primary) hypertension; I25.2 Old myocardial infarction; M19.90 Unspecified osteoarthritis, unspecified site; J45.909 Unspecified asthma, uncomplicated; Z95.5 Presence of coronary angioplasty implant and graft; Z88.0 Allergy status to penicillin; Z79.82 Long term (current) use of aspirin; Z79.899 Other long term (current) drug therapy
CPT/HCPCS: 36415; 71046; 80048; 85025; 93458; 93571; 99152; 99153; J7040; Q9967; C1769; C1887; C1894

== ENCOUNTER → 2025-01-24 | Outpatient (CLI) | payer BC, SELFPAY ==
[2018-07-04 08:45] VITALS: BMI 30.5
[2025-01-24 14:14] LABS: AST(SGOT) 25 U/L (<=37); Alanine Aminotransfer ALT/SGPT 26 U/L (<=46); Albumin, Serum 4.3 g/dL (3.4-4.8); Alkaline Phosphatase 103 U/L (40-129); Bilirubin, Direct 0.18 mg/dL (0.00-0.30); Cholesterol 121 mg/dL (<=200); Globulin 2.6 g/dL (2.2-4.2); Low Density Lipoprotein Calc. 53 mg/dL; Triglycerides 168 mg/dL; Very Low Density Lipoprotein 34 mg/dL (5-40); cholesterol:hdl ratio screen 3.03
--- OUTSIDE RECORDS SUMMARY | 2025-01-24 18:53 | XMS RPT_ITS | CCD ---
Author Organization [facility] Care Team Providers Care Solar Development Engineer Name Role Phone Bereket Maradiaga MD Unavailable Unavailable Primary Care Provider UnavailDr. Torsten Escudero Primary Care Provider [phone] Dr. Torsten Hyman Referring Provider [phone] Roof CASTING MACHINE OPERATOR AUTOMATIC, CASTING MACHINE OPERATOR AUTOMATIC-C Orlando Hair Attending Provider Roof CASTING MACHINE OPERATOR AUTOMATIC, CASTING MACHINE OPERATOR AUTOMATIC-C Orlando Hair Referring Provider Roof CASTING MACHINE OPERATOR AUTOMATIC, CASTING MACHINE OPERATOR AUTOMATIC-Merna Hair Other Provider Dr. Star Drummond Attending Provider Dr. Torsten Hyman Primary Care Provider [phone] Dr. Torsten Hyman Referring Provider [phone] Roof CASTING MACHINE OPERATOR AUTOMATIC, CASTING MACHINE OPERATOR AUTOMATIC-Merna Hair Attending Provider Roof CASTING MACHINE OPERATOR AUTOMATIC, Orlando Hair Attending Unavailable Torsten Hyman Referring Unavailable Torsten Hyman Primary Care Unavailable Torsten Hyman Referring Unavailable Torsten Hyman Primary Care Unavailable Rex Dubois Attending Unavailable Allergies Allergy Classification Reported Allergen(s) Allergy Type Date of Onset Reaction(s) Facility (1 source) acetaminophen / HYDROcodone drug allergy 5 severe vomiting [facility] Work Phone: (1 source) acetaminophen / oxyCODONE drug allergy 5 severe vomiting [facility] Work Phone: (1 source) penicillin drug allergy 5 swelling in throat [facility] Work Phone: (4 sources) Penicillins; Translations: [Penicillins] Allergy to substance 1 Anaphylaxis [facility] Medications Current Medications Medication Drug Class(es) Dates Sig (Normalized) Sig (Original) [id number] 200 actuat albuterol 0.09 mg/actuat metered dose inhaler (4 sources) beta2-Adrenergic Agonist Start: 05-05-2017 take 1 puff(s) by inhalation every four hours as needed Albuterol Sulfate Active 2 PUFF INHALATION EVERY 4 HOURS NEEDED May 05, 2017 12:00am Start: 05-20-2014 PROAIR HFA 108 (90 Base) MCG/ACT AERS uses as needed ALBUTEROL SULFATE [id number] Katarzyna Roth LPN atorvastatin 40 mg oral tablet (20 sources) HMG-CoA Reductase Inhibitor Start: 12-07-2022 End: 12-07-2022 take 1 tablet by mouth at bedtime for hyperlipidemia Atorvastatin Active 0 .ROUTE .COMPLEX December 07, 2022 11:03am TAKE 1 TABLET BY MOUTH AT BEDTIME FOR CHOLESTEROL Start: 08-30-2022 End: 12-07-2022 take 40 mg by mouth at bedtime Atorvastatin Discontinu ed 40 MG PO AT BEDTIME August 30, 2022 8:55am December 07, 2022 9:37am Start: 07-18-2020 End: 08-30-2022 take 1 tablet by mouth at bedtime for hyperlipidemia Atorvastatin Discontinued 0 .ROUTE .COMPLEX November 17, 2021 11:27am August 30, 2022 8:55am TAKE 1 TABLET BY MOUTH AT BEDTIME FOR CHOLESTEROL Start: 07-25-2017 ATORVASTATIN C ALCIUM 40 MG TABS one tablet daily ATORVASTATIN CALCIUM [id number] Bereket Maradiaga MD Start: 05-07-2017 End: 07-18-2020 take 40 mg by mouth at bedtime Atorvastatin Discontinu ed 40 MG PO AT BEDTIME July 23, 2019 8:14am July 18, 2020 7:25am Budesonide (4 sources) Corticosteroid Start: 05-05-2017 take 1 puff(s) by inhalation once daily Budesonide Active 1 - 2 PUFF INHALATION DAILY May 05, 2017 12:00am Start: 05-05-2017 take 1 puff(s) by in halation once daily Budesonide Active 1 - 2 PUFF INHALATION DAILY May 05, 2017 1:00am Start: 05-20-2014 PULMICORT 0.25 MG/2ML SUSP uses twice daily BUDESONIDE [id number] Katarzyna Roth LPN celecoxib 100 mg oral capsule (9 sources) Nonsteroidal Anti-inflammatory Drug Start: 02-21-2023 take 200 mg by mouth twice daily Celecoxib Active 200 MG PO TWICE A DAY February 21, 2023 12:00am Start: 02-04-2022 End: 08-30-2022 take 100 mg by mouth twice daily Celecoxib Discontinued 100 MG PO TWICE A DAY February 04, 2022 12:00am August 30, 2022 8:54am Start: 05-07-2019 End: 07-16-2020 take 100 mg by mouth twice daily Celecoxib Discontinued 100 MG PO TWICE A DAY May 31, 2019 11:59am July 16, 2020 10:28am cholecalciferol 0.025 mg oral capsule (4 sources) Vitamin D Start: 2018 take 1 capsule by mouth once daily cholecalciferol (vitamin D3) 1,000 unit capsule Active 1000 UNIT PO DAILY May 31, 2018 11:00pm Start: 04-05-2016 VITAMIN D3 100 0000 UNIT/GM LIQD one tab weekly CHOLECALCIFEROL [id number] Tarah Marks MD folic acid 0.8 mg oral tablet (3 sources) Start: 2018 Folic Acid Act alejandro 5 TABLET PO DAILY May 31, 2018 11:00pm 3 in the am & 2 around 1830 24 hr isosorbide mononitrate 30 mg extended release oral tablet (20 sources) Start: 02-21-2023 take 60 mg by mouth twice daily Isosorbide Mononitrate Active 60 MG PO TWICE A DAY February 21, 2023 12:05pm Start: 11-23-2019 End: 02-21-2023 take 1 tablet by mouth once daily Isosorbide Mononitrate Discontinued 0 .ROUTE .COMPLEX December 07, 2022 11:04am February 21, 2023 12:06pm Take 1 tablet by mouth once daily Start: 06-02-2018 End: 04-23-2019 take 30 mg by mouth once daily Isosorbide Mononitrate Discontinued 30 MG PO DAILY June 02, 2018 11:48am April 23, 2019 2:13pm Start: 2018 End: 06-02-2018 take 30 mg by mouth once daily Isosorbide Mononitrate Discontinued 30 MG PO DAILY 2018 12:15pm June 02, 2018 11:52am Start: 07-25-2017 ISOSORBIDE MON ONITRATE ER 60 MG [id number] one tablet daily ISOSORBIDE MONONITRATE [id number] Bereket Maradiaga MD Start: 05-07-2017 End: 2018 take 60 mg by mouth once daily Isosorbide Mononitrate Discontinued 60 MG PO DAILY May 31, 2017 2:04pm 2018 12:16pm Olodaterol (3 sources) beta2-Adrenergic Agonist Start: 06-29-2018 take 1 puff(s) by mouth at bedtime Olodaterol Active 2 PUFF PO AT BEDTIME June 28, 2018 11:00pm Start: 06-29-2018 take 1 puff(s) by mo ut at bedtime Olodaterol Active 2 PUFF PO AT BEDTIME June 29, 2018 12:00am PARoxetine hydrochloride 40 mg oral tablet (10 sources) Serotonin Reuptake Inhibitor Start: 05-25-2017 take 40 mg by mouth once daily in the morning Paroxetine Hcl Active 40 MG PO EVERY MORNING May 25, 2017 1:59pm Start: 05-05-2017 take 20 mg by mouth at bedtime Paroxetine Hcl Active 20 MG PO AT BEDTIME May 05, 2017 12:00am Start: 10-07-2014 End: 05-25-2017 take 40 mg by mouth twice daily Paroxetine Hcl Discont inued 40 MG PO TWICE A DAY October 06, 2014 11:00pm May 25, 2017 2:00pm Start: 05-20-2014 PAXIL 40 MG TA BS takes 1 tablet in the morning takes 1/2 tablet in the evening PAROXETINE HCL [id number] Katarzyna Roth LPN Completed/Discontinued Medications Medication Drug Class(es) Dates Sig (Normalized) Sig (Original) acetaminophen 325 mg / oxyCODONE hydrochloride 5 mg oral tablet (3 sources) Opioid Agonist Start: 05-18-2019 End: 05-25-2019 take 1 tablet by mouth every four hours as needed Oxycodone-Acetamin ophen Discontinued 1 - 2 TABLET PO EVERY 4 HOURS NEEDED 40 7 May 18, 2019 May 24, 2019 11:08pm aspirin 81 mg delayed release oral tablet (20 sources) Nonsteroidal Anti-inflammatory Drug Start: 07-25-2017 ADULT ASPIRIN EC LOW STRENGTH 81 MG TBEC one tablet daily ASPIRIN [id number] Bereket Maradiaga MD Start: 05-07-2017 End: 08-30-2022 take 1 tablet by mouth once daily Aspirin Discontinued 0 .ROUTE .COMPLEX 90 July 22, 2021 12:12pm August 30, 2022 8:55am TAKE 1 TABLET BY MOUTH DAILY FOR HEART HEALTH calcium (1 source) Phosphate Binder, Calcium Start: 12-27-2014 CALCIUM 1000 one tab daily CALCIUM 1000 Tarah Marks MD ciprofloxacin 500 mg oral tablet (3 sources) Quinolone Antimicrobial Start: 07-04-2018 End: 07-13-2018 take 500 mg by mouth twice daily Ciprofloxacin Hcl Discontinued 500 MG PO TWICE A DAY 18 July 03, 2018 11:00pm July 12, 2018 11:07pm etodolac 400 mg oral tablet (5 sources) Nonsteroidal Anti-inflammatory Drug Start: 08-30-2022 End: 02-21-2023 take 400 mg by mouth twice daily Etodolac Discontinued 400 MG PO TWICE A DAY August 29, 2022 11:00pm February 21, 2023 11:29am Start: 07-16-2020 End: 02-04-2022 take 400 mg by mouth twice daily Etodolac Discontinued 400 MG PO TWICE A DAY July 15, 2020 11:00pm February 04, 2022 2:35pm famotidine 20 mg oral tablet (3 sources) Histamine-2 Receptor Antagonist Start: 05-07-2017 End: 11-21-2017 take 20 mg by mouth twice daily Famotidine Discontinued 20 MG PO TWICE A DAY 60 May 07, 2017 12:00am November 21, 2017 12:24pm loratadine 10 mg oral tablet (1 source) Start: 09-24-2016 CLARITIN 10 MG TABS takes 1 tablet once daily LORATADINE [id number] Bereket Maradiaga MD 24 hr loratadine 10 mg / pseudoephedrine sulfate 240 mg extended release oral tablet (3 sources) alpha-Adrenergic Agonist Start: 06-30-2018 End: 02-21-2023 take 1 tablet by mouth once daily Loratadine-Pseudoe phedrine Discontinued 1 TABLET PO DAILY June 29, 2018 11:00pm February 21, 2023 11:30am metoprolol tartrate 25 mg oral tablet (7 sources) beta-Adrenergic Wade Start: 07-25-2017 METOPROLOL TARTRATE 25 MG TABS one tablet twice daily METOPROLOL TARTRATE [id number] Bereket Maradiaga MD Start: 05-31-2017 End: 11-21-2017 take 12.5 mg by mouth twice daily Metoprolol Tartrate Discontinued 12.5 MG PO TWICE A DAY May 31, 2017 2:03pm November 21, 2017 12:50pm Start: 05-07-2017 End: 05-31-2017 take 25 mg by mouth twice daily Metoprolol Tartrate Discontinued 25 MG PO TWICE A DAY May 07, 2017 12:00am May 31, 2017 2:06pm metroNIDAZOLE 500 mg oral tablet (9 sources) Nitroimidazole Antimicrobial Start: 04-25-2019 End: 05-31-2019 Metronidazole Discontinued 500 MG PO .COMPLEX May 07, 2019 8:08am May 31, 2019 11:58am 500 mg PO Take 2 (two) tablets at 1300, 1500, 2300 Start: 07-04-2018 End: 07-13-2018 take 500 mg by mouth three times daily Metronidazole Discontinued 500 MG PO THREE TIMES A DAY 01 12July 03, 2018 11:00pm July 12, 2018 11:07pm MULTIPLE VITAMINS-MINERALS (1 source) Start: 12-27-2014 EQ COMPLETE MULTIVITAMIN-ADULT TABS one tab daily MULTIPLE VITAMINS-MINERALS [id number] Tarah Marks MD neomycin sulfate 500 mg oral tablet (3 sources) Aminoglycoside Antibacterial Start: 04-25-2019 End: 05-31-2019 Neomycin Discontinued 500 MG PO .COMPLEX April 25, 2019 12:00am May 31, 2019 11:58am Take two (2) 500 mg tablets PO at 1300, 1500, 2300 nitroglycerin 0.4 mg sublingual tablet (3 sources) Nitrate Vasodilator Start: 05-07-2017 End: 06-02-2018 Nitroglycerin Discontinued 0.4 MG SL Q5M May 07, 2017 12:00am June 02, 2018 11:52am ondansetron 4 mg oral tablet (6 sources) Serotonin-3 Receptor Antagonist Start: 05-18-2019 End: 05-31-2019 take 4 mg by mouth every six hours as needed Ondansetron Hcl Discontinued 4 MG PO EVERY 6 HOURS NEEDED May 18, 2019 9:59am May 31, 2019 11:58am Start: 07-07-2018 End: 04-23-2019 take 1 tablet by mouth every six hours Ondansetron Hcl (Zofran) 4 mg tablet Discontinued 4 MG PO EVERY 6 HOURS July 06, 2018 11:00pm April 23, 2019 2:13pm 12 hr ranolazine 1000 mg extended release oral tablet (20 sources) Anti-anginal Start: 01-08-2020 End: 06-18-2022 take 1000 mg by mouth every twelve hours Ranolazine Discontinued 1000 MG PO Q12H 60 June 08, 2021 3:50pm June 18, 2022 3:52pm PA has been approved through [employer]: [id number] Start: 11-29-2019 End: 01-08-2020 take 1 tablet by mouth twice daily Ranolazine (Ranexa) 500 mg tablet extended release 12 hr Discontinued 500 MG PO TWICE A DAY 60 November 29, 2019 11:49am January 08, 2020 11:51am SALMETEROL XINAFOATE (1 source) beta2-Adrenergic Agonist Start: 05-20-2014 SEREVENT DISKUS 50 MCG/DOSE AEPB uses once daily SALMETEROL XINAFOATE [id number] Katarzyna Roth LPN salsalate 750 mg oral tablet (1 source) Start: 09-24-2016 SALSALATE 750 MG TABS takes 1 tablet twice daily SALSALATE [id number] Katarzyna Roth LPN sulindac 200 mg oral tablet (6 sources) Nonsteroidal Anti-inflammatory Drug Start: 05-16-2017 End: 11-21-2017 take 200 mg by mouth twice daily Sulindac Discontinued 200 MG PO TWICE A DAY May 15, 2017 11:00pm November 21, 2017 12:24pm Start: 05-05-2017 End: 05-07-2017 take 200 mg by mouth twice daily Sulindac Discontinued 200 MG PO TWICE A DAY May 05, 2017 12:00am May 07, 2017 8:38am ticagrelor 90 mg oral tablet (19 sources) Start: 07-25-2017 BRILINTA 90 MG TABS one tablet daily TICAGRELOR [id number] Bereket Maradiaga MD Start: 05-07-2017 End: 01-08-2020 take 90 mg by mouth twice daily Ticagrelor Discontinued 90 MG PO TWICE A DAY 180 August 17, 2019 8:14am January 08, 2020 11:51am traMADol hydrochloride 50 mg oral tablet (1 source) Opioid Agonist Start: 02-04-2017 TRAMADOL HCL 5 0 MG TABS TRAMADOL HCL [id number] Carlos Jackson PAC Problems Active Problems Problem Classification Problem Date Documented Da te Episodic/Chronic Acquired foot deformities (4 sources) Hallux rigidus, right foot; Translations: [Hammer toe] Onset: 09-27-2016 09-27-2016 Chronic Acute myocardial infarction (3 sources) Myocardial infarction; Translations: [Non-ST elevation (NSTEMI) myocardial infarction] Onset: 05-05-2017 05-31-2019 Chronic Allergic reactions (3 sources) Urticaria; Translations: [Urticaria, unspecified] 05-31-2019 Episodic Biliary tract disease (3 sources) Biliary dyskinesia; Translations: [Other specified diseases of gallbladder] 06-30-2018 Episodic Coronary atherosclerosis and other heart disease (4 sources) Coronary atherosclerosis; Translations: [Atherosclerotic heart disease of makah coronary artery without angina pectoris] Onset: 01-01-2025 11-23-2019 Chronic Diverticulosis and diverticulitis (3 sources) Perforation of sigmoid colon due to diverticulitis; Translations: [Diverticulitis of large intestine with perforation and abscess without bleeding] 05-31-2019 Chronic E Codes: Fall (3 sources) Accidental fall ; Translations: [Fall (on) (from) other stairs and steps, sequela] 05-31-2019 Episodic Essential hypertension (5 sources) Essential hypertension; Translations: [Essential (primary) hypertension] 06-30-2018 Chronic Malaise and fatigue (3 sources) Fatigue; Translations: [Other fatigue] 07-16-2020 Episodic Nonspecific chest pain (1 source) Chest pain, unspecified; Translations: [Chest pain, unspecified] Onset: 01-01-2025 Episodic Other congenital anomalies (1 source) Spondylolysis; Translations: [Spondylolysis, lumbar region] Onset: 12-31-2014 12-31-2014 Chronic Other lower respiratory disease (3 sources) H/O: pneumonia; Translations: [Personal history of pneumonia (recurrent)] 05-31-2019 Episodic Other lower respiratory disease (2 sources) Dyspnea on exertion; Translations: [Other forms of dyspnea] 08-30-2022 Episodic Other lower respiratory disease (2 sources) Other forms of dyspnea; Translations: [Other respiratory abnormalities] 08-30-2022 Episodic Substance-related disorders (3 sources) Nicotine dependence; Translations: [Nicotine dependence, unspecified, uncomplicated] 11-23-2019 Chronic Unclassified (1 source) Other specified postprocedural states; Translations: [Other specified postprocedural states] Onset: 10-12-2016 10-12-2016 Past or Other Problems Problem Classification Problem Date Documented Da te Episodic/Chronic Coronary atherosclerosis and other heart disease (2 sources) Presence of coronary angioplasty implant and graft; Translations: [Percutaneous transluminal coronary angioplasty status] Onset: 05-05-2017 08-30-2022 Episodic Other acquired deformities (1 source) Acquired spondylolisthesis; Translations: [Spondylolisthesis, lumbosacral region] Onset: 12-31-2014 12-31-2014 Episodic Other connective tissue disease (1 source) Soft tissue lesion of shoulder region; Translations: [Bursopathy, unspecified] Onset: 12-27-2014 12-27-2014 Episodic Other non-traumatic joint disorders (1 source) Knee pain; Translations: [Pain in left knee] Onset: 04-05-2016 04-05-2016 Episodic Unclassified (1 source) H/O: surgery; Translations: [Other specified postprocedural states] Onset: 02-21-2017 02-21-2017 Episodic Unclassified (1 source) Problem Results Test Name Value Interpretation Reference Range Facility Cardiology Visit Reporton Cardiology Visit Report [facility] [address] [place], [place] [address]. [address] [place], [place] [address] OFFICE VISIT Date of Service: 07/04/24 MR#: [id number] Acct: [id number] Name: DANIEL CURIEL Rep #: [id number] : 1960 Provider: RADHA ortiz Age/Sex: 64/M Location: [facility] Status: Signed HPI HPI History of Present Illness Details: DANIEL CURIEL, is a 64 M who presents to the office today for a cardiovascular outpatient follow-up. He has history of coronary artery disease status post angioplasty and stenting to his mid RCA after a non-ST elevated myocardial infarction in May 2017, hypertension, rheumatoid arthritis, and asthma. He underwent heart catheterization on 11/29/2019. This revealed widely patent stent in the RCA. He does have a 60% stenosis in the LAD that was practically unchanged from his prior angiogram in 2018. Patient was started on Ranexa 500 mg p.o. twice daily. This has helped his chest pain to a fair extent and ultimately increased to 1000 mg p.o. twice daily. He noted continual chest pain and shortness of breath when mowing is lawn. He had a stress test with PCP in August 2023 that was negative with ischemia and he noted chest pain and shortness of breath with PCP. He denies chest, arm, jaw, or neck discomfort. He denies palpitations. He denies bilateral lower extremity edema. He denies claudication. He states shortness of breath with activity. He attributes this to history of asthma. He denies shortness of breath at rest, orthopnea, or PND. He denies chronic cough. He denies significant, sudden weight gain. He denies lightheadedness, dizziness, near-syncope, or syncope. He denies blood in urine, blood in stool, or epistaxis. He denies fever with chills. He denies myalgia. He states worsening fatigue. His exercise level has remained stable. 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 Is patient in pain?: No Allergies Penicillins Allergy (Verified 07/04/24 10:35) Anaphylaxis Medications ???Medication ???Instructions ???Recorded ???Confirmed ???Type albuterol sulfate 90 mcg/actuation 2 puff inhalation Q4H PRN PRN So b 05/05/17 07/04/24 History aerosol inhaler /Or Wheezing budesonide 180 mcg/actuation 1 - 2 puff inhalation DAILY 07/04/24 History breath activated powder inhaler BREATHING paroxetine HCl 20 mg tablet 20 mg PO QHS MENTAL HEALTH 8 07/04/24 History paroxetine HCl 40 mg tablet 40 mg PO QAM MENTAL HEALTH 8 07/04/24 History cholecalciferol (vitamin D3) 25 1,000 unit PO DAILY supplement 07/04/24 History mcg (1,000 unit) capsule folic acid 800 mcg tablet 5 tab PO DAILY supplement 06/01/18 07/04/24 History olodaterol 2.5 mcg/actuation mist 2 puff PO QHS breathing 06/29/18 07/04/24 History for inhalation aspirin 81 mg tablet,delayed 81 mg PO DAILY 08/30/22 07/04/24 H istory release etodolac 400 mg tablet 400 mg PO BID 11/09/23 07/04/24 Hi story atorvastatin 40 mg tablet See Rx Instructions .Route 4 07/04/24 Rx .COMPLEX #90 tabs isosorbide mononitrate 30 mg 60 mg (2 x 30 mg) PO QAM #360 tabs 03/20/24 07/04/24 Rx tablet,extended release 24 hr ranolazine 1,000 mg 1,000 mg PO Q12H #60 tabs 07/02/24 07/04/24 Rx tablet,extended release,12 hr Ejection fraction %: 65 Have you fallen in the past year?: No (Trip and fall) [facility] Medical History Chest pain Nicotine dependence Atherosclerosis of coronary artery without angina pectoris Diverticulitis of large intestine with perforation and abscess without bleeding Epiphora due to insufficient drainage, left side Laceration without foreign body of other part of head, sequela Contusion of other part of head, sequela History of pneumonia Osteoarthritis Hives GI problem Seasonal allergies Diverticulitis (07/2018) Perforation of sigmoid colon due to diverticulitis Essential (primary) hypertension Rheumatoid arthritis Asthma NSTEMI (non-ST elevated myocardial infarction) (05/05/17) Surgical History History of partial colectomy (05/2019) Fusion of toes History of repair of ACL History of cholecystectomy History of colonoscopy ( 2012) History of foot surgery History of appendectomy History of back surgery History of left heart catheterization (05/16/17) History of coronary artery stent placement (05/05/17) Family History Unknown No problems noted. Other Adopted Social (more content not included)... Normal [facility] Basophil percentageOrdered B y: Orlando Quinones on 02-23-2023 Bilirubin [Mass/Vol] 0.60 mg/dL 0.20-1.00 [facility] Comment on above: For patients on eltr ombopag therapy, use of [facility] [place] TBIL is not recommended. Cholesterol [Mass/Vol] 126 mg/dL <200 [facility] Comment on above: <200 mg/dL Desirable 200-240 mg/dL Borderline >240 mg/dL High Risk Protein [Mass/Vol] 7.5 g/dL 6.4-8.2 [facility] Triglyceride [Mass/Vol] 134 mg/dL <199 [facility] Comment on above: The drugs N-Acetylcy steine and Metamizole may falsely depress this assay.Serum Triglycerides Reference Interval Normal <150 mg/dL Borderline high 150 - 199 mg/dL High 200 - 499 mg/dL Very High > or = 500 mg/dL Direct bilirubinOrdered By: Orlando Quinones on 02-23-2023 Bilirubin.direct [Mass/Vol] 0.16 mg/dL 0.00-0.30 [facility] Laboratory - Chemistry and C hemistry - challengeOrdered By: Orlando Quinones on 02-23-2023 ALP [Catalytic activity/Vol] 100 U/L 45-117 [facility] ALT [Catalytic activity/Vol] 41 U/L 16-61 [facility] Globulin (S) [Mass/Vol] 3.5 g/dL 2.2-4.2 [facility] Serum or plasma albumin amber urement (mass/volume)Ordered By: Orlando Quinones on 02-23-2023 Albumin [Mass/Vol] 4.0 g/dL 3.2-5.0 [facility] Serum or plasma cholesterol in HDL measurement (mass/volume)Ordered By: Orlando Quinones on 02-23-2023 Cholesterol in HDL [Mass/Vol] 49 mg/dL >40 [facility] Comment on above: The drugs N-Acetylcy steine and Metamizole may falsely depress this assay. Reference Range HDL <40 mg/dL Low HDL Cholesterol HDL >or= 60 mg/dL High HDL Cholesterol Serum or plasma cholesterol in VLDL measurement (mass/volume)Ordered By: Orlando Quinones on 02-23-2023 Cholesterol in VLDL [Mass/Vol] 27 mg/dL 5-40 [facility] Serum or plasma low density lipoprotein (LDL) cholesterol measurement (mass/volume)Ordered By: Orlando Quinones on 02-23-2023 Cholesterol in LDL [Mass/Vol] 50 mg/dL 0-130 [facility] Thin prep Papanicolaou smear with manual screeningOrdered By: Orlando Quinones on 02-23-2023 Thin prep Papanicolaou smear with manual screening 27 U/L 15-37 [facility] Absolute lymphocyte counton 08-21-2021 Lymphocytes Auto (Unsp spec) [#/Vol] 1.93 10*3/uL 0.83-4.51 [facility] Work Phone: Basophil percentageon 2021 Basophil percentage 0 SEEN /hpf 0-5 [facility] Work Phone: Basophils/100 WBC (Bld) 0.8 % 0-1 [facility] Work Phone: Bilirubin [Mass/Vol] 0.50 mg/dL 0.20-1.00 [facility] Work Phone: Comment on above: For patients on eltr ombopag therapy, use of [facility] [place] TBIL is not recommended. Chloride [Moles/Vol] 108 mmol/L 98-107 [facility] Work Phone: Eosinophils/100 WBC (Bld) 3.8 % 0-5 [facility] Work Phone: Glucose [Mass/Vol] 83 mg/dL 74-106 [facility] Work Phone: Neutrophils (Bld) [#/Vol] 5.2 10*3/uL 2.0-7.7 [facility] Work Phone: Neutrophils/100 WBC (Bld) 61.1 % 47-70 [facility] Work Phone: Potassium [Moles/Vol] 4.3 mmol/L 3.5-5.1 [facility] Work Phone: Protein [Mass/Vol] 6.6 g/dL 6.4-8.2 [facility] Work Phone: Sodium [Moles/Vol] 139 mmol/L 136-145 [facility] Work Phone: WBC (Bld) [#/Vol] 8.5 10*3/uL 4.4-11.0 [facility] Work Phone: Bilirubin Test strip Ql (U)o n 08-21-2021 Bilirubin Ql (U) 6 mg/dL Negative [facility] Work Phone: Comment on above: COLOR OF URINE MAY A FFECT DIPSTICK RESULTS. Blood erythrocytes count (nu mber/volume)on 08-21-2021 RBC (Bld) [#/Vol] 4.53 10*6/uL 4.6-6.2 [facility] Work Phone: Blood hemoglobin measurement (mass/volume)on 08-21-2021 Hemoglobin (Bld) [Mass/Vol] 14.0 g/dL 13.0-16.5 [facility] Work Phone: Blood lymphocytes/100 leukoc yteson 08-21-2021 Lymphocytes/100 WBC (Bld) 22.8 % 19-41 [facility] Work Phone: Blood monocytes/100 leukocyt eson 08-21-2021 Monocytes/100 WBC (Bld) 10.9 % 0-10 [facility] Work Phone: Blood platelet mean volumeon 08-21-2021 Platelet mean volume (Bld) [Entitic vol] 10.0 fL 6.2-12.0 [facility] Work Phone: Determination of erythrocyte mean corpuscular volume (MCV)on 08-21-2021 MCV (RBC) [Entitic vol] 91.4 fL 80-94 [facility] Work Phone: Hematocrit Auto (Bld) [Volum e fraction]on 08-21-2021 Hematocrit (Bld) [Volume fraction] 41.4 % 40-54 [facility] Work Phone: Ketones Test strip Ql (U)on 08-21-2021 Ketones Ql (U) Negative Negative [facility] Work Phone: Laboratory - Chemistry and C hemistry - challengeon 08-21-2021 ALP [Catalytic activity/Vol] 97 U/L 45-117 [facility] Work Phone: ALT [Catalytic activity/Vol] 34 U/L 16-61 [facility] Work Phone: CO2 [Moles/Vol] 26.0 mmol/L 21.0-32.0 [facility] Work Phone: Cobalamin (Vitamin B12) [Mass/Vol] 516 pg/mL 211-911 [facility] Work Phone: Globulin (S) [Mass/Vol] 3.1 g/dL 2.2-4.2 [facility] Work Phone: Urea nitrogen/Creatinine [Mass ratio] 17.9 mg/mg 10-20 [facility] Work Phone: Laboratory - Hematology and Cell countson 08-21-2021 Erythrocyte distribution width (RBC) [Entitic vol] 45.1 fL 35.1-43.9 [facility] Work Phone: Erythrocyte distribution width (RBC) [Ratio] 13.3 % 11.6-14.6 [facility] Work Phone: Immature granulocytes/100 WBC (Bld) 0.600 % 0.0-0.9 [facility] Work Phone: Comment on above: IG% - Immature Granu locytes (promyelocytes, myelocytes and metamyelocytes) > 1% indicates that a LEFT SHIFT is Present. MCH (RBC) [Entitic mass] 30.9 pg 27.0-32.0 [facility] Work Phone: Nucleated RBC/100 WBC (Bld) [Ratio] 0 % 0-5 [facility] Work Phone: MCHC Auto (RBC) [Mass/Vol]on 08-21-2021 MCHC (RBC) [Mass/Vol] 33.8 g/dL 32-36 [facility] Work Phone: Mucus LM Ql (Urine sed)on Mucus Ql (Urine sed) 0 SEEN /hpf [facility] Work Phone: Nitrite Test strip Ql (U)on 08-21-2021 Nitrite Ql (U) Negative Negative [facility] Work Phone: No Panel Informationon 08-21 Estimated GFR (MDRD) Amer 92 mL/min >60 [facility] Work Phone: Comment on above: GFR Calc Estimated GFR (MDRD) Non-Af Amer 76 mL/min >60 [facility] Work Phone: Comment on above: Non- GFR Calc Prostate Specific Antigen Screen 0.34 ng/mL 0.00-4.00 [facility] Work Phone: Comment on above: This test was perfor med using the TPSA assay method for the[facility]. Values obtained with differentassay methods cannot be used interchangably.When changing PSA assays in the course of monitoring apatient, additional sequential testing should be carriedout to confirm baseline values. Thyroid Stimulating Hormone (TSH) 1.29 uIU/mL 0.358-3.74 [facility] Work Phone: Platelets bldon 08-21-2021 Platelets (Bld) [#/Vol] 284 10*3/uL 150-450 [facility] Work Phone: Protein Test strip Ql (U)on 08-21-2021 Protein Ql (U) Negative Negative [facility] Work Phone: Serum or plasma albumin amber urement (mass/volume)on 08-21-2021 Albumin [Mass/Vol] 3.5 g/dL 3.2-5.0 [facility] Work Phone: Serum or plasma albumin/glob ulin mass ratioon 08-21-2021 Albumin/Globulin [Mass ratio] 1.1 {ratio} 0.9-2.4 [facility] Work Phone: Serum or plasma calcium amber urement (mass/volume)on 08-21-2021 Calcium [Mass/Vol] 8.6 mg/dL 8.5-10.1 [facility] Work Phone: Serum or plasma creatinine m easurement (mass/volume)on 08-21-2021 Creatinine [Mass/Vol] 1.06 mg/dL 0.70-1.30 [facility] Work Phone: Comment on above: The validity of the calculated GFR & GFRAA in patients over 70 years has not been determined. Clinical correlation is essential. Serum or plasma ferritin marcello surement (mass/volume)on 08-21-2021 Ferritin [Mass/Vol] 73 ng/mL 26-388 [facility] Work Phone: Serum or plasma urea nitroge n measurement (mass/volume)on 08-21-2021 Urea nitrogen [Mass/Vol] 19 mg/dL 7-18 [facility] Work Phone: Squamous epithelial cells de tection in urine sediment by light microscopyon 08-21-2021 Epithelial cells.squamous LM Ql (Urine sed) 0 SEEN /hpf 0-5 [facility] Work Phone: Thin prep Papanicolaou smear with manual screeningon 08-21-2021 Thin prep Papanicolaou smear with manual screening 24 U/L 15-37 [facility] Work Phone: Thin prep Papanicolaou smear with manual screening 5 5-15 [facility] Work Phone: Urine blood detectionon 08-05 RBC Ql (U) Negative Negative [facility] Work Phone: RBC Ql (U) 0 SEEN /hpf 0-5 [facility] Work Phone: Urine clarityon 08-21-2021 Clarity (U) Clear Clear [facility] Work Phone: Urine color determinationon 08-21-2021 Color (U) Yellow Yellow [facility] Work Phone: Urine glucose detectionon Glucose Ql (U) Normal mg/dl Normal [facility] Work Phone: Urine leukocyte esterase det ection by dipstickon 08-21-2021 Leukocyte esterase Test strip Ql (U) Negative Negative [facility] Work Phone: Urine pHon 08-21-2021 pH (U) 6.0 [pH] 5.0 - 8.0 [facility] Work Phone: Urine sediment bacteria coun t by microscopy (number/high power field)on 08-21-2021 Bacteria LM.HPF (Urine sed) [#/Area] 1 /[HPF] None Seen [facility] Work Phone: Urine specific gravity measu rementon 08-21-2021 Specific gravity (U) [Rel density] 1.025 1.002-1.030 [facility] Work Phone: Urobilinogen Auto test strip Ql (U)on 08-21-2021 Urobilinogen Ql (U) Normal mg/dl Normal [facility] Work Phone: CNOVon 03-03-2021 CNOV Office Visit (UCWSTR) ---- DANIEL CURIEL ([id number]) 1960 M Date Time Provider Department 03/03/21 4:45 PM YVONNE OSBORNE UCNANETTE During your visit today, we recorded the following information about you: Temperature Pulse Respiration Blood pressure 97.9 degrees 98/minute 16/minute 140/80 Weight 86.6 kg Yvonne OsborneJOVANY 03/03/2021 6:01 PM Signed Subjective The history is provided by the patient and the spouse. No speech language specialist was used. KATYA Curiel is a 60 year old male who presents today for CC of runny nose, sore throat and body aches for one day. Symptoms include: Fever (?100.4F): No or Chills: No Cough: No Shortness of breath: No or Difficulty breathing: No Fatigue: Yes Muscle aches: Yes Headache: No New loss of smell or taste: No Sore throat: Yes Nasal congestion: Yes or Rhinorrhea: Yes Nausea: No or Vomiting: No Diarrhea: No OTC meds/remedies that patient has tried: none used. High risk category assessment Chronic lung disease Exposures: Sick contacts? Yes Family or close contacts with confirmed/probable COVID-19 in last 14 days? Yes BP 140/80 Pulse 98 Temp 36.6 ?C (97.9 ?F) Resp 16 Wt 86.6 kg (191 lb) SpO2 96% BMI 29.04 kg/m? Social History Tobacco Use - Smoking status: Never Smoker - Smokeless tobacco: Never Used Substance Use Topics - Alcohol use: No - Drug use: No PAST MEDICAL HISTORY Diagnosis Date - Asthma - Chronic back pain after injury long ago - Environmental allergies - GERD (gastroesophageal reflux disease) - Sciatica I have confirmed and edited as necessary, the [facility] Review of Systems Constitutional: Positive for malaise/fatigue. Negative for chills and fever. HENT: Positive for congestion and sore throat. Negative for ear pain and sinus pain. Respiratory: Negative for cough, sputum production, shortness of breath and wheezing. Cardiovascular: Negative for chest pain. Gastrointestinal: Negative for abdominal pain, diarrhea, nausea and vomiting. Musculoskeletal: Positive for myalgias. Neurological: Negative for headaches. Objective Physical Exam Vitals and nursing note reviewed. HENT: Head: Normocephalic and atraumatic. Right Ear: Tympanic membrane, ear canal and external ear normal. Left Ear: Tympanic membrane, ear canal and external ear normal. Nose: No mucosal edema or rhinorrhea. Right Sinus: No maxillary sinus tenderness or frontal sinus tenderness. Left Sinus: No maxillary sinus tenderness or frontal sinus tenderness. Mouth/Throat: Pharynx: Uvula midline. No oropharyngeal exudate or posterior oropharyngeal erythema. Tonsils: No tonsillar abscesses. Cardiovascular: Rate and Rhythm: Normal rate and regular rhythm. Heart sounds: Normal heart sounds. Pulmonary: Effort: Pulmonary effort is normal. Breath sounds: Wheezing (occasional scattered) present. No decreased breath sounds, rhonchi or rales. Lymphadenopathy: Head: Right side of head: No submental, submandibular, tonsillar or preauricular adenopathy. Left side of head: No submental, submandibular, tonsillar or preauricular adenopathy. Cervical: No cervical adenopathy. Right cervical: No superficial cervical adenopathy. Left cervical: No superficial cervical adenopathy. ASSESSMENT/PLAN: 1. Suspected COVID-19 virus infection - ICD9: V01.79, ICD10: Z20.822 (primary diagnosis) Home isolation Testing ordered Comfort measures discussed - see patient instructions. When to seek higher level of care Notified in 24-48 hours with results, available on [employer] - COVID WITH FLUA+B, ROUTINE 2. Upper respiratory symptom - ICD9: 786.9, ICD10: R09.89 3. Wheezing - ICD9: 786.07, ICD10: R06.2 Prednisone rx printed will use if wheezing increases or using albuterol frequently Diagnosis and treatment plan were discussed and questions were answered to the patient's satisfaction. Pt acknowledged understanding of concepts and follow up plan. Specific signs and symptoms that would indicate the need for higher level of care were discussed in detail warranting prompt ER evaluation. Yvonne Osborne APRN.TRISH Osborne APRN.TRISH 03/03/2021 4:52 PM Signed mucinex DM or Dimasituscarlos DM How to Manage Common Symptoms Associated with COVID for Adults Fever- Fever is a temperature over 100.4 F and can occur when the body is fighting an infection. To help treat a fever: - Drink plenty of fluids and stay well hydrated. - Eat small amounts of easy to digest food. - Rest. Your body needs rest to recover, but getting up and moving around the house frequently is a good idea. You should try to continue doing your normal daily activities (bathing, toileting, grooming, cooking), though you will probably feel tired, and need to rest often. - Avoid any heavy activity or exercise, as this will increase your body temperature. - Dress in ligh (more content not included)... [facility] COVID w FLU A+B Routon 03-03 Influenza A PCR Negative [facility] Comment on above: Performed By: #### C OVFLU #### [place] [address] Influenza B PCR Negative [facility] Comment on above: Performed By: #### C OVFLU #### [place] [address] SARS-CoV-2 (COVID-19) RNA MAXIME+probe Ql (Unsp spec) UPPER RESPIRATORY TRACT SWAB Normal [facility] Comment on above: Performed By: #### C OVFLU #### [place] [address] SARS-CoV-2 (COVID-19) RNA MAXIME+probe Ql (Unsp spec) Negative for COVID19 (SARS CoV2) by RT-PCR or equivalent method. Normal Negative for COVID19 (SARS CoV2) by RT-PCR or equivalent method. [facility] Comment on above: Result Comment: This test was developed and its performance characteristics determined by [facility] [place]. This test has been authorized by FDA under an Emergency Use Authorization (EUA). This test has been validated in accordance with the FDA's Guidance Document Policy for Diagnostics Testing in Laboratories Certified to Perform High Complexity Testing under CLIA prior to Emergency use Authorization for Coronavirus Disease 2019 during the Public Health Emergency issued on May 05, 2019. Test performed by [facility], [facility] [place], [address] [place] [address]. Performed By: #### C OVFLU #### [place] [address] [place] ARTHR/ASP/INJ MAJOR JT/BU RSA RT WO USOrdered By: Tarah Marks on 01-07-2021 Patient Name: DANIEL CURIEL Fluoroscopy ACCESSION EXAM DATE/TIME PROCEDURE ORDERING PROVIDER [id number] 01/07/2021 12:28 EDT RF Arthrogram Aspir Padmini MARKS MD, TARAH Webster Right CPT code 74576 [id number] Reason For Exam (RF Arthrogram Aspir Inj Carlos Alberto Jt Right) Right hip pain Report CLINICAL HISTORY: Right sided hip pain. Procedures: Fluoroscopic guided right hip arthrogram. Physician: Dr. Timmons MEDICATIONS: Local lidocaine EBL: Minimal. Contrast: 0.1 mL gadolinium Specimen sent: None COMPLICATIONS: None Fluoroscopy time: 0.3 minutes Angiographic runs: 0 Fluoroscopic spot images: 0 Fluoroscopic saved images were obtained. These images do NOT add additional exposure to ionizing radiation and were captured electronically from the imaging chain. Procedural details: All of the risk, benefits, and alternative treatments were explained to the patient and informed consent was obtained and documented. The patient was brought into the fluoroscopy suite and placed in a supine position. The patient's right hip was interrogated with fluoroscopy and a suitable site for the hip injection was identified. The femoral artery and vein were palpated and their location was marked. The overlying skin was then prepped and draped in the usual sterile fashion. The overlying subcutaneous tissues were anesthetized using 2 percent lidocaine. Under intermittent fluoroscopic guidance, a 20-gauge needle was advanced into the right hip joint. Injection of contrast confirmed position within the hip joint. A mixture of lidocaine, saline, and gadolinium was then injected under periodic fluoroscopic visualization. There was expected opacification of the right hip joint. The needle was then removed and hemostasis was obtained using manual pressure. The patient tolerated the procedure well. Fluoroscopy Report FINDINGS: Needle tip within right hip joint IMPRESSION: Successful uncomplicated fluoroscopic guided right hip arthrogram. Preprocedural pain level: 3/10 Postprocedure pain level: 0/10 Report Dictated on --- Final --- Dictated: 01/07/2021 2:07 pm Dictating Physician: MD IAIN, JANET HARPER Signed Date and Time: 01/07/2021 3:28 pm Signed by: MD TIMMONS YUN ROBERT Transcribed Date and Time: 01/07/2021 3:24 [facility]: Dario Maciel Incoming Radiology Results From [facility] - 01/07/2021 3:29 PM EDT Patient Name: DANIEL CURIEL Fluoroscopy ACCESSION EXAM DATE/TIME PROCEDURE ORDERING PROVIDER [id number] 01/07/2021 12:28 EDT RF Arthrogram Aspir Padmini MARKS MD, TARAH Carcamo Jt Right CPT code [id number] Reason For Exam (RF Arthrogram Aspir Inj Carlos Alberto Jt Right) Right hip pain Report CLINICAL HISTORY: Right sided hip pain. Procedures: Fluoroscopic guided right hip arthrogram. Physician: Dr. Timmons MEDICATIONS: Local lidocaine EBL: Minimal. Contrast: 0.1 mL gadolinium Specimen sent: None COMPLICATIONS: None Fluoroscopy time: 0.3 minutes Angiographic runs: 0 Fluoroscopic spot images: 0 Fluoroscopic saved images were obtained. These images do NOT add additional exposure to ionizing radiation and were captured electronically from the imaging chain. Procedural details: All of the risk, benefits, and alternative treatments were explained to the patient and informed consent was obtained and documented. The patient was brought into the fluoroscopy suite and placed in a supine position. The patient's right hip was interrogated with fluoroscopy and a suitable site for the hip injection was identified. The femoral artery and vein were palpated and their location was marked. The overlying skin was then prepped and draped in the usual sterile fashion. The overlying subcutaneous tissues were anesthetized using 2 percent lidocaine. Under intermittent fluoroscopic guidance, a 20-gauge needle was advanced into the right hip joint. Injection of contrast confirmed position within the hip joint. A mixture of lidocaine, saline, and gadolinium was then injected under periodic fluoroscopic visualization. There was expected opacification of the right hip joint. The needle was then removed and hemostasis was obtained using manual pressure. The patient tolerated the procedure well. Fluoroscopy Report FINDINGS: Needle tip within right hip joint IMPRESSION: Successful uncomplicated fluoroscopic guided right hip arthrogram. Preprocedural pain level: 3/10 Postprocedure pain level: 0/10 Report Dictated on --- Final --- Dictated: 01/07/2021 2:07 pm Dictating Physician: MD IAIN, JANET HARPER Signed Date and Time: 01/07/2021 3:28 pm Signed by: MD TIMMONS YUN ROBERT Transcribed Date and Time: 01/07/2021 3:24 [facility] Work Phone: [facility] Work Phone: MRI Low Ext Joint w/ Contras t Righton 01-07-2021 MRI Low Ext Joint w/ Contrast Right Patient Name: DANIEL CURIEL Magnetic Resonance Imaging ACCESSION EXAM DATE/TIME PROCEDURE ORDERING PROVIDER [id number] 01/07/2021 12:14 EDT MRI Low Ext Joint w/ MD GARY, TARAH Neri Right CPT code 16154 Reason For Exam (MRI Low Ext Joint w/ Contrast Right) pain of right hip joint M25.551 Report Exam Type: MRI Low Ext Joint w/ Contrast Right Exam Date and Time: 01/07/2021 12:14 PM EDT Demographics: Gender: Male; Age: 60 years Indication: Pain; Comparison: None available TECHNIQUE: MRI of the right hip was performed in three planes (axial, sagittal, and coronal) following the intra-articular instillation of gadolinium-based contrast solution. FINDINGS: RIGHT HIP JOINT: Contrast adequately distends the joint space. Labrum: Nondisplaced articular sided tear of the anterior and superior labrum (images 8-16 series 1101, images 16-20 series 1001, and images 8-9 series 601). No displaced labral tear. Cartilage: Chondral fissuring within the anterior quadrant, at the approximate 12:30-1:30 position with underlying intraosseous/subart icular cystic change. Otherwise no focal or full-thickness chondral defect. Femoroacetabular impingement (MACARENA): No CAM or pincer-type femoroacetabular impingement morphology. Normal alpha angle measuring 47 degrees. The lateral center edge angle measures 28 degrees. Normal acetabular anteversion. No hip dysplasia. Ligamentum teres: Intact. OSSEOUS STRUCTURES: Alignment is anatomic. No acute fracture; no stress fracture. No avascular necrosis in the right femoral head. No suspicious osseous lesions. TENDONS and BURSAE: Rectus femoris tendon origin: Intact without tendinosis or tear. Iliopsoas tendon: Intact without tendinosis or tear. Hamstring tendon origins: Intact without tendinosis or tear. Gluteal tendons: Intact without tendinosis or tear. Bursae: No greater trochanteric bursitis. No iliopsoas bursitis. MUSCLES: No muscle atrophy or muscle strains. Magnetic Resonance Imaging Report OTHER: Ischiofemoral fossa: No narrowing of the ischiofemoral space. No edema in the quadratus femoris muscle. Pelvic viscera (only partially imaged): Unremarkable. IMPRESSION: 1. Nondisplaced articular sided tear of the anterior and superior labrum. 2. Chondral fissuring within the anterior quadrant, at the approximate 12:30-1:30 position with underlying intraosseous/subart icular cystic change. Report Dictated on Final Dictated: 01/08/2021 9:43 am Dictating Physician: MD KHAN JASON Signed Date and Time: 01/08/2021 9:53 am Signed by: MD KHAN JASON Transcribed Date and Time: 01/08/2021 9:43 Normal [facility] RF Arthrogram Aspir Inj Carlos Alberto Jt Righton 01-07-2021 RF Arthrogram Aspir Inj Carlos Alberto Jt Right Patient Name: DANIEL CURIEL Fluoroscopy ACCESSION EXAM DATE/TIME PROCEDURE ORDERING PROVIDER [id number] 01/07/2021 12:28 EDT RF Arthrogram Aspir Padmini MARKS MD, TARAH Bauer Carlos Alberto Jt Right CPT code [id number] Reason For Exam (RF Arthrogram Aspir Inj Carlos Alberto Jt Right) Right hip pain Report CLINICAL HISTORY: Right sided hip pain. Procedures: Fluoroscopic guided right hip arthrogram. Physician: Dr. Timmons MEDICATIONS: Local lidocaine EBL: Minimal. Contrast: 0.1 mL gadolinium Specimen sent: None COMPLICATIONS: None Fluoroscopy time: 0.3 minutes Angiographic runs: 0 Fluoroscopic spot images: 0 Fluoroscopic saved images were obtained. These images do NOT add additional exposure to ionizing radiation and were captured electronically from the imaging chain. Procedural details: All of the risk, benefits, and alternative treatments were explained to the patient and informed consent was obtained and documented. The patient was brought into the fluoroscopy suite and placed in a supine position. The patient's right hip was interrogated with fluoroscopy and a suitable site for the hip injection was identified. The femoral artery and vein were palpated and their location was marked. The overlying skin was then prepped and draped in the usual sterile fashion. The overlying subcutaneous tissues were anesthetized using 2 percent lidocaine. Under intermittent fluoroscopic guidance, a 20-gauge needle was advanced into the right hip joint. Injection of contrast confirmed position within the hip joint. A mixture of lidocaine, saline, and gadolinium was then injected under periodic fluoroscopic visualization. There was expected opacification of the right hip joint. The needle was then removed and hemostasis was obtained using manual pressure. The patient tolerated the procedure well. Fluoroscopy Report FINDINGS: Needle tip within right hip joint IMPRESSION: Successful uncomplicated fluoroscopic guided right hip arthrogram. Preprocedural pain level: 3/10 Postprocedure pain level: 0/10 Report Dictated on Final Dictated: 01/07/2021 2:07 pm Dictating Physician: MD TIMMONS YUN ROBERT Signed Date and Time: 01/07/2021 3:28 pm Signed by: MD TIMMONS YUN ROBERT Transcribed Date and Time: 01/07/2021 3:24 Normal [facility] Clinical Summary: HMSPatient IDon 07-25-2017 OOP Invalid Interpretation Code [facility] Work Phone: Office Visit: Postop - subse quent visit, Rm: 15on 07-25-2017 NEGATED: Highlighted rowDocumentation of current medications (procedure) Done Invalid Interpretation Code [facility] [facility] Work Phone: NEGATED: Highlighted rowxray history of the foot on 04/25/2017 at [facility] Invalid Interpretation Code [facility] Work Phone: Vital Signs Date Time Vital Sign Value Performing Clinician Facility 02-21-2023 11:19-0500 Body height 172.[address] Torsten Hyman Work Phone: [facility] 02-21-2023 11:19-0500 Body mass index (BMI) [Ratio] 29.3 kg/m2 Dr. Torsten Hyman Work Phone: [facility] 02-21-2023 11:19-0500 Body weight 87.[address] Torsten Hyman Work Phone: [facility] 02-21-2023 11:19-0500 Diastolic blood pressure 80 mm[Hg] Dr. Torsten Hyman Work Phone: [facility] 02-21-2023 11:19-0500 Heart rate 83 /min Dr. Torsten Hyman Work Phone: [facility] 02-21-2023 11:19-0500 Respiratory rate 18 /min Dr. Torsten Hyman Work Phone: [facility] 02-21-2023 11:19-0500 Systolic blood pressure 122 mm[Hg] Dr. Torsten Hyman Work Phone: [facility] 08-30-2022 09:50-0400 Body height 172.[address] Torsten Hyman Work Phone: [facility] 08-30-2022 09:50-0400 Body mass index (BMI) [Ratio] 29.3 kg/m2 Dr. Torsten Hyman Work Phone: [facility] 08-30-2022 09:50-0400 Body weight 87.[address] Torsten Hyman Work Phone: [facility] 08-30-2022 09:50-0400 Diastolic blood pressure 81 mm[Hg] Dr. Torsten Hyman Work Phone: [facility] 08-30-2022 09:50-0400 Heart rate 90 /min Dr. Torsten Hyman Work Phone: [facility] 08-30-2022 09:50-0400 Respiratory rate 16 /min Dr. Torsten Hyman Work Phone: [facility] 08-30-2022 09:50-0400 Systolic blood pressure 131 mm[Hg] Dr. Torsten Hyman Work Phone: [facility] NEGATED: Highlighted [id number] 08:48-0400 BMI (Body Mass Index) 30.21 kg/m2 [facility] Work Phone: NEGATED: Highlighted [id number] 08:48-0400 BP Diastolic 74 mm[Hg] [facility] SOFTWARE DEVELOPER MANAGER [facility] Work Phone: NEGATED: Highlighted [id number] 08:48-0400 BP Systolic 113 mm[Hg] [facility] Work Phone: NEGATED: Highlighted [id number] 08:48-0400 Height 172.72 cm [facility] Work Phone: NEGATED: Highlighted [id number] 08:48-0400 Height 173 cm [facility] SOFTWARE DEVELOPER MANAGER [facility] Work Phone: NEGATED: Highlighted [id number] 08:48-0400 Pulse (Heart Rate) 77 /min [facility] SOFTWARE DEVELOPER MANAGER [facility] Work Phone: NEGATED: Highlighted [id number] 08:48-0400 Weight 89.81 kg [facility] Work Phone: NEGATED: Highlighted [id number] 08:48-0400 Weight 90 kg [facility] Work Phone: Encounters Encounter Date Encounter Type Care Provider Facility Start: 01-01-2025 End: 01-01-2025 ambulatory Torsten Hyman Facility:[facility] Start: 07-04-2024 End: 07-04-2024 ambulatory Orlando Quinones NP Facility:[facility] Start: 02-23-2023 End: 02-23-[address] Torsten Hyman Work Phone: [facility] Work Phone: Start: 02-23-2023 End: 02-23-[address] [facility]: Start: 02-21-2023 End: 02-21-[address] Torsten Hyman Work Phone: [facility] Work Phone: Start: 10-08-2022 Non-patient / Non-visit Dr. Cong Hyman Work Phone: [facility] Work Phone: Start: 10-06-2022 Non-patient / Non-visit Dr. Cong Hyman Work Phone: [facility] Start: 10-06-2022 End: 10-06-[address] Torsten Hyman Work Phone: [facility] Work Phone: Start: 10-06-2022 End: 10-06-[address] [facility] Work Phone: Start: 08-30-2022 End: 08-30-[address] Torsten Hyman Work Phone: [facility] Work Phone: Start: 08-21-2021 End: 08-21-2021 [facility] Start: 01-20-2021 Patient encounter status [facility] Start: 01-07-2021 End: 01-07-2021 Subsequent hospital visit by physician Tarah Marks MD Work Phone: [facility] Comment on above: Arrived Start: 07-25-2017 End: 07-25-2017 Patient encounter procedure Bereket Maradiaga MD Work Phone: [facility] Work Phone: Procedures Date Procedure Procedure Detail Performing Clinician Start: 10-06-2022 Radionuclide imaging of perfusion of myocardium under exercise stress Dr. Torsten Hyman Work Phone: Start: 01-07-2021 Arthrocentesis aspir&/inj major jt/bursa w/o us Tarah Marks MD Work Phone: Start: 07-25-2017 End: 07-25-2017 Blood pressure within normal parameters - no follow-up required Bereket Maradiaga MD Work Phone: Start: 07-25-2017 End: 07-25-2017 BMI outside of normal parameters - no follow-up plan/reason not given Bereket Maradiaga MD Work Phone: Start: 07-25-2017 End: 07-25-2017 Current medications documented Bereket Maradiaga MD Work Phone: Start: 07-25-2017 End: 07-25-2017 Pain assessment documented as negative - follow-up not required Bereket Maradiaga MD Work Phone: Start: 07-25-2017 End: 07-25-2017 Tobacco non-user Bereket Maradiaga MD Work Phone: Start: 05-05-2017 History of placement of stent for coronary artery disease History of coronary artery stent placement Plan of Treatment Date Care Activity Detail Author Start: 07-25-2017 End: 07-25-2017 Appointment Appointment [facility] Work Phone: Start: 07-25-2017 End: 07-25-2017 X-ray exam of foot XR FOOT 3+ VWS-LT [facility] Work Phone: Start: 05-11-2015 DTaP/Tdap/Td vaccine (1 - Tdap) DTaP/Tdap/Td vaccine (1 - Tdap) [facility] Work Phone: Start: 06-02-2011 Shingles Vaccine (1 of 2) Shingles Vaccine (1 of 2) [facility] Work Phone: Start: 2006 Screening for malign ant neoplasm of colon Colon cancer screen colonoscopy [facility] Work Phone: Start: 2001 Lipid panel Lipid screen [facility] Work Phone: Start: 1976 HIV screening HIV screen [facility] Work Phone: Start: 1973 COVID-19 Vaccine (1) COVID-19 Vaccin e (1) [facility] Work Phone: Start: 1961 Hepatitis C screening Hepatitis C sc reen [facility] Work Phone: End: 01-07-2021 MRI LOWER EXTREMITY RIGHT W JT W CONTRAST MRI LOWER EXTREMITY RIGHT W JT W CONTRAST Imaging Routine Once for 1 Occurrences starting 01/07/2021 until 01/07/2021 [facility] Work Phone: Comment on above: Once for 1 Occurrenc es starting 01/07/2021 until 01/07/2021 MRI LOWER EXTREMITY RIGHT W JT W CONTRAST MRI LOWER EXTREMITY RIGHT W JT W CONTRAST Imaging Routine 01/07/2021 11:20 AM EDT [facility] Work Phone: Nuclear Ab [Presence ] in Serum [facility] Work Phone: Immunizations Immunization Date Immunization Notes Care Provider Fa cililauren 12-14-2017 Influenza virus vaccine [facility] 01-19-2017 influenza, injectabl e, quadrivalent, preservative free Dr. Torsten Hyman Work Phone: [facility] 01-19-2017 influenza, seasonal, injectable [facility] 05-10-2015 tetanus and diphther ia toxoids, adsorbed, preservative free, for adult use (2 Lf of tetanus toxoid and 2 Lf of diphtheria toxoid) [facility] No information available. Arian Hager LPN [facility] Work Phone: Payers Date Payer Category Payer Self-pay [id number] 2023 Unknown [id number] Private Health Insurance [id number] Unknown [id number] Unknown [facility] PACKAGE PLAN [id number] Unknown [id number] Unknown [id number] Social History Date Type Detail Facility Start: 01-20-2021 End: 02-21-2023 Assertion Unknown if ever smoked [facility] Work Phone: Start: 1960 Sex Assigned At Not on file [facility] Work Phone: Start: 07-16-2020 Rare [facility] Start: 07-16-2020 None [facility] Start: 07-16-2020 Non-smoker [facility] Start: 1960 Sex Assigned At Male [facility] Medical Equipment Procedure Code Equipment Code Equipment Original Text Equipment Identifier Dates Laparoscopic-assisted sigmoidectomy CALE THORNTON LG FDA Start: 05-16-2019 Laparoscopic-assisted sigmoidectomy RELOAD,GOLD 60 FDA Start: 05-16-2019 Laparoscopic-assisted sigmoidectomy STAPLER,INTRA [id number] ETHICON FDA Start: 05-16-2019 Laparoscopic-assisted sigmoidectomy CLIPCALE LG FDA Start: 05-16-2019 Laparoscopic-assisted sigmoidectomy RELOAD,GOLD 60 FDA Start: 05-16-2019 Laparoscopic-assisted sigmoidectomy STAPLER,INTRA [id number] ETHICON FDA Start: 05-16-2019 Laparoscopic-assisted sigmoidectomy CLIPCALE LG FDA Start: 05-16-2019 Laparoscopic-assisted sigmoidectomy RELOAD,GOLD 60 FDA Start: 05-16-2019 Laparoscopic-assisted sigmoidectomy STAPLER,INTRA [id number] ETHICON FDA Start: 05-16-2019 Progress note 03-03-2021 Note Date & Type Note Facility 03-03-2021 Note HNO ID: [id number] Author: Yvonne Osborne APRN.[employer] Service: ? Author Type: Nurse Practitioner Type: Progress Notes Filed: 03/03/2021 6:01 PM Note Text: Subjective The history is provided by the patient and the spouse. No speech language specialist was used. HPI Daniel Curiel is a 60 year old male who presents today for CC of runny nose, sore throat and body aches for one day. Symptoms include: Fever (?100.4F): No or Chills: No Cough: No Shortness of breath: No or Difficulty breathing: No Fatigue: Yes Muscle aches: Yes Headache: No New loss of smell or taste: No Sore throat: Yes Nasal congestion: Yes or Rhinorrhea: Yes Nausea: No or Vomiting: No Diarrhea: No OTC meds/remedies that patient has tried: none used. High risk category assessment Chronic lung disease Exposures: Sick contacts? Yes Family or close contacts with confirmed/probable COVID-19 in last 14 days? Yes BP 140/80 Pulse 98 Temp 36.6 ?C (97.9 ?F) Resp 16 Wt 86.6 kg (191 lb) SpO2 96% BMI 29.04 kg/m? Social History Tobacco Use - Smoking status: Never Smoker - Smokeless tobacco: Never Used Substance Use Topics - Alcohol use: No - Drug use: No PAST MEDICAL HISTORY Diagnosis Date - Asthma - Chronic back pain after injury long ago - Environmental allergies - GERD (gastroesophageal reflux disease) - Sciatica I have confirmed and edited as necessary, the [facility] Review of Systems Constitutional: Positive for malaise/fatigue. Negative for chills and fever. HENT: Positive for congestion and sore throat. Negative for ear pain and sinus pain. Respiratory: Negative for cough, sputum production, shortness of breath and wheezing. Cardiovascular: Negative for chest pain. Gastrointestinal: Negative for abdominal pain, diarrhea, nausea and vomiting. Musculoskeletal: Positive for myalgias. Neurological: Negative for headaches. Objective Physical Exam Vitals and nursing note reviewed. HENT: Head: Normocephalic and atraumatic. Right Ear: Tympanic membrane, ear canal and external ear normal. Left Ear: Tympanic membrane, ear canal and external ear normal. Nose: No mucosal edema or rhinorrhea. Right Sinus: No maxillary sinus tenderness or frontal sinus tenderness. Left Sinus: No maxillary sinus tenderness or frontal sinus tenderness. Mouth/Throat: Pharynx: Uvula midline. No oropharyngeal exudate or posterior oropharyngeal erythema. Tonsils: No tonsillar abscesses. Cardiovascular: Rate and Rhythm: Normal rate and regular rhythm. Heart sounds: Normal heart sounds. Pulmonary: Effort: Pulmonary effort is normal. Breath sounds: Wheezing (occasional scattered) present. No decreased breath sounds, rhonchi or rales. Lymphadenopathy: Head: Right side of head: No submental, submandibular, tonsillar or preauricular adenopathy. Left side of head: No submental, submandibular, tonsillar or preauricular adenopathy. Cervical: No cervical adenopathy. Right cervical: No superficial cervical adenopathy. Left cervical: No superficial cervical adenopathy. ASSESSMENT/PLAN: 1. Suspected COVID-19 virus infection - ICD9: V01.79, ICD10: Z20.822 (primary diagnosis) Home isolation Testing ordered Comfort measures discussed - see patient instructions. When to seek higher level of care Notified in 24-48 hours with results, available on [employer] - COVID WITH FLUA+B, ROUTINE 2. Upper respiratory symptom - ICD9: 786.9, ICD10: R09.89 3. Wheezing - ICD9: 786.07, ICD10: R06.2 Prednisone rx printed will use if wheezing increases or using albuterol frequently Diagnosis and treatment plan were discussed and questions were answered to the patient's satisfaction. Pt acknowledged understanding of concepts and follow up plan. Specific signs and symptoms that would indicate the need for higher level of care were discussed in detail warranting prompt ER evaluation. Yvonne Osborne APRN.[facility] Evaluation note 05-05-2017 Note Date & Type Note Facility 05-05-2017 Evaluation note Diagnosis Onset Date Dyspnea on exertion acute Essential (primary) hypertension chronic History of coronary artery stent placement May 05, [facility] Work Phone: Evaluation note Note Date & Type Note Facility Evaluation note No assessment information availa [facility] Work Phone: Advance Directives No Advanced Directives Records Found Advance Directive Response Recorded Date/ Time Advance Directives Yes November 9:08am Living Will Yes November 29, 2019 9:08am Power of Finance Director Yes November 9:08am Advance Directive Response Recorded Date/ Time Advance Directives Yes November 8:08am Living Will Yes November 29, 2019 8:08am Power of Finance Director Yes November 8:08am Assessments There may be information available, but it has not been provided by the sender. Review of System There may be information available, but it has not been provided by the sender. Family History No Family History Records Found Relationship Condition Age at Onset Recorded Date/T tash Not Specified Adopted Unknown Summary Purpose Chief Complaint and Reason for Visit Chief Complaint 7 M FU CP, CAD HX, SOB CP, CAD HX, SOB Amb Documentation Reason for Visit Dyspnea on exertion Essential (primary) hypertension History of coronary artery stent placement Chief Complaint 7 M FU INT LABS Reason for Visit Dyspnea on exertion Essential (primary) hypertension History of coronary artery stent placement Additional Source Comments (unrecognized sect ion and content) No Status Records FoundNo Status Records FoundNo Status Records Found INFORMATION SOURCE (unrecogn ized section and content) DATE CREATED AUTHOR 01/08/2021 [facility] DATE CREATED AUTHOR AUTHOR'S ORGANIZ ATION 05/28/2021 [facility] DATE CREATED AUTHOR AUTHOR'S ORGANIZ ATION 01/02/2025 [facility] Goals (unrecognized section and content) Goals may be documented in a n alternate sectionGoals may be documented in an alternate sectionGoals may be documented in an alternate section Care Teams (unrecognized sec tion and content) Team Status: Active Member Role Status Dates Dr. Torsten Hyman MD Primary Care Provider Active Team Status: Inactive Member Role Status Dates Dr. Torsten Hyman MD Primary Care Provider, Referring P nolberto Active Orlando Quinones CASTING MACHINE OPERATOR AUTOMATIC, CASTING MACHINE OPERATOR AUTOMATIC-C Attending Provider Active Team Status: Active Member Role Status Dates Dr. Torsten Hyman MD Primary Care Provider Active Orlando Quinones NP, CASTING MACHINE OPERATOR AUTOMATIC-C Referring Provider, Other Provide r Active Dr. Star Drummond MD Attending Provider Active Team Status: Active Member Role Status Dates Dr. Torsten Hyman MD Primary Care Provider Active Orlando Quinones NP, CASTING MACHINE OPERATOR AUTOMATIC-C Attending Provider Active Team Status: Inactive Member Role Status Dates Dr. Torsten Hyman MD Primary Care Provider Active Orlando H Roof CASTING MACHINE OPERATOR AUTOMATIC, CASTING MACHINE OPERATOR AUTOMATIC-C Attending Provider, Referring Pro vider Active FOR RECORDS PERTAINING TO PATIENTS WHO ARE OR HAVE BEEN ENROLLED IN A CHEMICAL DEPENDENCY/SUBSTANCEABUSE PROGRAM, SOME INFORMATION MAY BE OMITTED. This clinical summary was aggregated from multiple sources. Caution should be exercised in using it in the provision of clinical care. This summary normalizes information from multiple sources, and as a consequence, information in this document may materially change the coding, format and clinical context of patient data. In addition, data may be omitted in some cases. CLINICAL DECISIONS SHOULD BE BASED ON THE PRIMARY CLINICAL RECORDS. [facility]. provides no warranty or guarantee of the accuracy or completeness of information in this document.
== END | disposition home or self-care (01) ==
LOC: LAB 13:28
PROVIDERS: PCP Family Medicine; Referring Provider Student in an Organized Health Care Education/Training Program; Visit Provider Student in an Organized Health Care Education/Training Program
DX: I25.10 Atherosclerotic heart disease of native coronary artery without angina pectoris (principal)
CPT/HCPCS: 36415; 80061; 80076